=== PATIENT | male | born 1935 | race Caucasian/White ===

== ENCOUNTER → 2017-07-07 | Outpatient (CLI) | payer MEDICARE, BC ==
[2017-07-07 13:47] LABS: Basophils % (A) 1 %; CHCM 32.1; Eosinophils # (A) 0.4 k/uL (0-0.7); Eosinophils % (A) 6 %; HCT 38.3 % (39.0-53.0); HDW 2.56; HGB 12.2 gm/dL (13.0-17.5); Luc # (Auto) 0.11; Luc % (Auto) 2; Lymphocytes # (A) 1.2 k/uL (1.0-4.8); Lymphocytes % (A) 17 %; MCH 29.9 pg (25.0-35.0); MCHC 31.8 g/dL (31.0-37.0); MCV 94.1 fL (80.0-100.0); Mean Platelet Volume 9.5; Monocytes # (A) 0.4 k/uL (0-1.0); Monocytes % (A) 6 %; Neutrophils % (A) 70 %; RBC 4.07 m/uL (4.30-5.90); RDW 15.1 % (11.5-15.5); WBC 7.2 k/uL (3.8-10.6); WBC (Perox) 7.47
[2017-07-07 14:01] LABS: ALT 34 U/L (21-72); AST 19 U/L (17-59); Alkaline Phosphatase 75 U/L (38-126); Anion Gap 10 mmol/L; Blood Urea Nitrogen 26 mg/dL (9-20); Calcium 9.2 mg/dL (8.4-10.2); Carbon Dioxide 26 mmol/L (22-30); Chloride 110 mmol/L (98-107); Cholesterol 119 mg/dL (<200); Glucose 94 mg/dL (74-99); HDL Cholesterol 38 mg/dL (40-60); Non-African American GFR(MDRD) 53 (>60 ml/min/1.73 sqM); Potassium 4.8 mmol/L (3.5-5.1); Sodium 146 mmol/L (137-145); Total Bilirubin 0.5 mg/dL (0.2-1.3); Total Protein 7.2 g/dL (6.3-8.2)
[2017-07-07 14:50] LABS: Vitamin B12 430 pg/mL
--- NOTE | 2017-07-07 17:13 | CT ---
EXAMINATION TYPE: CT angio thoracic/abd aorta DATE OF EXAM: 07/07/2017 COMPARISON: 04/23/2013 HISTORY: Sati677/80ml. Follow up AAA CT DLP: 3190.4 mGycm. Automated Exposure Control for Dose Reduction was Utilized. CONTRAST: CT scan of the thorax, abdomen and pelvis is performed with IV Contrast, patient injected with 80 mL of Visipaque 320. FINDINGS: The ascending thoracic aorta at the level the main pulmonary artery is 4.2 cm. The main pulmonary art marixa the bifurcation is 3.6 cm. Vascular calcification is within the aorta. The aorta tapers normally through the descending thoracic aorta. There is a stent above the renal arteries within the aorta. Renal artery takeoff is identified. Doubl e-lumen catheter is present with stents into the iliac vessels. There is a small amount high density within the thrombosed portion of the aorta. This is present on both pre and postcontrast imaging does not appear to be an endovascular leak. No extravasation of contrast is identified. There is scarring at the right lung apex. No enlarged mediastinal or hilar lymph nodes are evident. C oronary artery calcification is noted. There is diminished density within the liver evaluation of the spleen. Pancreas adrenal glands and sp tarik appear normal. Kidneys appear unremarkable. Loops of bowel without contrast are unremarkable. IMPRESSIONS: 1. No endovascular leak identified. 2. There appears to be some stable increased density within the thrombosed portion of the aorta poste rior to the stent. This is stable on both pre and postcontrast imaging was not identified on 3 is could be some calcification which is forming. Monitoring with a follow-up endovascular study is recommended.
== END | disposition home or self-care (01) ==
LOC: RADCTMAIN 13:04
PROVIDERS: ATTEND Internal Medicine
DX: I71.2 Thoracic aortic aneurysm, without rupture (principal); I10 Essential (primary) hypertension; E78.5 Hyperlipidemia, unspecified
CPT/HCPCS: 84439; 80061; 80053; 82607; 84443; 85025; 75635; 71275; 36415; Q9967

== ENCOUNTER 2017-07-30 19:18 | Inpatient (IN) | payer MEDICARE, BC ==
[2017-07-30] MEDS ORDERED: SODIUM CHLORIDE 0.9% 1,000 ML IV STA (20:24)
--- NOTE | 2017-07-30 20:30 | ED ---
Syncope HPI - General Chief Complaint: Syncope Stated Complaint: Fall Time Seen by Provider: 07/30/17 20:17 Source: patient, family, RN notes reviewed Mode of arrival: wheelchair Limitations: no limitations - History of Present Illness Initial Comments: Is a 82-year-old male with a history of cardiac stents today sent to the abdominal aorta who about 2 AM this morning was going the bathroom and passed out. He woke up on the floor he was weak and could not get a prolonged period time he fine told his daughter about this several hours ago. He is complaining of persistent dizziness no palpitations he does have some bruising to his back and his abdominal area. No focal weakness is generalized weakness. Denies any fevers chills sweats or other symptoms at this time - Related Data Home Medications Medication Instructions Recorded Confirmed Amiodarone [Cordarone] 200 mg PO DAILY 08/30/14 07/30/17 Amitriptyline HCl [Elavil] 50 mg PO HS 08/30/14 07/30/17 Celecoxib [CeleBREX] 200 mg PO DAILY 08/30/14 07/30/17 Levothyroxine Sodium [Synthroid] 50 mcg PO DAILY 08/30/14 07/30/17 Losartan/Hydrochlorothiazide 1 tab PO DAILY 08/30/14 07/30/17 [Losartan-Hctz 100-12.5 mg Tab] Metoprolol Tartrate [Lopressor] 12.5 mg PO BID 08/30/14 07/30/17 Potassium Chloride [Klor-Con 20] 20 meq PO DAILY 08/30/14 07/30/17 Simvastatin [Zocor] 20 mg PO HS 08/30/14 07/30/17 amLODIPine [Norvasc] 2.5 mg PO HS 08/30/14 07/30/17 clonazePAM [KlonoPIN] 1 mg PO HS 08/30/14 07/30/17 oxyCODONE-APAP 7.5-325MG [Percocet 1 tab PO TID PRN 08/30/14 07/30/17 7.5-325 mg] ALPRAZolam [Xanax] 0.25 mg PO BID PRN 07/30/17 07/30/17 Aspirin EC [Ecotrin] 325 mg PO HS 07/30/17 07/30/17 Gabapentin [Neurontin] 100 mg PO HS 07/30/17 07/30/17 Glucosam/Atilio-Msm1/C/Filipe/Bosw 1 tab PO DAILY 07/30/17 07/30/17 [Glucosamine-Chondroitin Tablet] Ibuprofen [Motrin] 600 mg PO Q6HR PRN 07/30/17 07/30/17 Isosorbide Mononitrate ER [Imdur] 60 mg PO DAILY 07/30/17 07/30/17 Loratadine [Claritin] 10 mg PO DAILY 07/30/17 07/30/17 Magnesium Hydroxide [Milk of 2,400 mg PO DAILY PRN 07/30/17 07/30/17 Magnesia] Allergies Allergy/AdvReac Type Severity Reaction Status Date / Time cefazolin sodium [From Ancef] Allergy Anaphylaxis Verified 07/30/17 20:43 hylan G-F 20 [From Codoon] Allergy Anaphylaxis Verified 07/30/17 20:37 Review of Systems ROS Statement: Those systems with pertinent positive or pertinent negative responses have been documented in the HPI. ROS Other: All systems not noted in ROS Statement are negative. Past Medical History Past Medical History: Atrial Fibrillation, Hyperlipidemia, Hypertension, Respiratory Disorder, Thyroid Disorder Additional Past Medical History / Comment(s): PULMONARY FIBROSIS History of Any Multi-Drug Resistant Organisms: None Reported Past Surgical History: Cholecystectomy, Heart Catheterization With Stent Additional Past Surgical History / Comment(s): UPPP. AAA REPAIR. BILAT CATARACT REMOVAL Past Anesthesia/Blood Transfusion Reactions: No Reported Reaction Date of Last Stent Placement:: 1995, Past Psychological History: No Psychological Hx Reported Smoking Status: Former smoker Past Alcohol Use History: None Reported Past Drug Use History: None Reported General Exam - General Exam Comments Initial Comments: This is a well-developed well-nourished awake alert oriented 3 male Limitations: no limitations General appearance: alert, anxious Head exam: Present: normocephalic, normal inspection, other (There is palpation of the occipital scalp. No bruising seen) Eye exam: Present: normal appearance, PERRL, EOMI. Absent: scleral icterus, conjunctival injection, periorbital swelling ENT exam: Present: normal exam, mucous membranes moist Neck exam: Present: normal inspection, tenderness (Mild tenderness palpation over left cervical paraspinous muscles no spinous process tenderness.). Absent : meningismus, lymphadenopathy Respiratory exam: Present: normal lung sounds bilaterally. Absent: respiratory distress, wheezes, rales, rhonchi, stridor Cardiovascular Exam: Present: normal rhythm, bradycardia, normal heart sounds. Absent: systolic murmur, diastolic murmur, rubs, gallop, clicks GI/Abdominal exam: Present: soft, normal bowel sounds, other (Superficial abrasion is a contusion noted over the midline to left upper anterior abdominal wall no active bleeding no formed by seen no pulsatile masses at this time no tenderness palpation over the liver or spleen.). Absent: distended, tenderness , guarding, rebound, rigid Rectal exam: Present: deferred Extremities exam: Present: normal inspection, full ROM, normal capillary refill. Absent: tenderness, pedal edema, joint swelling, calf tenderness Back exam: Present: normal inspection, other (Ecchymosis seen over the paraspinous muscles of the lower thoracic and upper lumbar region no overt spinous process tenderness no step-off no crepitation). Absent: CVA tenderness (R), CVA tenderness (L) Neurological exam: Present: alert, oriented X3, CN II-XII intact Psychiatric exam: Present: normal affect, normal mood Skin exam: Present: warm, dry, intact, normal color. Absent: rash Course Vital Signs 07/30/17 07/30/17 07/30/17 19:58 20:54 21:02 Temperature 98.0 F Pulse Rate 49 L 40 L 46 L Pulse Rate [ Bilateral] Respiratory 20 16 16 Rate Blood Pressure 142/66 129/60 161/71 O2 Sat by Pulse 95 96 95 Oximetry 07/30/17 07/30/17 21:39 22:58 Temperature Pulse Rate 26 L Pulse Rate [ 30 L Bilateral] Respiratory 16 Rate Blood Pressure 147/65 O2 Sat by Pulse 99 Oximetry - Reevaluation(s) Reevaluation #1: 07/30/17 23:32 I did reevaluate the patient on several occasions he remains awake alert oriented 3 he has a variable heart rate this. 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 EKG Findings - EKG Results: EKG: interpreted by DAVID (Sinus rhythm of 43 with marked bradycardia first- degree AV block an apparent drop beats consistent with a type II second-degree heart block the DE interval was 310 QRS 170 QT since QTC of 524/442) Medical Decision Making - Medical Decision Making I did discuss findings with the patient and his daughter on several different occasions I also discussed case with Dr. Buck De La Fuente and Dr. Lopez. Patient will be place an ICU tonight and by mouth for a pacemaker in the morning. He has maintained his blood pressure he is awake alert oriented 3 he maintains his mentation. Pacer pads are on the patient - Lab Data Result diagrams: 07/30/17 20:40 07/30/17 20:40 Lab Results 07/30/17 07/30/17 07/30/17 Range/Units 20:40 20:40 20:40 WBC 6.9 (3.8-10.6) k/uL RBC 3.61 L (4.30-5.90) m/uL Hgb 10.8 L (13.0-17.5) gm/dL Hct 33.0 L (39.0-53.0) % MCV 91.6 (80.0-100.0) fL MCH 30.1 (25.0-35.0) pg MCHC 32.8 (31.0-37.0) g/dL RDW 15.4 (11.5-15.5) % Plt Count 167 (150-450) k/uL Neutrophils % 69 % Lymphocytes % 16 % Monocytes % 7 % Eosinophils % 6 % Basophils % 1 % Neutrophils # 4.7 (1.3-7.7) k/uL Lymphocytes # 1.1 (1.0-4.8) k/uL Monocytes # 0.5 (0-1.0) k/uL Eosinophils # 0.4 (0-0.7) k/uL Basophils # 0.1 (0-0.2) k/uL PT (9.0-12.0) sec INR (<1.2) APTT (22.0-30.0) sec Sodium 143 (137-145) mmol/L Potassium 4.7 (3.5-5.1) mmol/L Chloride 111 H (98-107) mmol/L Carbon Dioxide 23 (22-30) mmol/L Anion Gap 9 mmol/L BUN 36 H (9-20) mg/dL Creatinine 1.45 H (0.66-1.25) mg/dL Est GFR (MDRD) Af Amer 56 (>60 ml/min/1.73 sqM) Est GFR (MDRD) Non-Af 46 (>60 ml/min/1.73 sqM) Glucose 96 (74-99) mg/dL Calcium 8.6 (8.4-10.2) mg/dL Magnesium 2.2 (1.6-2.3) mg/dL Total Bilirubin 0.1 L (0.2-1.3) mg/dL AST 29 (17-59) U/L ALT 55 (21-72) U/L Alkaline Phosphatase 74 (38-126) U/L Total Creatine Kinase 96 (55-170) U/L CK-MB (CK-2) 1.0 (0.0-2.4) ng/mL CK-MB (CK-2) Rel Index 1.0 Troponin I 0.031 (0.000-0.034) ng/mL Total Protein 6.8 (6.3-8.2) g/dL Albumin 3.5 (3.5-5.0) g/dL Urine Color Urine Appearance (Clear) Urine pH (5.0-8.0) Ur Specific [place] (1.001-1.035) Urine Protein (Negative) Urine Glucose (UA) (Negative) Urine Ketones (Negative) Urine Blood (Negative) Urine Nitrite (Negative) Urine Bilirubin (Negative) Urine Urobilinogen (<2.0) mg/dL Ur Leukocyte Esterase (Negative) 07/30/17 07/30/17 Range/Units 20:40 22:00 WBC (3.8-10.6) k/uL RBC (4.30-5.90) m/uL Hgb (13.0-17.5) gm/dL Hct (39.0-53.0) % MCV (80.0-100.0) fL MCH (25.0-35.0) pg MCHC (31.0-37.0) g/dL RDW (11.5-15.5) % Plt Count (150-450) k/uL Neutrophils % % Lymphocytes % % Monocytes % % Eosinophils % % Basophils % % Neutrophils # (1.3-7.7) k/uL Lymphocytes # (1.0-4.8) k/uL Monocytes # (0-1.0) k/uL Eosinophils # (0-0.7) k/uL Basophils # (0-0.2) k/uL PT 10.4 (9.0-12.0) sec INR 1.0 (<1.2) APTT 24.6 (22.0-30.0) sec Sodium (137-145) mmol/L Potassium (3.5-5.1) mmol/L Chloride (98-107) mmol/L Carbon Dioxide (22-30) mmol/L Anion Gap mmol/L BUN (9-20) mg/dL Creatinine (0.66-1.25) mg/dL Est GFR (MDRD) Af Amer (>60 ml/min/1.73 sqM) Est GFR (MDRD) Non-Af (>60 ml/min/1.73 sqM) Glucose (74-99) mg/dL Calcium (8.4-10.2) mg/dL Magnesium (1.6-2.3) mg/dL Total Bilirubin (0.2-1.3) mg/dL AST (17-59) U/L ALT (21-72) U/L Alkaline Phosphatase (38-126) U/L Total Creatine Kinase (55-170) U/L CK-MB (CK-2) (0.0-2.4) ng/mL CK-MB (CK-2) Rel Index Troponin I (0.000-0.034) ng/mL Total Protein (6.3-8.2) g/dL Albumin (3.5-5.0) g/dL Urine Color Yellow Urine Appearance Clear (Clear) Urine pH 5.0 (5.0-8.0) Ur Specific [place] 1.012 (1.001-1.035) Urine Protein Negative (Negative) Urine Glucose (UA) Negative (Negative) Urine Ketones Negative (Negative) Urine Blood Negative (Negative) Urine Nitrite Negative (Negative) Urine Bilirubin Negative (Negative) Urine Urobilinogen <2.0 (<2.0) mg/dL Ur Leukocyte Esterase Negative (Negative) - Radiology Data Radiology results: report reviewed (I did review the imaging and reports no evidence of acute findings on CAT scan or x-rays.), image reviewed Critical Care Time Critical Care Time: Yes Critical Care Time: 37 minutes of critical care time which includes initial monitoring with the history physical labs x-rays. Multiple reevaluation of the patient. Discussion with multiple physicians. Discussed with patient family. Documentation above review of old charting and admission orders. Disposition Clinical Impression: Syncope and collapse, Second degree heart block Disposition: ADMITTED IP TO THIS [facility] Condition: Serious Referrals: Galileo Rangel MD [STAFF PHYSICIAN] - 1-2 days
[2017-07-30 21:00] LABS: Basophils # (A) 0.1 k/uL (0-0.2); Basophils % (A) 1 %; CH 29.8; CHCM 32.8; Eosinophils # (A) 0.4 k/uL (0-0.7); Eosinophils % (A) 6 %; HDW 2.73; HGB 10.8 gm/dL (13.0-17.5); Luc % (Auto) 2; Lymphocytes # (A) 1.1 k/uL (1.0-4.8); Lymphocytes % (A) 16 %; MCH 30.1 pg (25.0-35.0); MCHC 32.8 g/dL (31.0-37.0); MCV 91.6 fL (80.0-100.0); Mean Platelet Volume 8.3; Monocytes # (A) 0.5 k/uL (0-1.0); Monocytes % (A) 7 %; Neutrophils # (A) 4.7 k/uL (1.3-7.7); Neutrophils % (A) 69 %; RBC 3.61 m/uL (4.30-5.90); RDW 15.4 % (11.5-15.5); WBC 6.9 k/uL (3.8-10.6); WBC (Perox) 7.16
[2017-07-30 21:10] LABS: Partial Thromboplastin Time 24.6 sec (22.0-30.0); Prothrombin Time 10.4 sec (9.0-12.0)
[2017-07-30 21:18] LABS: Calcium 8.6 mg/dL (8.4-10.2); Magnesium 2.2 mg/dL (1.6-2.3); Potassium 4.7 mmol/L (3.5-5.1); Total Bilirubin 0.1 mg/dL (0.2-1.3); Total Protein 6.8 g/dL (6.3-8.2)
[2017-07-30 21:32] LABS: Troponin I 0.031 ng/mL (0.000-0.034)
--- NOTE | 2017-07-30 21:42 | CT ---
EXAMINATION TYPE: CT facial bones wo con DATE OF EXAM: 07/30/2017 COMPARISON: NONE HISTORY: Syncopal episode, injury to nose. Headache and neck pain. CT DLP: 618.10 mGycm Automated exposure control for dose reduction was used. TECHNIQUE: CT scan of the sinuses is performed without contrast, axial images are obtained, coronal r eformatted images are also reviewed. FINDINGS: There is no fracture or malalignment. The temporal mandibular joints are congruent. The par anasal sinuses and mastoid sinus air cells and middle ear cavities are clear. The globes and orbits a re intact. No incidental findings. IMPRESSION: NO ACUTE PROCESS, CT FACIAL SKELETON.
--- NOTE | 2017-07-30 21:47 | CT ---
EXAMINATION TYPE: CT brain iker cobb DATE OF EXAM: 07/30/2017 COMPARISON: NONE HISTORY: Syncopal episode, injury to nose. Headache and neck pain. CT DLP: 1752.90 mGycm Automated exposure control for dose reduction was used. TECHNIQUE: CT scan of the head and cervical spine are performed without contrast. FINDINGS: There is no acute intracranial hemorrhage, mass effect, or midline shift identified. The ventricles and sulci are within normal limits in size. The globes are intact and the visualized sin uses are clear. Cervical spine is visualized in its entirety from C1 through upper thoracic levels and demonstrates s atisfactory alignment without evidence of acute fracture or dislocation. Prevertebral soft tissue ap pears within normal limits. There are advanced multilevel cervical spondylosis changes. IMPRESSION: 1. THERE IS NO ACUTE FRACTURE OR DISLOCATION EVIDENT IN THE CERVICAL SPINE. 2. NO ACUTE INTRACRANIAL HEMORRHAGE, MASS EFFECT, OR MIDLINE SHIFT IS SEEN.
[2017-07-30] MEDS ORDERED: SODIUM CHLORIDE 0.9% 500 ML IV STA (22:00)
[2017-07-30] MEDS ORDERED: ATROPINE SULFATE 0.1 MG/ML 10ML SYRINGE IV STA (22:06)
[2017-07-30 22:12] LABS: Appearance,Urine Clear (Clear); Bilirubin,Urine Negative (Negative); Glucose,Urine (UA) Negative (Negative); Ketones,Urine Negative (Negative); Leukocyte Esterase,Urine Negative (Negative); Nitrite,Urine Negative (Negative); Protein,Urine Negative (Negative); Specific Gravity,Urine 1.012 (1.001-1.035); UA Billing (MACRO vs. MICRO) CHEM; Urobilinogen,Urine <2.0 mg/dL (<2.0)
--- NOTE | 2017-07-30 22:17 | XR ---
EXAMINATION TYPE: XR chest 1V portable DATE OF EXAM: 07/30/2017 COMPARISON: 01/30/2016 HISTORY: Syncope TECHNIQUE: Single frontal view of the chest is obtained. FINDINGS: Elevated left hemidiaphragm is redemonstrated, unchanged. The lungs are clear and well expa nded otherwise. Pleural spaces are negative. Moderately enlarged cardiac silhouette is unchanged. Bon es and soft tissues are unremarkable. IMPRESSION: NO ACUTE PROCESS; STABLE CHEST X-RAY APPEARANCE.
--- NOTE | 2017-07-30 22:19 | XR ---
EXAMINATION TYPE: XR abdomen 3V DATE OF EXAM: 07/30/2017 COMPARISON: NONE HISTORY: Pain TECHNIQUE: 3 supine views FINDINGS: Aortic endoluminal stent is noted, in addition to right upper quadrant surgical clips. The bowel gas pattern is unremarkable. The visualized lung bases and pleural spaces are unremarkable. Limitation of the study: Supine radiography cannot exclude pneumoperitoneum or pneumothorax. IMPRESSION: NO ACUTE PROCESS, SUPINE RADIOGRAPHIC EXAMINATION.
--- NOTE | 2017-07-30 23:37 | ED ---
Medical Decision Making - Lab Data Result diagrams: 07/30/17 20:40 07/30/17 20:40 Lab Results 07/30/17 07/30/17 07/30/17 Range/Units 20:40 20:40 20:40 WBC 6.9 (3.8-10.6) k/uL RBC 3.61 L (4.30-5.90) m/uL Hgb 10.8 L (13.0-17.5) gm/dL Hct 33.0 L (39.0-53.0) % MCV 91.6 (80.0-100.0) fL MCH 30.1 (25.0-35.0) pg MCHC 32.8 (31.0-37.0) g/dL RDW 15.4 (11.5-15.5) % Plt Count 167 (150-450) k/uL Neutrophils % 69 % Lymphocytes % 16 % Monocytes % 7 % Eosinophils % 6 % Basophils % 1 % Neutrophils # 4.7 (1.3-7.7) k/uL Lymphocytes # 1.1 (1.0-4.8) k/uL Monocytes # 0.5 (0-1.0) k/uL Eosinophils # 0.4 (0-0.7) k/uL Basophils # 0.1 (0-0.2) k/uL PT (9.0-12.0) sec INR (<1.2) APTT (22.0-30.0) sec Sodium 143 (137-145) mmol/L Potassium 4.7 (3.5-5.1) mmol/L Chloride 111 H (98-107) mmol/L Carbon Dioxide 23 (22-30) mmol/L Anion Gap 9 mmol/L BUN 36 H (9-20) mg/dL Creatinine 1.45 H (0.66-1.25) mg/dL Est GFR (MDRD) Af Amer 56 (>60 ml/min/1.73 sqM) Est GFR (MDRD) Non-Af 46 (>60 ml/min/1.73 sqM) Glucose 96 (74-99) mg/dL Calcium 8.6 (8.4-10.2) mg/dL Magnesium 2.2 (1.6-2.3) mg/dL Total Bilirubin 0.1 L (0.2-1.3) mg/dL AST 29 (17-59) U/L ALT 55 (21-72) U/L Alkaline Phosphatase 74 (38-126) U/L Total Creatine Kinase 96 (55-170) U/L CK-MB (CK-2) 1.0 (0.0-2.4) ng/mL CK-MB (CK-2) Rel Index 1.0 Troponin I 0.031 (0.000-0.034) ng/mL Total Protein 6.8 (6.3-8.2) g/dL Albumin 3.5 (3.5-5.0) g/dL Urine Color Urine Appearance (Clear) Urine pH (5.0-8.0) Ur Specific [place] (1.001-1.035) Urine Protein (Negative) Urine Glucose (UA) (Negative) Urine Ketones (Negative) Urine Blood (Negative) Urine Nitrite (Negative) Urine Bilirubin (Negative) Urine Urobilinogen (<2.0) mg/dL Ur Leukocyte Esterase (Negative) 07/30/17 07/30/17 Range/Units 20:40 22:00 WBC (3.8-10.6) k/uL RBC (4.30-5.90) m/uL Hgb (13.0-17.5) gm/dL Hct (39.0-53.0) % MCV (80.0-100.0) fL MCH (25.0-35.0) pg MCHC (31.0-37.0) g/dL RDW (11.5-15.5) % Plt Count (150-450) k/uL Neutrophils % % Lymphocytes % % Monocytes % % Eosinophils % % Basophils % % Neutrophils # (1.3-7.7) k/uL Lymphocytes # (1.0-4.8) k/uL Monocytes # (0-1.0) k/uL Eosinophils # (0-0.7) k/uL Basophils # (0-0.2) k/uL PT 10.4 (9.0-12.0) sec INR 1.0 (<1.2) APTT 24.6 (22.0-30.0) sec Sodium (137-145) mmol/L Potassium (3.5-5.1) mmol/L Chloride (98-107) mmol/L Carbon Dioxide (22-30) mmol/L Anion Gap mmol/L BUN (9-20) mg/dL Creatinine (0.66-1.25) mg/dL Est GFR (MDRD) Af Amer (>60 ml/min/1.73 sqM) Est GFR (MDRD) Non-Af (>60 ml/min/1.73 sqM) Glucose (74-99) mg/dL Calcium (8.4-10.2) mg/dL Magnesium (1.6-2.3) mg/dL Total Bilirubin (0.2-1.3) mg/dL AST (17-59) U/L ALT (21-72) U/L Alkaline Phosphatase (38-126) U/L Total Creatine Kinase (55-170) U/L CK-MB (CK-2) (0.0-2.4) ng/mL CK-MB (CK-2) Rel Index Troponin I (0.000-0.034) ng/mL Total Protein (6.3-8.2) g/dL Albumin (3.5-5.0) g/dL Urine Color Yellow Urine Appearance Clear (Clear) Urine pH 5.0 (5.0-8.0) Ur Specific [place] 1.012 (1.001-1.035) Urine Protein Negative (Negative) Urine Glucose (UA) Negative (Negative) Urine Ketones Negative (Negative) Urine Blood Negative (Negative) Urine Nitrite Negative (Negative) Urine Bilirubin Negative (Negative) Urine Urobilinogen <2.0 (<2.0) mg/dL Ur Leukocyte Esterase Negative (Negative) Disposition Clinical Impression: Syncope and collapse, Second degree heart block Disposition: ADMITTED IP TO THIS [facility] Condition: Serious Referrals: Galileo Rangel MD [STAFF PHYSICIAN] - 1-2 days Decision Time: 10:45
[2017-07-30] MEDS ORDERED: NALOXONE 0.4 MG/ML 1 ML VIAL IV PRN (23:38)
[2017-07-30] MEDS: SODIUM CHLORIDE 0.9% 1,000 ML IV SCH (23:50)
[2017-07-31 00:31] LABS: Glucose,Whole Blood 99 mg/dL (75-99)
[2017-07-31 01:12] VITALS: BMI 35.3
[2017-07-31] MEDS ORDERED: ATROPINE SULFATE 0.1 MG/ML 10ML SYRINGE ONE (01:20)
[2017-07-31 05:04] LABS: Basophils # (A) 0.1 k/uL (0-0.2); Basophils % (A) 1 %; CH 28.6; CHCM 30.6; Eosinophils # (A) 0.3 k/uL (0-0.7); Eosinophils % (A) 5 %; HCT 32.2 % (39.0-53.0); HDW 2.64; HGB 10.3 gm/dL (13.0-17.5); Hypochromasia Moderate; Luc # (Auto) 0.12; Luc % (Auto) 2; Lymphocytes # (A) 1.3 k/uL (1.0-4.8); Lymphocytes % (A) 22 %; MCH 30.1 pg (25.0-35.0); MCHC 31.9 g/dL (31.0-37.0); MCV 94.1 fL (80.0-100.0); Monocytes # (A) 0.4 k/uL (0-1.0); Monocytes % (A) 7 %; Neutrophils # (A) 3.9 k/uL (1.3-7.7); Neutrophils % (A) 64 %; RBC 3.42 m/uL (4.30-5.90); RDW 14.4 % (11.5-15.5); WBC 6.1 k/uL (3.8-10.6); WBC (Perox) 6.41
[2017-07-31 05:24] LABS: Anion Gap 9 mmol/L; Blood Urea Nitrogen 34 mg/dL (9-20); Calcium 8.3 mg/dL (8.4-10.2); Carbon Dioxide 19 mmol/L (22-30); Chloride 114 mmol/L (98-107); Glucose 95 mg/dL (74-99); Magnesium 2.2 mg/dL (1.6-2.3); Non-African American GFR(MDRD) 53 (>60 ml/min/1.73 sqM); Phosphorous 3.4 mg/dL (2.5-4.5); Potassium 4.2 mmol/L (3.5-5.1); Sodium 142 mmol/L (137-145)
[2017-07-31] MEDS: PANTOPRAZOLE 40 MG/10 ML VIAL IV SCH (08:00)
[2017-07-31] MEDS: SODIUM CHLORIDE 0.9% 1,000 ML IV SCH (08:05)
[2017-07-31] MEDS ORDERED: IV FLUID CONTINUATION 950 ML IV ONE (08:50)
--- NOTE | 2017-07-31 08:50 | P.CRDCN ---
History of Present Illness Consult date: 07/31/17 History of present illness: This is a 81-year-old gentleman with history of atrial fibrillation who has been maintained on amiodarone and metoprolol was admitted to the emergency room now with complaints of syncope 24 hours prior to the admission. Apparently walked to the bathroom and then passed out. He was brought in yesterday to the hospital with complaints of neck and back pain. He was found to have high degree AV block with occasional 2 to one conduction and also first-degree heart block with heart rates varying between 35-50. Patient was asymptomatic. His electrolytes are within normal limits. His medications of metoprolol and amiodarone were held and was patient was admitted to the intensive care unit. Patient developed 2 to one conduction and remained with a slow heart rates. He denies any chest pain or shortness of breath. Patient is advised to have a temporary pacemaker followed by permanent pacemaker because of high degree heart block. I explained the risks and benefits of the procedure to both patient and family, consisting of his 2 daughters. Past Medical History Past Medical History: Atrial Fibrillation, Hyperlipidemia, Hypertension, Respiratory Disorder, Thyroid Disorder Additional Past Medical History / Comment(s): PULMONARY FIBROSIS History of Any Multi-Drug Resistant Organisms: None Reported Past Surgical History: Cholecystectomy, Heart Catheterization With Stent Additional Past Surgical History / Comment(s): UPPP. AAA REPAIR. BILAT CATARACT REMOVAL. carotid endartectomy right Past Anesthesia/Blood Transfusion Reactions: No Reported Reaction Date of Last Stent Placement:: 1995, [id number] Past Psychological History: No Psychological Hx Reported Additional Psychological History / Comment(s): 2012 Smoking Status: Former smoker Past Alcohol Use History: None Reported Past Drug Use History: None Reported Medications and Allergies Home Medications Medication Instructions Recorded Confirmed Type Amiodarone [Cordarone] 200 mg PO DAILY 08/30/14 07/30/17 History Amitriptyline HCl [Elavil] 50 mg PO HS 08/30/14 07/30/17 History Celecoxib [CeleBREX] 200 mg PO DAILY 08/30/14 07/30/17 History Levothyroxine Sodium [Synthroid] 50 mcg PO DAILY 08/30/14 07/30/17 History Losartan/Hydrochlorothiazide 1 tab PO DAILY 08/30/14 07/30/17 History [Losartan-Hctz 100-12.5 mg Tab] Metoprolol Tartrate [Lopressor] 12.5 mg PO BID 08/30/14 07/30/17 History Potassium Chloride [Klor-Con 20] 20 meq PO DAILY 08/30/14 07/30/17 History Simvastatin [Zocor] 20 mg PO HS 08/30/14 07/30/17 History amLODIPine [Norvasc] 2.5 mg PO HS 08/30/14 07/30/17 History clonazePAM [KlonoPIN] 1 mg PO HS 08/30/14 07/30/17 History oxyCODONE-APAP 7.5-325MG [Percocet 1 tab PO TID PRN 08/30/14 07/30/17 History 7.5-325 mg] ALPRAZolam [Xanax] 0.25 mg PO BID PRN 07/30/17 07/30/17 History Aspirin EC [Ecotrin] 325 mg PO HS 07/30/17 07/30/17 History Gabapentin [Neurontin] 100 mg PO HS 07/30/17 07/30/17 History Glucosam/Atilio-Msm1/C/Filipe/Bosw 1 tab PO DAILY 07/30/17 07/30/17 History [Glucosamine-Chondroitin Tablet] Ibuprofen [Motrin] 600 mg PO Q6HR PRN 07/30/17 07/30/17 History Isosorbide Mononitrate ER [Imdur] 60 mg PO DAILY 07/30/17 07/30/17 History Loratadine [Claritin] 10 mg PO DAILY 07/30/17 07/30/17 History Magnesium Hydroxide [Milk of 2,400 mg PO DAILY PRN 07/30/17 07/30/17 History Magnesia] Allergies Allergy/AdvReac Type Severity Reaction Status Date / Time cefazolin sodium [From Ancef] Allergy Anaphylaxis Verified 07/30/17 20:43 hylan G-F 20 [From Synvisc] Allergy Anaphylaxis Verified 07/30/17 20:37 Physical Exam Vitals: Vital Signs Temp Pulse Pulse Resp BP Pulse Ox 07/31/17 07:00 25 L 20 132/48 97 07/31/17 06:00 24 L 25 H 120/60 97 07/31/17 05:00 25 L 25 H 126/54 97 07/31/17 04:00 97.2 F L 25 L 19 122/56 97 07/31/17 03:00 26 L 23 130/60 96 07/31/17 02:00 31 L 21 119/50 97 07/31/17 01:40 27 L 22 134/69 97 07/31/17 01:20 32 L 144/51 97 07/31/17 01:00 96.6 F L 29 L 16 147/54 98 07/31/17 00:40 45 L 07/31/17 00:32 38 L 07/31/17 00:04 96.6 F L 07/31/17 00:01 97.7 F 25 L 16 117/58 99 07/30/17 22:58 30 L 07/30/17 21:39 26 L 16 147/65 99 07/30/17 21:02 46 L 16 161/71 95 07/30/17 20:54 40 L 16 129/60 96 07/30/17 19:58 98.0 F 49 L 20 142/66 95 Intake and Output 07/30/17 07/31/17 07/31/17 22:59 06:59 14:59 Intake Total 750 125 Output Total 625 75 Balance 125 50 Intake: IV 750 125 Sodium Chloride 0.9% 1, 750 125 000 ml @ 125 mls/hr IV . Q8H [facility] Rx#:[id number] Output: Urine 625 75 Other: Weight 108.862 kg 108.6 kg GENERAL EXAM: Patient is alert and oriented and doesn't appear to be in any acute distress but appears to be confused fatigued. Obese looking HEENT: Normocephalic. Normal reaction of pupils, equal size, normal range of extraocular motion. No erythema or exudates in the throat. NECK: No masses, no nuchal rigidity. CHEST: No chest wall deformity. LUNGS: Equal air entry with no crackles or wheeze. Diminished breath sounds bilaterally HEART: S1 and S2 normal with no audible mumurs or gallops. Regular rhythm, femorals equal on both sides.. ABDOMEN: No hepatosplenomegaly, normal bowel sounds, no guarding or rigidity. SKIN: No rashes CENTRAL NERVOUS SYSTEM: No focal deficits. EXTREMITIES: No cyanosis, clubbing or edema. Results 07/31/17 04:25 07/31/17 04:18 Cardiac Enzymes 07/30/17 07/30/17 Range/Units 20:40 20:40 AST 29 (17-59) U/L CK-MB (CK-2) 1.0 (0.0-2.4) ng/mL Troponin I 0.031 (0.000-0.034) ng/mL Coagulation 07/30/17 Range/Units 20:40 PT 10.4 (9.0-12.0) sec APTT 24.6 (22.0-30.0) sec CBC 07/30/17 07/31/17 Range/Units 20:40 04:25 WBC 6.9 6.1 (3.8-10.6) k/uL RBC 3.61 L 3.42 L (4.30-5.90) m/uL Hgb 10.8 L 10.3 L (13.0-17.5) gm/dL Hct 33.0 L 32.2 L (39.0-53.0) % Plt Count 167 135 L (150-450) k/uL Comprehensive Metabolic Panel 07/30/17 07/31/17 Range/Units 20:40 04:18 Sodium 143 142 (137-145) mmol/L Potassium 4.7 4.2 (3.5-5.1) mmol/L Chloride 111 H 114 H (98-107) mmol/L Carbon Dioxide 23 19 L (22-30) mmol/L BUN 36 H 34 H (9-20) mg/dL Creatinine 1.45 H 1.30 H (0.66-1.25) mg/dL Glucose 96 95 (74-99) mg/dL Calcium 8.6 8.3 L (8.4-10.2) mg/dL AST 29 (17-59) U/L ALT 55 (21-72) U/L Alkaline Phosphatase 74 (38-126) U/L Total Protein 6.8 (6.3-8.2) g/dL Albumin 3.5 (3.5-5.0) g/dL Current Medications Generic Name Dose Route Start Last Admin Trade Name Freq PRN Reason Stop Dose Admin Sodium Chloride 1,000 mls @ 20 mls/hr 07/30/17 20:24 07/30/17 23:50 Saline 0.9% IV 07/31/17 20:23 20 mls/hr .Q24H STA Administration Sodium Chloride 1,000 mls @ 125 mls/hr 07/30/17 23:45 07/31/17 08:05 Saline 0.9% IV 125 mls/hr .Q8H [facility] Administration Naloxone HCl 0.2 mg 07/30/17 23:38 Narcan IV Q2M PRN Opioid Reversal Pantoprazole Sodium 40 mg 07/31/17 09:00 07/31/17 08:00 Protonix IV 40 mg DAILY KVNG Administration Intake and Output 07/30/17 07/31/17 07/31/17 22:59 06:59 14:59 Intake Total 750 125 Output Total 625 75 Balance 125 50 Intake: IV 750 125 Sodium Chloride 0.9% 1, 750 125 000 ml @ 125 mls/hr IV . Q8H [facility] Rx#:[id number] Output: Urine 625 75 Other: Weight 108.862 kg 108.6 kg 07/31/17 04:25 07/31/17 04:18 EKG Interpretations (text) Initial EKG showed a sinus rhythm with a long first-degree heart block with occasional 2 to one conduction suggestive of type II block. Second EKGs showed consistent 2 to 1 conduction. Assessment and Plan (1) Atrial fibrillation Status: Acute (2) Second degree heart block Status: Acute (3) Syncope and collapse Status: Acute (4) Obesity Status: Acute Plan: We'll proceed with temporary pacemaker implantation. Subsequent the patient have permanent pacemaker. Further recommendations depend on clinical course.
[2017-07-31] MEDS ORDERED: LIDOCAINE 2% INJ 20 MG/ML SQ ONE (09:06)
[2017-07-31] MEDS ORDERED: fentaNYL (PF) 50 MCG/ML 2 ML AMP IV ONE (09:07)
[2017-07-31] MEDS ORDERED: ACETAMINOPHEN TAB 325 MG TAB PO PRN (09:18)
[2017-07-31] MEDS ORDERED: CLINDAMYCIN 900 MG in DEXTROSE 5% IN WATER 50 ML IVPB ONE ×2 (10:09)
[2017-07-31] MEDS ORDERED: CLINDAMYCIN 600 MG in SODIUM CHLORIDE 0.9% IRRIGATIO 250 ML IRRIGATION ONE (10:09)
[2017-07-31] MEDS ORDERED: ALPRAZolam 0.25 MG TAB PO PRN (10:21)
--- NOTE | 2017-07-31 10:31 | P.CNPUL ---
History of Present Illness Consult date: 07/31/17 Chief complaint: syncope, arrythmia History of present illness: 79-year-old male patient known history of coronary artery disease, hyperlipidemia, coronary artery disease with previous coronary stent insertion, diabetes mellitus, chronic atrial fibrillation, and obstructive sleep apnea, presented to the emergency department last night because of syncope. 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 He woke up on the floor and he was weak. No seizure activity has been noted. No chest pain. No focal neurological deficits. No difficulties with speech. No hemiplegia. No aspiration. The patient came into the emergency department and was found to be in second-degree AV block, Mobitz type II. Noted the patient was on metoprolol 12.5 mg by mouth twice a day and amiodarone 200 mg by mouth daily on outpatient basis. His creatinine time of admission was 1.4 and his potassium level was at 4.7. Troponin was at 0.031. Albumin was at 3.5. Rest of the electrodes are within normal limits. The patient was seen by cardiology and he underwent a TVP placement and currently stays at the rate of 50. He is hemodynamically stable on no pressors. Note that his heart rate earlier was at 43, Mobitz type II. He is doing well for now. He denies having any chest pain. No shortness of breath. Mentation is normal. The chest x-ray shows elevated left hemidiaphragm which is unchanged compared to his previous study. There is moderate cardiomegaly. The CAT scan of the head and neck was also negative currently is off the beta blockers and currently is off the amiodarone. The thyroid function test has not been rechecked yet. Review of Systems Constitutional: Reports fatigue, Reports weakness Eyes: denies blurred vision, denies bulging eye, denies decreased vision Ears: deny: decreased hearing, ear discharge, earache Ears, nose, mouth and throat: Denies headache, Denies sore throat Cardiovascular: Reports irregular heart beat, Reports leg edema, Reports syncope Respiratory: Denies cough Gastrointestinal: Denies abdominal pain, Denies diarrhea, Denies nausea, Denies vomiting Genitourinary: Reports as per HPI Musculoskeletal: absent: ankle pain, ankle stiffness, ankle swelling Integumentary: Denies pruritus, Denies rash Neurological: Reports syncope, Reports weakness Psychiatric: Denies anxiety, Denies depression Endocrine: Denies fatigue, Denies weight change Past Medical History Past Medical History: Atrial Fibrillation, Hyperlipidemia, Hypertension, Respiratory Disorder, Thyroid Disorder Additional Past Medical History / Comment(s): Severe JORDANA with an H of 128 seated with a BiPAP pressure of 17/13 cm of water, obesity, coronary artery disease with previous coronary intervention and stenting, tonic atrial fibrillation, hyperlipidemia, hypertension, hypothyroidism, ascending thoracic aortic aneurysm, ascending thoracic aortic aneurysm measuring 4.2 cm in size. Peripheral vascular disease with a stent within the aorta and stents also placed in the iliacs History of Any Multi-Drug Resistant Organisms: None Reported Past Surgical History: Cholecystectomy, Heart Catheterization With Stent Additional Past Surgical History / Comment(s): UPPP for obstructive sleep apnea , abdominal aortic aneurysm repair, vascular stenting to the lower extremities including the iliacs for peripheral vascular disease, cataracts, right carotid endarterectomy, cholecystectomy Past Anesthesia/Blood Transfusion Reactions: No Reported Reaction Date of Last Stent Placement:: 1995, Past Psychological History: No Psychological Hx Reported Additional Psychological History / Comment(s): 2012 Smoking Status: Former smoker Past Alcohol Use History: None Reported Past Drug Use History: None Reported Medications and Allergies Home Medications Medication Instructions Recorded Confirmed Type Amiodarone [Cordarone] 200 mg PO DAILY 08/30/14 07/30/17 History Amitriptyline HCl [Elavil] 50 mg PO HS 08/30/14 07/30/17 History Celecoxib [CeleBREX] 200 mg PO DAILY 08/30/14 07/30/17 History Levothyroxine Sodium [Synthroid] 50 mcg PO DAILY 08/30/14 07/30/17 History Losartan/Hydrochlorothiazide 1 tab PO DAILY 08/30/14 07/30/17 History [Losartan-Hctz 100-12.5 mg Tab] Metoprolol Tartrate [Lopressor] 12.5 mg PO BID 08/30/14 07/30/17 History Potassium Chloride [Klor-Con 20] 20 meq PO DAILY 08/30/14 07/30/17 History Simvastatin [Zocor] 20 mg PO HS 08/30/14 07/30/17 History amLODIPine [Norvasc] 2.5 mg PO HS 08/30/14 07/30/17 History clonazePAM [KlonoPIN] 1 mg PO HS 08/30/14 07/30/17 History oxyCODONE-APAP 7.5-325MG [Percocet 1 tab PO TID PRN 08/30/14 07/30/17 History 7.5-325 mg] ALPRAZolam [Xanax] 0.25 mg PO BID PRN 07/30/17 07/30/17 History Aspirin EC [Ecotrin] 325 mg PO HS 07/30/17 07/30/17 History Gabapentin [Neurontin] 100 mg PO HS 07/30/17 07/30/17 History Glucosam/Atilio-Msm1/C/Filipe/Bosw 1 tab PO DAILY 07/30/17 07/30/17 History [Glucosamine-Chondroitin Tablet] Ibuprofen [Motrin] 600 mg PO Q6HR PRN 07/30/17 07/30/17 History Isosorbide Mononitrate ER [Imdur] 60 mg PO DAILY 07/30/17 07/30/17 History Loratadine [Claritin] 10 mg PO DAILY 07/30/17 07/30/17 History Magnesium Hydroxide [Milk of 2,400 mg PO DAILY PRN 07/30/17 07/30/17 History Magnesia] Allergies Allergy/AdvReac Type Severity Reaction Status Date / Time cefazolin sodium [From Anc] Allergy Anaphylaxis Verified 07/30/17 20:43 hylan G-F 20 [From Synvisc] Allergy Anaphylaxis Verified 07/30/17 20:37 Physical Exam Vitals: Vital Signs Temp Pulse Pulse Resp BP Pulse Ox 07/31/17 08:00 97.7 F 28 L 14 124/64 96 07/31/17 07:00 25 L 20 132/48 97 07/31/17 06:00 24 L 25 H 120/60 97 07/31/17 05:00 25 L 25 H 126/54 97 07/31/17 04:00 97.2 F L 25 L 19 122/56 97 07/31/17 03:00 26 L 23 130/60 96 07/31/17 02:00 31 L 21 119/50 97 07/31/17 01:40 27 L 22 134/69 97 07/31/17 01:20 32 L 144/51 97 07/31/17 01:00 96.6 F L 29 L 16 147/54 98 07/31/17 00:40 45 L 07/31/17 00:32 38 L 07/31/17 00:04 96.6 F L 07/31/17 00:01 97.7 F 25 L 16 117/58 99 07/30/17 22:58 30 L 07/30/17 21:39 26 L 16 147/65 99 07/30/17 21:02 46 L 16 161/71 95 07/30/17 20:54 40 L 16 129/60 96 07/30/17 19:58 98.0 F 49 L 20 142/66 95 Intake and Output 07/30/17 07/31/17 07/31/17 22:59 06:59 14:59 Intake Total 750 375 Output Total 625 180 Balance 125 195 Intake: IV 750 375 Sodium Chloride 0.9% 1, 750 375 000 ml @ 125 mls/hr IV . Q8H [facility] Rx#:[id number] Output: Urine 625 180 Other: Voiding Method Indwelling Catheter Weight 108.862 kg 108.6 kg 108.6 kg Patient Weight 08/01/17 06:59 Weight 108.6 kg Gen. appearance morbidly obese male patient nonacute distress. Head is atraumatic normocephalic. Neck is short and supple and the patient has significant crowding of the posterior oropharynx is a Mallampati class IV. Lung sounds are diminished otherwise clear. Vessels are equal and symmetrical. Heart sounds are regular, distant, positive S1-S2. The patient is currently paced at the rate of 50 and there is a transvenous pacemaker in the right groin.Abdominal exam revealed normal bowel sounds. The abdomen was soft, non- tender, and without masses, organomegaly, or appreciable enlargement of the abdominal aorta. Extremities show trace edema with diminished pulses bilaterally. There is no cyanosis or clubbing. Neurologically patient is awake and alert and is following commands and answering questions appropriately. Gait cannot be assessed as the patient is currently flat in bed with a PVP in his right groin. Skin is negative for now sedation wounds or cellulitis. Skeletal exam is negative for any joint deformities, scoliosis or arthritis. Results - Laboratory Findings CBC and BMP: 07/31/17 04:25 07/31/17 04:18 PT/INR, D-dimer PT 10.4 sec (9.0-12.0) 07/30/17 20:40 INR 1.0 (<1.2) 07/30/17 20:40 Abnormal lab findings: Abnormal Labs 07/30/17 07/30/17 07/31/17 20:40 20:40 04:18 RBC 3.61 L Hgb 10.8 L Hct 33.0 L Plt Count Chloride 111 H 114 H Carbon Dioxide 19 L BUN 36 H 34 H Creatinine 1.45 H 1.30 H Calcium 8.3 L Total Bilirubin 0.1 L 07/31/17 04:25 RBC 3.42 L Hgb 10.3 L Hct 32.2 L Plt Count 135 L Chloride Carbon Dioxide BUN Creatinine Calcium Total Bilirubin - Diagnostic Findings Chest x-ray: image reviewed Assessment and Plan Plan: Assessment 1 syncope most likely related to bradycardia arrhythmia. The patient was found to be in second-degree AV block, Mobitz type II with a rate in the mid 30s. The patient was admitted to the intensive care unit and currently has a transvenous temporary pacemaker in place. He is currently paced rate of 50. Hemodynamically stable 2 chronic atrial fibrillation per history 3 coronary artery disease with previous coronary stent insertion 4 peripheral vascular disease 5 abdominal aortic aneurysm 6 ascending thoracic aortic aneurysm measuring 4.2 cm in size 7 obesity 8 severe obstructive sleep apnea and the patient was supposed to be on a BiPAP at a pressure of 17/13 cm of water on outpatient basis 9 hypertension 10 hyperlipidemia 11 hypothyroidism 12 osteoarthritis 13 chronic renal failure with a baseline creatinine ranging between 1.1 and 1.3 on this patient. 14 chronic elevation of left hemidiaphragm without clear indication of an interstitial lung disease. Plan Continue hemodynamic monitoring. Intensive care unit. Stop beta blockers. Stop amiodarone. Consider a permanent pacemaker insertion in the underlying cardiac exam does not improve. Cardiology consultation. Echocardiogram. Check thyroid function tests. Monitor electrolytes. Renal function is chronically impaired. We'll continue monitoring this patient here in the intensive care unit for further recommendations are to follow. I asked the family to bring in the patient's BiPAP machine from home. Will follow this patient.
[2017-07-31] MEDS: LEVOTHYROXINE 50 MCG TAB PO SCH (10:49)
--- NOTE | 2017-07-31 11:02 | P.CRDCN ---
History of Present Illness Consult date: 07/31/17 Chief complaint: Recurrent syncope History of present illness: This is a pleasant 79-year-old male patient known history of coronary artery disease, hyperlipidemia, coronary artery disease with previous coronary stent insertion, diabetes mellitus, chronic atrial fibrillation, was brought to emergency department last night because of syncope. 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 He did not have any symptoms of chest pain or discomfort nor shortness of breath. The patient was found to be in third-degree AV block. He was receiving metoprolol as well as amiodarone are on. He underwent a temporary pacemaker and he is going to have a permanent pacemaker later on today. Past Medical History Past Medical History: Atrial Fibrillation, Hyperlipidemia, Hypertension, Respiratory Disorder, Thyroid Disorder Additional Past Medical History / Comment(s): Severe JORDANA with an H of 128 seated with a BiPAP pressure of 17/13 cm of water, obesity, coronary artery disease with previous coronary intervention and stenting, tonic atrial fibrillation, hyperlipidemia, hypertension, hypothyroidism, ascending thoracic aortic aneurysm, ascending thoracic aortic aneurysm measuring 4.2 cm in size. Peripheral vascular disease with a stent within the aorta and stents also placed in the iliacs History of Any Multi-Drug Resistant Organisms: None Reported Past Surgical History: Cholecystectomy, Heart Catheterization With Stent Additional Past Surgical History / Comment(s): UPPP for obstructive sleep apnea , abdominal aortic aneurysm repair, vascular stenting to the lower extremities including the iliacs for peripheral vascular disease, cataracts, right carotid endarterectomy, cholecystectomy Past Anesthesia/Blood Transfusion Reactions: No Reported Reaction Date of Last Stent Placement:: 1995, 2010X2 Past Psychological History: No Psychological Hx Reported Additional Psychological History / Comment(s): 2012 Smoking Status: Former smoker Past Alcohol Use History: None Reported Past Drug Use History: None Reported Medications and Allergies Home Medications Medication Instructions Recorded Confirmed Type Amiodarone [Cordarone] 200 mg PO DAILY 08/30/14 07/30/17 History Amitriptyline HCl [Elavil] 50 mg PO HS 08/30/14 07/30/17 History Celecoxib [CeleBREX] 200 mg PO DAILY 08/30/14 07/30/17 History Levothyroxine Sodium [Synthroid] 50 mcg PO DAILY 08/30/14 07/30/17 History Losartan/Hydrochlorothiazide 1 tab PO DAILY 08/30/14 07/30/17 History [Losartan-Hctz 100-12.5 mg Tab] Metoprolol Tartrate [Lopressor] 12.5 mg PO BID 08/30/14 07/30/17 History Potassium Chloride [Klor-Con 20] 20 meq PO DAILY 08/30/14 07/30/17 History Simvastatin [Zocor] 20 mg PO HS 08/30/14 07/30/17 History amLODIPine [Norvasc] 2.5 mg PO HS 08/30/14 07/30/17 History clonazePAM [KlonoPIN] 1 mg PO HS 08/30/14 07/30/17 History oxyCODONE-APAP 7.5-325MG [Percocet 1 tab PO TID PRN 08/30/14 07/30/17 History 7.5-325 mg] ALPRAZolam [Xanax] 0.25 mg PO BID PRN 07/30/17 07/30/17 History Aspirin EC [Ecotrin] 325 mg PO HS 07/30/17 07/30/17 History Gabapentin [Neurontin] 100 mg PO HS 07/30/17 07/30/17 History Glucosam/Atilio-Msm1/C/Filipe/Bosw 1 tab PO DAILY 07/30/17 07/30/17 History [Glucosamine-Chondroitin Tablet] Ibuprofen [Motrin] 600 mg PO Q6HR PRN 07/30/17 07/30/17 History Isosorbide Mononitrate ER [Imdur] 60 mg PO DAILY 07/30/17 07/30/17 History Loratadine [Claritin] 10 mg PO DAILY 07/30/17 07/30/17 History Magnesium Hydroxide [Milk of 2,400 mg PO DAILY PRN 07/30/17 07/30/17 History Magnesia] Allergies Allergy/AdvReac Type Severity Reaction Status Date / Time cefazolin sodium [From Ancef] Allergy Anaphylaxis Verified 07/30/17 20:43 hylan G-F 20 [From [employer]] Allergy Anaphylaxis Verified 07/30/17 20:37 Physical Exam Vitals: Vital Signs Temp Pulse Pulse Resp BP BP Pulse Ox 07/31/17 10:30 20 149/67 98 07/31/17 10:15 14 131/61 97 09/21/17 10:00 50 L 21 132/58 146/66 98 07/31/17 09:45 97.8 F 16 96 07/31/17 09:35 50 L 39 H 92 L 07/31/17 08:00 97.7 F 28 L 14 124/64 96 07/31/17 07:00 25 L 20 132/48 97 07/31/17 06:00 24 L 25 H 120/60 97 07/31/17 05:00 25 L 25 H 126/54 97 07/31/17 04:00 97.2 F L 25 L 19 122/56 97 07/31/17 03:00 26 L 23 130/60 96 07/31/17 02:00 31 L 21 119/50 97 07/31/17 01:40 27 L 22 134/69 97 07/31/17 01:20 32 L 144/51 97 07/31/17 01:00 96.6 F L 29 L 16 147/54 98 07/31/17 00:40 45 L 07/31/17 00:32 38 L 07/31/17 00:04 96.6 F L 07/31/17 00:01 97.7 F 25 L 16 117/58 99 07/30/17 22:58 30 L 07/30/17 21:39 26 L 16 147/65 99 07/30/17 21:02 46 L 16 161/71 95 07/30/17 20:54 40 L 16 129/60 96 07/30/17 19:58 98.0 F 49 L 20 142/66 95 Intake and Output 07/30/17 07/31/17 07/31/17 22:59 06:59 14:59 Intake Total 750 500 Output Total 625 180 Balance 125 320 Intake: IV 750 500 Sodium Chloride 0.9% 1, 750 500 000 ml @ 125 mls/hr IV . Q8H [facility] Rx#:[id number] Output: Urine 625 180 Other: Voiding Method Indwelling Catheter Weight 108.862 kg 108.6 kg 108.6 kg Patient Weight 08/01/17 06:59 Weight 108.6 kg - Constitutional General appearance: no acute distress Results 07/31/17 04:25 07/31/17 04:18 Cardiac Enzymes 07/30/17 07/30/17 Range/Units 20:40 20:40 AST 29 (17-59) U/L CK-MB (CK-2) 1.0 (0.0-2.4) ng/mL Troponin I 0.031 (0.000-0.034) ng/mL Coagulation 07/30/17 Range/Units 20:40 PT 10.4 (9.0-12.0) sec APTT 24.6 (22.0-30.0) sec CBC 07/30/17 07/31/17 Range/Units 20:40 04:25 WBC 6.9 6.1 (3.8-10.6) k/uL RBC 3.61 L 3.42 L (4.30-5.90) m/uL Hgb 10.8 L 10.3 L (13.0-17.5) gm/dL Hct 33.0 L 32.2 L (39.0-53.0) % Plt Count 167 135 L (150-450) k/uL Comprehensive Metabolic Panel 07/30/17 07/31/17 Range/Units 20:40 04:18 Sodium 143 142 (137-145) mmol/L Potassium 4.7 4.2 (3.5-5.1) mmol/L Chloride 111 H 114 H (98-107) mmol/L Carbon Dioxide 23 19 L (22-30) mmol/L BUN 36 H 34 H (9-20) mg/dL Creatinine 1.45 H 1.30 H (0.66-1.25) mg/dL Glucose 96 95 (74-99) mg/dL Calcium 8.6 8.3 L (8.4-10.2) mg/dL AST 29 (17-59) U/L ALT 55 (21-72) U/L Alkaline Phosphatase 74 (38-126) U/L Total Protein 6.8 (6.3-8.2) g/dL Albumin 3.5 (3.5-5.0) g/dL Current Medications Generic Name Dose Route Start Last Admin Trade Name Freq PRN Reason Stop Dose Admin Acetaminophen 650 mg 07/31/17 09:18 Tylenol Tab PO Q6HR PRN Mild Pain Alprazolam 0.25 mg 07/31/17 10:21 Xanax PO BID PRN ANXIETY/INSOMNIA Aspirin 325 mg 07/31/17 21:00 Aspirin PO HS [facility] Clonazepam 1 mg 07/31/17 21:00 Klonopin PO HS [facility] Gabapentin 100 mg 07/31/17 21:00 Neurontin PO HS [facility] Sodium Chloride 1,000 mls @ 20 mls/hr 07/30/17 20:24 07/30/17 23:50 Saline 0.9% IV 07/31/17 20:23 20 mls/hr .Q24H [facility] Administration Lactated Ringer's 1,000 mls @ 125 mls/hr 07/31/17 11:00 Lactated Ringers IV .Q8H [facility] Levothyroxine Sodium 50 mcg 07/31/17 10:30 07/31/17 10:49 Synthroid PO Not Given DAILY@0630 [facility] Naloxone HCl 0.2 mg 07/30/17 23:38 Narcan IV Q2M PRN Opioid Reversal Pantoprazole Sodium 40 mg 07/31/17 09:00 07/31/17 08:00 Protonix IV 40 mg DAILY [facility] Administration Sodium Chloride 10 ml 07/31/17 21:00 Saline Flush IV Q12HR [facility] Intake and Output 07/30/17 07/31/17 07/31/17 22:59 06:59 14:59 Intake Total 750 500 Output Total 625 180 Balance 125 320 Intake: IV 750 500 Sodium Chloride 0.9% 1, 750 500 000 ml @ 125 mls/hr IV . Q8H [facility] Rx#:[id number] Output: Urine 625 180 Other: Voiding Method Indwelling Catheter Weight 108.862 kg 108.6 kg 108.6 kg Patient Weight 08/01/17 06:59 Weight 108.6 kg 07/31/17 04:25 07/31/17 04:18 Assessment and Plan Plan: This is a pleasant 82-year-old gentleman was known CAD, and paroxysmal A. fib as well as obesity/CVA arrhythmia was admitted to the hospital with recurrent syncope and was diagnosed with complete heart block. The patient is going to the permanent pacemaker implantation today by Dr. Lopez.
[2017-07-31] MEDS ORDERED: IODIXANOL 270 MG/ML 50 ML ML IV ONE (11:03)
[2017-07-31] MEDS ORDERED: IV FLUID CONTINUATION 750 ML IV ONE (11:05)
[2017-07-31] MEDS ORDERED: SODIUM CHLORIDE 0.9% 500 ML IV ONE (11:05)
[2017-07-31] MEDS ORDERED: IV FLUID CONTINUATION 150 ML IV ONE (11:05)
[2017-07-31] MEDS ORDERED: MIDAZOLAM 2 MG/2 ML VIAL ONE (11:40)
[2017-07-31] MEDS ORDERED: fentaNYL (PF) 50 MCG/ML 2 ML AMP ONE (11:41)
[2017-07-31] MEDS ORDERED: MIDAZOLAM 2 MG/2 ML VIAL IVP ONE (11:44)
[2017-07-31] MEDS ORDERED: fentaNYL (PF) 50 MCG/ML 2 ML AMP IVP ONE (11:44)
[2017-07-31] MEDS ORDERED: LIDOCAINE 1% INJ 10MG/ML (20 ML MDV) SQ ONE ×2 (11:53→11:59)
--- NOTE | 2017-07-31 13:00 | P.PCN ---
Date of Procedure: 07/31/17 Preoperative Diagnosis: High degree AV block with a 2 to 1 conduction and severe bradycardia. History of syncope. Patient also has history of paroxysmal atrial fibrillation being treated with amiodarone and also beta donis. Postoperative Diagnosis: The same Procedure(s) Performed: Permanent pacemaker implantation and axillary venography Description of Procedure: HISTORY: This is a 81-year-old gentleman with history of paroxysmal atrial fibrillation, hypertension and also previous stenting of the abdominal aortic aneurysm. Patient was being treated with amiodarone and also beta donis. Patient is admitted to the hospital with an episode of syncope and subsequent EKG showed evidence of high degree AV block with intermittent 2 to 1 conduction. It has become a persistent high degree AV block with 2 to one conduction. Patient had a temporary pacemaker. This morning. He is advised to have permanent pacemaker. CONSENT:I have discussed the risks, benefits and alternative therapies for the above-mentioned procedure and for both sedation/analgesia as well as necessary blood product administration, if indicated, as they pertain to this patient. The patient has indicated understanding and acceptance of the risks and procedures discussed. PROCEDURE: Patient was brought to the lab in a fasting state. Patient was prepped and draped in the usual fashion. Patient was given IV sedation with fentanyl and Versed. The skin below the left clavicle was infiltrated with lidocaine. An incision was made parallel to deltopectoral groove was deepened until the pectoral fascia was exposed. A pocket was created by blunt dissection and cautery. Axillary venography was performed to delineate the course of the axillary vein. 2 sticks were performed into extrathoracic portion of the axillary vein and 2 sheaths were advanced over the guidewires and left in subclavian vein. Conscious Sedation: Versed 0.5 mg Fentanyl 50 g Duration 58 minutes minutes LEADS: ATRIAL: This is manufactured by [employer]. Model number is 7741 and serial number is [id number]. VENTRICULAR: This is manufactured by [employer]. Model number is 7742. Serial number is [id number] THE DEVICE: This is manufactured by [employer]. Model number is L101. Serial number is [id number]. The ventricular lead is maneuvered l with help of a straight and curved stylets into the left ventricle apical region. Satisfactory position was obtained and threshold measurements were made. The atrial lead was then maneuvered into the right atrial appendage. And thresholds were obtained. THRESHOLDS: ATRIUM: The minimum patient threshold was 1 V at pulse width of 0.5 ms. Impedance is 546 ohms P-wave: 2 mV VENTRICLE: The minimum patient threshold was 0.5 V at pulse width of 0.5 ms. The impedance is 998 ohms R-wave: Paced The leads and pulse generator remained in the pocket after it was washed with antibiotics. Pocket was closed in the usual fashion. The fascia was closed with 2-0 Prolene ,the subcutaneous tissue was closed with 3-0 Prolene and the skin was closed with 4-0 Prolene. PROGRAMMING: MODE: DDDR RATE: 60-120 OUTPUT: Atrium Ventricle FINAL IMPRESSION: #1 axillary venography #2. Dual-chamber permanent pacemaker implantation COMPLICATIONS: . None PLAN: . Patient will monitored on the telemetry unit. Prophylactic antibacterial be continued. Chest x-ray in the morning. Possible discharge within next 24-48 hours.
--- NOTE | 2017-07-31 13:02 | P.PCN ---
Date of Procedure: 07/31/17 Preoperative Diagnosis: High degree AV block with 2 to one conduction and severe bradycardia. History of sick syncope Postoperative Diagnosis: The same Procedure(s) Performed: Temporary pacemaker insertion Description of Procedure: This 81-year-old gentleman was admitted to the hospital with high degree AV block with variable AV conduction but progress to 2 to one conduction. Patient is advised to have temperature pacemaker implantation. Patient was brought to the lab in a fasting state. The right groin is prepped and draped in the usual fashion. Patient was given conscious sedation with 25 g of fentanyl and the right femoral vein was entered after the groin is infiltrated with lidocaine, using Seldinger technique. A 6-Wallisian sheath was left in place. A 5-Wallisian balloontipped temporary pacemaker wire was advanced and was placed in the right ventricle apical region. A satisfactory position was obtained. The thresholds were adequate. The pacemaker is set at a rate of 50 and output of 3.
[2017-07-31] MEDS: LACTATED RINGERS 1,000 ML IV SCH ×3 (15:02→23:38)
[2017-07-31] MEDS: CLINDAMYCIN 900 MG in DEXTROSE 5% IN WATER 50 ML IVPB SCH ×4 (15:59→23:34)
[2017-07-31] MEDS: oxyCODONE-APAP 7.5-325MG 1 EACH TAB PO PRN ×2 (16:16→20:16)
[2017-07-31] MEDS: ASPIRIN 325 MG TAB PO SCH (20:04)
[2017-07-31] MEDS: AMITRIPTYLINE HCL 50 MG TAB PO SCH (20:04)
[2017-07-31] MEDS: GABAPENTIN 100 MG CAP PO SCH (20:05)
[2017-07-31] MEDS: ATORVASTATIN 10 MG TAB PO SCH (20:05)
[2017-07-31] MEDS: clonazePAM 1 MG TAB PO SCH (20:07)
--- NOTE | 2017-07-31 22:27 | P.HPIM ---
History of Present Illness H&P Date: 07/31/17 Chief Complaint: Syncope Patient is a 82-year-old male with a known history of coronary artery disease with stent placement, hyperlipidemia, chronic atrial fibrillation, diabetes and obstructive sleep apnea, presented to the emergency department with complaints of dizziness and syncope. 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 He woke up on the floor and he was weak. He was on the floor at least 1 hour as per the family. No seizure activity has been noted. No chest pain or shortness of breath. No focal neurological deficits. No bowel or bladder incontinence.. No recent illnesses. The patient came into the emergency department and was found to be in second-degree AV block, Mobitz type II and bradycardia with heart rate around 40. The patient was seen by cardiology and he underwent a TVP placement followed by permanent pacemaker placement today morning.. He is hemodynamically stable on no pressors. Patient had chest x-ray and CT head/cervical spine and facial CT. Patient is also complaining of right knee pain. Review of Systems CONSTITUTIONAL: No fever, no malaise, generalized weakness. HEENT: No recent visual problems or hearing problems. Denied any sore throat. CARDIOVASCULAR: No chest pain, orthopnea, PND, no palpitations, no syncope. PULMONARY: , No cough or sputum production no hemoptysis. GASTROINTESTINAL: No diarrhea, no nausea, no vomiting, no abdominal pain. Normoactive bowel sounds. NEUROLOGICAL: No headaches, patient does have dizziness. no weakness, no numbness. HEMATOLOGICAL: Denies any bleeding or petechiae. GENITOURINARY: Denies any burning micturition, frequency, or urgency. MUSCULOSKELETAL/RHEUMATOLOGICAL: Denies any joint pain, swelling, or any muscle pain. Right knee pain. ENDOCRINE: Denies any polyuria or polydipsia. The rest of the 14-point review of systems is negative. Past Medical History Past Medical History: Atrial Fibrillation, Hyperlipidemia, Hypertension, Respiratory Disorder, Thyroid Disorder Additional Past Medical History / Comment(s): Severe JORDANA with an H of 128 seated with a BiPAP pressure of 17/13 cm of water, obesity, coronary artery disease with previous coronary intervention and stenting, tonic atrial fibrillation, hyperlipidemia, hypertension, hypothyroidism, ascending thoracic aortic aneurysm, ascending thoracic aortic aneurysm measuring 4.2 cm in size. Peripheral vascular disease with a stent within the aorta and stents also placed in the iliacs History of Any Multi-Drug Resistant Organisms: None Reported Past Surgical History: Cholecystectomy, Heart Catheterization With Stent Additional Past Surgical History / Comment(s): UPPP for obstructive sleep apnea , abdominal aortic aneurysm repair, vascular stenting to the lower extremities including the iliacs for peripheral vascular disease, cataracts, right carotid endarterectomy, cholecystectomy Past Anesthesia/Blood Transfusion Reactions: No Reported Reaction Date of Last Stent Placement:: 1995, Past Psychological History: No Psychological Hx Reported Additional Psychological History / Comment(s): 2012 Smoking Status: Former smoker Past Alcohol Use History: None Reported Past Drug Use History: None Reported Medications and Allergies Home Medications Medication Instructions Recorded Confirmed Type Amiodarone [Cordarone] 200 mg PO DAILY 08/30/14 07/30/17 History Amitriptyline HCl [Elavil] 50 mg PO HS 08/30/14 07/30/17 History Celecoxib [CeleBREX] 200 mg PO DAILY 08/30/14 07/30/17 History Levothyroxine Sodium [Synthroid] 50 mcg PO DAILY 08/30/14 07/30/17 History Losartan/Hydrochlorothiazide 1 tab PO DAILY 08/30/14 07/30/17 History [Losartan-Hctz 100-12.5 mg Tab] Metoprolol Tartrate [Lopressor] 12.5 mg PO BID 08/30/14 07/30/17 History Potassium Chloride [Klor-Con 20] 20 meq PO DAILY 08/30/14 07/30/17 History Simvastatin [Zocor] 20 mg PO HS 08/30/14 07/30/17 History amLODIPine [Norvasc] 2.5 mg PO HS 08/30/14 07/30/17 History clonazePAM [KlonoPIN] 1 mg PO HS 08/30/14 07/30/17 History oxyCODONE-APAP 7.5-325MG [Percocet 1 tab PO TID PRN 08/30/14 07/30/17 History 7.5-325 mg] ALPRAZolam [Xanax] 0.25 mg PO BID PRN 07/30/17 07/30/17 History Aspirin EC [Ecotrin] 325 mg PO HS 07/30/17 07/30/17 History Gabapentin [Neurontin] 100 mg PO HS 07/30/17 07/30/17 History Glucosam/Atilio-Msm1/C/Filipe/Bosw 1 tab PO DAILY 07/30/17 07/30/17 History [Glucosamine-Chondroitin Tablet] Ibuprofen [Motrin] 600 mg PO Q6HR PRN 07/30/17 07/30/17 History Isosorbide Mononitrate ER [Imdur] 60 mg PO DAILY 07/30/17 07/30/17 History Loratadine [Claritin] 10 mg PO DAILY 07/30/17 07/30/17 History Magnesium Hydroxide [Milk of 2,400 mg PO DAILY PRN 07/30/17 07/30/17 History Magnesia] Allergies Allergy/AdvReac Type Severity Reaction Status Date / Time cefazolin sodium [From Anc] Allergy Anaphylaxis Verified 07/30/17 20:43 hylan G-F 20 [From [employer]] Allergy Anaphylaxis Verified 07/30/17 20:37 Physical Exam Vitals: Vital Signs Temp Pulse Pulse Resp BP BP Pulse Ox 07/31/17 14:31 98.4 F 18 145/61 95 07/31/17 14:01 60 H 149/70 07/31/17 13:30 98.0 F 60 H 150/67 98 07/31/17 13:16 98.0 F 20 150/67 98 07/31/17 13:01 98.0 F 20 158/71 98 07/31/17 10:30 20 149/67 98 07/31/17 10:15 14 131/61 97 07/31/17 10:00 50 L 21 132/58 146/66 98 07/31/17 09:45 97.8 F 16 96 07/31/17 09:35 50 L 39 H 92 L 07/31/17 08:00 97.7 F 28 L 14 124/64 96 07/31/17 07:00 25 L 20 132/48 97 07/31/17 06:00 24 L 25 H 120/60 97 07/31/17 05:00 25 L 25 H 126/54 97 07/31/17 04:00 97.2 F L 25 L 19 122/56 97 07/31/17 03:00 26 L 23 130/60 96 07/31/17 02:00 31 L 21 119/50 97 07/31/17 01:40 27 L 22 134/69 97 07/31/17 01:20 32 L 144/51 97 07/31/17 01:00 96.6 F L 29 L 16 147/54 98 07/31/17 00:40 45 L 07/31/17 00:32 38 L 07/31/17 00:04 96.6 F L 07/31/17 00:01 97.7 F 25 L 16 117/58 99 07/30/17 22:58 30 L 07/30/17 21:39 26 L 16 147/65 99 07/30/17 21:02 46 L 16 161/71 95 07/30/17 20:54 40 L 16 129/60 96 07/30/17 19:58 98.0 F 49 L 20 142/66 95 Intake and Output 07/31/17 07/31/17 07/31/17 06:59 14:59 22:59 Intake Total 750 881 Output Total 625 430 Balance 125 451 Intake: IV 750 881 Sodium Chloride 0.9% 1, 750 600 000 ml @ 125 mls/hr IV . Q8H [facility] Rx#:[id number] Output: Urine 625 430 Other: Voiding Method Indwelling Catheter Weight 108.6 kg 108.6 kg Patient Weight 08/01/17 06:59 Weight 108.6 kg PHYSICAL EXAMINATION: Patient is lying in the bed comfortably, mild distress , awake alert and oriented.. HEENT: Normocephalic. Neck is supple. Pupils reactive. Nostrils clear. Oral cavity is moist. Ears reveal no drainage. Neck reveals no JVD, carotid bruits, or thyromegaly. CHEST EXAMINATION: Trachea is central. Symmetrical expansion. Bilateral air entry decreased and minimal rhonchi. CARDIAC: Normal S1, S2 with no gallops. No murmurs . Irregular rhythm ABDOMEN: Soft. Bowel sounds normal. No organomegaly. No abdominal bruits. Extremities reveal no edema. No clubbing or cyanosis Neurologically awake, alert, oriented x3 with well-coordinated movements. Skin: no rash or skin lesions Musculoskeletal: no joint swelling or deformity. Results CBC & Chem 7: 07/31/17 04:25 07/31/17 04:18 Labs: Abnormal Lab Results - Last 24 Hours (Table) 07/30/17 07/30/17 07/31/17 Range/Units 20:40 20:40 04:18 RBC 3.61 L (4.30-5.90) m/uL Hgb 10.8 L (13.0-17.5) gm/dL Hct 33.0 L (39.0-53.0) % Plt Count (150-450) k/uL Chloride 111 H 114 H (98-107) mmol/L Carbon Dioxide 19 L (22-30) mmol/L BUN 36 H 34 H (9-20) mg/dL Creatinine 1.45 H 1.30 H (0.66-1.25) mg/dL Calcium 8.3 L (8.4-10.2) mg/dL Total Bilirubin 0.1 L (0.2-1.3) mg/dL 07/31/17 Range/Units 04:25 RBC 3.42 L (4.30-5.90) m/uL Hgb 10.3 L (13.0-17.5) gm/dL Hct 32.2 L (39.0-53.0) % Plt Count 135 L (150-450) k/uL Chloride (98-107) mmol/L Carbon Dioxide (22-30) mmol/L BUN (9-20) mg/dL Creatinine (0.66-1.25) mg/dL Calcium (8.4-10.2) mg/dL Total Bilirubin (0.2-1.3) mg/dL Thrombosis Risk Factor Assmnt - Choose All That Apply Any of the Below Risk Factors Present?: Yes Each Factor Represents 1 point: Medical pt on bed rest, Obesity (BMI >25) Other Risk Factors: Yes Each Risk Factor Represents 2 Points: Age 61-74 years, Major surgery Other congenital or acquired thrombophilia - If yes, enter type in comment: No Thrombosis Risk Factor Assessment Total Risk Factor Score: 6 Thrombosis Risk Factor Assessment Level: High Risk Assessment and Plan Plan: #1 syncope secondary to bradycardia arrhythmia. Patient was found to have second degree AV block Mobitz type II. Status post permanent pacemaker placement. #2 history of chronic atrial fibrillation. On metoprolol and amiodarone at home which are on hold. Not on anticoagulation. #3 history of coronary artery disease status post stent placement #4 diabetes type 2 #5 hypertension #6 hypothyroidism #7abdominal aortic aneurysm #8 ascending thoracic aortic aneurysm measuring 4.2 cm in size #9 morbid obesity with a BMI of 35.4 #10 obstructive sleep apnea on CPAP at home #11 are sure that it is of multiple joints #12 hyperlipidemia Plan: Patient was placed on permanent pacemaker today. Follow-up TTE. Continue with telemetry monitoring and follow-up TSH level. Continue with CPAP machine daily at bedtime when necessary. Cardiology and pulmonary is following this patient. Further recommendations based on the clinical course. Discussed with his family at bedside in detail.. Time with Patient: Greater than 30
[2017-08-01] MEDS: LEVOTHYROXINE 50 MCG TAB PO SCH (03:43)
[2017-08-01] MEDS: oxyCODONE-APAP 7.5-325MG 1 EACH TAB PO PRN ×3 (03:44→19:57)
[2017-08-01 06:57] LABS: Basophils # (A) 0.1 k/uL (0-0.2); Basophils % (A) 1 %; CH 28.8; CHCM 29.9; Eosinophils # (A) 0.3 k/uL (0-0.7); Eosinophils % (A) 5 %; HCT 36.7 % (39.0-53.0); HDW 2.53; Hypochromasia Marked; Luc # (Auto) 0.12; Luc % (Auto) 2; Lymphocytes % (A) 16 %; MCH 29.1 pg (25.0-35.0); MCV 97.1 fL (80.0-100.0); Mean Platelet Volume 7.6; Monocytes # (A) 0.5 k/uL (0-1.0); Monocytes % (A) 8 %; Neutrophils # (A) 4.3 k/uL (1.3-7.7); Neutrophils % (A) 69 %; RBC 3.78 m/uL (4.30-5.90); RDW 14.4 % (11.5-15.5); WBC 6.3 k/uL (3.8-10.6); WBC (Perox) 6.83
[2017-08-01 07:09] LABS: Anion Gap 9 mmol/L; Blood Urea Nitrogen 24 mg/dL (9-20); Calcium 8.3 mg/dL (8.4-10.2); Carbon Dioxide 21 mmol/L (22-30); Chloride 111 mmol/L (98-107); Glucose 96 mg/dL (74-99); Non-African American GFR(MDRD) >60 (>60 ml/min/1.73 sqM); Phosphorous 3.8 mg/dL (2.5-4.5); Potassium 4.1 mmol/L (3.5-5.1); Sodium 141 mmol/L (137-145)
--- NOTE | 2017-08-01 07:33 | XR ---
EXAMINATION TYPE: XR knee complete RT DATE OF EXAM: 08/01/2017 COMPARISON: NONE HISTORY: Pain TECHNIQUE: Three-view right knee FINDINGS: There is narrowing of the lateral compartment joint space. Narrowing of the medial compartm ent joint space is present. Medial lateral tibial plateau spurring is present. Medial femoral condyla r spur is present. Posterior patellar spurring is present. Small joint effusion may be present. No acute fractures are evident. Vascular calcification is present. IMPRESSION: 1. 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
--- NOTE | 2017-08-01 08:10 | XR ---
EXAMINATION TYPE: XR chest 2V DATE OF EXAM: 08/01/2017 COMPARISON: NONE INDICATION: Lead placement check TECHNIQUE: Frontal and lateral views of the chest are obtained. FINDINGS: The heart size is enlarged. The pulmonary vasculature is normal. Left diaphragm is not as well-visualized is previous. Some mild atelectasis may be present. No pneumo thorax is evident.. Pacemaker has been placed on the left. 2 leads follow a typical course. EKG lead s overlie the chest. IMPRESSION: 1. No pneumothorax post left pacemaker placement. 2. Some mild atelectasis may be at the left base.
[2017-08-01] MEDS: PANTOPRAZOLE 40 MG/10 ML VIAL IV SCH (08:57)
[2017-08-01] MEDS: CLINDAMYCIN 900 MG in DEXTROSE 5% IN WATER 50 ML IVPB SCH ×6 (08:58→23:56)
[2017-08-01] MEDS: ISOSORBIDE MONONITRATE ER 60 MG TAB.ER.24H PO SCH (08:58)
--- NOTE | 2017-08-01 09:06 | P.PN ---
Subjective Principal diagnosis: Advanced AV block This is a pleasant 79-year-old male patient known history of coronary artery disease, hyperlipidemia, coronary artery disease with previous coronary stent insertion, diabetes mellitus, chronic atrial fibrillation, was brought to emergency department last night because of syncope. 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 He did not have any symptoms of chest pain or discomfort nor shortness of breath. The patient was found to be in third-degree AV block. He was receiving metoprolol as well as amiodarone are on. The patient underwent a permanent pacemaker implantation by Dr. Lopez yesterday. On follow-up with him today on August [id number], he is doing good and he is asymptomatic. The chest x-ray did not show any evidence of pneumothorax. Waiting for the pacemaker to be interrogated by the rep. Objective - Vital Signs Vital signs: Vital Signs Temp 96.9 F L 08/01/17 04:00 Pulse 50 L 07/31/17 10:00 Resp 16 08/01/17 04:00 BP 121/58 08/01/17 04:00 Pulse Ox 94 L 08/01/17 07:34 Intake & Output 07/31/17 08/01/17 08/01/17 18:59 06:59 18:59 Intake Total 1121 370 Output Total 1630 Balance -509 370 Weight 108.6 kg 98 kg Intake: IV 881 370 Clindamycin 900 mg In 50 Dextrose 5% in Water 50 ml @ 100 mls/hr IVPB ONCE ONE Rx#:[id number] Sodium Chloride 0.9% 1, 600 320 000 ml @ 125 mls/hr IV . Q8H [facility] Rx#:[id number] Oral 240 Output: Urine 1630 Other: Voiding Method Indwelling Catheter Urinal - Constitutional General appearance: Present: no acute distress - Respiratory Respiratory: bilateral: CTA - Cardiovascular Rhythm: regular Heart sounds: normal: S1, S2 - Labs CBC & Chem 7: 08/01/17 05:42 08/01/17 05:42 Labs: Abnormal Lab Results - Last 24 Hours (Table) 08/01/17 08/01/17 Range/Units 05:42 05:42 RBC 3.78 L (4.30-5.90) m/uL Hgb 11.0 L (13.0-17.5) gm/dL Hct 36.7 L (39.0-53.0) % MCHC 30.0 L (31.0-37.0) g/dL Plt Count 144 L (150-450) k/uL Chloride 111 H (98-107) mmol/L Carbon Dioxide 21 L (22-30) mmol/L BUN 24 H (9-20) mg/dL Calcium 8.3 L (8.4-10.2) mg/dL TSH 13.300 H (0.465-4.680) mIU/L Assessment and Plan Plan: This is a pleasant 82-year-old gentleman was known CAD, and paroxysmal A. fib as well as obesity/CVA arrhythmia was admitted to the hospital with recurrent syncope and was diagnosed with complete heart block. The patient is a status post permanent pacemaker implantation. The patient will be discharged into an extended-care facility once the device is interrogated.
[2017-08-01 12:04] LABS: Glucose,Whole Blood 88 mg/dL (75-99)
--- NOTE | 2017-08-01 14:44 | P.PN ---
Subjective 79-year-old male patient known history of coronary artery disease, hyperlipidemia, coronary artery disease with previous coronary stent insertion, diabetes mellitus, chronic atrial fibrillation, and obstructive sleep apnea, presented to the emergency department last night because of syncope. 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 He woke up on the floor and he was weak. No seizure activity has been noted. No chest pain. No focal neurological deficits. No difficulties with speech. No hemiplegia. No aspiration. The patient came into the emergency department and was found to be in second-degree AV block, Mobitz type II. Noted the patient was on metoprolol 12.5 mg by mouth twice a day and amiodarone 200 mg by mouth daily on outpatient basis. His creatinine time of admission was 1.4 and his potassium level was at 4.7. Troponin was at 0.031. Albumin was at 3.5. Rest of the electrodes are within normal limits. The patient was seen by cardiology and he underwent a TVP placement and currently stays at the rate of 50. He is hemodynamically stable on no pressors. Note that his heart rate earlier was at 43, Mobitz type II. He is doing well for now. He denies having any chest pain. No shortness of breath. Mentation is normal. The chest x-ray shows elevated left hemidiaphragm which is unchanged compared to his previous study. There is moderate cardiomegaly. The CAT scan of the head and neck was also negative currently is off the beta blockers and currently is off the amiodarone. The thyroid function test has not been rechecked yet. On 07/30/2017 the patient is being seen in follow-up. The patient is doing well. He is complaining of some pain which is of a skeletal in nature over the left sided pacemaker pocket. No fever. No chills. No hemodynamic instability. No loss of consciousness. A permanent pacemaker implantation was done yesterday. The patient had the procedure without any complication. Chest x-ray showed no evidence of any pneumothorax. The pacer needs to be interrogated still. Note that the patient is still off the metoprolol and amiodarone for now. I'll second 90% on room air. BP is 128/58. He has his BiPAP machine at the bedside. I checked her machine in the BiPAP setting is at 14/9 cm of water. He is using a older generation nasal pillows. Objective - Vital Signs Vital signs: Vital Signs Temp 96.8 F L 08/01/17 11:30 Pulse 50 L 07/31/17 10:00 Resp 18 08/01/17 11:30 BP 128/58 08/01/17 11:30 Pulse Ox 90 L 08/01/17 11:30 Intake & Output 07/31/17 08/01/17 08/01/17 18:59 06:59 18:59 Intake Total 1121 370 524 Output Total 1630 Balance -509 370 524 Weight 108.6 kg 98 kg Intake: IV 881 370 Clindamycin 900 mg In 50 Dextrose 5% in Water 50 ml @ 100 mls/hr IVPB ONCE ONE Rx#:[id number] Sodium Chloride 0.9% 1, 600 320 000 ml @ 125 mls/hr IV . Q8H [facility] Rx#:[id number] Intake, IV Titration 50 Amount Clindamycin 900 mg In 50 Dextrose 5% in Water 50 ml @ 100 mls/hr IVPB Q8HR [facility] Rx#:[id number] Oral 240 474 Output: Urine 1630 Other: Voiding Method Indwelling Catheter Urinal Urinal - Exam Gen. appearance morbidly obese male patient nonacute distress. Head is atraumatic normocephalic. Neck is short and supple and the patient has significant crowding of the posterior oropharynx is a Mallampati class IV. Lung sounds are diminished otherwise clear. Vessels are equal and symmetrical. Heart sounds are regular, distant, positive S1-S2. The patient is currently paced at the rate of 50 and there is a transvenous pacemaker in the right groin.Abdominal exam revealed normal bowel sounds. The abdomen was soft, non- tender, and without masses, organomegaly, or appreciable enlargement of the abdominal aorta. Extremities show trace edema with diminished pulses bilaterally. There is no cyanosis or clubbing. Neurologically patient is awake and alert and is following commands and answering questions appropriately. Gait cannot be assessed as the patient is currently flat in bed with a PVP in his right groin. Skin is negative for now sedation wounds or cellulitis. Skeletal exam is negative for any joint deformities, scoliosis or arthritis. Skin examination shows a pacemaker pocket over the left anterior chest area. The surgical wound site is dry clean and intact at this point. - Labs CBC & Chem 7: 08/01/17 05:42 08/01/17 05:42 Labs: Abnormal Lab Results - Last 24 Hours (Table) 08/01/17 08/01/17 Range/Units 05:42 05:42 RBC 3.78 L (4.30-5.90) m/uL Hgb 11.0 L (13.0-17.5) gm/dL Hct 36.7 L (39.0-53.0) % MCHC 30.0 L (31.0-37.0) g/dL Plt Count 144 L (150-450) k/uL Chloride 111 H (98-107) mmol/L Carbon Dioxide 21 L (22-30) mmol/L BUN 24 H (9-20) mg/dL Calcium 8.3 L (8.4-10.2) mg/dL TSH 13.300 H (0.465-4.680) mIU/L Assessment and Plan Plan: Assessment 1 syncope most likely related to bradycardia arrhythmia. Patient had a second- degree/third degree AV block and the patient has a permanent pacemaker in place. The procedure was done without any major complications. Hemodynamically stable. Currently off the beta blockers and amiodarone. 2 chronic atrial fibrillation per history 3 coronary artery disease with previous coronary stent insertion 4 peripheral vascular disease 5 abdominal aortic aneurysm 6 ascending thoracic aortic aneurysm measuring 4.2 cm in size 7 obesity 8 severe obstructive sleep apnea and the patient was supposed to be on a BiPAP at a pressure of 17/13 cm of water on outpatient basis 9 hypertension 10 hyperlipidemia 11 hypothyroidism 12 osteoarthritis 13 chronic renal failure with a baseline creatinine ranging between 1.1 and 1.3 on this patient. 14 chronic elevation of left hemidiaphragm without clear indication of an interstitial lung disease. Plan Continue hemodynamic monitoring. The patient's pacemaker needs to be interrogated. Continue therapy with BiPAP regarding his obstructive sleep apnea and the BiPAP machine was checked and the pressures of 14/9 cm of water. Cardiology is on the case. We will continue to follow and possible discharge in a.m. if his condition remains stable.
[2017-08-01] MEDS: ATORVASTATIN 10 MG TAB PO SCH (21:48)
[2017-08-01] MEDS: clonazePAM 1 MG TAB PO SCH (21:48)
[2017-08-01] MEDS: ASPIRIN 325 MG TAB PO SCH (21:48)
[2017-08-01] MEDS: GABAPENTIN 100 MG CAP PO SCH (21:48)
[2017-08-01] MEDS: AMITRIPTYLINE HCL 50 MG TAB PO SCH (21:48)
[2017-08-01] MEDS ORDERED: MAGNESIUM HYDROXIDE 2,400 MG/10 ML CUP PO PRN (23:31)
[2017-08-02 06:19] LABS: Basophils # (A) 0.1 k/uL (0-0.2); Basophils % (A) 1 %; Eosinophils # (A) 0.4 k/uL (0-0.7); Eosinophils % (A) 6 %; HCT 33.7 % (39.0-53.0); HDW 2.62; HGB 10.6 gm/dL (13.0-17.5); Hypochromasia Slight; Luc # (Auto) 0.11; Luc % (Auto) 2; Lymphocytes # (A) 0.9 k/uL (1.0-4.8); Lymphocytes % (A) 15 %; MCH 29.5 pg (25.0-35.0); MCHC 31.3 g/dL (31.0-37.0); MCV 94.1 fL (80.0-100.0); Mean Platelet Volume 7.6; Monocytes # (A) 0.5 k/uL (0-1.0); Monocytes % (A) 7 %; Neutrophils # (A) 4.5 k/uL (1.3-7.7); Neutrophils % (A) 70 %; RBC 3.58 m/uL (4.30-5.90); RDW 14.4 % (11.5-15.5); WBC 6.4 k/uL (3.8-10.6); WBC (Perox) 6.78
[2017-08-02 06:27] LABS: Anion Gap 8 mmol/L; Blood Urea Nitrogen 22 mg/dL (9-20); Calcium 8.4 mg/dL (8.4-10.2); Carbon Dioxide 26 mmol/L (22-30); Chloride 108 mmol/L (98-107); Glucose 91 mg/dL (74-99); Non-African American GFR(MDRD) >60 (>60 ml/min/1.73 sqM); Phosphorous 3.6 mg/dL (2.5-4.5); Potassium 3.9 mmol/L (3.5-5.1); Sodium 142 mmol/L (137-145)
[2017-08-02] MEDS: LACTATED RINGERS 1,000 ML IV SCH ×3 (06:29→11:36)
[2017-08-02] MEDS: LEVOTHYROXINE 50 MCG TAB PO SCH (06:40)
[2017-08-02] MEDS: oxyCODONE-APAP 7.5-325MG 1 EACH TAB PO PRN (06:45)
[2017-08-02] MEDS ORDERED: PANTOPRAZOLE 40 MG TABLET PO SCH (07:30)
--- NOTE | 2017-08-02 08:04 | XR ---
EXAMINATION TYPE: XR chest 1V DATE OF EXAM: 08/02/2017 HISTORY: SOB. REFERENCE: Previous study dated 08/01/2017. FINDINGS: A bipolar pacemaker has been placed on the left. The heart is enlarged. There is left basilar airspace disease. I suspect a small effusion. There is v ascular congestion without marco edema. IMPRESSION: 1. CARDIOMEGALY. 2. VASCULAR CONGESTION. 3. LEFT BASILAR AIRSPACE DISEASE #4 SMALL, LEFT EFFUSION.
[2017-08-02 08:29] VITALS: PULSE 60; RESP 17; TEMP 98
[2017-08-02] MEDS: ISOSORBIDE MONONITRATE ER 60 MG TAB.ER.24H PO SCH (08:29)
[2017-08-02] MEDS: CLINDAMYCIN 900 MG in DEXTROSE 5% IN WATER 50 ML IVPB SCH ×2 (08:29)
--- NOTE | 2017-08-02 10:20 | P.PN ---
Progress Note - Text This is a pleasant 79-year-old male patient known history of coronary artery disease, hyperlipidemia, coronary artery disease with previous coronary stent insertion, diabetes mellitus, chronic atrial fibrillation, was brought to emergency department last night because of syncope. 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 He did not have any symptoms of chest pain or discomfort nor shortness of breath. The patient was found to be in third-degree AV block. He was receiving metoprolol as well as amiodarone are on. The patient underwent a permanent pacemaker implantation by Dr. Lopez yesterday. On follow-up with him today on August 012016, he is doing good and he is asymptomatic. The chest x-ray did not show any evidence of pneumothorax. The pacemaker was interrogated and came in to be functioning normally.
[2017-08-02 11:41] VITALS: BP 131/65
--- NOTE | 2017-08-02 12:11 | P.PN ---
Subjective 79-year-old male patient known history of coronary artery disease, hyperlipidemia, coronary artery disease with previous coronary stent insertion, diabetes mellitus, chronic atrial fibrillation, and obstructive sleep apnea, presented to the emergency department last night because of syncope. 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 He woke up on the floor and he was weak. No seizure activity has been noted. No chest pain. No focal neurological deficits. No difficulties with speech. No hemiplegia. No aspiration. The patient came into the emergency department and was found to be in second-degree AV block, Mobitz type II. Noted the patient was on metoprolol 12.5 mg by mouth twice a day and amiodarone 200 mg by mouth daily on outpatient basis. His creatinine time of admission was 1.4 and his potassium level was at 4.7. Troponin was at 0.031. Albumin was at 3.5. Rest of the electrodes are within normal limits. The patient was seen by cardiology and he underwent a TVP placement and currently stays at the rate of 50. He is hemodynamically stable on no pressors. Note that his heart rate earlier was at 43, Mobitz type II. He is doing well for now. He denies having any chest pain. No shortness of breath. Mentation is normal. The chest x-ray shows elevated left hemidiaphragm which is unchanged compared to his previous study. There is moderate cardiomegaly. The CAT scan of the head and neck was also negative currently is off the beta blockers and currently is off the amiodarone. The thyroid function test has not been rechecked yet. On 08/01/2017 the patient is being seen in follow-up. The patient is doing well. He is complaining of some pain which is of a skeletal in nature over the left sided pacemaker pocket. No fever. No chills. No hemodynamic instability. No loss of consciousness. A permanent pacemaker implantation was done yesterday. The patient had the procedure without any complication. Chest x-ray showed no evidence of any pneumothorax. The pacer needs to be interrogated still. Note that the patient is still off the metoprolol and amiodarone for now. I'll second 90% on room air. BP is 128/58. He has his BiPAP machine at the bedside. I checked her machine in the BiPAP setting is at 14/9 cm of water. He is using a older generation nasal pillows. On 08/02/2017 the patient is doing well. His resting comfortably in bed. As mentioned earlier the patient was receiving a combination of amiodarone and metoprolol and he went into third-degree AV block. He has a pacemaker in place. He is asymptomatic. No evidence of any pneumothorax but no respiratory distress. No further episodes of syncope. The plan is potentially discharge this patient home today if cleared by cardiology. Objective - Vital Signs Vital signs: Vital Signs Temp 98 F 08/02/17 08:00 Pulse 60 08/02/17 11:40 Resp 17 08/02/17 11:40 BP 131/65 08/02/17 11:40 Pulse Ox 93 L 08/02/17 11:40 Intake & Output 08/01/17 08/02/17 08/02/17 18:59 06:59 18:59 Intake Total 524 287 290 Output Total 200 500 250 Balance 324 -213 40 Intake: Intake, IV Titration 50 50 50 Amount Clindamycin 900 mg In 50 50 50 Dextrose 5% in Water 50 ml @ 100 mls/hr IVPB Q8HR [facility] Rx#:[id number] Oral 474 237 240 Output: Urine 200 500 250 Other: Voiding Method Urinal Urinal Urinal - Exam Gen. appearance morbidly obese male patient nonacute distress. Head is atraumatic normocephalic. Neck is short and supple and the patient has significant crowding of the posterior oropharynx is a Mallampati class IV. Lung sounds are diminished otherwise clear. Vessels are equal and symmetrical. Heart sounds are regular, distant, positive S1-S2. The patient is currently paced at the rate of 50 and there is a transvenous pacemaker in the right groin.Abdominal exam revealed normal bowel sounds. The abdomen was soft, non- tender, and without masses, organomegaly, or appreciable enlargement of the abdominal aorta. Extremities show trace edema with diminished pulses bilaterally. There is no cyanosis or clubbing. Neurologically patient is awake and alert and is following commands and answering questions appropriately. Gait cannot be assessed as the patient is currently flat in bed with a PVP in his right groin. Skin is negative for now sedation wounds or cellulitis. Skeletal exam is negative for any joint deformities, scoliosis or arthritis. Skin examination shows a pacemaker pocket over the left anterior chest area. The surgical wound site is dry clean and intact at this point. - Labs CBC & Chem 7: 08/02/17 05:37 08/02/17 05:37 Labs: Abnormal Lab Results - Last 24 Hours (Table) 08/02/17 08/02/17 Range/Units 05:37 05:37 RBC 3.58 L (4.30-5.90) m/uL Hgb 10.6 L (13.0-17.5) gm/dL Hct 33.7 L (39.0-53.0) % Plt Count 145 L (150-450) k/uL Lymphocytes # 0.9 L (1.0-4.8) k/uL Chloride 108 H (98-107) mmol/L BUN 22 H (9-20) mg/dL Assessment and Plan Plan: Assessment 1 syncope most likely related to bradycardia arrhythmia. Patient had a second- degree/third degree AV block and the patient has a permanent pacemaker in place. The procedure was done without any major complications. Hemodynamically stable. Currently off the beta blockers and amiodarone. The patient remains hemodynamically stable. No syncope. No cardiac arrhythmias have been noted. Cardiology is on the case. Hemodynamically stable. 2 chronic atrial fibrillation per history 3 coronary artery disease with previous coronary stent insertion 4 peripheral vascular disease 5 abdominal aortic aneurysm 6 ascending thoracic aortic aneurysm measuring 4.2 cm in size 7 obesity 8 severe obstructive sleep apnea and the patient was supposed to be on a BiPAP at a pressure of 17/13 cm of water on outpatient basis 9 hypertension 10 hyperlipidemia 11 hypothyroidism 12 osteoarthritis 13 chronic renal failure with a baseline creatinine ranging between 1.1 and 1.3 on this patient. 14 chronic elevation of left hemidiaphragm without clear indication of an interstitial lung disease. Plan Ambulate the patient. Continue monitoring. Discharge home possibly today if cleared by cardiology to be followed up by his primary care physician, Dr. Argueta
--- NOTE | 2017-08-02 12:21 | P.DS ---
Providers Date of admission: 07/30/17 23:38 Expected date of discharge: 08/02/17 Attending physician: Kevin De La Fuente Consults: 07/30/17 23:38 Consult Physician Stat Consulting Provider: Osito Lopez Consult Reason/Comments: Second-degree heart block Do you want consulting provider notified?: Already Contacted Consult Physician Urgent Consulting Provider: Ashlee Jane Consult Reason/Comments: ICU management Do you want consulting provider notified?: Already Contacted Primary care physician: Stated None Hospital Course: Discharge diagnosis #1 syncope secondary to bradycardia arrhythmia. Patient was found to have second degree AV block Mobitz type II. Status post permanent pacemaker placement. Pacemaker was interrogated and is working appropriately. #2 history of chronic atrial fibrillation. On metoprolol and amiodarone at home which are on hold. Not on anticoagulation. #3 history of coronary artery disease status post stent placement #4 diabetes type 2 #5 hypertension #6 hypothyroidism #7abdominal aortic aneurysm #8 ascending thoracic aortic aneurysm measuring 4.2 cm in size #9 morbid obesity with a BMI of 35.4 #10 obstructive sleep apnea on CPAP at home #11 are sure that it is of multiple joints #12 hyperlipidemia Patient is a 82-year-old male with a known history of coronary artery disease with stent placement, hyperlipidemia, chronic atrial fibrillation, diabetes and obstructive sleep apnea, presented to the emergency department with complaints of dizziness and syncope. 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 He woke up on the floor and he was weak. He was on the floor at least 1 hour as per the family. No seizure activity has been noted. No chest pain or shortness of breath. No focal neurological deficits. No bowel or bladder incontinence.. No recent illnesses. The patient came into the emergency department and was found to be in second-degree AV block, Mobitz type II and bradycardia with heart rate around 40. The patient was seen by cardiology and he underwent a TVP placement followed by permanent pacemaker placement.. He was hemodynamically stable on no pressors. Patient had chest x-ray and CT head/cervical spine and facial CT. Patient is also complaining of right knee pain. X-ray showed advanced degenerative joint disease. Patient was on temporary venous pacemaker and was monitored in the ICU. Patient was placed on permanent pacemaker on 07/31/2017. Continued with telemetry monitoring and follow-up TSH level showed elevation. Patient was continued on thyroid supplements.. Continued with CPAP machine daily at bedtime when necessary. Cardiology and pulmonary have seen patient. Patient was interrogated and the pacemaker is functioning appropriately. Patient was cleared by cardiology and pulmonary. Discussed with his family at bedside in detail. Patient needs to be transferred to infection care facility. Total time taken greater than 35 minutes including 18 minutes for counseling and coordination of care. Physical examination Patient is lying in the bed comfortably, no distress , awake alert and oriented.. HEENT: Normocephalic. Neck is supple. Pupils reactive. Nostrils clear. Oral cavity is moist. Ears reveal no drainage. Neck reveals no JVD, carotid bruits, or thyromegaly. CHEST EXAMINATION: Trachea is central. Symmetrical expansion. Clear to auscultation bilaterally. No wheezing CARDIAC: Normal S1, S2 with no gallops. No murmurs . Irregular rhythm ABDOMEN: Soft. Bowel sounds normal. No organomegaly. No abdominal bruits. Extremities reveal no edema. No clubbing or cyanosis Neurologically awake, alert, oriented x3 with well-coordinated movements. Skin: no rash or skin lesions Musculoskeletal: no joint swelling or deformity. Procedures: Permanent pacemaker placement. Patient Condition at Discharge: Fair Plan - Discharge Summary New Discharge Prescriptions: Continue Levothyroxine Sodium [Synthroid] 50 mcg PO DAILY Simvastatin [Zocor] 20 mg PO HS Potassium Chloride [Klor-Con 20] 20 meq PO DAILY Amitriptyline HCl [Elavil] 50 mg PO HS oxyCODONE-APAP 7.5-325MG [Percocet 7.5-325 mg] 1 tab PO TID PRN PRN Reason: Pain clonazePAM [KlonoPIN] 1 mg PO HS Magnesium Hydroxide [Milk of Magnesia] 2,400 mg PO DAILY PRN PRN Reason: Constipation Loratadine [Claritin] 10 mg PO DAILY Gabapentin [Neurontin] 100 mg PO HS Ibuprofen [Motrin] 600 mg PO Q6HR PRN PRN Reason: Pain Aspirin EC [Ecotrin] 325 mg PO HS ALPRAZolam [Xanax] 0.25 mg PO BID PRN PRN Reason: ANXIETY/INSOMNIA Isosorbide Mononitrate ER [Imdur] 60 mg PO DAILY Glucosam/Atilio-Msm1/C/Filipe/Bosw [Glucosamine-Chondroitin Tablet] 1 tab PO DAILY Discontinued amLODIPine [Norvasc] 2.5 mg PO HS Celecoxib [CeleBREX] 200 mg PO DAILY Metoprolol Tartrate [Lopressor] 12.5 mg PO BID Losartan/Hydrochlorothiazide [Losartan-Hctz 100-12.5 mg Tab] 1 tab PO DAILY Amiodarone [Cordarone] 200 mg PO DAILY Discharge Medication List Amitriptyline HCl [Elavil] 50 mg PO HS 08/30/14 [History] Levothyroxine Sodium [Synthroid] 50 mcg PO DAILY 08/30/14 [History] Potassium Chloride [Klor-Con 20] 20 meq PO DAILY 08/30/14 [History] Simvastatin [Zocor] 20 mg PO HS 08/30/14 [History] clonazePAM [KlonoPIN] 1 mg PO HS 08/30/14 [History] oxyCODONE-APAP 7.5-325MG [Percocet 7.5-325 mg] 1 tab PO TID PRN 08/30/14 [ History] ALPRAZolam [Xanax] 0.25 mg PO BID PRN 07/30/17 [History] Aspirin EC [Ecotrin] 325 mg PO HS 07/30/17 [History] Gabapentin [Neurontin] 100 mg PO HS 07/30/17 [History] Glucosam/Atilio-Msm1/C/Filipe/Bosw [Glucosamine-Chondroitin Tablet] 1 tab PO DAILY 07/30/17 [History] Ibuprofen [Motrin] 600 mg PO Q6HR PRN 07/30/17 [History] Isosorbide Mononitrate ER [Imdur] 60 mg PO DAILY 07/30/17 [History] Loratadine [Claritin] 10 mg PO DAILY 07/30/17 [History] Magnesium Hydroxide [Milk of Magnesia] 2,400 mg PO DAILY PRN 07/30/17 [History] Follow up Appointment(s)/Referral(s): Galileo Rangel MD [STAFF PHYSICIAN] - 1-2 days Discharge Disposition: TRANSFER TO SNF/ECF
== END 2017-08-02 15:02 | DRG 244 ==
LOC: EC 19:18 → 6ICU 23:38 → 6SEL 07-31 12:39
PROVIDERS: ADMIT Internal Medicine; ATTEND Internal Medicine
PROC: 02H63JZ Insertion of Pacemaker Lead into Right Atrium, Percutaneous Approach (ICD-10-PCS; 2017-07-31)
PROC: 02HK3JZ Insertion of Pacemaker Lead into Right Ventricle, Percutaneous Approach (ICD-10-PCS; 2017-07-31)
PROC: 5A1223Z Performance of Cardiac Pacing, Continuous (ICD-10-PCS; 2017-07-31)
PROC: 0JH606Z Insertion of Pacemaker, Dual Chamber into Chest Subcutaneous Tissue and Fascia, Open Approach (ICD-10-PCS; principal; 2017-07-31 08:50)
DX: I44.2 Atrioventricular block, complete (principal); E11.22 Type 2 diabetes mellitus with diabetic chronic kidney disease; E11.51 Type 2 diabetes mellitus with diabetic peripheral angiopathy without gangrene; I71.2 Thoracic aortic aneurysm, without rupture; J84.10 Pulmonary fibrosis, unspecified; E78.5 Hyperlipidemia, unspecified; I25.10 Atherosclerotic heart disease of native coronary artery without angina pectoris; G47.33 Obstructive sleep apnea (adult) (pediatric); I12.9 Hypertensive chronic kidney disease with stage 1 through stage 4 chronic kidney disease, or unspecified chronic kidney disease; N18.9 Chronic kidney disease, unspecified; I48.0 Paroxysmal atrial fibrillation; E03.9 Hypothyroidism, unspecified; E66.01 Morbid (severe) obesity due to excess calories; M19.91 Primary osteoarthritis, unspecified site; Z79.1 Long term (current) use of non-steroidal anti-inflammatories (NSAID); Z79.82 Long term (current) use of aspirin; Z79.899 Other long term (current) drug therapy; Z95.828 Presence of other vascular implants and grafts; Z95.5 Presence of coronary angioplasty implant and graft; Z90.49 Acquired absence of other specified parts of digestive tract; Z98.42 Cataract extraction status, left eye; Z98.41 Cataract extraction status, right eye; Z87.891 Personal history of nicotine dependence; Z88.1 Allergy status to other antibiotic agents; Z88.8 Allergy status to other drugs, medicaments and biological substances; Z68.35 Body mass index [BMI] 35.0-35.9, adult; Z86.79 Personal history of other diseases of the circulatory system
CPT/HCPCS: 33208; 33210; 36415; 70450; 70486; 71010; 71020; 72125; 74000; 80048; 80053; 81003; 82550; 82553; 83735; 84100; 84439; 84443; 84484; 85025; 85610; 85730; 93005; 94760; 96361; 96374; 99291

== ENCOUNTER → 2018-07-02 | Outpatient (CLI) | payer MEDICARE ==
--- NOTE | 2018-07-02 15:48 | XR ---
EXAMINATION TYPE: XR chest 2V DATE OF EXAM: 07/02/2018 COMPARISON: 08/02/2017 INDICATION: Presurgical clearance TECHNIQUE: Frontal and lateral views of the chest are obtained. FINDINGS: The heart size is normal. The pulmonary vasculature is normal. There is a mild infiltrate at the left lower lobe. Correlate for atelectasis. Linear opacities at the left costophrenic angle. Pacemaker overlies left chest. IMPRESSION: 1. Mild left lower lobe infiltrate. Correlate for atelectasis.
== END | disposition home or self-care (01) ==
LOC: RADXRMAIN 15:09
PROVIDERS: ATTEND Internal Medicine
DX: Z01.818 Encounter for other preprocedural examination (principal); R91.8 Other nonspecific abnormal finding of lung field
CPT/HCPCS: 71046

== ENCOUNTER → 2018-07-02 | Outpatient (CLI) | payer MEDICARE ==
[2018-07-02 15:15] LABS: Appearance,Urine Clear (Clear); Bilirubin,Urine Negative (Negative); Blood,Urine Negative (Negative); Color,Urine Yellow; Glucose,Urine (UA) Negative (Negative); Ketones,Urine Negative (Negative); Leukocyte Esterase,Urine Negative (Negative); Nitrite,Urine Negative (Negative); Protein,Urine Negative (Negative); Specific Gravity,Urine 1.015 (1.001-1.035); Urobilinogen,Urine <2.0 mg/dL (<2.0)
[2018-07-02 15:19] LABS: Basophils # (A) 0.1 k/uL (0-0.2); Basophils % (A) 1 %; Eosinophils # (A) 0.4 k/uL (0-0.7); Eosinophils % (A) 5 %; HCT 33.8 % (39.0-53.0); HGB 10.9 gm/dL (13.0-17.5); Hypochromasia Slight; Lymphocytes % (A) 14 %; MCH 28.6 pg (25.0-35.0); MCHC 32.3 g/dL (31.0-37.0); MCV 88.7 fL (80.0-100.0); Monocytes # (A) 0.5 k/uL (0-1.0); Monocytes % (A) 7 %; Neutrophils # (A) 4.7 k/uL (1.3-7.7); Neutrophils % (A) 71 %; Platelet Count 148 k/uL (150-450); RBC 3.81 m/uL (4.30-5.90); RDW 15.2 % (11.5-15.5); WBC 6.7 k/uL (3.8-10.6)
[2018-07-02 15:24] LABS: Prothrombin Time 10.3 sec (9.0-12.0)
[2018-07-02 15:25] LABS: Albumin 3.5 g/dL (3.5-5.0); Calcium 8.7 mg/dL (8.4-10.2); Potassium 4.1 mmol/L (3.5-5.1); Total Bilirubin 0.3 mg/dL (0.2-1.3); Total Protein 6.6 g/dL (6.3-8.2)
== END | disposition home or self-care (01) ==
LOC: LABWHC1 14:38
PROVIDERS: ATTEND Internal Medicine
DX: Z01.812 Encounter for preprocedural laboratory examination (principal); Z96.659 Presence of unspecified artificial knee joint
CPT/HCPCS: 36415; 80053; 81003; 85025; 85610; 87086

== ENCOUNTER 2018-07-20 10:24 | Emergency (ER) | payer MEDICARE ==
[2018-07-20 10:43] VITALS: RESP 18
[2018-07-20] MEDS ORDERED: SODIUM CHLORIDE 0.9% 500 ML IV STA (10:51)
[2018-07-20] MEDS ORDERED: MECLIZINE 12.5 MG TAB PO STA (10:52)
--- NOTE | 2018-07-20 11:07 | ED ---
General Adult HPI - General Chief complaint: Fall Stated complaint: Fall Time Seen by Provider: 07/20/18 10:39 Source: patient, EMS, RN notes reviewed Mode of arrival: EMS Limitations: no limitations - History of Present Illness Initial comments: Patient 83-year-old male presented emergency room today with chief complaint of a fall that occurred this morning proxy 2 hours ago. Patient does admit that he got up to go to the bathroom. States he grabbed his walker but became lightheaded and dizzy. Patient does admit that he stumbled into the closet door which then fell and hit him. Patient states was no loss conscious. Patient states that he has no pain or complaint from the fall. States is not on any blood thinners. Patient does admit that he had a little lightheaded. He states he's had episodes similar to this in the past. Patient denies any other complaints or symptoms. Patient denies any recent fever, chills, shortness of breath, chest pain, back pain, abdominal pain, nausea or vomiting, numbness or tingling, headaches or visual changes, or any other complaints. - Related Data Home Medications Medication Instructions Recorded Confirmed Amitriptyline HCl [Elavil] 50 mg PO HS 08/30/14 07/20/18 Levothyroxine Sodium [Synthroid] 50 mcg PO DAILY 08/30/14 07/20/18 Potassium Chloride [Klor-Con 20] 20 meq PO HS 08/30/14 07/20/18 Simvastatin [Zocor] 20 mg PO HS 08/30/14 07/20/18 Aspirin EC [Ecotrin] 325 mg PO HS 07/30/17 07/20/18 Glucosam/Atilio-Msm1/C/Filipe/Bosw 1 tab PO DAILY 07/30/17 07/20/18 [Glucosamine-Chondroitin Tablet] Ibuprofen [Motrin] 600 mg PO Q6HR PRN 07/30/17 07/20/18 Isosorbide Mononitrate ER [Imdur] 60 mg PO DAILY 07/30/17 07/20/18 Loratadine [Claritin] 10 mg PO DAILY 07/30/17 07/20/18 Magnesium Hydroxide [Milk of 2,400 mg PO DAILY PRN 07/30/17 07/20/18 Magnesia] Celecoxib [CeleBREX] 200 mg PO DAILY 07/20/18 07/20/18 rOPINIRole HCL [Requip] 0.5 mg PO HS 07/20/18 07/20/18 Previous Rx's Medication Instructions Recorded ALPRAZolam [Xanax] 0.25 mg PO BID PRN #30 08/02/17 clonazePAM [KlonoPIN] 1 mg PO HS #15 tab 08/02/17 oxyCODONE-APAP 7.5-325MG [Percocet 1 tab PO TID PRN #30 08/02/17 7.5-325 mg] Meclizine [Antivert] 25 mg PO Q6H PRN #20 tab 07/20/18 Allergies Allergy/AdvReac Type Severity Reaction Status Date / Time cefazolin sodium [From Ancef] Allergy Anaphylaxis Verified 07/20/18 11:13 hylan G-F 20 [From [employer]] Allergy Anaphylaxis Verified 07/20/18 11:13 Review of Systems ROS Statement: Those systems with pertinent positive or pertinent negative responses have been documented in the HPI. ROS Other: All systems not noted in ROS Statement are negative. Past Medical History Past Medical History: Atrial Fibrillation, Hyperlipidemia, Hypertension, Respiratory Disorder, Thyroid Disorder Additional Past Medical History / Comment(s): Severe JORDANA with an H of 128 seated with a BiPAP pressure of 17/13 cm of water, obesity, coronary artery disease with previous coronary intervention and stenting, tonic atrial fibrillation, hyperlipidemia, hypertension, hypothyroidism, ascending thoracic aortic aneurysm, ascending thoracic aortic aneurysm measuring 4.2 cm in size. Peripheral vascular disease with a stent within the aorta and stents also placed in the iliacs History of Any Multi-Drug Resistant Organisms: None Reported Past Surgical History: Cholecystectomy, Heart Catheterization With Stent Additional Past Surgical History / Comment(s): UPPP for obstructive sleep apnea , abdominal aortic aneurysm repair, vascular stenting to the lower extremities including the iliacs for peripheral vascular disease, cataracts, right carotid endarterectomy, cholecystectomy Past Anesthesia/Blood Transfusion Reactions: No Reported Reaction Date of Last Stent Placement:: Past Psychological History: No Psychological Hx Reported Smoking Status: Former smoker Past Alcohol Use History: None Reported Past Drug Use History: None Reported General Exam - General Exam Comments Initial Comments: General: The patient is awake and alert, in no distress, and does not appear acutely ill. Eye: Pupils are equal, round and reactive to light. Extra-ocular movements are intact. No nystagmus. There is normal conjunctiva bilaterally. No signs of icterus. Ears, nose, mouth and throat: There are moist mucous membranes and no oral lesions. Neck: The neck is supple, there is no tenderness or JVD. Cardiovascular: There is a regular rate and rhythm. No murmur, rub or gallop is appreciated. Respiratory: Lungs are clear to auscultation, respirations are non-labored, breath sounds are equal. No wheezes, stridor, rales, or rhonchi. Gastrointestinal: Soft, non-distended, non-tender abdomen without masses or organomegaly noted. There is no rebound or guarding present. No CVA tenderness. Musculoskeletal: Normal ROM, no tenderness. Sensation intact. Strength 5/5. Pulses equal bilaterally 2+. Neurological: A&O x 3. CN II-XII intact, There are no obvious motor or sensory deficits. Coordination appears grossly intact. Speech is normal. Skin: Skin is warm and dry and no rashes or lesions are noted. Psychiatric: Cooperative, appropriate mood & affect, normal judgment. Limitations: no limitations Course Vital Signs 07/20/18 07/20/18 07/20/18 10:35 12:01 12:49 Temperature 97.8 F Pulse Rate 66 60 65 Respiratory 18 18 18 Rate Blood Pressure 174/77 173/78 167/74 O2 Sat by Pulse 98 94 L 94 L Oximetry EKG Findings - EKG Comments: EKG Findings:: EKG performed at 1229: Shows an ventricular paced rhythm at 65 bpm. IN interval 198. QRS to 26. QT/QTc 498/517. No acute changes. Medical Decision Making - Medical Decision Making Patient's labs been reviewed and are unremarkable. He is resting comfortably. Patient's CT of the abdomen neck reviewed and shows1. No acute fracture dislocation evident cervical spine. 2. No acute intracranial hemorrhage, mass effect, or midline shift seen. 3. Loss of normal cervical lordosis with severe multilevel degenerative disc disease and facet arthropathy. 2 mm anterolisthesis C4 on C5. Patient has no neck pain. Patient resting comfortably. He does not that he feels better here in the emergency room. Patient does not that he's had episodes of dizziness in the past. He states it' s worse when he goes from a lying to sitting position. Patient currently resting comfortably. Options were discussed about admission to the hospital. Patient has declined. His family members are present. This states that they are comfortable taking him home. They plan to follow-up the family doctor. They're advised return if any symptoms increase or worsen. Patient will be given a prescription for meclizine for symptoms. - Lab Data Result diagrams: 07/20/18 11:39 07/20/18 11:39 Lab Results 07/20/18 07/20/18 07/20/18 Range/Units 11:10 11:39 11:39 WBC 7.3 (3.8-10.6) k/uL RBC 4.35 (4.30-5.90) m/uL Hgb 12.4 L (13.0-17.5) gm/dL Hct 38.2 L (39.0-53.0) % MCV 87.7 (80.0-100.0) fL MCH 28.5 (25.0-35.0) pg MCHC 32.5 (31.0-37.0) g/dL RDW 14.9 (11.5-15.5) % Plt Count 148 L (150-450) k/uL Neutrophils % 76 % Lymphocytes % 12 % Monocytes % 6 % Eosinophils % 4 % Basophils % 1 % Neutrophils # 5.6 (1.3-7.7) k/uL Lymphocytes # 0.9 L (1.0-4.8) k/uL Monocytes # 0.4 (0-1.0) k/uL Eosinophils # 0.3 (0-0.7) k/uL Basophils # 0.1 (0-0.2) k/uL PT (9.0-12.0) sec INR (<1.2) APTT (22.0-30.0) sec Sodium (137-145) mmol/L Potassium (3.5-5.1) mmol/L Chloride (98-107) mmol/L Carbon Dioxide (22-30) mmol/L Anion Gap mmol/L BUN (9-20) mg/dL Creatinine (0.66-1.25) mg/dL Est GFR (CKD-EPI)AfAm (>60 ml/min/1.73 sqM) Est GFR (CKD-EPI)NonAf (>60 ml/min/1.73 sqM) Glucose (74-99) mg/dL Calcium (8.4-10.2) mg/dL Total Bilirubin (0.2-1.3) mg/dL AST (17-59) U/L ALT (21-72) U/L Alkaline Phosphatase (38-126) U/L Total Creatine Kinase 82 (55-170) U/L CK-MB (CK-2) 1.7 (0.0-2.4) ng/mL CK-MB (CK-2) Rel Index 2.1 Troponin I 0.022 (0.000-0.034) ng/mL Total Protein (6.3-8.2) g/dL Albumin (3.5-5.0) g/dL Urine Color Light Yellow Urine Appearance Clear (Clear) Urine pH 5.0 (5.0-8.0) Ur Specific [place] 1.011 (1.001-1.035) Urine Protein Negative (Negative) Urine Glucose (UA) Negative (Negative) Urine Ketones Negative (Negative) Urine Blood Negative (Negative) Urine Nitrite Negative (Negative) Urine Bilirubin Negative (Negative) Urine Urobilinogen <2.0 (<2.0) mg/dL Ur Leukocyte Esterase Negative (Negative) 07/20/18 07/20/18 Range/Units 11:39 11:39 WBC (3.8-10.6) k/uL RBC (4.30-5.90) m/uL Hgb (13.0-17.5) gm/dL Hct (39.0-53.0) % MCV (80.0-100.0) fL MCH (25.0-35.0) pg MCHC (31.0-37.0) g/dL RDW (11.5-15.5) % Plt Count (150-450) k/uL Neutrophils % % Lymphocytes % % Monocytes % % Eosinophils % % Basophils % % Neutrophils # (1.3-7.7) k/uL Lymphocytes # (1.0-4.8) k/uL Monocytes # (0-1.0) k/uL Eosinophils # (0-0.7) k/uL Basophils # (0-0.2) k/uL PT 10.1 (9.0-12.0) sec INR 1.0 (<1.2) APTT 23.3 (22.0-30.0) sec Sodium 145 (137-145) mmol/L Potassium 4.3 (3.5-5.1) mmol/L Chloride 109 H (98-107) mmol/L Carbon Dioxide 27 (22-30) mmol/L Anion Gap 9 mmol/L BUN 25 H (9-20) mg/dL Creatinine 0.87 (0.66-1.25) mg/dL Est GFR (CKD-EPI)AfAm >90 (>60 ml/min/1.73 sqM) Est GFR (CKD-EPI)NonAf 79 (>60 ml/min/1.73 sqM) Glucose 95 (74-99) mg/dL Calcium 9.1 (8.4-10.2) mg/dL Total Bilirubin 0.5 (0.2-1.3) mg/dL AST 21 (17-59) U/L ALT 23 (21-72) U/L Alkaline Phosphatase 71 (38-126) U/L Total Creatine Kinase (55-170) U/L CK-MB (CK-2) (0.0-2.4) ng/mL CK-MB (CK-2) Rel Index Troponin I (0.000-0.034) ng/mL Total Protein 7.5 (6.3-8.2) g/dL Albumin 3.9 (3.5-5.0) g/dL Urine Color Urine Appearance (Clear) Urine pH (5.0-8.0) Ur Specific [place] (1.001-1.035) Urine Protein (Negative) Urine Glucose (UA) (Negative) Urine Ketones (Negative) Urine Blood (Negative) Urine Nitrite (Negative) Urine Bilirubin (Negative) Urine Urobilinogen (<2.0) mg/dL Ur Leukocyte Esterase (Negative) Disposition Clinical Impression: Fall, Dizziness Disposition: HOME SELF-CARE Condition: Good Instructions: Vertigo (ED) Additional Instructions: Please use medication as discussed. Please follow-up with family doctor in the next 2 days of symptoms have not improved. Please return to emergency room if the symptoms increase or worsen or for any other concerns. Prescriptions: Meclizine [Antivert] 25 mg PO Q6H PRN #20 tab PRN Reason: Dizziness Is patient prescribed a controlled substance at d/c from ED?: No Referrals: Galileo Rangel MD [Primary Care Provider] - 1-2 days Time of Disposition: 13:24
--- NOTE | 2018-07-20 11:27 | XR ---
EXAMINATION TYPE: XR chest 2V DATE OF EXAM: 07/20/2018 COMPARISON: July 02, 2018 HISTORY: Shortness of breath TECHNIQUE: Frontal and lateral views of the chest are obtained. FINDINGS: Scattered senescent parenchymal changes noted. Hyperinflation compatible with COPD. No evidence for infiltrate. No evidence for atelectasis. Heart size is enlarged. Pulmonary venous congestion without failure. Mediastinal structures are stable and grossly unremarkable. No evidence for hilar prominence. Degenerative changes dorsal spine. IMPRESSION: 1. Pulmonary venous congestion without failure.
[2018-07-20 11:28] LABS: Appearance,Urine Clear (Clear); Bilirubin,Urine Negative (Negative); Blood,Urine Negative (Negative); Color,Urine Light Yellow; Glucose,Urine (UA) Negative (Negative); Ketones,Urine Negative (Negative); Leukocyte Esterase,Urine Negative (Negative); Nitrite,Urine Negative (Negative); Protein,Urine Negative (Negative); Specific Gravity,Urine 1.011 (1.001-1.035); Urobilinogen,Urine <2.0 mg/dL (<2.0)
--- NOTE | 2018-07-20 11:44 | CT ---
EXAMINATION TYPE: CT brain cspine wo con DATE OF EXAM: 07/20/2018 COMPARISON: 07/30/2017 HISTORY: pain CT DLP: 1844 mGycm Automated exposure control for dose reduction was used. TECHNIQUE: CT scan of the head and cervical spine are performed without contrast. FINDINGS: There is no acute intracranial hemorrhage, mass effect, or midline shift identified. Intr acranial atherosclerotic changes noted. There is moderate generalized degenerative change. Periventri cular low attenuation is nonspecific but most typical remote microvascular ischemia.. Cervical spine is visualized in its entirety from C1 through upper thoracic levels and demonstrates s atisfactory alignment without evidence of acute fracture or dislocation. Prevertebral soft tissue angel ears within normal limits. There are advanced multilevel cervical spondylosis changes. Assessment spi nal canal is nondiagnostic due to technique and artifact. There is bilateral apical pleural thickening. Loss of the normal cervical lordosis noted and there is a 2 mm anterolisthesis of C4 on C5. Severe multilevel degenerative disc disease and facet arthropath y noted. IMPRESSION: 1. There is no acute fracture or dislocation evident in the cervical spine. 2. No acute intracranial hemorrhage, mass effect, or midline shift is seen. 3. Loss of the normal cervical lordosis with severe multilevel degenerative disc disease and facet ar thropathy. 2 mm anterolisthesis C4 on C5 may be degenerative correlate clinically
[2018-07-20 11:58] LABS: Basophils # (A) 0.1 k/uL (0-0.2); Basophils % (A) 1 %; Eosinophils # (A) 0.3 k/uL (0-0.7); Eosinophils % (A) 4 %; HCT 38.2 % (39.0-53.0); HGB 12.4 gm/dL (13.0-17.5); Lymphocytes # (A) 0.9 k/uL (1.0-4.8); Lymphocytes % (A) 12 %; MCH 28.5 pg (25.0-35.0); MCHC 32.5 g/dL (31.0-37.0); MCV 87.7 fL (80.0-100.0); Mean Platelet Volume 7.6; Monocytes # (A) 0.4 k/uL (0-1.0); Monocytes % (A) 6 %; Neutrophils # (A) 5.6 k/uL (1.3-7.7); Neutrophils % (A) 76 %; Platelet Count 148 k/uL (150-450); RBC 4.35 m/uL (4.30-5.90); RDW 14.9 % (11.5-15.5); WBC 7.3 k/uL (3.8-10.6)
[2018-07-20 12:07] LABS: ALT 23 U/L (21-72); AST 21 U/L (17-59); Albumin 3.9 g/dL (3.5-5.0); Alkaline Phosphatase 71 U/L (38-126); Anion Gap 9 mmol/L; Blood Urea Nitrogen 25 mg/dL (9-20); Calcium 9.1 mg/dL (8.4-10.2); Carbon Dioxide 27 mmol/L (22-30); Chloride 109 mmol/L (98-107); Glucose 95 mg/dL (74-99); Potassium 4.3 mmol/L (3.5-5.1); Sodium 145 mmol/L (137-145); Total Bilirubin 0.5 mg/dL (0.2-1.3); Total Protein 7.5 g/dL (6.3-8.2)
[2018-07-20 12:12] LABS: Partial Thromboplastin Time 23.3 sec (22.0-30.0); Prothrombin Time 10.1 sec (9.0-12.0)
[2018-07-20 12:42] LABS: Creatine Kinase MB 1.7 ng/mL (0.0-2.4); Troponin I 0.022 ng/mL (0.000-0.034)
[2018-07-20 13:49] VITALS: BP 172/74; PULSE 98; TEMP 97
== END 2018-07-20 13:48 | disposition home or self-care (01) ==
LOC: EC 10:24
DX: R42 Dizziness and giddiness (principal); M50.30 Other cervical disc degeneration, unspecified cervical region; M43.12 Spondylolisthesis, cervical region; M46.92 Unspecified inflammatory spondylopathy, cervical region; M43.8X2 Other specified deforming dorsopathies, cervical region; E78.5 Hyperlipidemia, unspecified; I10 Essential (primary) hypertension; E03.9 Hypothyroidism, unspecified; G47.33 Obstructive sleep apnea (adult) (pediatric); I73.9 Peripheral vascular disease, unspecified; Z87.891 Personal history of nicotine dependence; Z88.1 Allergy status to other antibiotic agents; Z88.8 Allergy status to other drugs, medicaments and biological substances; Z79.1 Long term (current) use of non-steroidal anti-inflammatories (NSAID); Z79.82 Long term (current) use of aspirin; Z79.899 Other long term (current) drug therapy; Z99.89 Dependence on other enabling machines and devices; Z95.5 Presence of coronary angioplasty implant and graft; Z95.828 Presence of other vascular implants and grafts; W01.0XXA Fall on same level from slipping, tripping and stumbling without subsequent striking against object, initial encounter; Y93.89 Activity, other specified
CPT/HCPCS: 36415; 70450; 71046; 72125; 80053; 81003; 82550; 82553; 84484; 85025; 85610; 85730; 93005; 99285

== ENCOUNTER → 2019-07-28 | Outpatient (CLI) | payer MEDICARE ==
[2019-07-28 18:38] LABS: African American GFR (CKD) 70.6 (60.0-200.0)
== END | disposition home or self-care (01) ==
LOC: LABWHC1 11:18
PROVIDERS: ATTEND Otolaryngology
DX: M54.2 Cervicalgia (principal); R13.10 Dysphagia, unspecified; Z88.1 Allergy status to other antibiotic agents
CPT/HCPCS: 36415; 82565; 84520

== ENCOUNTER → 2019-07-30 | Outpatient (CLI) | payer MEDICARE ==
--- NOTE | 2019-07-30 09:42 | CT ---
EXAMINATION TYPE: CT soft tissue neck w con DATE OF EXAM: 07/30/2019 COMPARISON: None HISTORY: dysphagia CT DLP: 673.1 mGycm CONTRAST: CT scan of the neck is performed with IV Contrast, patient injected with 100 mL of Isovue 300. Contrast enhanced CT of the neck was performed from the skull base through the lung apices. AIRWAY: The supraglottic, glottic, and subglottic portions of the airway appear patent and free of mass. SALIVARY GLANDS: The submandibular and parotid glands are free of mass or inflammatory process. THYROID GLAND: No nodules or masses seen. LYMPH NODES: No adenopathy seen greater than 1cm. LUNG APICES: No nodule or mass is seen. OTHER: Vascular structures are patent. No significant degenerative change of the cervical spine. N o abscess seen. IMPRESSION: No distinct abnormality to account for the patient's symptoms. Consider esophagram if symptoms of dys phagia continue.
--- NOTE | 2019-07-30 10:23 | FL ---
ESOPHOGRAM. HISTORY: Dysphagia Esophagram was performed per the single contrast technique. Fluoro time [address] Foster. Benign images submitted. Contractions are noted. There is no evidence for obstruction or mass. No evidence for aspiration or p enetration. Small diverticulum noted right piriform sinus region. No visible hiatal hernia. Subsequently single contrast cervical esophagram was performed which fails demonstrate evidence for a spiration penetration or mass. IMPRESSION: 1 tertiary contractions compatible with presbyesophagus. 2. Small diverticulum noted in the region of the right piriform sinus.
== END | disposition home or self-care (01) ==
LOC: RADCTMAIN 09:06
PROVIDERS: ATTEND Otolaryngology
DX: J38.7 Other diseases of larynx (principal); R13.10 Dysphagia, unspecified; M54.2 Cervicalgia; Z88.1 Allergy status to other antibiotic agents
CPT/HCPCS: 74220; 70491; Q9967

== ENCOUNTER 2020-03-26 12:59 | Inpatient (IN) | payer MEDICARE ==
[2020-03-26 13:03] LABS: Glucose,Whole Blood 115 mg/dL (75-99)
--- NOTE | 2020-03-26 13:09 | ED ---
General Adult HPI - General Stated complaint: Poss Stroke Time Seen by Provider: 03/26/20 13:00 Source: patient, EMS, RN notes reviewed Mode of arrival: EMS Limitations: no limitations - History of Present Illness Initial comments: Patient is a pleasant 84-year-old male presenting to the emergency department with concerns for stroke. Onset of symptoms was less than an hour prior to arrival. Patient had slurred speech and right arm weakness that lasted around 5 minutes then resolved. Patient had a second episode lasting around 7 minutes then again resolved. Patient is currently symptom-free at this time. No history of similar symptoms previously. No headache. No confusion. - Related Data Home Medications Medication Instructions Recorded Confirmed Amitriptyline HCl [Elavil] 50 mg PO HS 08/30/14 07/20/18 Levothyroxine Sodium [Synthroid] 50 mcg PO DAILY 08/30/14 07/20/18 Potassium Chloride [Klor-Con 20] 20 meq PO HS 08/30/14 07/20/18 Simvastatin [Zocor] 20 mg PO HS 08/30/14 07/20/18 Aspirin EC [Ecotrin] 325 mg PO HS 07/30/17 07/20/18 Glucosam/Atilio-Msm1/C/Filipe/Bosw 1 tab PO DAILY 07/30/17 07/20/18 [Glucosamine-Chondroitin Tablet] Ibuprofen [Motrin] 600 mg PO Q6HR PRN 07/30/17 07/20/18 Isosorbide Mononitrate ER [Imdur] 60 mg PO DAILY 07/30/17 07/20/18 Loratadine [Claritin] 10 mg PO DAILY 07/30/17 07/20/18 Magnesium Hydroxide [Milk of 2,400 mg PO DAILY PRN 07/30/17 07/20/18 Magnesia] Celecoxib [CeleBREX] 200 mg PO DAILY 07/20/18 07/20/18 rOPINIRole HCL [Requip] 0.5 mg PO HS 07/20/18 07/20/18 Previous Rx's Medication Instructions Recorded ALPRAZolam [Xanax] 0.25 mg PO BID PRN #30 08/02/17 clonazePAM [KlonoPIN] 1 mg PO HS #15 tab 08/02/17 oxyCODONE-APAP 7.5-325MG [Percocet 1 tab PO TID PRN #30 08/02/17 7.5-325 mg] Meclizine [Antivert] 25 mg PO Q6H PRN #20 tab 07/20/18 Allergies Allergy/AdvReac Type Severity Reaction Status Date / Time cefazolin sodium [From Ancef] Allergy Anaphylaxis Verified 07/20/18 11:13 hylan G-F 20 [From [employer]] Allergy Anaphylaxis Verified 07/20/18 11:13 Review of Systems ROS Statement: Those systems with pertinent positive or pertinent negative responses have been documented in the HPI. ROS Other: All systems not noted in ROS Statement are negative. Constitutional: Denies: fever Eyes: Denies: eye pain ENT: Denies: ear pain Respiratory: Denies: cough Cardiovascular: Denies: chest pain Endocrine: Denies: fatigue Gastrointestinal: Denies: abdominal pain Genitourinary: Denies: dysuria Musculoskeletal: Denies: back pain Skin: Denies: rash Neurological: Reports: as per HPI, weakness. Denies: headache Past Medical History Past Medical History: Atrial Fibrillation, Hyperlipidemia, Hypertension, Respiratory Disorder, Thyroid Disorder Additional Past Medical History / Comment(s): Severe JORDANA with an H of 128 seated with a BiPAP pressure of 17/13 cm of water, obesity, coronary artery disease with previous coronary intervention and stenting, tonic atrial fibrillation, hyperlipidemia, hypertension, hypothyroidism, ascending thoracic aortic aneurysm, ascending thoracic aortic aneurysm measuring 4.2 cm in size. Peripheral vascular disease with a stent within the aorta and stents also placed in the iliacs History of Any Multi-Drug Resistant Organisms: None Reported Past Surgical History: Cholecystectomy, Heart Catheterization With Stent Additional Past Surgical History / Comment(s): UPPP for obstructive sleep apnea, abdominal aortic aneurysm repair, vascular stenting to the lower extremities including the iliacs for peripheral vascular disease, cataracts, right carotid endarterectomy, cholecystectomy Past Anesthesia/Blood Transfusion Reactions: No Reported Reaction Date of Last Stent Placement:: 1995, Past Psychological History: No Psychological Hx Reported Smoking Status: Former smoker Past Alcohol Use History: None Reported Past Drug Use History: None Reported General Exam Limitations: no limitations General appearance: alert, in no apparent distress Head exam: Present: normocephalic Eye exam: Present: EOMI, other (Blood pupil partially obscured from cataracts) ENT exam: Present: normal oropharynx Neck exam: Present: normal inspection. Absent: tenderness Respiratory exam: Present: normal lung sounds bilaterally Cardiovascular Exam: Present: regular rate, normal rhythm GI/Abdominal exam: Present: soft. Absent: tenderness Extremities exam: Present: normal inspection Neurological exam: Present: alert, oriented X3, CN II-XII intact. Absent: motor sensory deficit Expanded Neurological exam: Present: protecting the airway Patient oriented to: Present: person, place, time Speech: Present: fluid speech Cranial nerves: EOM's Intact: Normal, Facial Sensation: Normal Sensory exam: Upper Extremity Light Touch: Normal, Lower Extremity Light Touch: Normal Motor strength exam: RUE: 5, LUE: 5, RLE: 5, LLE: 5 Eye Response: (4) open spontaneously Motor Response: (6) obeys commands Verbal Response: (5) oriented Psychiatric exam: Present: normal affect, normal mood Skin exam: Present: normal color Course Vital Signs 03/26/20 13:04 Temperature 97.5 F L Pulse Rate 60 Respiratory 18 Rate Blood Pressure 131/76 O2 Sat by Pulse 98 Oximetry EKG Findings - EKG Comments: EKG Findings:: Paced rhythm with rate of 60. QRS 194. QT 40. QTc 40. Left axis. Wide-complex QRS. No acute ST change. Medical Decision Making - Medical Decision Making Patient reevaluated and remained symptom-free. Case was again discussed with Dr. Reagan who reviewed films and did not feel patient needed immediate intervention. He does recommend Plavix 300 mg and aspirin 325 mg, MRI and neurology consult tomorrow. Case was discussed in detail with Dr. hagan, who will admit covered for hospital call. - Lab Data Result diagrams: 03/26/20 13:07 03/26/20 13:07 Lab Results 03/26/20 03/26/20 03/26/20 Range/Units 13:02 13:07 13:07 WBC 9.0 (3.8-10.6) k/uL RBC 4.16 L (4.30-5.90) m/uL Hgb 11.0 L (13.0-17.5) gm/dL Hct 36.2 L (39.0-53.0) % MCV 86.9 (80.0-100.0) fL MCH 26.4 (25.0-35.0) pg MCHC 30.4 L (31.0-37.0) g/dL RDW 16.5 H (11.5-15.5) % Plt Count 165 (150-450) k/uL Neutrophils % 80 % Lymphocytes % 9 % Monocytes % 8 % Eosinophils % 1 % Basophils % 1 % Neutrophils # 7.2 (1.3-7.7) k/uL Lymphocytes # 0.8 L (1.0-4.8) k/uL Monocytes # 0.7 (0-1.0) k/uL Eosinophils # 0.1 (0-0.7) k/uL Basophils # 0.0 (0-0.2) k/uL Hypochromasia Marked Anisocytosis Slight PT 11.2 (9.0-12.0) sec INR 1.1 (<1.2) APTT 23.1 (22.0-30.0) sec Sodium (137-145) mmol/L Potassium (3.5-5.1) mmol/L Chloride (98-107) mmol/L Carbon Dioxide (22-30) mmol/L Anion Gap mmol/L BUN (9-20) mg/dL Creatinine (0.66-1.25) mg/dL Est GFR (CKD-EPI)AfAm (>60 ml/min/1.73 sqM) Est GFR (CKD-EPI)NonAf (>60 ml/min/1.73 sqM) Glucose (74-99) mg/dL POC Glucose (mg/dL) 115 H (75-99) mg/dL POC Glu Chemistry Teacher ID [place], Kathy Calcium (8.4-10.2) mg/dL Total Bilirubin (0.2-1.3) mg/dL AST (17-59) U/L ALT (4-49) U/L Alkaline Phosphatase (38-126) U/L Troponin I (0.000-0.034) ng/mL Total Protein (6.3-8.2) g/dL Albumin (3.5-5.0) g/dL 03/26/20 03/26/20 Range/Units 13:07 13:07 WBC (3.8-10.6) k/uL RBC (4.30-5.90) m/uL Hgb (13.0-17.5) gm/dL Hct (39.0-53.0) % MCV (80.0-100.0) fL MCH (25.0-35.0) pg MCHC (31.0-37.0) g/dL RDW (11.5-15.5) % Plt Count (150-450) k/uL Neutrophils % % Lymphocytes % % Monocytes % % Eosinophils % % Basophils % % Neutrophils # (1.3-7.7) k/uL Lymphocytes # (1.0-4.8) k/uL Monocytes # (0-1.0) k/uL Eosinophils # (0-0.7) k/uL Basophils # (0-0.2) k/uL Hypochromasia Anisocytosis PT (9.0-12.0) sec INR (<1.2) APTT (22.0-30.0) sec Sodium 142 (137-145) mmol/L Potassium 4.0 (3.5-5.1) mmol/L Chloride 106 (98-107) mmol/L Carbon Dioxide 26 (22-30) mmol/L Anion Gap 10 mmol/L BUN 39 H (9-20) mg/dL Creatinine 1.04 (0.66-1.25) mg/dL Est GFR (CKD-EPI)AfAm 76 (>60 ml/min/1.73 sqM) Est GFR (CKD-EPI)NonAf 66 (>60 ml/min/1.73 sqM) Glucose 106 H (74-99) mg/dL POC Glucose (mg/dL) (75-99) mg/dL POC Glu Chemistry Teacher ID Calcium 8.5 (8.4-10.2) mg/dL Total Bilirubin 0.7 (0.2-1.3) mg/dL AST 27 (17-59) U/L ALT 20 (4-49) U/L Alkaline Phosphatase 92 (38-126) U/L Troponin I 0.029 (0.000-0.034) ng/mL Total Protein 7.0 (6.3-8.2) g/dL Albumin 3.7 (3.5-5.0) g/dL - Radiology Data Radiology results: report reviewed (Computed tomography scan of the brain reveals atrophy. No changes. CT angios the head and neck shows atherosclerotic changes. This was discussed with Dr. reagan), image reviewed (Chest x-ray shows old exam. Cardiomegaly. Possible density or effusion or mild heart failure.) Disposition Clinical Impression: Transient cerebral ischemia Disposition: ADMITTED IP TO THIS HOSP Is patient prescribed a controlled substance at d/c from ED?: No Referrals: None,Stated [REFERRING] - 1-2 days Decision Time: 14:24
[2020-03-26 13:20] LABS: Anisocytosis Slight; Basophils % (A) 1 %; Eosinophils # (A) 0.1 k/uL (0-0.7); Eosinophils % (A) 1 %; HCT 36.2 % (39.0-53.0); Hypochromasia Marked; Lymphocytes # (A) 0.8 k/uL (1.0-4.8); Lymphocytes % (A) 9 %; MCH 26.4 pg (25.0-35.0); MCHC 30.4 g/dL (31.0-37.0); MCV 86.9 fL (80.0-100.0); Mean Platelet Volume 8.6; Monocytes # (A) 0.7 k/uL (0-1.0); Monocytes % (A) 8 %; Neutrophils # (A) 7.2 k/uL (1.3-7.7); Neutrophils % (A) 80 %; Platelet Count 165 k/uL (150-450); RBC 4.16 m/uL (4.30-5.90); RDW 16.5 % (11.5-15.5)
[2020-03-26 13:29] LABS: Albumin 3.7 g/dL (3.5-5.0); Calcium 8.5 mg/dL (8.4-10.2); Total Bilirubin 0.7 mg/dL (0.2-1.3)
[2020-03-26 13:36] LABS: INR 1.1 (<1.2); Partial Thromboplastin Time 23.1 sec (22.0-30.0); Prothrombin Time 11.2 sec (9.0-12.0)
--- NOTE | 2020-03-26 13:42 | CT ---
EXAMINATION TYPE: CT brain wo con for TPA DATE OF EXAM: 03/26/2020 COMPARISON: Previous study dated 07/20 18. HISTORY: difficulty with speech CT DLP: 1089 mGycm Automated exposure control for dose reduction was used. FINDINGS: There are generalized changes of sulcal prominence and ventriculomegaly, compatible with atrophic juli nge. There is diffuse periventricular white matter lucency, compatible with small vessel ischemic juli nge. There is no acute focal lesion, mass effect or midline shift identified. I do not see evidence o f intracranial blood. Visualized portions of the paranasal sinuses and mastoids are clear. The bony calvarium is intact. IMPRESSION: 1. NO ACUTE INTRACRANIAL ABNORMALITY. 2. ATROPHIC CHANGE. 3. CHRONIC WHITE MATTER ISCHEMIC CHANGE.
--- NOTE | 2020-03-26 13:46 | XR ---
EXAMINATION TYPE: XR chest 1V DATE OF EXAM: 03/26/2020 HISTORY: altered mental status. REFERENCE: Previous study dated 07/20/2018. FINDINGS: There is a bipolar pacemaker place on the left. The study is quite lordotic. There is multichamber cardiac enlargement. There is vascular congestion and mild interstitial change. There is increased opacity of the left hemithorax. I could not exclude a left effusion. IMPRESSION: 1. SUBOPTIMAL EXAM. 2. FINDINGS CONSISTENT WITH MILD HEART FAILURE. 3. THERE IS INCREASED DENSITY BEHIND THE LEFT HEART WHICH MAY REPRESENT ATELECTASIS OR PNEUMONIA. I C OULD NOT EXCLUDE A LEFT-SIDED EFFUSION.
--- NOTE | 2020-03-26 14:05 | CT ---
EXAMINATION TYPE: CT angio head neck DATE OF EXAM: 03/26/2020 HISTORY: difficulty with speech COMPARISON: CT brain of earlier today. CT DLP: 979.1 mGycm. Automated Exposure Control for Dose Reduction was Utilized. TECHNIQUE: CTA scan of the neck is performed with IV Contrast, patient injected with 65 mL of Isovue 370, axial images are obtained, coronal and sagittal reformatted images are reviewed. Three-D recons tructed images are created on an independent workstation and reviewed. FINDINGS: The heart is enlarged. There is airspace disease present bilaterally. There is vascular con gestion within the lungs. Visualized portions of the paranasal sinuses and mastoids are clear. There is a reversal of the normal cervical lordosis. There is a grade 1 spondylolisthesis of C5 on C6 . There is diffuse degenerative disc these and hypertrophic spondylosis as well as uncovertebral join t disease with relative sparing of C2-3 and C3-4. There is a normal origin of the great vessels. The vertebral arteries are codominant. There is no significant stenosis within the left carotid. There is no significant calcification at th e left carotid bulb. There is modest calcification at the right carotid bulb. There is approximately 27% by diameter steno sis involving the proximal ICA on the right. CT of the [place] demonstrates extensive carotid calcification within the carotid siphons bi laterally. It is so severe that accurate measure of stenosis cannot be obtained. There is normal arbo rization of the middle cerebral artery. Both anterior cerebral arteries are patent. There is a questi onable stenosis in the M1 segment of the left middle cerebral artery. The posterior circulation appea rs normal. IMPRESSION: 1. NO SIGNIFICANT CAROTID STENOSIS ON THE LEFT. 2. 27% BY DIAMETER STENOSIS ON THE RIGHT. 3. CODOMINANT VERTEBRAL ARTERIES. 4. CT OF THE [place] IS LIMITED BY EXTENSIVE CALCIFICATION WITHIN THE CAROTID SIPHON. QUESTI ONABLE STENOSIS IN THE M1 SEGMENT ON THE LEFT IS NOT CORROBORATED ON ADDITIONAL IMAGING.
[2020-03-26] MEDS ORDERED: ASPIRIN 325 MG TAB PO STA (14:26)
[2020-03-26] MEDS ORDERED: CLOPIDOGREL 75 MG TAB PO STA (14:27)
[2020-03-26] MEDS: SODIUM CHLORIDE 0.9% 1,000 ML IV SCH (15:10)
--- NOTE | 2020-03-26 16:46 | P.HPIM ---
History of Present Illness This is a pleasant 84 years old male with past medical history of hypertension, hyperlipidemia, hypothyroidism, severe obstructive sleep apnea on BiPAP, coronary artery disease status post stenting, chronic atrial fibrillation, tho racic aortic aneurysm status post aortic stent placement and iliac arteries stents. Presents with slurred speech and right arm weakness, that lasted for about 5 minutes as per documents. However patient he was somewhat poor historian but he cannot provide information also patient was noticed to have short of breath and has difficulty finishing sentences due to his dyspnea although he says that his breathing is okay, patient noticed that he still have weakness in his right leg although the patient contributed to the knee replacement in his knee. No facial division, he says that he has blurred vision in both eyes but he attributes that to cataract. It is hard to say if his speech is a slurred because he has an accent and is really dyspneic Patient denies headache or numbness. He admits of epigastric pain over the last 2 days but he does not have it today. No nausea vomiting He is also on home oxygen 2-3 L per nasal cannula Vitals stable. Labs including CBC, INR, BMP and liver enzymes were unremarkable. CT of the brain: No acute process, CTA of the brain: No significant carotid stenosis on the left, with 27% stenosis on the right, codominant vertebral arteries questionable stenosis in the M1 segment. Chest x- ray: Mild CHF, atelectasis versus pneumonia behind the left heart. EKG showing ventricular paced rhythm at 60 bpm In the emergency room patient was started on aspirin 325 mg and Plavix 300 mg once and then continued with 75 mg by mouth daily and normal/attended Yu per hour Review of Systems CONSTITUTIONAL: No fever, no malaise, no fatigue. HEENT: No recent visual problems or hearing problems. Denied any sore throat. CARDIOVASCULAR: No orthopnea, PND, no palpitations, no syncope. PULMONARY: no cough, no hemoptysis. GASTROINTESTINAL: No diarrhea, no nausea, no vomiting, no abdominal pain. Normoactive bowel sounds. NEUROLOGICAL: No headaches, no weakness, no numbness. HEMATOLOGICAL: Denies any bleeding or petechiae. GENITOURINARY: Denies any burning micturition, frequency, or urgency. MUSCULOSKELETAL/RHEUMATOLOGICAL: Denies any joint pain, swelling, or any muscle pain. ENDOCRINE: Denies any polyuria or polydipsia. Past Medical History Past Medical History: Atrial Fibrillation, Hyperlipidemia, Hypertension, Respiratory Disorder, Thyroid Disorder Additional Past Medical History / Comment(s): Severe JORDANA with an H of 128 seated with a BiPAP pressure of 17/13 cm of water, obesity, coronary artery disease with previous coronary intervention and stenting, tonic atrial fibrillation, hyperlipidemia, hypertension, hypothyroidism, ascending thoracic aortic aneurysm, ascending thoracic aortic aneurysm measuring 4.2 cm in size. Peripheral vascular disease with a stent within the aorta and stents also placed in the iliacs History of Any Multi-Drug Resistant Organisms: None Reported Past Surgical History: Cholecystectomy, Heart Catheterization With Stent Additional Past Surgical History / Comment(s): UPPP for obstructive sleep apnea, abdominal aortic aneurysm repair, vascular stenting to the lower extremities including the iliacs for peripheral vascular disease, cataracts, right carotid endarterectomy, cholecystectomy Past Anesthesia/Blood Transfusion Reactions: No Reported Reaction Date of Last Stent Placement:: 1995, Past Psychological History: No Psychological Hx Reported Smoking Status: Former smoker Past Alcohol Use History: None Reported Past Drug Use History: None Reported Medications and Allergies Home Medications Medication Instructions Recorded Confirmed Type Amitriptyline HCl [Elavil] 50 mg PO HS 08/30/14 07/20/18 History Levothyroxine Sodium [Synthroid] 50 mcg PO DAILY 08/30/14 07/20/18 History Potassium Chloride [Klor-Con 20] 20 meq PO HS 08/30/14 07/20/18 History Simvastatin [Zocor] 20 mg PO HS 08/30/14 07/20/18 History Aspirin EC [Ecotrin] 325 mg PO HS 07/30/17 07/20/18 History Glucosam/Atilio-Msm1/C/Filipe/Bosw 1 tab PO DAILY 07/30/17 07/20/18 History [Glucosamine-Chondroitin Tablet] Ibuprofen [Motrin] 600 mg PO Q6HR PRN 07/30/17 07/20/18 History Isosorbide Mononitrate ER [Imdur] 60 mg PO DAILY 07/30/17 07/20/18 History Loratadine [Claritin] 10 mg PO DAILY 07/30/17 07/20/18 History Magnesium Hydroxide [Milk of 2,400 mg PO DAILY PRN 07/30/17 07/20/18 History Magnesia] ALPRAZolam [Xanax] 0.25 mg PO BID PRN #30 08/02/17 07/20/18 Rx clonazePAM [KlonoPIN] 1 mg PO HS #15 tab 08/02/17 07/20/18 Rx oxyCODONE-APAP 7.5-325MG [Percocet 1 tab PO TID PRN #30 08/02/17 07/20/18 Rx 7.5-325 mg] Celecoxib [CeleBREX] 200 mg PO DAILY 07/20/18 07/20/18 History Meclizine [Antivert] 25 mg PO Q6H PRN #20 tab 07/20/18 Rx rOPINIRole HCL [Requip] 0.5 mg PO HS 07/20/18 07/20/18 History Allergies Allergy/AdvReac Type Severity Reaction Status Date / Time cefazolin sodium [From Anc] Allergy Anaphylaxis Verified 07/20/18 11:13 hylan G-F 20 [From Phizzbo] Allergy Anaphylaxis Verified 07/20/18 11:13 Physical Exam Vitals: Vital Signs Temp Pulse Resp BP Pulse Ox 03/26/20 15:14 60 18 146/86 97 03/26/20 13:04 97.5 F L 60 18 131/76 98 Intake and Output 03/26/20 03/26/20 03/26/20 06:59 14:59 22:59 Other: Weight 115.938 kg GENERAL: The patient is alert and oriented x3, not in any acute distress. Well developed, well nourished. HEENT: Pupils are round and equally reacting to light. EOMI. No scleral icterus. No conjunctival pallor. Normocephalic, atraumatic. No pharyngeal erythema. No thyromegaly. CARDIOVASCULAR: S1 and S2 present. No murmurs, rubs, or gallops. PULMONARY: Chest is clear to auscultation, no wheezing or crackles. ABDOMEN: Soft, nontender, nondistended, normoactive bowel sounds. No palpable organomegaly. MUSCULOSKELETAL: No joint swelling or deformity. EXTREMITIES: No cyanosis, clubbing, or pedal edema. NEUROLOGICAL: Gross neurological examination did not reveal any focal deficits. SKIN: No rashes. No petechiae Results CBC & Chem 7: 03/26/20 13:07 03/26/20 13:07 Labs: Abnormal Lab Results - Last 24 Hours (Table) 03/26/20 03/26/20 03/26/20 Range/Units 13:02 13:07 13:07 RBC 4.16 L (4.30-5.90) m/uL Hgb 11.0 L (13.0-17.5) gm/dL Hct 36.2 L (39.0-53.0) % MCHC 30.4 L (31.0-37.0) g/dL RDW 16.5 H (11.5-15.5) % Lymphocytes # 0.8 L (1.0-4.8) k/uL BUN 39 H (9-20) mg/dL Glucose 106 H (74-99) mg/dL POC Glucose (mg/dL) 115 H (75-99) mg/dL Assessment and Plan Assessment: transient ischemic attack versus stroke, with slurred speech and right arm weakness which is resolved as per ED document, patient noticed that he still have weakness in his right leg Acute congestive heart failure and known ejection fraction Hypertension Hyperlipidemia Hypothyroidism chronic hypoxic respiratory failure chronic kidney disease, stage II Severe obstructive sleep apnea on BiPAP History of coronary artery disease status post stenting Chronic atrial fibrillation thoracic aortic aneurysm status post aortic stent placement and iliac arteries stents Plan: This is a pleasant 84 years old male who presents with TIA/stroke with CHF. Continue neuro check, neurology consult. Cardiology consult, echocardiogram. Stop IV fluid. Start Lasix. Continue with aspirin. Check bladder scan Labs and medication were reviewed.. Continue same treatment. Continue with symptomatic treatment. Resume home medication. Monitor lytes and vitals. DVT and GI prophylaxis. Further recommendations of the clinical course of the patient DVT prophylaxis: Subcutaneous heparin GI Prophylaxis: Pepcid PT/OT: Pending Prognosis is guarded
[2020-03-26] MEDS: FUROSEMIDE 10 MG/ML 4 ML VIAL IV SCH ×2 (19:41→22:49)
[2020-03-26] MEDS: FAMOTIDINE 20 MG/2 ML VIAL IV SCH (21:06)
[2020-03-26] MEDS: HEPARIN SODIUM,PORCINE 5,000 UNIT/ML 1 ML VIAL SQ SCH (21:07)
[2020-03-27] MEDS: SODIUM CHLORIDE 0.9% 1,000 ML IV SCH ×2 (02:12→11:45)
[2020-03-27 06:53] LABS: Anisocytosis Slight; HCT 36.9 % (39.0-53.0); HGB 10.8 gm/dL (13.0-17.5); Hypochromasia Marked; MCH 25.6 pg (25.0-35.0); MCHC 29.3 g/dL (31.0-37.0); MCV 87.4 fL (80.0-100.0); Mean Platelet Volume 7.9; Platelet Count 180 k/uL (150-450); RBC 4.22 m/uL (4.30-5.90); RDW 16.3 % (11.5-15.5); WBC 9.6 k/uL (3.8-10.6)
[2020-03-27 07:02] LABS: Calcium 8.6 mg/dL (8.4-10.2)
[2020-03-27] MEDS: LOSARTAN 50 MG TAB PO SCH (09:42)
[2020-03-27] MEDS: FAMOTIDINE 20 MG/2 ML VIAL IV SCH (09:42)
[2020-03-27] MEDS: FUROSEMIDE 10 MG/ML 4 ML VIAL IV SCH ×2 (09:42→23:03)
[2020-03-27] MEDS: HEPARIN SODIUM,PORCINE 5,000 UNIT/ML 1 ML VIAL SQ SCH ×2 (09:42→23:04)
--- NOTE | 2020-03-27 10:15 | ECHOF ---
Referral Reason:Thrombus MEASUREMENTS -------- HEIGHT: 170.2 cm WEIGHT: 111.6 kg BP: 161/72 RVIDd: 3.6 cm (< 3.3) IVSd: 1.9 cm (0.6 - 1.1) LVIDd: 4.5 cm (3.9 - 5.3) LVPWd: 2.0 cm (0.6 - 1.1) IVSs: 2.5 cm LVIDs: 3.0 cm LVPWs: 2.0 cm Ao Diam: 3.4 cm (2.0 - 3.7) AV Cusp: 2.3 cm (1.5 - 2.6) LA Diam: 3.2 cm (2.7 - 3.8) MV EXCURSION: 17.570 mm (> 18.000) MV EF SLOPE: 47 mm/s (70 - 150) EPSS: 0.6 cm MV E Yovani: 1.18 m/s MV DecT: 352 ms MV A Yovani: 0.84 m/s MV E/A Ratio: 1.42 RAP: 5.00 mmHg RVSP: 35.35 mmHg FINDINGS -------- Paced rhythm. This was a technically difficult study with suboptimal views. Previous cabg The left ventricular size is normal. There is severe concentric left ventricular hypertrophy. Ove rall left ventricular systolic function is mildly impaired with, an EF between 45 - 50 %. Mid anter oseptal LV wall motion is hypokinetic. Apical septum LV wall motion is hypokinetic. The right ventricle is mildly enlarged. The left atrial size is normal. The right atrial size is normal. Lumason used Unable to visualize the septum. The aortic valve is trileaflet and appears structurally normal. The mitral valve is normal. Mild mitral regurgitation is present. The tricuspid valve appears structurally normal. Mild tricuspid regurgitation present. There is b orderline pulmonary hypertension. The right ventricular systolic pressure, as measured by Doppler, is 35.35mmHg. There is no pulmonic regurgitation present. The aortic root size is normal. IVC Not well visulized. There is no pericardial effusion. CONCLUSIONS -------- 1. Paced rhythm. 2. This was a technically difficult study with suboptimal views. 3. Previous cabg 4. The left ventricular size is normal. 5. There is severe concentric left ventricular hypertrophy. 6. Overall left ventricular systolic function is mildly impaired with, an EF between 45 - 50 %. 7. Mid anteroseptal LV wall motion is hypokinetic. 8. Apical septum LV wall motion is hypokinetic. 9. The right ventricle is mildly enlarged. 10. The left atrial size is normal. 11. The right atrial size is normal. 12. Lumason used 13. Unable to visualize the septum. 14. The aortic valve is trileaflet and appears structurally normal. 15. The mitral valve is normal. 16. Mild mitral regurgitation is present. 17. The tricuspid valve appears structurally normal. 18. Mild tricuspid regurgitation present. 19. There is borderline pulmonary hypertension. 20. The right ventricular systolic pressure, as measured by Doppler, is 35.35mmHg. 21. There is no pulmonic regurgitation present. 22. The aortic root size is normal. 23. IVC Not well visulized. 24. There is no pericardial effusion. PLASTER PATTERNMAKER: Haydee Stoner RDCS
--- NOTE | 2020-03-27 10:50 | CONS ---
CONSULTATION CHIEF COMPLAINT: CVAMary Pitts is an 84-year-old gentleman with history of dyslipidemia, hypothyroidism, and hypertension who presented to hospital with symptoms of sudden onset and ability to use right upper extremity. The patient has had an accident involving the right upper extremity and had somewhat of a restrictive movement, but while he was having breakfast, he suddenly loss use of the right arm and had slurred speech. This gradually improved, came to hospital and got admitted. He states that he has had shortness of breath, cough and productive sputum and had recently been evaluated by Dr. Rangel, the mechanical door repairer. His history is also significant for coronary artery disease, status post stenting, permanent atrial fibrillation, thoracic aortic aneurysm, status post aortic stent graft, and hypothyroidism. At the time of my evaluation this morning, his upper extremity movements are still restricted, but he is feeling better. He denies chest pain. He denies shortness of breath. There is no history of leg edema, PND or orthopnea. A CT scan of his brain was negative. Labs showed that the cardiac enzymes are negative. Carotid duplex study was negative for significant carotid stenosis. An EKG shows that he has paced rhythm. PAST MEDICAL HISTORY: Significant for coronary artery disease status post angioplasty, permanent atrial fibrillation, hypertension, dyslipidemia, sick sinus syndrome status post permanent pacemaker, and aortic aneurysm. MEDICATIONS: At home include Elavil, Synthroid, Klor-Con, Zocor, aspirin, glucosamine, Imdur, Claritin, Xanax, Klonopin, Percocet, Celebrex, Antivert, and Requip. ALLERGIC: To KEFLEX. FAMILY HISTORY: Negative for premature coronary artery disease. SOCIAL HISTORY: Negative for current smoking, alcohol or drug abuse. REVIEW OF SYSTEMS: CONSTITUTIONAL: Negative. HEENT: Significant for some hearing impairment. CARDIAC: Negative. PULMONARY: Significant for shortness of breath, cough and sputum. GI: Negative. GENITOURINARY: Negative. NEUROLOGICAL: Significant for weakness involving right upper extremity. HEMATOLOGICAL: Negative. MUSCULOSKELETAL: Significant for arthritis and prior trauma of the right arm and restricted leaflet mobility. ENDOCRINE: Negative. PHYSICAL EXAMINATION: On exam, patient is afebrile. Heart rate is 60 beats per minute. Blood pressure is 160/70, respiratory rate is 18, O2 saturation is 96% on 2 L. There is no jugular venous distention. Chest exam reveals diminished air entry at the bases. I do not hear any crackles or rhonchi. Heart exam reveals first and second heart sounds and ejection systolic murmur in the aortic area. Abdomen is soft. Exam of extremities did not reveal any edema. Peripheral pulses are palpable. He has weakness involving right upper extremity. LABS: Show a hemoglobin of 10.8, platelet count is 180. Potassium is 4, creatinine is 1. Troponin is negative. LDL cholesterol is 42. ASSESSMENT: 1. Cerebrovascular accident. 2. Hypertension. 3. Dyslipidemia. 4. Respiratory failure. 5. Shortness of breath, probably multifactorial including mild congestive heart failure of unclear etiology, possible underlying pneumonia and COPD. PLAN: We were going to control the blood pressure more optimally by resuming patient's losartan. Obtain a 2D echo to assess LV function. Continue the aspirin, Plavix that he is on. I will review records from my office if there any. MMODL / IJN: [id number] /
--- NOTE | 2020-03-27 12:35 | US ---
EXAMINATION TYPE: US chest DATE OF EXAM: 03/27/2020 COMPARISON: NONE CLINICAL HISTORY: Markings for thoracentesis by pulmonary staff. Pleural effusion. TECHNIQUE: Targeted ultrasound of the posterior lower bilateral hemithoraces EXAM MEASUREMENTS: Left Pleural Effusion pocket size: 11.6 cm Left skin surface to fluid distance: 3.4 cm Lung tissue visualized in pocket at 2 cm. Left side marked for possible thoracentesis outside the dept. Pulmonologists are able to review the images in the patient?s EMR. IMPRESSIONS: As above
[2020-03-27] MEDS: IOPAMIDOL CONTRAST (ORAL USE) VIAL PO PRN ×2 (12:49→13:20)
[2020-03-27] MEDS: ASPIRIN 325 MG TAB PO SCH (12:49)
[2020-03-27] MEDS: CLOPIDOGREL 75 MG TAB PO SCH (12:50)
[2020-03-27] MEDS ORDERED: IOPAMIDOL CONTRAST (ORAL USE) VIAL PO PRN (13:04)
--- NOTE | 2020-03-27 13:05 | P.PN ---
Subjective This is a pleasant 84 years old male with past medical history of hypertension, hyperlipidemia, hypothyroidism, severe obstructive sleep apnea on BiPAP, coronary artery disease status post stenting, chronic atrial fibrillation, thoracic aortic aneurysm status post aortic stent placement and iliac arteries stents. Presents with slurred speech and right arm weakness, that lasted for about 5 minutes as per documents. However patient he was somewhat poor historian but he cannot provide information also patient was noticed to have short of breath and has difficulty finishing sentences due to his dyspnea although he says that his breathing is okay, patient noticed that he still have weakness in his right leg although the patient contributed to the knee replacement in his knee. No facial division, he says that he has blurred vision in both eyes but he attributes that to cataract. It is hard to say if his speech is a slurred because he has an accent and is really dyspneic Patient denies headache or numbness. He admits of epigastric pain over the last 2 days but he does not have it today. No nausea vomiting He is also on home oxygen 2-3 L per nasal cannula Vitals stable. Labs including CBC, INR, BMP and liver enzymes were unremar kable. CT of the brain: No acute process, CTA of the brain: No significant carotid stenosis on the left, with 27% stenosis on the right, codominant vertebral arteries questionable stenosis in the M1 segment. Chest x-ray: Mild CHF, atelectasis versus pneumonia behind the left heart. EKG showing ve ntricular paced rhythm at 60 bpm In the emergency room patient was started on aspirin 325 mg and Plavix 300 mg once and then continued with 75 mg by mouth daily and normal/attended Yu per hour 03/27/2020 Patient is fully awake and alert,speech noticed. His weakness and right upper and lower extremity is significantly improved although he was still complaining of some residual weakness in his right upper extremity however in exam looks strong. His dyspnea is better today and his lack any mass coming down, is saturating 90 is ambulatory oxygen via nasal cannula He was starting complaining of from epigastric pain and tenderness this morning, and on exam he has tenderness in the epigastric right upper quadrant, right lower quadrant and suprapubic area. He states that his pain is mild to moderate nonspecific in character with no associated nausea vomiting, and no diarrhea or change in bowel habits as per patient. Vitals are stable. We'll do a CAT scan of the abdomen and pelvis with no contrast, CBC and BMP were unremarkable, creatinine 1.05 and GFR is 65 Chest ultrasound showing left pleural effusion 11.6 cm, pulmonary team consulted Echocardiogram showing ejection fraction of 45-50%. With severe LVH with hypokinetic anterior septal and apical septum of LV, and cartilage team are following the patient closely. Continue with Lasix 40 mg twice daily. Continue with aspirin and Plavix. Neuro consult Review of Systems CONSTITUTIONAL: No fever, no malaise, no fatigue. HEENT: No recent visual problems or hearing problems. Denied any sore throat. CARDIOVASCULAR: No orthopnea, PND, no palpitations, no syncope. PULMONARY: no cough, no hemoptysis. GASTROINTESTINAL: No diarrhea, no nausea, no vomiting, no abdominal pain. Normoactive bowel sounds. NEUROLOGICAL: No headaches, no weakness, no numbness. HEMATOLOGICAL: Denies any bleeding or petechiae. GENITOURINARY: Denies any burning micturition, frequency, or urgency. MUSCULOSKELETAL/RHEUMATOLOGICAL: Denies any joint pain, swelling, or any muscle pain. ENDOCRINE: Denies any polyuria or polydipsia. Active Medications Generic Name Dose Route Start Last Admin Trade Name Freq PRN Reason Stop Dose Admin Aspirin 325 mg 03/27/20 14:26 Aspirin PO DAILY [facility] Clopidogrel Bisulfate 75 mg 03/27/20 14:27 Plavix PO DAILY [facility] Famotidine 20 mg 03/26/20 21:00 03/27/20 09:42 Pepcid IV 20 mg Q12HR KVNG Administration Furosemide 40 mg 03/26/20 16:43 03/27/20 09:42 Lasix IV 40 mg Q12HR KVNG Administration Heparin Sodium (Porcine) 5,000 unit 03/26/20 21:00 03/27/20 09:42 Heparin SQ 5,000 unit Q12HR KVNG Administration Sodium Chloride 1,000 mls @ 100 mls/hr 03/26/20 14:30 03/27/20 11:45 Saline 0.9% IV Not Given .Q10H KVNG Iopamidol 30 ml 03/27/20 11:28 Isovue-300 (For Oral Use) PO 03/28/20 11:[address] Scan Losartan Potassium 100 mg 03/27/20 09:30 03/27/20 09:42 Cozaar PO 100 mg DAILY KVNG Administration Objective - Vital Signs Vital signs: Vital Signs Temp 97.6 F 03/27/20 08:00 Pulse 69 03/27/20 11:27 Resp 17 03/27/20 03:25 BP 146/69 03/27/20 08:00 Pulse Ox 94 L 03/27/20 08:00 Intake & Output 03/26/20 03/27/20 03/27/20 18:59 06:59 18:59 Intake Total 360 590 236 Output Total 700 500 Balance 360 -110 -264 Weight 115.938 kg 111.7 kg Intake: IV 50 0.9 @ 10 mls/hr 50 Oral 360 540 236 Output: Urine 700 500 Other: Voiding Method Bedside Commode Bedside Commode Bedside Commode Urinal Urinal # Voids 1 1 - Exam GENERAL: The patient is alert and oriented x3, not in any acute distress. Well developed, well nourished. HEENT: Pupils are round and equally reacting to light. EOMI. No scleral icterus. No conjunctival pallor. Normocephalic, atraumatic. No pharyngeal erythema. No thyromegaly. CARDIOVASCULAR: S1 and S2 present. No murmurs, rubs, or gallops. PULMONARY: Chest is clear to auscultation, no wheezing or crackles. ABDOMEN: Soft, nontender, nondistended, normoactive bowel sounds. No palpable organomegaly. MUSCULOSKELETAL: No joint swelling or deformity. EXTREMITIES: No cyanosis, clubbing, or pedal edema. NEUROLOGICAL: Gross neurological examination did not reveal any focal deficits. SKIN: No rashes. No petechiae - Labs CBC & Chem 7: 03/27/20 05:47 03/27/20 05:47 Labs: Abnormal Lab Results - Last 24 Hours (Table) 03/26/20 03/26/20 03/26/20 Range/Units 13:02 13:07 13:07 RBC 4.16 L (4.30-5.90) m/uL Hgb 11.0 L (13.0-17.5) gm/dL Hct 36.2 L (39.0-53.0) % MCHC 30.4 L (31.0-37.0) g/dL RDW 16.5 H (11.5-15.5) % Lymphocytes # 0.8 L (1.0-4.8) k/uL Carbon Dioxide (22-30) mmol/L BUN 39 H (9-20) mg/dL Glucose 106 H (74-99) mg/dL POC Glucose (mg/dL) 115 H (75-99) mg/dL HDL Cholesterol (40-60) mg/dL 03/27/20 03/27/20 Range/Units 05:47 05:47 RBC 4.22 L (4.30-5.90) m/uL Hgb 10.8 L (13.0-17.5) gm/dL Hct 36.9 L (39.0-53.0) % MCHC 29.3 L (31.0-37.0) g/dL RDW 16.3 H (11.5-15.5) % Lymphocytes # (1.0-4.8) k/uL Carbon Dioxide 34 H (22-30) mmol/L BUN 38 H (9-20) mg/dL Glucose (74-99) mg/dL POC Glucose (mg/dL) (75-99) mg/dL HDL Cholesterol 36 L (40-60) mg/dL Assessment and Plan Assessment: transient ischemic attack versus stroke, with slurred speech and right arm we akness which is resolved as per ED document, patient noticed that he still have weakness in his right leg Acute on chronic systolic congestive heart failure and ejection fraction of 45- 50% Left pleural effusion Hypertension Hyperlipidemia Hypothyroidism chronic hypoxic respiratory failure chronic kidney disease, stage II Severe obstructive sleep apnea on BiPAP History of coronary artery disease status post stenting Chronic atrial fibrillation thoracic aortic aneurysm status post aortic stent placement and iliac arteries stents Plan: This is a pleasant 84 years old male who presents with TIA/stroke with CHF. Continue neuro check, neurology consult. Cardiology consult, echocardiogram. Stop IV fluid. Start Lasix. Continue with aspirin. Check bladder scan. Cardiology and pulmonary consult Labs and medication were reviewed.. Continue same treatment. Continue with symptomatic treatment. Resume home medication. Monitor lytes and vitals. DVT and GI prophylaxis. Further recommendations of the clinical course of the patient DVT prophylaxis: Subcutaneous heparin GI Prophylaxis: Pepcid PT/OT: Pending Prognosis is guarded
--- NOTE | 2020-03-27 13:53 | P.CNPUL ---
History of Present Illness Consult date: 03/27/20 Requesting physician: Thor Tam Reason for consult: pleural effusion Chief complaint: Right-sided weakness, slurred speech, large left-sided pleural effusion History of present illness: 84-year-old male patient with past medical history of coronary artery disease, with previous stenting, hypertension, hyperlipidemia, hypothyroidism, diabetes mellitus, chronic atrial fibrillation, obstructive sleep apnea status post UPPP, postinflammatory pulmonary fibrosis, peripheral vascular disease, history of abdominal aortic aneurysm, and descending thoracic aortic aneurysm, and patient had undergone abdominal aortic stenting at the [facility]. He follows with Dr. Argueta in the office for chronic bronchitis and a history of postinflammatory pulmonary fibrosis. Patient was seen in the office on 03/22/2020 patient was having multiple complaints, he was complaining of abdominal pain for the last few weeks and the pain was mostly brought up by bending down, patient was not having any nausea, vomiting, diarrhea, melena or hematemesis. And the pain seemed to be positional. That reason a CT of the abdomen and pelvis with IV and oral contrast was ordered on an outpatient basis. Also patient was complaining of cough, congestion and wheezing. No fever or chills, no hemoptysis or chest pain. Chest x-ray in the office was completed showing a small left-sided pleural effusion which seemed to be progressing since his last chest x-ray in December. Hence ultrasound the chest was recommended to be done on outpatient basis for consideration of left-sided thoracentesis. His Lasix was increased from 20 mg once daily to 20 mg twice daily. Of note patient has a history of chronic persistent atrial fibrillation and he was not taking his Eliquis for concern of potential bleeding. Patient does have a permanent pacemaker in place. On 03/26/2020 patient is brought into the hospital per EMS evaluation of sudden onset of slurred speech, and right arm weakness. The onset of symptoms was 1 hour prior to arrival. The slurred speech and right arm weakness lasted around 5 minutes and spontaneously resolved, patient had a second episode lasting around 7 minutes and again resolved. No complaints of headache, no confusion, no visual changes. Neuro interventionalist evaluated the patient via telemedicine and did not feel that the patient needed immediate intervention, and recommended medical therapy with Plavix 300 mg and aspirin 325 mg. Neurology consultation is pending, MRI is pending. Brain CT showed no acute intracranial abnormality and chronic white matter ischemic changes. Chest x-ray showed findings consistent with mild heart failure, vascular congestion and mild interstitial changes, and left-sided pleural effusion and possibility of atelectasis or infiltrate. EKG showed her percent ventricular paced rhythm at a rate of 60 BPM. Echocardiogram showed EF of 45-50%, mild anteroseptal LV wall hypokinesis, and apical septum LV wall hypokinesis. Mildly enlarged right ventricle, mild mitral regurg, mild tricuspid regurg, borderline pulmonary hypertension with right-sided pressures of 35.3 mmHg. Patient was supposed to have his outpatient left chest ultrasound completed today and we were asked to see about potential left-sided thoracentesis if the ultrasound showed sufficient pleural fluid. Currently he is resting comfortably in bed, he has a strong [place] accent, but his speech seems to be back to baseline, no slurring, his son is at the bedside providing some occasional help with translation. She is alert and oriented 3, seems to be in no acute distress, his right-sided weakness of his right arm has resolved, he is moving all 4 extremities, denies any shortness of breath, lung sounds reveal diminished breath sounds at the left base, as far as abdominal discomfort his son states that his abdomen seems to be less distended and feels more comfortable at this time, no abdominal tenderness, abdomen is obese but nontender. Review of Systems All systems: negative Constitutional: Denies chills, Denies fever Eyes: denies blurred vision, denies pain Ears, nose, mouth and throat: Denies headache, Denies sore throat Cardiovascular: Denies chest pain, Denies shortness of breath Respiratory: Denies cough Gastrointestinal: Denies abdominal pain, Denies diarrhea, Denies nausea, Denies vomiting Musculoskeletal: Denies myalgias Integumentary: Denies pruritus, Denies rash Neurological: Reports change in speech, Reports weakness, Denies numbness Psychiatric: Denies anxiety, Denies depression Endocrine: Denies fatigue, Denies weight change Past Medical History Past Medical History: Atrial Fibrillation, Hyperlipidemia, Hypertension, Respiratory Disorder, Thyroid Disorder Additional Past Medical History / Comment(s): Severe JORDANA with an H of 128 seated with a BiPAP pressure of 17/13 cm of water, obesity, coronary artery disease with previous coronary intervention and stenting, tonic atrial fibrillation, hyperlipidemia, hypertension, hypothyroidism, ascending thoracic aortic aneurysm, ascending thoracic aortic aneurysm measuring 4.2 cm in size. Peripheral vascular disease with a stent within the aorta and stents also placed in the iliacs History of Any Multi-Drug Resistant Organisms: None Reported Past Surgical History: Cholecystectomy, Heart Catheterization With Stent Additional Past Surgical History / Comment(s): UPPP for obstructive sleep apnea, abdominal aortic aneurysm repair, vascular stenting to the lower extremities including the iliacs for peripheral vascular disease, cataracts, right carotid endarterectomy, cholecystectomy Past Anesthesia/Blood Transfusion Reactions: No Reported Reaction Date of Last Stent Placement:: 1995, Type of Cardiac Device: Permanent Pacemaker Device Placement Date:: JUL 2017 Past Psychological History: No Psychological Hx Reported Smoking Status: Former smoker Past Alcohol Use History: None Reported Past Drug Use History: None Reported Medications and Allergies Home Medications Medication Instructions Recorded Confirmed Type Amitriptyline HCl [Elavil] 50 mg PO HS 08/30/14 03/26/20 History Levothyroxine Sodium [Synthroid] 50 mcg PO DAILY 08/30/14 03/26/20 History Potassium Chloride [Klor-Con 20] 20 meq PO DAILY 08/30/14 03/26/20 History Simvastatin [Zocor] 20 mg PO HS 08/30/14 03/26/20 History Aspirin EC [Ecotrin] 325 mg PO DAILY 07/30/17 03/26/20 History Isosorbide Mononitrate ER [Imdur] 60 mg PO DAILY 07/30/17 03/26/20 History Celecoxib [CeleBREX] 200 mg PO DAILY 07/20/18 03/26/20 History Azithromycin [Zithromax] 500 mg PO DAILY 03/26/20 03/26/20 History Clopidogrel [Plavix] 75 mg PO DAILY 03/26/20 03/26/20 History Furosemide [Lasix] 20 mg PO DAILY 03/26/20 03/26/20 History Losartan Potassium 100 mg PO DAILY 03/26/20 03/26/20 History predniSONE See Taper PO DAILY 03/26/20 03/26/20 History Allergies Allergy/AdvReac Type Severity Reaction Status Date / Time cefazolin sodium [From Ancef] Allergy Anaphylaxis Verified 03/27/20 09:38 hylan G-F 20 [From Synvisc] Allergy Anaphylaxis Verified 03/27/20 09:38 Physical Exam Vitals: Vital Signs Temp Pulse Pulse Pulse Resp BP BP 03/27/20 11:27 69 03/27/20 09:27 62 03/27/20 08:00 97.6 F 60 03/27/20 03:25 98.2 F 60 17 03/26/20 23:20 60 60 17 166/72 03/26/20 20:00 98.4 F 60 16 03/26/20 15:40 98.1 F 60 18 158/76 03/26/20 15:27 98.1 F 60 60 16 158/76 158/76 03/26/20 15:14 60 18 146/86 BP Pulse Ox 03/27/20 11:27 03/27/20 09:27 03/27/20 08:00 146/69 94 L 03/27/20 03:25 161/72 96 03/26/20 23:20 95 03/26/20 20:00 169/79 97 03/26/20 15:40 97 03/26/20 15:27 97 03/26/20 15:14 97 Intake and Output 03/26/20 03/27/20 03/27/20 22:59 06:59 14:59 Intake Total 900 50 236 Output Total 700 500 Balance 900 -650 -264 Intake: IV 50 0.9 @ 10 mls/hr 50 Oral 900 236 Output: Urine 700 500 Other: Voiding Method Bedside Commode Bedside Commode Bedside Commode Urinal Urinal Urinal # Voids 1 1 Weight 115.938 kg 111.7 kg GENERAL EXAM: Alert, very pleasant, obese 84-year-old white male, resting in bed, on 2 L of oxygen with a pulse ox of 94%, and has a strong [place] accent, but is able to make his needs known, with limited assistance with translation from his son who is at the bedside, comfortable in no apparent distress. HEAD: Normocephalic/atraumatic. EYES: Normal reaction of pupils, equal size. Conjunctiva pink, sclera white. NOSE: Clear with pink turbinates. THROAT: No erythema or exudates. NECK: No masses, no JVD, no thyroid enlargement, no adenopathy. CHEST: No chest wall deformity. Symmetrical expansion. LUNGS: Equal air entry with no crackles, wheeze, rhonchi or dullness. CVS: Regular rate and rhythm, normal S1 and S2, no gallops, no murmurs, no rubs ABDOMEN: Soft, obese, nontender No hepatosplenomegaly, normal bowel sounds, no guarding or rigidity. EXTREMITIES: No clubbing, no edema, no cyanosis, 2+ pulses and upper and lower extremities. MUSCULOSKELETAL: Muscle strength and tone normal. SPINE: No scoliosis or deformity SKIN: No rashes CENTRAL NERVOUS SYSTEM: Alert and oriented -3. No focal deficits, tone is normal in all 4 extremities. PSYCHIATRIC: Alert and oriented -3. Appropriate affect. Intact judgment and insight. Results - Laboratory Findings CBC and BMP: 03/27/20 05:47 03/27/20 05:47 PT/INR, D-dimer PT 11.2 sec (9.0-12.0) 03/26/20 13:07 INR 1.1 (<1.2) 03/26/20 13:07 Abnormal lab findings: Abnormal Labs 03/26/20 03/26/20 03/26/20 13:02 13:07 13:07 RBC 4.16 L Hgb 11.0 L Hct 36.2 L MCHC 30.4 L RDW 16.5 H Lymphocytes # 0.8 L Carbon Dioxide BUN 39 H Glucose 106 H POC Glucose (mg/dL) 115 H HDL Cholesterol 03/27/20 03/27/20 05:47 05:47 RBC 4.22 L Hgb 10.8 L Hct 36.9 L MCHC 29.3 L RDW 16.3 H Lymphocytes # Carbon Dioxide 34 H BUN 38 H Glucose POC Glucose (mg/dL) HDL Cholesterol 36 L - Diagnostic Findings Chest x-ray: report reviewed, image reviewed Additional studies: Chest x-ray, ultrasound of the chest, brain CT, brain CT angiography, EKG, and echocardiogram reviewed Assessment and Plan Plan: Assessment: #1. Acute TIA versus CVA, with acute onset of right arm weakness, and slurred speech, and the symptoms resolved within a few minutes of the onset, occurred again and resolved again. Brain CT without contrast showed no acute intracrania l abnormality, chronic white matter ischemic change. Brain CT with angiography showed no significant carotid stenosis on the left, 27% stenosis in the right carotid, CT of the [place] was limited by extensive calcification within the carotid siphon, questionable stenosis in the M1 segment on the left. #2. Acute onset of slurred speech, and right arm weakness, related to the above, resolved in less than 24 hours from the onset of symptoms #3. Large left-sided pleural effusion, with ultrasound of the left chest showing 11.6 cm fluid pocket #4. Chronic atrial fibrillation, status post permanent pacemaker placement, and patient has declined oral anticoagulation #5. Hypertension #6. Cardiomyopathy, an echocardiogram showed severe concentric left ventricular hypertrophy and mildly impaired EF between 45 and 50%, mild MR, mild TR, borderline pulmonary hypertension with right-sided pressures of 35.3 mmHg #7. Hyperlipidemia #8. Hypothyroidism #9. Peripheral vascular disease, with previous stenting of the iliac arteries #10. History of thoracic and abdominal aortic aneurysm, status post abdominal aortic stenting at the [facility] #11. Obstructive sleep apnea with an AHI of 128, status post UPPP #12. Carotid artery disease, status post right carotid endarterectomy #13. Former smoker #14. Coronary artery disease status post stenting #15. Obesity Plan: Ultrasound of the chest has been reviewed, we'll consider left-sided thoracentesis at the bedside, this was discussed with the patient and the son are agreeable to proceed. In the meantime continue with Lasix, continue following daily labs, we'll obtain follow-up chest x-ray after the procedure, we'll continue to follow I performed a history & physical examination of the patient and discussed their management with my nurse practitioner, Helga Sims. I reviewed the nurse practitioner's note and agree with the documented findings and plan of care. Lung sounds are positive for diminished sounds at the left base. The findings and the impression was discussed with the patient. I attest to the documentation by the nurse practitioner. Time with Patient: Greater than 30
--- NOTE | 2020-03-27 14:33 | CT ---
EXAMINATION TYPE: CT abdomen pelvis w con DATE OF EXAM: 03/27/2020 COMPARISON: 06/29/2017 HISTORY: Abdominal pain and distention CT DLP: 2155.2 mGycm Automated exposure control for dose reduction was used. TECHNIQUE: Helical acquisition of images was performed from the lung bases through the pelvis. CONTRAST: Performed with Oral Contrast and with IV Contrast, patient injected with 100 mL of Isovue 300. FINDINGS: LUNG BASES: Partially visualized small left pleural effusion and surrounding atelectasis are seen wit h minimal right basilar atelectasis and subpleural deposition of fat on the right. Heart is enlarged with mild pericardial effusion and postsurgical change. There is tortuosity of the descending thoraci c aorta and aortic stent graft beginning at the diaphragmatic hiatus. Calcifications along the left h emidiaphragm are similar to the prior 2017. LIVER/GB: Hepatic contour is very minimally nodular. Gallbladder is surgically absent. PANCREAS: Pancreatic parenchymal atrophy noted. SPLEEN: Punctate benign granulomas in the splenic parenchyma. ADRENALS: No significant abnormality is seen. KIDNEYS: There is cortical thinning of the right kidney and a left renal cyst of the inferior pole as well as 2 small to accurately characterize punctate bilateral renal cortical lesions. No hydronephro sis. Incidentally noted retroaortic left renal vein. FREE AIR: No free air is visualized. ADENOPATHY: No greater than 1 cm short axis lymph node seen in the abdomen or pelvis. OSSEOUS STRUCTURES: There is grade 1 anterolisthesis of L4 on L5 and minimal retrolisthesis of L2 on L3. Severe multilevel degenerative disc disease of the spine is seen. BOWEL: No dilated large or small bowel. Oral contrast extends only into the cecum and there is limit ed evaluation of the large bowel. Mild degree colonic fecal stasis is seen. No focal pericolonic fat stranding. OTHER: A trace amount of ascites is seen tracking down the lateral conal fascia bilaterally. Surgical clips are seen within the inguinal regions. Abdominal aortic stent graft traverses the diaphragmatic hiatus and abdominal aorta and extends into the common iliac arteries. There is also a stent within the superior mesenteric artery and appears to be stents within the ostia of the renal arteries. The [place] aortic lumen of the abdominal aortic an eurysm measures 4.5 x 4.2 cm and one measured at a similar location on the exam of 2017 has not incre ased in size. No evidence of endoleak is seen. The left common iliac artery is aneurysmal measuring 2 .4 cm and the right is also aneurysmal measuring 2.4 cm as well. IMPRESSION: 1. Trace abdominal ascites. The hepatic contour is only very minimally nodular and perihepatic ascite s could be from congestive hepatopathy as a result of congestive heart failure or hepatocellular dise ase. Correlate with liver function tests. 2. Partially visualized at least small left pleural effusion and surrounding atelectasis as well as s mall pericardial effusion. 3. No evidence of bowel obstruction. 4. Surgically fixated abdominal aortic aneurysm with no evidence of endoleak and no gross enlargement in comparison to 2017.
--- NOTE | 2020-03-27 18:07 | P.CNNES ---
History of Present Illness Consult date: 03/27/20 Reason for Consult: TIA Chief complaint: Acute onset of slurring of speech and right upper extremity weakness History of Present Illness: This is a new neurology consult requested for further advice recommendation for an 84-year-old Sinhala male whose history is also provided by his son for translation. His son reports that yesterday he was at his father's home upstairs painting and another room and he hurt his father call out to him. Father from the mobile phone and found that his speech was slurred and he was tr ruperto to say that he couldn't move his right arm. His son ran down the stairs and found that his speech now appeared clear but he did have right upper extremity weakness. He called 911. In the process he denies his father having any bowel or bladder incontinence or evidence of any seizures. He appeared cognitively intact to the whole ordeal. Initially the fire department arrived in the EMS. By the time the EMS arrived the right upper extremity weakness resolved but then the patient began complaining of intermittent numbness. As this is followed up to go to the restroom before leading with the paramedics again is when he be experience right upper extremity weakness. Over the last 24 hours he reports he's had right upper extremity numbness and some loss of control 3 times. As of this morning he reports that his arm feels completely resolved no numbness or weakness. Next Past medical history is significant for peripheral vascular disease coronary artery disease. He has very severe sleep apnea on BiPAP with pressures of 17/13. He underwent a endovascular Triple A stent graft for an abdominal aneurysm repair at [facility]. He had a pacemaker placed in July 2017. He's had surgeries include knee replacements and cholecystectomy. In April 29 he underwent a carotid endarterectomy on the left. The patient does also have stroke risk factors including hypertension but no diabetes. His son reports his medications have primarily been aspirin and Plavix however he is only on aspirin now. He was on an oral anticoagulant up until this past Friday and he cut himself against her [place]. Recently therefore he was discontinued off oral anticoagulation 5 days following his stroke. The patient denies having any difficulty with vision hearing. However he does report he's had over the past year difficulty with swallowing solids. Review of Systems A 10 point review of systems was obtained with positive pertinent negatives rela vitor to the history of present illness. Past Medical History Past Medical History: Atrial Fibrillation, Hyperlipidemia, Hypertension, Respiratory Disorder, Thyroid Disorder Additional Past Medical History / Comment(s): Severe JORDANA with an H of 128 seated with a BiPAP pressure of 17/13 cm of water, obesity, coronary artery disease with previous coronary intervention and stenting, tonic atrial fibrillation, hyperlipidemia, hypertension, hypothyroidism, ascending thoracic aortic aneurysm, ascending thoracic aortic aneurysm measuring 4.2 cm in size. Peripheral vascular disease with a stent within the aorta and stents also placed in the iliacs History of Any Multi-Drug Resistant Organisms: None Reported Past Surgical History: Cholecystectomy, Heart Catheterization With Stent Additional Past Surgical History / Comment(s): UPPP for obstructive sleep apnea, abdominal aortic aneurysm repair, vascular stenting to the lower extremities including the iliacs for peripheral vascular disease, cataracts, right carotid endarterectomy, cholecystectomy Past Anesthesia/Blood Transfusion Reactions: No Reported Reaction Date of Last Stent Placement:: 1995, Type of Cardiac Device: Permanent Pacemaker Device Placement Date:: JUL 2017 Past Psychological History: No Psychological Hx Reported Smoking Status: Former smoker Past Alcohol Use History: None Reported Past Drug Use History: None Reported Medications and Allergies Home Medications Medication Instructions Recorded Confirmed Type Amitriptyline HCl [Elavil] 50 mg PO HS 08/30/14 03/26/20 History Levothyroxine Sodium [Synthroid] 50 mcg PO DAILY 08/30/14 03/26/20 History Potassium Chloride [Klor-Con 20] 20 meq PO DAILY 08/30/14 03/26/20 History Simvastatin [Zocor] 20 mg PO HS 08/30/14 03/26/20 History Aspirin EC [Ecotrin] 325 mg PO DAILY 07/30/17 03/26/20 History Isosorbide Mononitrate ER [Imdur] 60 mg PO DAILY 07/30/17 03/26/20 History Celecoxib [CeleBREX] 200 mg PO DAILY 07/20/18 03/26/20 History Azithromycin [Zithromax] 500 mg PO DAILY 03/26/20 03/26/20 History Clopidogrel [Plavix] 75 mg PO DAILY 03/26/20 03/26/20 History Furosemide [Lasix] 20 mg PO DAILY 03/26/20 03/26/20 History Losartan Potassium 100 mg PO DAILY 03/26/20 03/26/20 History predniSONE See Taper PO DAILY 03/26/20 03/26/20 History Allergies Allergy/AdvReac Type Severity Reaction Status Date / Time cefazolin sodium [From Ancef] Allergy Anaphylaxis Verified 03/27/20 09:38 hylan G-F 20 [From [employer]] Allergy Anaphylaxis Verified 03/27/20 09:38 Physical Examination - Vital Signs Vital Signs: Vital Signs Temp Pulse Pulse Pulse Resp BP BP 03/27/20 12:00 61 147/70 03/27/20 11:27 69 03/27/20 09:27 62 03/27/20 08:00 97.6 F 60 146/69 03/27/20 03:25 98.2 F 60 17 161/72 03/26/20 23:20 60 60 17 166/72 03/26/20 20:00 98.4 F 60 16 169/79 Pulse Ox 03/27/20 12:00 93 L 03/27/20 11:27 03/27/20 09:27 03/27/20 08:00 94 L 03/27/20 03:25 96 03/26/20 23:20 95 03/26/20 20:00 97 Intake and Output 03/27/20 03/27/20 03/27/20 06:59 14:59 22:59 Intake Total 50 236 Output Total 700 1150 Balance -650 -914 Intake: IV 50 0.9 @ 10 mls/hr 50 Oral 236 Output: Urine 700 1150 Other: Voiding Method Bedside Commode Bedside Commode Urinal Urinal # Voids 1 Weight 111.7 kg Gen. physical exam appearance: Morbidly obese large neck circumference patient appears fatigued. Clear sclera oropharynx liter. Neck is supple. Gag reflex is: No bruits noted. Cardiac: Regular rate and rhythm no murmurs noted. Neurological exam NIH stroke scale 0 Mentation: Patient is alert he is able to follow commands without difficulty. His speech is somewhat dysarthric but this is superimposed with his head titubation. Patient is oriented times place and person. Next line pupils: 2 mm equally reactive to light and accommodation. Visual hall: Intact to finger counting in all 4 quadrants. Cranial nerves: Tracks well no nystagmus noted on vertical horizontal gaze. Face appears symmetric. V1 through V3 sensory is intact. Palate elevates symmetrically. Shoulder shrug symmetric. Fasciculations deviation. Motor examination: Moves all 4 extremities equally. However on the right shoulder is somewhat limited due to prior shoulder surgery. No pronator drift noted. Strength is 5 out of 5 the lower extremities. Head titubation is prominent. Deep tendon reflexes: Trace over biceps brachial radialis. Absent patellar reflexes. Absent ankle jerks. Plantar response is flexor flexor bilaterally. Sensory examination grossly intact to light touch pinprick throughout. Gait examination: Patient is able to transfer from standing to sitting with assistance to go to the bathroom. His gait is wide-based slightly ataxic. Results - Laboratory Findings CBC and BMP: 03/27/20 05:47 03/27/20 05:47 Abnormal Lab Findings: Abnormal Labs 03/26/20 03/26/20 03/26/20 13:02 13:07 13:07 RBC 4.16 L Hgb 11.0 L Hct 36.2 L MCHC 30.4 L RDW 16.5 H Lymphocytes # 0.8 L Carbon Dioxide BUN 39 H Glucose 106 H POC Glucose (mg/dL) 115 H HDL Cholesterol 03/27/20 03/27/20 05:47 05:47 RBC 4.22 L Hgb 10.8 L Hct 36.9 L MCHC 29.3 L RDW 16.3 H Lymphocytes # Carbon Dioxide 34 H BUN 38 H Glucose POC Glucose (mg/dL) HDL Cholesterol 36 L - Diagnostic Findings EKG: report reviewed Chest x-ray: report reviewed Abdominal x-ray: report reviewed CT scan - abdomen: report reviewed CT scan - chest: report reviewed (Computed tomography scan of the head reviewed.) Assessment and Plan Assessment: This is a new neurology consult for an 84-year-old gentleman with significant co-morbidities which stroke risk factors who presented to the emergency room for acute onset of right upper extremity numbness and dysarthria. Based on the history given at this time the patient's symptoms have resolved and would technically be classified as a TIA. However this patient has significant co-morbidities and stroke risk factors. This patient was discontinued off oral anticoagulation according to his son this past Friday as a result of cut leading to excessive bleeding. Following this he had TIA-like symptoms. With this patient's history of chronic atrial fibrillation he does require at least from my perspective being on an oral anticoagulation. Like to have cardiology involved to review this case for other options for him. In addition he does have very severe sleep apnea on BiPAP with nocturnal hypoxemia. I suspect that he may require higher pressures. He reports that he does still frequently wake up in the middle of the night not often associated with needing to urinate. Thi s makes me suspect the patient still has sleep apnea present. With his atrial fibrillation he is at increased risk for complex sleep apnea which would have central sleep apnea involved. Recommendations 1. Continue with aspirin currently. Obtain consult with cardiology to discuss oral anticoagulation. 2. Continue with management of dyslipidemia/ statin. Continue with current statin. 3. Recommend is outpatient for reevaluation on a BiPAP titration study. 4. PT OT and speech therapy to continue working with patient. Patient has expressed that he does not want to go to a specific rehab however may be receptive if he needs rehab to an alternative. 5. Blood pressure management: Maintain systolic blood pressures between 0120- 130 and diastolic blood pressures between 80 and 90 6. Due to patient reporting difficulty with swallowing solids change diet to soft mechanical diet have speech therapy reevaluate. 7. Continue with neuro checks every 4 hours while awake. Documented NIH stroke scale per shift. Thank you for this consult. Further recommendations will be made as this case e volves. Due to this patient's age and significant comorbidities and stroke risk factors his prognosis remains very guarded. Key Quiroz MD Board Certified in neurology and Sleep Medicine
[2020-03-27] MEDS: PANTOPRAZOLE 40 MG/10 ML VIAL IVP SCH (23:03)
[2020-03-27] MEDS: amLODIPine 5 MG TAB PO SCH (23:04)
[2020-03-28] MEDS: ASPIRIN 325 MG TAB PO SCH (09:10)
[2020-03-28] MEDS: amLODIPine 5 MG TAB PO SCH (09:10)
[2020-03-28] MEDS: LOSARTAN 50 MG TAB PO SCH (09:10)
[2020-03-28] MEDS: PANTOPRAZOLE 40 MG/10 ML VIAL IVP SCH (09:10)
[2020-03-28] MEDS: CLOPIDOGREL 75 MG TAB PO SCH (09:10)
[2020-03-28] MEDS: FUROSEMIDE 10 MG/ML 4 ML VIAL IV SCH (09:10)
[2020-03-28] MEDS: HEPARIN SODIUM,PORCINE 5,000 UNIT/ML 1 ML VIAL SQ SCH ×2 (09:10→21:59)
--- NOTE | 2020-03-28 11:07 | P.PN ---
Subjective Progress Note Date: 03/28/20 84-year-old male patient with past medical history of coronary artery disease, with previous stenting, hypertension, hyperlipidemia, hypothyroidism, diabetes mellitus, chronic atrial fibrillation, obstructive sleep apnea status post UPPP, postinflammatory pulmonary fibrosis, peripheral vascular disease, history of abdominal aortic aneurysm, and descending thoracic aortic aneurysm, and patient had undergone abdominal aortic stenting at the [facility]. Patient has a history of chronic persistent atrial fibrillation and he was not taking his Eliquis for concern of potential bleeding. Patient does have a permanent pacemaker in place. On 03/26/2020 patient is brought into the hospital per EMS evaluation of sudden onset of slurred speech, and right arm weakness. The onset of symptoms was 1 hour prior to arrival. The slurred speech and right arm weakness lasted around 5 minutes and spontaneously resolved, patient had a second episode lasting around 7 minutes and again resolved. No complaints of headache, no confusion, no visual changes. Neuro interventionalist evaluated the patient via telemedicine and did not feel that the patient needed immediate intervention, and recommended medical therapy with Plavix 300 mg and aspirin 325 mg. Neurology consultation is pending, MRI is pending. Brain CT showed no acute intracranial abnormality and chronic white matter ischemic changes. Chest x-ray showed findings consistent with mild heart failure, vascular congestion and mild interstitial changes, and left-sided pleural effusion and possibility of atelectasis or infiltrate. EKG showed 100% percent ventricular paced rhythm at a rate of 60 BPM. Echocardiogram showed EF of 45-50%, mild anteroseptal LV wall hypokinesis, and apical septum LV wall hypokinesis. Mildly enlarged right ventricle, mild mitral regurg, mild tricuspid regurg, borderline pulmonary hypertension with right-sided pressures of 35.3 mmHg. an ultrasound of the chest was performed which revealed a large left-sided pleural effusion, this was reviewed by Dr. Regan and not felt to be significant effusion therefore thoracentesis will not be performed. Patient should be able to be resumed on his Eliquis if okay with neurology, we would then recommend to discontinue the aspirin and continue Plavix. This will be discussed with neurology and further detail. Objective - Vital Signs Vital signs: Vital Signs Temp 98.2 F 03/28/20 04:00 Pulse 63 03/28/20 04:00 Resp 18 03/28/20 04:00 BP 138/63 05/19/20 04:00 Pulse Ox 93 L 03/28/20 04:00 Intake & Output 03/27/20 03/28/20 03/28/20 18:59 06:59 18:59 Intake Total 416 Output Total 1150 3400 Balance -734 -3400 Intake: Oral 416 Output: Urine 1150 3400 Other: Voiding Method Bedside Commode Bedside Commode Urinal Urinal # Voids 1 4 - Exam GENERAL EXAM: Alert, very pleasant, obese 84-year-old white male, resting in bed, on 2 L of oxygen with a pulse ox of 94%, and has a strong [place] accent, but is able to make his needs known, with limited assistance with translation from his son who is at the bedside, comfortable in no apparent distress. HEAD: Normocephalic/atraumatic. EYES: Normal reaction of pupils, equal size. Conjunctiva pink, sclera white. NOSE: Clear with pink turbinates. THROAT: No erythema or exudates. NECK: No masses, no JVD, no thyroid enlargement, no adenopathy. CHEST: No chest wall deformity. Symmetrical expansion. LUNGS: Equal air entry with no crackles, wheeze, rhonchi or dullness. CVS: Regular rate and rhythm, normal S1 and S2, no gallops, no murmurs, no rubs ABDOMEN: Soft, obese, nontender No hepatosplenomegaly, normal bowel sounds, no guarding or rigidity. EXTREMITIES: No clubbing, no edema, no cyanosis, 2+ pulses and upper and lower extremities. MUSCULOSKELETAL: Muscle strength and tone normal. SPINE: No scoliosis or deformity SKIN: No rashes CENTRAL NERVOUS SYSTEM: Alert and oriented -3. No focal deficits, tone is normal in all 4 extremities. PSYCHIATRIC: Alert and oriented -3. Appropriate affect. Intact judgment and insight. - Labs CBC & Chem 7: 03/27/20 05:47 03/27/20 05:47 Assessment and Plan Plan: Assessment and plan: #1. Acute TIA versus CVA, with acute onset of right arm weakness, and slurred speech, and the symptoms resolved within a few minutes of the onset, occurred again and resolved again. Brain CT without contrast showed no acute intracranial abnormality, chronic white matter ischemic change. Brain CT with angiography showed no significant carotid stenosis on the left, 27% stenosis in the right carotid, CT of the [place] was limited by extensive calcification within the carotid siphon, questionable stenosis in the M1 segment on the left. #2. Acute onset of slurred speech, and right arm weakness, related to the above, resolved in less than 24 hours from the onset of symptoms #3. Large left-sided pleural effusion, with ultrasound of the left chest showing 11.6 cm fluid pocket, reviewed by Dr. Regan and not felt to be a significant effusion. No thoracentesis at this time #4. Chronic atrial fibrillation, status post permanent pacemaker placement #5. Hypertension #6. Cardiomyopathy, an echocardiogram showed severe concentric left ventricular hypertrophy and mildly impaired EF between 45 and 50%, mild MR, mild TR, borderline pulmonary hypertension with right-sided pressures of 35.3 mmHg #7. Hyperlipidemia #8. Hypothyroidism #9. Peripheral vascular disease, with previous stenting of the iliac arteries #10. History of thoracic and abdominal aortic aneurysm, status post abdominal aortic stenting at the [facility] #11. Obstructive sleep apnea with an AHI of 128, status post UPPP #12. Carotid artery disease, status post right carotid endarterectomy #13. Former smoker #14. Coronary artery disease status post stenting #15. Obesity Plan Patient would benefit from being resumed on Eliquis, we will discuss further with neurology, recommendation would be to resume Eliquis, discontinue aspirin and continue Plavix. Further recommendations to follow. DNP note has been reviewed, I agree with a documented findings and plan of care. Patient was seen and examined.
--- NOTE | 2020-03-28 11:10 | P.PN ---
Subjective This is a pleasant 84 years old male with past medical history of hypertension, hyperlipidemia, hypothyroidism, severe obstructive sleep apnea on BiPAP, coronary artery disease status post stenting, chronic atrial fibrillation, thoracic aortic aneurysm status post aortic stent placement and iliac arteries stents. Presents with slurred speech and right arm weakness, that lasted for about 5 minutes as per documents. However patient he was somewhat poor historian but he cannot provide information also patient was noticed to have short of breath and has difficulty finishing sentences due to his dyspnea although he says that his breathing is okay, patient noticed that he still have weakness in his right leg although the patient contributed to the knee replacement in his knee. No facial division, he says that he has blurred vision in both eyes but he attributes that to cataract. It is hard to say if his speech is a slurred because he has an accent and is really dyspneic Patient denies headache or numbness. He admits of epigastric pain over the last 2 days but he does not have it today. No nausea vomiting He is also on home oxygen 2-3 L per nasal cannula Vitals stable. Labs including CBC, INR, BMP and liver enzymes were unremar kable. CT of the brain: No acute process, CTA of the brain: No significant carotid stenosis on the left, with 27% stenosis on the right, codominant vertebral arteries questionable stenosis in the M1 segment. Chest x-ray: Mild CHF, atelectasis versus pneumonia behind the left heart. EKG showing ve ntricular paced rhythm at 60 bpm In the emergency room patient was started on aspirin 325 mg and Plavix 300 mg once and then continued with 75 mg by mouth daily and normal/attended Yu per hour 03/27/2020 Patient is fully awake and alert,speech noticed. His weakness and right upper and lower extremity is significantly improved although he was still complaining of some residual weakness in his right upper extremity however in exam looks strong. His dyspnea is better today and his lack any mass coming down, is saturating 90 is ambulatory oxygen via nasal cannula He was starting complaining of from epigastric pain and tenderness this morning, and on exam he has tenderness in the epigastric right upper quadrant, right lower quadrant and suprapubic area. He states that his pain is mild to moderate nonspecific in character with no associated nausea vomiting, and no diarrhea or change in bowel habits as per patient. Vitals are stable. We'll do a CAT scan of the abdomen and pelvis with no contrast, CBC and BMP were unremarkable, creatinine 1.05 and GFR is 65 Chest ultrasound showing left pleural effusion 11.6 cm, pulmonary team consulted Echocardiogram showing ejection fraction of 45-50%. With severe LVH with hypokinetic anterior septal and apical septum of LV, and cartilage team are following the patient closely. Continue with Lasix 40 mg twice daily. Continue with aspirin and Plavix. Neuro consult 03/28/2020 Patient is breathing easier today, his leg swelling is significantly improved and we changed his Lasix to 40 mg oral daily. Vitals stable His epigastric pain and tenderness improved No more right arm and leg weakness or numbness. Neuro input is appreciated. I discussed with his son Mr. Nelson at [phone] he stated the patient was taken Plavix and aspirin, as well as Eliquis was started by his demo coordinator Dr. Sousa on last December for A. fib but he was not sure if patient was taken it for concerns of bleeding after wounds, I explained the importance risks benefits of these medications with a recommendation of restarting anticoagulation if cardiology recommends that as well, his son agrees with restarting anticoagulation for example Eliquis if it is indicated, and is known to Dr. his father. Patient states that he had 3 stents and less tense was in 2017 as per son. I discussed the case with cardiology team as well There was a concern of pleural effusion however on further reevaluation by pulmonology team, no left pleural effusion and no need for thoracocentesis Physical therapy recommended home with home care. Review of Systems CONSTITUTIONAL: No fever, no malaise, no fatigue. HEENT: No recent visual problems or hearing problems. Denied any sore throat. CARDIOVASCULAR: No orthopnea, PND, no palpitations, no syncope. PULMONARY: no cough, no hemoptysis. GASTROINTESTINAL: No diarrhea, no nausea, no vomiting, no abdominal pain. Normoactive bowel sounds. NEUROLOGICAL: No headaches, no weakness, no numbness. HEMATOLOGICAL: Denies any bleeding or petechiae. GENITOURINARY: Denies any burning micturition, frequency, or urgency. MUSCULOSKELETAL/RHEUMATOLOGICAL: Denies any joint pain, swelling, or any muscle pain. ENDOCRINE: Denies any polyuria or polydipsia. Active Medications Generic Name Dose Route Start Last Admin Trade Name Freq PRN Reason Stop Dose Admin Amlodipine Besylate 5 mg 03/27/20 22:15 03/28/20 09:10 Norvasc PO 5 mg DAILY [facility] Administration Aspirin 81 mg 03/29/20 09:00 Aspirin PO DAILY [facility] Clopidogrel Bisulfate 75 mg 03/27/20 14:27 03/28/20 09:10 Plavix PO 75 mg DAILY [facility] Administration Furosemide 40 mg 03/28/20 16:00 Lasix PO BID@0900,1600 [facility] Heparin Sodium (Porcine) 5,000 unit 03/26/20 21:00 03/28/20 09:10 Heparin SQ 5,000 unit Q12HR [facility] Administration Iopamidol 30 ml 03/27/20 13:04 Isovue-300 (For Oral Use) PO 03/28/20 13:[address] Scan Losartan Potassium 100 mg 03/27/20 09:30 03/28/20 09:10 Cozaar PO 100 mg DAILY [facility] Administration Pantoprazole Sodium 40 mg 03/27/20 21:00 03/28/20 09:10 Protonix IVP 40 mg BID [facility] Administration Objective - Vital Signs Vital signs: Vital Signs Temp 98.2 F 03/28/20 04:00 Pulse 63 03/28/20 04:00 Resp 18 03/28/20 04:00 BP 138/63 03/28/20 04:00 Pulse Ox 93 L 03/28/20 04:00 Intake & Output 03/27/20 03/28/20 03/28/20 18:59 06:59 18:59 Intake Total 416 Output Total 1150 3400 Balance -734 -3400 Intake: Oral 416 Output: Urine 1150 3400 Other: Voiding Method Bedside Commode Bedside Commode Urinal Urinal # Voids 1 4 - Exam GENERAL: The patient is alert and oriented x3, not in any acute distress. Well developed, well nourished. HEENT: Pupils are round and equally reacting to light. EOMI. No scleral icterus. No conjunctival pallor. Normocephalic, atraumatic. No pharyngeal erythema. No thyromegaly. CARDIOVASCULAR: S1 and S2 present. No murmurs, rubs, or gallops. PULMONARY: Chest is clear to auscultation, no wheezing or crackles. ABDOMEN: Soft, nontender, nondistended, normoactive bowel sounds. No palpable organomegaly. MUSCULOSKELETAL: No joint swelling or deformity. EXTREMITIES: No cyanosis, clubbing, or pedal edema. NEUROLOGICAL: Gross neurological examination did not reveal any focal deficits. SKIN: No rashes. No petechiae - Labs CBC & Chem 7: 03/27/20 05:47 03/27/20 05:47 Assessment and Plan Assessment: transient ischemic attack versus stroke, with slurred speech and right arm weakness which is resolved as per ED document, he stopped taking his blood thinners Acute on chronic systolic congestive heart failure and ejection fraction of 45- 50% , improved. no left pleural effusion Hypertension Hyperlipidemia Hypothyroidism chronic hypoxic respiratory failure chronic kidney disease, stage II Severe obstructive sleep apnea on BiPAP History of coronary artery disease status post stenting Chronic atrial fibrillation thoracic aortic aneurysm status post aortic stent placement and iliac arteries stents Plan: This is a pleasant 84 years old male who presents with TIA/stroke with CHF. Continue neuro check, neurology consult. Cardiology consult, switch Lasix oral. Continue with aspirin. We will check with [employer] exchange administrator team recommendation for restarting anticoagulation also regarding the aspirin and Plavix. Neuro-input is appreciated. Labs and medication were reviewed.. Continue same treatment. Continue with symptomatic treatment. Resume home medication. Monitor lytes and vitals. DVT and GI prophylaxis. Further recommendations of the clinical course of the patient DVT prophylaxis: Subcutaneous heparin GI Prophylaxis: Pepcid PT/OT: Pending Prognosis is guarded
--- NOTE | 2020-03-28 12:50 | P.PN ---
Subjective Progress Note Date: 03/28/20 Principal diagnosis: Small left pleural effusion, TIA/CVA 84-year-old male patient with past medical history of coronary artery disease, with previous stenting, hypertension, hyperlipidemia, hypothyroidism, diabetes mellitus, chronic atrial fibrillation, obstructive sleep apnea status post UPPP, postinflammatory pulmonary fibrosis, peripheral vascular disease, history of abdominal aortic aneurysm, and descending thoracic aortic aneurysm, and patient had undergone abdominal aortic stenting at the [facility]. He follows with Dr. Argueta in the office for chronic bronchitis and a history of postinflammatory pulmonary fibrosis. Patient was seen in the office on 2019 patient was having multiple complaints, he was complaining of abdominal pain for the last few weeks and the pain was mostly brought up by bending down, patient was not having any nausea, vomiting, diarrhea, melena or hematemesis. And the pain seemed to be positional. That reason a CT of the abdomen and pelvis with IV and oral contrast was ordered on an outpatient basis. Also patient was complaining of cough, congestion and wheezing. No fever or chills, no hemoptysis or chest pain. Chest x-ray in the office was completed showing a small left-sided pleural effusion which seemed to be progressing since his last chest x-ray in December. Hence ultrasound the chest was recommended to be done on outpatient basis for consideration of left-sided thoracentesis. His Lasix was increased from 20 mg once daily to 20 mg twice daily. Of note patient has a history of chronic persistent atrial fibrillation and he was not taking his Eliquis for concern of potential bleeding. Patient does have a permanent pacemaker in place. On 03/26/2020 patient is brought into the hospital per EMS evaluation of sudden onset of slurred speech, and right arm weakness. The onset of symptoms was 1 hour prior to arrival. The slurred speech and right arm weakness lasted around 5 minutes and spontaneously resolved, patient had a second episode lasting around 7 minutes and again resolved. No complaints of headache, no confusion, no visual changes. Neuro interventionalist evaluated the patient via telemedicine and did not feel that the patient needed immediate intervention, and recommended medical therapy with Plavix 300 mg and aspirin 325 mg. Neurology consultation is pending, MRI is pending. Brain CT showed no acute intracranial abnormality and chronic white matter ischemic changes. Chest x-ray showed findings consistent with mild heart failure, vascular congestion and mild interstitial changes, and left-sided pleural effusion and possibility of atelectasis or infiltrate. EKG showed her percent ventricular paced rhythm at a rate of 60 BPM. Echocardiogram showed EF of 45-50%, mild anteroseptal LV wall hypokinesis, and apical septum LV wall hypokinesis. Mildly enlarged right ventricle, mild mitral regurg, mild tricuspid regurg, borderline pulmonary hypertension with right-sided pressures of 35.3 mmHg. Patient was supposed to have his outpatient left chest ultrasound completed today and we were asked to see about potential left-sided thoracentesis if the ultrasound showed sufficient pleural fluid. Currently he is resting comfortably in bed, he has a strong [place] accent, but his speech seems to be back to baseline, no slurring, his son is at the bedside providing some occasional help with translation. She is alert and oriented 3, seems to be in no acute distress, his right-sided weakness of his right arm has resolved, he is moving all 4 extremities, denies any shortness of breath, lung sounds reveal diminished breath sounds at the left base, as far as abdominal discomfort his son states that his abdomen seems to be less distended and feels more comfortable at this time, no abdominal tenderness, abdomen is obese but nontender. Ultrasound of the chest film was reviewed by Dr. Argueta, and although the radiologist read a large left pleural effusion pocket the ultrasound film is not show a large fluid pocket and the close proximity to diaphragm would make it a high risk thoracentesis. The CT of the abdomen and pelvis did not show a large pocket of pleural effusion on the left, we'll continue with medical therapy at this time no plans for thoracentesis at this time. On 03/28/2020 patient seen in follow-up on selective care unit, he sitting up in the chair, in no acute distress, his alert and oriented 3, denies any worsening dyspnea, he wore his CPAP at night, he is currently on 2 L of oxygen with a pulse ox 97%, no worsening dyspnea, he is afebrile, lung sounds reveal diminished breath sounds at the left base, no rhonchi or wheezing, he remains on IV diuretics. No plans for thoracentesis at this time as the CT of the chest did not reveal a sufficient pleural fluid pocket for thoracentesis, we recommended medical treatment, patient is improving, CAT scan of the abdomen and pelvis showed only trace abdominal ascites small left pleural effusion and surrounding atelectasis and small pericardial effusion, no evidence of bowel obstruction, and surgically fixated abdominal aortic aneurysm with no evidence of endoleak and no gross enlargement in comparison to 2017. Patient is tolerating oral intake, he is on aspirin and Plavix, neurology is following. His son is at the bedside and he stated that the patient usually takes care of his own medications and his son noticed that he had not been taking his Eliquis, but in view of his recent TIA patient is now agreeable to take his Eliquis Objective - Vital Signs Vital signs: Vital Signs Temp 97.6 F 03/28/20 08:00 Pulse 59 L 03/28/20 08:00 Resp 18 03/28/20 04:00 BP 126/64 03/28/20 08:00 Pulse Ox 97 03/28/20 08:00 Intake & Output 03/27/20 03/28/20 03/28/20 18:59 06:59 18:59 Intake Total 416 Output Total 1150 3400 1000 Balance -734 -3400 -1000 Intake: Oral 416 Output: Urine 1150 3400 1000 Other: Voiding Method Bedside Commode Bedside Commode Urinal Urinal # Voids 1 4 1 - Exam GENERAL EXAM: Alert, very pleasant, obese 84-year-old white male, resting in bed, on 2 L of oxygen with a pulse ox of 97%, and has a strong Vietnamese accent, but is able to make his needs known, with limited assistance with translation from his son who is at the bedside, comfortable in no apparent distress. HEAD: Normocephalic/atraumatic. EYES: Normal reaction of pupils, equal size. Conjunctiva pink, sclera white. NOSE: Clear with pink turbinates. THROAT: No erythema or exudates. NECK: No masses, no JVD, no thyroid enlargement, no adenopathy. CHEST: No chest wall deformity. Symmetrical expansion. LUNGS: Equal air entry with no crackles, wheeze, rhonchi or dullness. CVS: Regular rate and rhythm, normal S1 and S2, no gallops, no murmurs, no rubs ABDOMEN: Soft, obese, nontender No hepatosplenomegaly, normal bowel sounds, no guarding or rigidity. EXTREMITIES: No clubbing, no edema, no cyanosis, 2+ pulses and upper and lower extremities. MUSCULOSKELETAL: Muscle strength and tone normal. SPINE: No scoliosis or deformity SKIN: No rashes CENTRAL NERVOUS SYSTEM: Alert and oriented -3. No focal deficits, tone is normal in all 4 extremities. PSYCHIATRIC: Alert and oriented -3. Appropriate affect. Intact judgment and insight. - Labs CBC & Chem 7: 03/27/20 05:47 03/27/20 05:47 Assessment and Plan Plan: Assessment: #1. Acute TIA versus CVA, with acute onset of right arm weakness, and slurred speech, and the symptoms resolved within a few minutes of the onset, occurred again and resolved again. Brain CT without contrast showed no acute intracranial abnormality, chronic white matter ischemic change. Brain CT with angiography showed no significant carotid stenosis on the left, 27% stenosis in the right carotid, CT of the [place] of [place] was limited by extensive calcification within the carotid siphon, questionable stenosis in the M1 segment on the left. #2. Acute onset of slurred speech, and right arm weakness, related to the above, resolved in less than 24 hours from the onset of symptoms #3. Small left-sided pleural effusion, with ultrasound of the left chest showing 11.6 cm fluid pocket, however CT of the abdomen and pelvis only showed a small left pleural effusion with adjacent atelectasis and not enough for thoracentesis #4. Chronic atrial fibrillation, status post permanent pacemaker placement, and patient has not being compliant with oral anticoagulation #5. Hypertension #6. Cardiomyopathy, an echocardiogram showed severe concentric left ventricular hypertrophy and mildly impaired EF between 45 and 50%, mild MR, mild TR, borderline pulmonary hypertension with right-sided pressures of 35.3 mmHg #7. Hyperlipidemia #8. Hypothyroidism #9. Peripheral vascular disease, with previous stenting of the iliac arteries #10. History of thoracic and abdominal aortic aneurysm, status post abdominal aortic stenting at the [facility] #11. Obstructive sleep apnea with an AHI of 128, status post UPPP #12. Carotid artery disease, status post right carotid endarterectomy #13. Former smoker #14. Coronary artery disease status post stenting #15. Obesity Plan: Continue current medical treatment, his left pleural effusion is very small, and does not require draining, CT of the abdomen not show any acute intra-abdominal process. Neurologically patient seems to have recovered, neurology is following, patient was advised to continue taking his Eliquis in view of his und erlying history of A. fib, and patient is agreeable to taking. His lower extremity edema has improved, patient is clinically stable, could be considered for discharge home if cleared by neurology and cardiology. He will need outpatient follow-up with Dr. Argueta in the office in one to 2 weeks I performed a history & physical examination of the patient and discussed their management with my nurse practitioner, Helga Sims. I reviewed the nurse practitioner's note and agree with the documented findings and plan of care. Lung sounds are positive for diminished sounds at the left base. The findings and the impression was discussed with the patient. I attest to the documentation by the nurse practitioner. Time with Patient: Less than 30
[2020-03-28] MEDS: PANTOPRAZOLE 40 MG TABLET PO SCH (17:43)
[2020-03-28] MEDS: FUROSEMIDE 40 MG TAB PO SCH (17:43)
[2020-03-28] MEDS: AMITRIPTYLINE HCL 50 MG TAB PO STA ×2 (21:59→22:14)
[2020-03-28] MEDS ORDERED: IBUPROFEN 200 MG TAB PO STA (22:00)
[2020-03-29] MEDS: PANTOPRAZOLE 40 MG TABLET PO SCH (06:42)
[2020-03-29 09:00] VITALS: RESP 16; TEMP 97.7
[2020-03-29] MEDS ORDERED: ASPIRIN 81 MG PO SCH (09:00)
[2020-03-29] MEDS: LOSARTAN 50 MG TAB PO SCH (09:01)
[2020-03-29] MEDS: FUROSEMIDE 40 MG TAB PO SCH ×2 (09:01→16:18)
[2020-03-29] MEDS: CLOPIDOGREL 75 MG TAB PO SCH (09:02)
[2020-03-29] MEDS: amLODIPine 5 MG TAB PO SCH (09:02)
[2020-03-29] MEDS: HEPARIN SODIUM,PORCINE 5,000 UNIT/ML 1 ML VIAL SQ SCH (09:02)
--- NOTE | 2020-03-29 11:05 | P.PN ---
Subjective Progress Note Date: 03/29/20 84-year-old male patient with past medical history of coronary artery disease, with previous stenting, hypertension, hyperlipidemia, hypothyroidism, diabetes mellitus, chronic atrial fibrillation, obstructive sleep apnea status post UPPP, postinflammatory pulmonary fibrosis, peripheral vascular disease, history of abdominal aortic aneurysm, and descending thoracic aortic aneurysm, and patient had undergone abdominal aortic stenting at the [facility]. Patient has a history of chronic persistent atrial fibrillation and he was not taking his Eliquis for concern of potential bleeding. Patient does have a permanent pacemaker in place. On 03/26/2020 patient is brought into the hospital per EMS evaluation of sudden onset of slurred speech, and right arm weakness. The onset of symptoms was 1 hour prior to arrival. The slurred speech and right arm weakness lasted around 5 minutes and spontaneously resolved, patient had a second episode lasting around 7 minutes and again resolved. No complaints of headache, no confusion, no visual changes. Neuro interventionalist evaluated the patient via telemedicine and did not feel that the patient needed immediate intervention, and recommended medical therapy with Plavix 300 mg and aspirin 325 mg. Neurology consultation is pending, MRI is pending. Brain CT showed no acute intracranial abnormality and chronic white matter ischemic changes. Chest x-ray showed findings consistent with mild heart failure, vascular congestion and mild interstitial changes, and left-sided pleural effusion and possibility of atelectasis or infiltrate. EKG showed 100% percent ventricular paced rhythm at a rate of 60 BPM. Echocardiogram showed EF of 45-50%, mild anteroseptal LV wall hypokinesis, and apical septum LV wall hypokinesis. Mildly enlarged right ventricle, mild mitral regurg, mild tricuspid regurg, borderline pulmonary hypertension with right-sided pressures of 35.3 mmHg. an ultrasound of the chest was performed which revealed a large left-sided pleural effusion, this was reviewed by Dr. Regan and not felt to be significant effusion therefore thoracentesis will not be performed. Patient should be able to be resumed on his Eliquis if okay with neurology, we would then recommend to discontinue the aspirin and continue Plavix. This will be discussed with neurology and further detail. 03/29/2020 Patient was seen and examined this morning, overall doing much better. We'll discontinue the aspirin today and start the patient on Eliquis. He may be able to be discharged home from our perspective. Blood pressure 128/60 with a heart rate in the 60s, 94% on room air. Objective - Vital Signs Vital signs: Vital Signs Temp 97.7 F 03/29/20 08:00 Pulse 60 03/29/20 08:00 Resp 16 03/29/20 08:00 BP 139/66 03/29/20 08:00 Pulse Ox 94 L 03/29/20 08:00 Intake & Output 03/28/20 03/29/20 03/29/20 18:59 06:59 18:59 Intake Total 576 180 240 Output Total 1425 1000 200 Balance -849 -820 40 Weight 105.2 kg Intake: Oral 576 180 240 Output: Urine 1425 1000 200 Other: Voiding Method Bedside Commode Urinal # Voids 1 1 1 - Exam GENERAL EXAM: Alert, very pleasant, obese 84-year-old white male, resting in bed, on 2 L of oxygen with a pulse ox of 94%, and has a strong [place] accent, but is able to make his needs known, with limited assistance with translation from his son who is at the bedside, comfortable in no apparent distress. HEAD: Normocephalic/atraumatic. EYES: Normal reaction of pupils, equal size. Conjunctiva pink, sclera white. NOSE: Clear with pink turbinates. THROAT: No erythema or exudates. NECK: No masses, no JVD, no thyroid enlargement, no adenopathy. CHEST: No chest wall deformity. Symmetrical expansion. LUNGS: Equal air entry with no crackles, wheeze, rhonchi or dullness. CVS: Regular rate and rhythm, normal S1 and S2, no gallops, no murmurs, no rubs ABDOMEN: Soft, obese, nontender No hepatosplenomegaly, normal bowel sounds, no guarding or rigidity. EXTREMITIES: No clubbing, no edema, no cyanosis, 2+ pulses and upper and lower extremities. MUSCULOSKELETAL: Muscle strength and tone normal. SPINE: No scoliosis or deformity SKIN: No rashes CENTRAL NERVOUS SYSTEM: Alert and oriented -3. No focal deficits, tone is normal in all 4 extremities. PSYCHIATRIC: Alert and oriented -3. Appropriate affect. Intact judgment and insight. - Labs CBC & Chem 7: 03/27/20 05:47 03/27/20 05:47 Assessment and Plan Plan: Assessment and plan: #1. Acute TIA versus CVA, with acute onset of right arm weakness, and slurred speech, and the symptoms resolved within a few minutes of the onset, occurred again and resolved again. Brain CT without contrast showed no acute intracranial abnormality, chronic white matter ischemic change. Brain CT with angiography showed no significant carotid stenosis on the left, 27% stenosis in the right carotid, CT of the [place] was limited by extensive calcification within the carotid siphon, questionable stenosis in the M1 segment on the left. #2. Acute onset of slurred speech, and right arm weakness, related to the above, resolved in less than 24 hours from the onset of symptoms #3. Large left-sided pleural effusion, with ultrasound of the left chest showing 11.6 cm fluid pocket, reviewed by Dr. Regan and not felt to be a significant effusion. No thoracentesis at this time #4. Chronic atrial fibrillation, status post permanent pacemaker placement #5. Hypertension #6. Cardiomyopathy, an echocardiogram showed severe concentric left ventricular hypertrophy and mildly impaired EF between 45 and 50%, mild MR, mild TR, borderline pulmonary hypertension with right-sided pressures of 35.3 mmHg #7. Hyperlipidemia #8. Hypothyroidism #9. Peripheral vascular disease, with previous stenting of the iliac arteries #10. History of thoracic and abdominal aortic aneurysm, status post abdominal aortic stenting at the [facility] #11. Obstructive sleep apnea with an AHI of 128, status post UPPP #12. Carotid artery disease, status post right carotid endarterectomy #13. Former smoker #14. Coronary artery disease status post stenting #15. Obesity Plan We will discontinue the aspirin today and start the patient on Eliquis 2-1/2 mg one tablet by mouth twice a day, continue Plavix. DNP note has been reviewed, I agree with a documented findings and plan of care. Patient was seen and examined.
[2020-03-29] MEDS ORDERED: APIXABAN 2.5 MG TABLET PO SCH (11:15)
--- NOTE | 2020-03-29 11:52 | P.PN ---
Subjective Progress Note Date: 03/29/20 Principal diagnosis: Small left pleural effusion, TIA/CVA 84-year-old male patient with past medical history of coronary artery disease, with previous stenting, hypertension, hyperlipidemia, hypothyroidism, diabetes mellitus, chronic atrial fibrillation, obstructive sleep apnea status post UPPP, postinflammatory pulmonary fibrosis, peripheral vascular disease, history of abdominal aortic aneurysm, and descending thoracic aortic aneurysm, and patient had undergone abdominal aortic stenting at the [facility]. He follows with Dr. Argueta in the office for chronic bronchitis and a history of postinflammatory pulmonary fibrosis. Patient was seen in the office on 2019 patient was having multiple complaints, he was complaining of abdominal pain for the last few weeks and the pain was mostly brought up by bending down, patient was not having any nausea, vomiting, diarrhea, melena or hematemesis. And the pain seemed to be positional. That reason a CT of the abdomen and pelvis with IV and oral contrast was ordered on an outpatient basis. Also patient was complaining of cough, congestion and wheezing. No fever or chills, no hemoptysis or chest pain. Chest x-ray in the office was completed showing a small left-sided pleural effusion which seemed to be progressing since his last chest x-ray in December. Hence ultrasound the chest was recommended to be done on outpatient basis for consideration of left-sided thoracentesis. His Lasix was increased from 20 mg once daily to 20 mg twice daily. Of note patient has a history of chronic persistent atrial fibrillation and he was not taking his Eliquis for concern of potential bleeding. Patient does have a permanent pacemaker in place. On 03/26/2020 patient is brought into the hospital per EMS evaluation of sudden onset of slurred speech, and right arm weakness. The onset of symptoms was 1 hour prior to arrival. The slurred speech and right arm weakness lasted around 5 minutes and spontaneously resolved, patient had a second episode lasting around 7 minutes and again resolved. No complaints of headache, no confusion, no visual changes. Neuro interventionalist evaluated the patient via telemedicine and did not feel that the patient needed immediate intervention, and recommended medical therapy with Plavix 300 mg and aspirin 325 mg. Neurology consultation is pending, MRI is pending. Brain CT showed no acute intracranial abnormality and chronic white matter ischemic changes. Chest x-ray showed findings consistent with mild heart failure, vascular congestion and mild interstitial changes, and left-sided pleural effusion and possibility of atelectasis or infiltrate. EKG showed her percent ventricular paced rhythm at a rate of 60 BPM. Echocardiogram showed EF of 45-50%, mild anteroseptal LV wall hypokinesis, and apical septum LV wall hypokinesis. Mildly enlarged right ventricle, mild mitral regurg, mild tricuspid regurg, borderline pulmonary hypertension with right-sided pressures of 35.3 mmHg. Patient was supposed to have his outpatient left chest ultrasound completed today and we were asked to see about potential left-sided thoracentesis if the ultrasound showed sufficient pleural fluid. Currently he is resting comfortably in bed, he has a strong [place] accent, but his speech seems to be back to baseline, no slurring, his son is at the bedside providing some occasional help with translation. She is alert and oriented 3, seems to be in no acute distress, his right-sided weakness of his right arm has resolved, he is moving all 4 extremities, denies any shortness of breath, lung sounds reveal diminished breath sounds at the left base, as far as abdominal discomfort his son states that his abdomen seems to be less distended and feels more comfortable at this time, no abdominal tenderness, abdomen is obese but nontender. Ultrasound of the chest film was reviewed by Dr. Argueta, and although the radiologist read a large left pleural effusion pocket the ultrasound film is not show a large fluid pocket and the close proximity to diaphragm would make it a high risk thoracentesis. The CT of the abdomen and pelvis did not show a large pocket of pleural effusion on the left, we'll continue with medical therapy at this time no plans for thoracentesis at this time. On 03/28/2020 patient seen in follow-up on selective care unit, he sitting up in the chair, in no acute distress, his alert and oriented 3, denies any worsening dyspnea, he wore his CPAP at night, he is currently on 2 L of oxygen with a pulse ox 97%, no worsening dyspnea, he is afebrile, lung sounds reveal diminished breath sounds at the left base, no rhonchi or wheezing, he remains on IV diuretics. No plans for thoracentesis at this time as the CT of the chest did not reveal a sufficient pleural fluid pocket for thoracentesis, we recommended medical treatment, patient is improving, CAT scan of the abdomen and pelvis showed only trace abdominal ascites small left pleural effusion and surrounding atelectasis and small pericardial effusion, no evidence of bowel obstruction, and surgically fixated abdominal aortic aneurysm with no evidence of endoleak and no gross enlargement in comparison to 2017. Patient is tolerating oral intake, he is on aspirin and Plavix, neurology is following. His son is at the bedside and he stated that the patient usually takes care of his own medications and his son noticed that he had not been taking his Eliquis, but in view of his recent TIA patient is now agreeable to take his Eliquis On 03/29/2020 patient seen in follow-up on selective care unit, he is awake and alert, in no acute distress, no new complaints, he was evaluated by speech therapy and passed the bedside swallow evaluation and no treatment was recommended. Breathing is comfortable, no acute events overnight, no complaints of chest pain, no shortness of breath, he is on room air with pulse ox of 94%, vital signs are stable, patient started on Norvasc in addition to his losartan, this morning's blood pressure is 139/66. Lung sounds are clear, diminished at the left base, no worsening dyspnea. Patient has been diuresed with IV Lasix, and he is in 1669 mL fluid balance since admission he is in -9 kg of fluid balance, no lower extremity edema, and his abdominal distention seems to have significantly improved. Neurology recommendations were noted, patient is on Plavix, he is agreeable to take his Eliquis. Patient is being discharged home today and we will follow-up with him in the office Objective - Vital Signs Vital signs: Vital Signs Temp 97.7 F 03/29/20 08:00 Pulse 60 03/29/20 08:00 Resp 16 03/29/20 08:00 BP 139/66 03/29/20 08:00 Pulse Ox 94 L 03/29/20 08:00 Intake & Output 03/28/20 03/29/20 03/29/20 18:59 06:59 18:59 Intake Total 576 180 240 Output Total 1425 1000 200 Balance -849 -820 40 Weight 105.2 kg Intake: Oral 576 180 240 Output: Urine 1425 1000 200 Other: Voiding Method Bedside Commode Urinal # Voids 1 1 1 - Exam GENERAL EXAM: Alert, very pleasant, obese 84-year-old white male, sitting up in the chair, with room air pulse ox 94%, and has a strong [place] accent, but is able to make his needs known, with limited assistance with translation from his son who is at the bedside, comfortable in no apparent distress. HEAD: Normocephalic/atraumatic. EYES: Normal reaction of pupils, equal size. Conjunctiva pink, sclera white. NOSE: Clear with pink turbinates. THROAT: No erythema or exudates. NECK: No masses, no JVD, no thyroid enlargement, no adenopathy. CHEST: No chest wall deformity. Symmetrical expansion. LUNGS: Equal air entry with no crackles, wheeze, rhonchi or dullness. CVS: Regular rate and rhythm, normal S1 and S2, no gallops, no murmurs, no rubs ABDOMEN: Soft, obese, nontender No hepatosplenomegaly, normal bowel sounds, no guarding or rigidity. EXTREMITIES: No clubbing, no edema, no cyanosis, 2+ pulses and upper and lower extremities. MUSCULOSKELETAL: Muscle strength and tone normal. SPINE: No scoliosis or deformity SKIN: No rashes CENTRAL NERVOUS SYSTEM: Alert and oriented -3. No focal deficits, tone is normal in all 4 extremities. PSYCHIATRIC: Alert and oriented -3. Appropriate affect. Intact judgment and insight. - Labs CBC & Chem 7: 03/27/20 05:47 03/27/20 05:47 Assessment and Plan Plan: Assessment: #1. Acute TIA versus CVA, with acute onset of right arm weakness, and slurred speech, and the symptoms resolved within a few minutes of the onset, occurred again and resolved again. Brain CT without contrast showed no acute intracranial abnormality, chronic white matter ischemic change. Brain CT with angiography showed no significant carotid stenosis on the left, 27% stenosis in the right carotid, CT of the [place] was limited by extensive calcification within the carotid siphon, questionable stenosis in the M1 segment on the left. #2. Acute onset of slurred speech, and right arm weakness, related to the above, resolved in less than 24 hours from the onset of symptoms #3. Small left-sided pleural effusion, with ultrasound of the left chest showing 11.6 cm fluid pocket, however CT of the abdomen and pelvis only showed a small left pleural effusion with adjacent atelectasis and not enough for thora centesis #4. Chronic atrial fibrillation, status post permanent pacemaker placement, and patient has not being compliant with oral anticoagulation #5. Hypertension #6. Cardiomyopathy, an echocardiogram showed severe concentric left ventricular hypertrophy and mildly impaired EF between 45 and 50%, mild MR, mild TR, borderline pulmonary hypertension with right-sided pressures of 35.3 mmHg #7. Hyperlipidemia #8. Hypothyroidism #9. Peripheral vascular disease, with previous stenting of the iliac arteries #10. History of thoracic and abdominal aortic aneurysm, status post abdominal a ortic stenting at the [facility] #11. Obstructive sleep apnea with an AHI of 128, status post UPPP #12. Carotid artery disease, status post right carotid endarterectomy #13. Former smoker #14. Coronary artery disease status post stenting #15. Obesity Plan: Patient is clinically stable, breathing is stable, he is on room air, has been diuresed, he is in negative and 1.6 L fluid balance in the last 24 hours, significantly improved abdominal distention and lower extremity edema, n eurologically he seems to be back to his baseline, he is agreeable to take his medications as prescribed including Eliquis. Stable for discharge home from pulmonary perspective and he already has a follow-up appointment with Dr. Argueta in the office I performed a history & physical examination of the patient and discussed their management with my nurse practitioner, Helga Sims. I reviewed the nurse practitioner's note and agree with the documented findings and plan of care. Lung sounds are positive for diminished sounds at the left base. The findings and the impression was discussed with the patient. I attest to the documentation by the nurse practitioner. Time with Patient: Less than 30
[2020-03-29 12:00] VITALS: BP 135/69; PULSE 63
--- NOTE | 2020-03-29 14:43 | P.PN ---
Subjective Progress Note Date: 03/29/20 Principal diagnosis: TIA Patient continues to remain hemodynamically stable overnight. No new complaints. Patient reports that the right upper extremity weakness has completely resolved. He feels no difficulty with speech or word finding difficulty. Patient denies having any difficulty with headaches change in vision or swallowing. Objective - Vital Signs Vital signs: Vital Signs Temp 97.7 F 03/29/20 08:00 Pulse 63 03/29/20 11:59 Resp 16 03/29/20 08:00 BP 135/69 03/29/20 11:59 Pulse Ox 93 L 03/29/20 11:59 Intake & Output 03/28/20 03/29/20 03/29/20 18:59 06:59 18:59 Intake Total 576 180 600 Output Total 1425 1000 200 Balance -849 -820 400 Weight 105.2 kg Intake: Oral 576 180 600 Output: Urine 1425 1000 200 Other: Voiding Method Bedside Commode Urinal # Voids 1 1 1 - Exam Chart reviewed. No formal examination done. I Angelica visit was to discuss post discharge plan. - Labs CBC & Chem 7: 03/27/20 05:47 03/27/20 05:47 Assessment and Plan Plan: This is an 84-year-old gentleman with chronic atrial fibrillation pacemaker, diabetes, hypertension, DLD who presented to the emergency room with right upper extremity weakness and speech difficulty. 5 days prior to this event he has stopped his Eliquis for due to hitting a [place] and bleeding. This patient has been on both Plavix and Eliquis as prescribed by his radio director. During the course of this admission he initially was held off Eliquis but will restart this PM & continued on Plavix during the hospitalization. The patient also has severe obstructive sleep apnea currently on BiPAP device. I discussed with his son since his father's atrial fibrillation, obesity and reactive airway disease, could pit him at increased risk for complex sleep apnea. I'm strongly recommending that he be reevaluated with a BiPAP- BIPAP ST titration to address complex sleep apnea. This patient is cleared by neurology for discharge home. I discussed with the son and the patient himself that if there is any clinical change that he must seek immediate medical attention. All questions were answered during this visit. Patient is cleared for discharge Key Quiroz M.D. Board Certified in Neurology and Sleep medicine
--- NOTE | 2020-03-29 22:32 | P.DS ---
Providers Date of admission: 03/26/20 14:26 Attending physician: Jarrett Washington MD Consults: 03/26/20 14:26 Consult Physician Urgent Consulting Provider: Marcie Owen Consult Reason/Comments: tia Do you want consulting provider notified?: Yes, Notify in am 03/26/20 16:44 Consult Physician Routine Consulting Provider: Lacy Mann Consult Reason/Comments: CHF with epigastric pain Do you want consulting provider notified?: Yes 03/26/20 21:48 Consult Physician Routine Consulting Provider: Galileo Rangel Consult Reason/Comments: knew the pt Do you want consulting provider notified?: Yes Primary care physician: Galileo Rangel Hospital Course: transient ischemic attack secondary to noncompliance with his blood thinner, with slurred speech and right arm weakness which is resolved Acute on chronic systolic congestive heart failure and ejection fraction of 45- 50% , improved. no left pleural effusion Chronic atrial fibrillation Abdominal pain and tenderness, resolved Hypertension Hyperlipidemia Hypothyroidism chronic hypoxic respiratory failure chronic kidney disease, stage II Severe obstructive sleep apnea on BiPAP History of coronary artery disease status post stenting thoracic aortic aneurysm status post aortic stent placement and iliac arteries stents Hospital course: This is a pleasant 84 years old male with past medical history of hypertension, hyperlipidemia, hypothyroidism, severe obstructive sleep apnea on BiPAP, coronary artery disease status post stenting, chronic atrial fibrillation, thoracic aortic aneurysm status post aortic stent placement and iliac arteries stents. Presents with slurred speech and right arm weakness, that lasted for about 5 minutes as per documents. At home he was taking aspirin, Plavix and Eliquis, recently he had a bleeding episode secondary to cut wound and he stopped taking his Eliquis which was already started by his PCP Dr. Argueta on 12/2019. Patient has been evaluated by neurologist, intelligence officer and recommended the patient was started on Eliquis and Plavix well. Aspirin since his last stent was about in 2017 as per son at bedside. Discussed the benefits, risks and alternatives were extensively for the patient on the son and they agree with a recommendation with Eliquis and Plavix upon discharge, however as per my discussion with the neurologist he'll be at increased risk of bleeding with the Plavix, so changed to Eliquis 2.5 mg and aspirin 81 mg, discussed with his PCP Dr. Argueta and he recommended this regimen of Eliquis and aspirin on discharge. (Patient and his son are aware of the potential risk of bleeding with these medication including but not limited to bring bleed and they agree with the medication intake) His nerve symptoms resolved and patient back to his baseline. No chest pain or dyspnea On admission patient was found to have limited congestion, recent short course of IV Lasix and his symptoms improved. Patient will be discharged on oral Lasix Patient was cleared for discharge by neurology, cardiology and pulmonary services Problems and management plan were discussed with the patient and he verbalized understanding and acceptance Patient was found stable and can be discharged home however he needs follow-up as an outpatient. Patient was instructed to follow up with PCP Dr. Argueta within one week and patient agrees. Patient agrees with Dr. Argueta and Dr. Martini appointments Gen: patient is a AAOx3, no distress CVS: S1-S2, RRR, no murmur Lungs: B/L CTA, no wheezing Abdomen: soft, no distention, no tenderness, positive bowel sounds Extremity: no leg edema or induration Time spent more than 35 minutes Patient Condition at Discharge: Stable Plan - Discharge Summary Discharge Rx Participant: No New Discharge Prescriptions: New amLODIPine [Norvasc] 5 mg PO DAILY #30 tab Furosemide [Lasix] 40 mg PO DAILY #30 tablet Pantoprazole Sodium [Protonix] 40 mg PO DAILY #30 tablet. Aspirin 81 mg PO DAILY #30 chewable Apixaban [Eliquis] 2.5 mg PO BID #60 tab Continue Levothyroxine Sodium [Synthroid] 50 mcg PO DAILY Simvastatin [Zocor] 20 mg PO HS Potassium Chloride [Klor-Con 20] 20 meq PO DAILY Isosorbide Mononitrate ER [Imdur] 60 mg PO DAILY Losartan Potassium 100 mg PO DAILY Discontinued Amitriptyline HCl [Elavil] 50 mg PO HS Aspirin EC [Ecotrin] 325 mg PO DAILY Celecoxib [CeleBREX] 200 mg PO DAILY predniSONE See Taper PO DAILY Azithromycin [Zithromax] 500 mg PO DAILY Furosemide [Lasix] 20 mg PO DAILY Clopidogrel [Plavix] 75 mg PO DAILY Discharge Medication List Levothyroxine Sodium [Synthroid] 50 mcg PO DAILY 08/30/14 [History] Potassium Chloride [Klor-Con 20] 20 meq PO DAILY 08/30/14 [History] Simvastatin [Zocor] 20 mg PO HS 10/21/14 [History] Isosorbide Mononitrate ER [Imdur] 60 mg PO DAILY 07/30/17 [History] Losartan Potassium 100 mg PO DAILY 03/26/20 [History] Apixaban [Eliquis] 2.5 mg PO BID #60 tab 03/29/20 [Rx] Aspirin 81 mg PO DAILY #30 chewable 03/29/20 [Rx] Furosemide [Lasix] 40 mg PO DAILY #30 tablet 03/29/20 [Rx] Pantoprazole Sodium [Protonix] 40 mg PO DAILY #30 tablet.dr 03/29/20 [Rx] amLODIPine [Norvasc] 5 mg PO DAILY #30 tab 03/29/20 [Rx] Follow up Appointment(s)/Referral(s): Galileo Rangel MD [Primary Care Provider] - 04/04/20 (Please keep scheduled appointment) Osito Lopez MD [STAFF PHYSICIAN] - 04/13/20 10:30 am () Patient Instructions/Handouts: Ischemic Stroke (DC), Safe Use of Anticoagulants (DC) Discharge Disposition: HOME SELF-CARE
== END 2020-03-29 18:00 | disposition home or self-care (01) | DRG 69 ==
LOC: EC 12:59 → SUPCPDRO 12:59 → 3SCARD 14:26
PROVIDERS: ADMIT Internal Medicine; ATTEND Internal Medicine
DX: G45.9 Transient cerebral ischemic attack, unspecified (principal); I50.23 Acute on chronic systolic (congestive) heart failure; I13.0 Hypertensive heart and chronic kidney disease with heart failure and stage 1 through stage 4 chronic kidney disease, or unspecified chronic kidney disease; I42.9 Cardiomyopathy, unspecified; I48.21 Permanent atrial fibrillation; J96.11 Chronic respiratory failure with hypoxia; J98.11 Atelectasis; G81.91 Hemiplegia, unspecified affecting right dominant side; E03.9 Hypothyroidism, unspecified; E11.22 Type 2 diabetes mellitus with diabetic chronic kidney disease; E11.36 Type 2 diabetes mellitus with diabetic cataract; E11.51 Type 2 diabetes mellitus with diabetic peripheral angiopathy without gangrene; E66.01 Morbid (severe) obesity due to excess calories; Z68.36 Body mass index [BMI] 36.0-36.9, adult; E78.5 Hyperlipidemia, unspecified; G47.33 Obstructive sleep apnea (adult) (pediatric); Z99.89 Dependence on other enabling machines and devices; Z11.59 Encounter for screening for other viral diseases; I08.1 Rheumatic disorders of both mitral and tricuspid valves; I25.10 Atherosclerotic heart disease of native coronary artery without angina pectoris; I27.20 Pulmonary hypertension, unspecified; Z79.01 Long term (current) use of anticoagulants; T45.516A Underdosing of anticoagulants, initial encounter; Z91.128 Patient's intentional underdosing of medication regimen for other reason; Z86.79 Personal history of other diseases of the circulatory system; J42 Unspecified chronic bronchitis; J84.10 Pulmonary fibrosis, unspecified; N18.2 Chronic kidney disease, stage 2 (mild); Z79.02 Long term (current) use of antithrombotics/antiplatelets; R47.81 Slurred speech; Z79.1 Long term (current) use of non-steroidal anti-inflammatories (NSAID); Z79.82 Long term (current) use of aspirin; Z79.890 Hormone replacement therapy; Z79.899 Other long term (current) drug therapy; Z87.891 Personal history of nicotine dependence; Z95.0 Presence of cardiac pacemaker; Z95.5 Presence of coronary angioplasty implant and graft; Z96.659 Presence of unspecified artificial knee joint; Z90.49 Acquired absence of other specified parts of digestive tract; Z95.9 Presence of cardiac and vascular implant and graft, unspecified; Z79.84 Long term (current) use of oral hypoglycemic drugs; Z88.1 Allergy status to other antibiotic agents; Z88.8 Allergy status to other drugs, medicaments and biological substances
CPT/HCPCS: 36415; 70450; 70496; 70498; 71045; 74177; 76604; 80048; 80053; 80061; 84484; 85025; 85027; 85610; 85730; 87635; 93005; 93306; 99285

== ENCOUNTER 2020-10-11 16:56 | Emergency (ER) | payer MEDICARE ==
[2020-10-11 17:28] VITALS: TEMP 98.9
[2020-10-11] MEDS ORDERED: SODIUM CHLORIDE 0.9% 500 ML 500 ML IV STA (18:04)
[2020-10-11] MEDS ORDERED: ASPIRIN 81 MG PO STA (18:04)
[2020-10-11] MEDS ORDERED: NITROGLYCERIN SL TABS 0.4 MG TAB SUBLINGUAL STA (18:04)
[2020-10-11] MEDS ORDERED: NITROGLYCERIN OINT 1 INCH/GM PACKET TOPICAL STA (18:04)
[2020-10-11] MEDS ORDERED: HEPARIN SODIUM,PORCINE 5,000 UNIT/ML 1 ML VIAL IV STA (18:04)
[2020-10-11] MEDS ORDERED: SODIUM CHLORIDE 0.9% 1,000 ML IV ONE (18:27)
[2020-10-11 18:42] LABS: Basophils # (A) 0.1 k/uL (0-0.2); Basophils % (A) 1 %; Eosinophils # (A) 0.4 k/uL (0-0.7); Eosinophils % (A) 3 %; HCT 34.3 % (39.0-53.0); Hypochromasia Moderate; Lymphocytes # (A) 1.1 k/uL (1.0-4.8); Lymphocytes % (A) 9 %; MCH 26.7 pg (25.0-35.0); MCHC 32.1 g/dL (31.0-37.0); MCV 83.2 fL (80.0-100.0); Mean Platelet Volume 8.6; Monocytes # (A) 0.7 k/uL (0-1.0); Monocytes % (A) 5 %; Neutrophils # (A) 10.7 k/uL (1.3-7.7); Neutrophils % (A) 81 %; Platelet Count 181 k/uL (150-450); RBC 4.12 m/uL (4.30-5.90); RDW 14.8 % (11.5-15.5); WBC 13.2 k/uL (3.8-10.6)
--- NOTE | 2020-10-11 18:50 | ED ---
General Adult HPI - General Chief complaint: Upper Respiratory Infection Stated complaint: PCP sent for Covid Test and xray Time Seen by Provider: 10/11/20 17:25 Source: patient, RN notes reviewed, old records reviewed Mode of arrival: ambulatory Limitations: no limitations - History of Present Illness Initial comments: This is a 85-year-old male who presents emergency Department who comes in complaining of nausea vomiting and diarrhea for the last couple of days. Patient denies any chest pain. Patient also states he is primary medical care doctor wanted to come to the emergency department because he also is complaining some shortness of breath and congestion. Patient states his abdomen hurts a little in the mid abdominal region. Patient denies any fever chills. Patient states she has a cough but has been dry cough. Patient denies any dysuria hematuria urinary frequency. - Related Data Home Medications Medication Instructions Recorded Confirmed Levothyroxine Sodium [Synthroid] 50 mcg PO DAILY 08/30/14 03/26/20 Potassium Chloride [Klor-Con 20] 20 meq PO DAILY 08/30/14 03/26/20 Simvastatin [Zocor] 20 mg PO HS 08/30/14 03/26/20 Isosorbide Mononitrate ER [Imdur] 60 mg PO DAILY 07/30/17 03/26/20 Losartan Potassium 100 mg PO DAILY 03/26/20 03/26/20 Previous Rx's Medication Instructions Recorded Apixaban [Eliquis] 2.5 mg PO BID #60 tab 03/29/20 Aspirin 81 mg PO DAILY #30 chewable 03/29/20 Furosemide [Lasix] 40 mg PO DAILY #30 tablet 03/29/20 Pantoprazole Sodium [Protonix] 40 mg PO DAILY #30 tablet.dr 03/29/20 amLODIPine [Norvasc] 5 mg PO DAILY #30 tab 03/29/20 Allergies Allergy/AdvReac Type Severity Reaction Status Date / Time cefazolin sodium [From Ancef] Allergy Anaphylaxis Verified 10/11/20 20:45 hylan G-F 20 [From [employer]] Allergy Anaphylaxis Verified 10/11/20 20:45 Review of Systems ROS Statement: Those systems with pertinent positive or pertinent negative responses have been documented in the HPI. ROS Other: All systems not noted in ROS Statement are negative. Past Medical History Past Medical History: Atrial Fibrillation, Hyperlipidemia, Hypertension, Respiratory Disorder, Thyroid Disorder Additional Past Medical History / Comment(s): Severe JORDANA with an H of 128 seated with a BiPAP pressure of 17/13 cm of water, obesity, coronary artery disease wit h previous coronary intervention and stenting, tonic atrial fibrillation, hyperlipidemia, hypertension, hypothyroidism, ascending thoracic aortic aneurysm, ascending thoracic aortic aneurysm measuring 4.2 cm in size. Peripheral vascular disease with a stent within the aorta and stents also placed in the iliacs History of Any Multi-Drug Resistant Organisms: None Reported Past Surgical History: Cholecystectomy, Heart Catheterization With Stent Additional Past Surgical History / Comment(s): UPPP for obstructive sleep apnea, abdominal aortic aneurysm repair, vascular stenting to the lower extremities including the iliacs for peripheral vascular disease, cataracts, right carotid endarterectomy, cholecystectomy Past Anesthesia/Blood Transfusion Reactions: No Reported Reaction Date of Last Stent Placement:: 1995, Type of Cardiac Device: Permanent Pacemaker Device Placement Date:: JUL 2017 Past Psychological History: No Psychological Hx Reported Smoking Status: Never smoker Past Alcohol Use History: None Reported Past Drug Use History: None Reported General Exam - General Exam Comments Initial Comments: GENERAL: Patient is well-developed and well-nourished. Patient is nontoxic and well- hydrated and is in mild distress. ENT: Neck is soft and supple. No significant lymphadenopathy is noted. Oropharynx is clear. Moist mucous membranes. Neck has full range of motion without eliciting any pain. EYES: The sclera were anicteric and conjunctiva were pink and moist. Extraocular movements were intact and pupils were equal round and reactive to light. Eyelids were unremarkable. PULMONARY: Unlabored respirations. Good breath sounds bilaterally. No audible rales rhonchi or wheezing was noted. CARDIOVASCULAR: There is a regular rate and rhythm without any murmurs gallops or rubs. ABDOMEN: Soft and nontender with normal bowel sounds. No palpable organomegaly was noted. There is no palpable pulsatile mass. SKIN: Skin is clear with no lesions or rashes and otherwise unremarkable. NEUROLOGIC: Patient is alert and oriented x3. Cranial nerves II through XII are grossly intact. Motor and sensory are also intact. Normal speech, volume and content. Symmetrical smile. MUSCULOSKELETAL: Normal extremities with adequate strength and full range of motion. No lower extremity swelling or edema. No calf tenderness. LYMPHATICS: No significant lymphadenopathy is noted PSYCHIATRIC: Normal psychiatric evaluation. Limitations: no limitations Course Vital Signs 10/11/20 10/11/20 10/11/20 17:25 18:01 18:36 Temperature 98.9 F Pulse Rate 59 L 58 L Respiratory 24 22 16 Rate Blood Pressure 116/60 128/58 O2 Sat by Pulse 96 95 Oximetry 10/11/20 19:36 Temperature Pulse Rate 63 Respiratory 18 Rate Blood Pressure 143/64 O2 Sat by Pulse 98 Oximetry Medical Decision Making - Medical Decision Making EKG shows a paced rhythm at 60 bpm QRS is under 74 Q-T intervals 460 QTC is 460. Patient's EKG shows no ST segment elevation or depression. Chest x-ray shows pulmonary edema. I gave the patient Lasix IV. I suggest the patient stated the patient absolutely refused to stay so I told him to double his Lasix at home because he did state he took one. - Lab Data Result diagrams: 10/11/20 18:29 10/11/20 18:29 Lab Results 10/11/20 10/11/20 10/11/20 Range/Units 18:29 18:29 18:29 WBC 13.2 H (3.8-10.6) k/uL RBC 4.12 L (4.30-5.90) m/uL Hgb 11.0 L (13.0-17.5) gm/dL Hct 34.3 L (39.0-53.0) % MCV 83.2 (80.0-100.0) fL MCH 26.7 (25.0-35.0) pg MCHC 32.1 (31.0-37.0) g/dL RDW 14.8 (11.5-15.5) % Plt Count 181 (150-450) k/uL MPV 8.6 Neutrophils % 81 % Lymphocytes % 9 % Monocytes % 5 % Eosinophils % 3 % Basophils % 1 % Neutrophils # 10.7 H (1.3-7.7) k/uL Lymphocytes # 1.1 (1.0-4.8) k/uL Monocytes # 0.7 (0-1.0) k/uL Eosinophils # 0.4 (0-0.7) k/uL Basophils # 0.1 (0-0.2) k/uL Hypochromasia Moderate Sodium 141 (137-145) mmol/L Potassium 4.0 (3.5-5.1) mmol/L Chloride 106 (98-107) mmol/L Carbon Dioxide 27 (22-30) mmol/L Anion Gap 8 mmol/L BUN 17 (9-20) mg/dL Creatinine 0.98 (0.66-1.25) mg/dL Est GFR (CKD-EPI)AfAm 81 (>60 ml/min/1.73 sqM) Est GFR (CKD-EPI)NonAf 70 (>60 ml/min/1.73 sqM) Glucose 94 (74-99) mg/dL Plasma Lactic Acid [place] 2.2 H* (0.7-2.0) mmol/L Calcium 8.9 (8.4-10.2) mg/dL Magnesium 1.8 (1.6-2.3) mg/dL Total Bilirubin 0.7 (0.2-1.3) mg/dL AST 27 (17-59) U/L ALT 16 (4-49) U/L Alkaline Phosphatase 92 (38-126) U/L Troponin I (0.000-0.034) ng/mL NT-Pro-B Natriuret Pep pg/mL Total Protein 7.4 (6.3-8.2) g/dL Albumin 3.6 (3.5-5.0) g/dL 10/11/20 10/11/20 Range/Units 18:29 20:06 WBC (3.8-10.6) k/uL RBC (4.30-5.90) m/uL Hgb (13.0-17.5) gm/dL Hct (39.0-53.0) % MCV (80.0-100.0) fL MCH (25.0-35.0) pg MCHC (31.0-37.0) g/dL RDW (11.5-15.5) % Plt Count (150-450) k/uL MPV Neutrophils % % Lymphocytes % % Monocytes % % Eosinophils % % Basophils % % Neutrophils # (1.3-7.7) k/uL Lymphocytes # (1.0-4.8) k/uL Monocytes # (0-1.0) k/uL Eosinophils # (0-0.7) k/uL Basophils # (0-0.2) k/uL Hypochromasia Sodium (137-145) mmol/L Potassium (3.5-5.1) mmol/L Chloride (98-107) mmol/L Carbon Dioxide (22-30) mmol/L Anion Gap mmol/L BUN (9-20) mg/dL Creatinine (0.66-1.25) mg/dL Est GFR (CKD-EPI)AfAm (>60 ml/min/1.73 sqM) Est GFR (CKD-EPI)NonAf (>60 ml/min/1.73 sqM) Glucose (74-99) mg/dL Plasma Lactic Acid [place] (0.7-2.0) mmol/L Calcium (8.4-10.2) mg/dL Magnesium (1.6-2.3) mg/dL Total Bilirubin (0.2-1.3) mg/dL AST (17-59) U/L ALT (4-49) U/L Alkaline Phosphatase (38-126) U/L Troponin I 0.024 (0.000-0.034) ng/mL NT-Pro-B Natriuret Pep 6100 pg/mL Total Protein (6.3-8.2) g/dL Albumin (3.5-5.0) g/dL Disposition Clinical Impression: Pulmonary edema Disposition: HOME SELF-CARE Additional Instructions: Patient should take Lasix twice a day. Is patient prescribed a controlled substance at d/c from ED?: No Referrals: Galileo Rangel MD [Primary Care Provider] - 1-2 days Time of Disposition: 20:49
[2020-10-11 18:57] LABS: Albumin 3.6 g/dL (3.5-5.0); Calcium 8.9 mg/dL (8.4-10.2); Magnesium 1.8 mg/dL (1.6-2.3); Total Bilirubin 0.7 mg/dL (0.2-1.3); Total Protein 7.4 g/dL (6.3-8.2)
--- NOTE | 2020-10-11 18:59 | XR ---
EXAMINATION TYPE: XR chest 2V DATE OF EXAM: 10/11/2020 COMPARISON: 07/18/2020 HISTORY: Difficulty breathing TECHNIQUE: FINDINGS: Heart is moderately enlarged. There is mild pulmonary congestion. There is a left axillary pacemaker. There is slight blunting of the costophrenic angles. IMPRESSION: Cardiomegaly and mild congestion. Mild heart failure is possible. Small pleural effusions . Pulmonary congestion is new compared to old exam.
[2020-10-11 19:37] VITALS: BP 143/64; PULSE 63; RESP 18
[2020-10-11] MEDS ORDERED: FUROSEMIDE 10 MG/ML 2 ML VIAL IV STA (20:37)
== END 2020-10-11 21:22 | disposition home or self-care (01) ==
LOC: EC 16:56
DX: J81.1 Chronic pulmonary edema (principal); I10 Essential (primary) hypertension; E03.9 Hypothyroidism, unspecified; E78.5 Hyperlipidemia, unspecified; G47.33 Obstructive sleep apnea (adult) (pediatric); Z79.899 Other long term (current) drug therapy; Z79.890 Hormone replacement therapy; Z88.1 Allergy status to other antibiotic agents; Z88.8 Allergy status to other drugs, medicaments and biological substances; Z99.89 Dependence on other enabling machines and devices; Z90.49 Acquired absence of other specified parts of digestive tract; Z95.5 Presence of coronary angioplasty implant and graft; Z20.828 Contact with and (suspected) exposure to other viral communicable diseases
CPT/HCPCS: 36415; 93005; 83880; 80053; 83605; 83735; 84484; 85025; 87635; 71046; 99284; 96374; 96361 ×2; J1940

== ENCOUNTER 2021-04-06 14:20 | Inpatient (IN) | payer MEDICARE ==
[2021-04-06 15:29] LABS: Anisocytosis Slight; Basophils # (A) 0.1 k/uL (0-0.2); Basophils % (A) 1 %; Eosinophils # (A) 0.5 k/uL (0-0.7); Eosinophils % (A) 7 %; HGB 10.9 gm/dL (13.0-17.5); Hypochromasia Slight; Lymphocytes # (A) 0.9 k/uL (1.0-4.8); Lymphocytes % (A) 13 %; MCH 26.2 pg (25.0-35.0); MCHC 32.2 g/dL (31.0-37.0); MCV 81.4 fL (80.0-100.0); Mean Platelet Volume 8.1; Monocytes # (A) 0.5 k/uL (0-1.0); Monocytes % (A) 7 %; Neutrophils # (A) 4.9 k/uL (1.3-7.7); Neutrophils % (A) 71 %; Platelet Count 142 k/uL (150-450); RBC 4.18 m/uL (4.30-5.90); RDW 16.6 % (11.5-15.5); WBC 6.8 k/uL (3.8-10.6)
[2021-04-06 15:30] LABS: Appearance,Urine Clear (Clear); Bilirubin,Urine Negative (Negative); Blood,Urine Negative (Negative); Color,Urine Light Yellow; Glucose,Urine (UA) Negative (Negative); Ketones,Urine Negative (Negative); Leukocyte Esterase,Urine Negative (Negative); Nitrite,Urine Negative (Negative); PH, Urine 6.5 (5.0-8.0); Protein,Urine Negative (Negative); Specific Gravity,Urine 1.006 (1.001-1.035); Urobilinogen,Urine <2.0 mg/dL (<2.0)
[2021-04-06 15:40] LABS: Albumin 3.9 g/dL (3.5-5.0); Calcium 9.1 mg/dL (8.4-10.2); Potassium 3.8 mmol/L (3.5-5.1); Total Bilirubin 0.6 mg/dL (0.2-1.3); Total Protein 7.4 g/dL (6.3-8.2)
[2021-04-06 15:42] LABS: Partial Thromboplastin Time 25.7 sec (22.0-30.0)
--- NOTE | 2021-04-06 15:54 | XR ---
EXAMINATION TYPE: XR chest 2V DATE OF EXAM: 04/06/2021 COMPARISON: 12/13/2020 HISTORY: Shortness of breath FINDINGS: Noted is pulmonary venous congestion with scattered infiltrates. There is also cardiomegaly and small effusions. IMPRESSION: Findings compatible with congestive failure. Infiltrates of other etiology are not excluded. Clinical correlation and progress studies are recommended.
[2021-04-06 16:00] LABS: D-Dimer 2.96 mg/L FEU (<0.60)
--- NOTE | 2021-04-06 16:34 | ED ---
General Adult HPI - General Chief complaint: Shortness of Breath Stated complaint: Back pain,SOB Time Seen by Provider: 04/06/21 14:51 Source: patient, RN notes reviewed Mode of arrival: ambulatory Limitations: no limitations - History of Present Illness Initial comments: 85-year-old male with a past medical history of atrial fibrillation, hyperlipidemia, hypertension, respiratory disorder, CAD, descending thoracic aortic aneurysm presents to the emergency room for a chief complaint of shortness of breath. Patient has had worsening shortness of breath over the past 3 days. States every time he coughs he has pain in his upper abdomen and chest. Patient also has low back pain. Patient reports the pain is becoming severe. This prompted him to present to the emergency room.Patient has no other complaints at this time including shortness of breath, chest pain, abdominal pain, nausea or vomiting, headache, or visual changes. - Related Data Home Medications Medication Instructions Recorded Confirmed Levothyroxine Sodium [Synthroid] 50 mcg PO DAILY 08/30/14 04/06/21 Potassium Chloride [Klor-Con 20] 20 meq PO HS 08/30/14 04/06/21 Simvastatin [Zocor] 20 mg PO HS 08/30/14 04/06/21 Isosorbide Mononitrate ER [Imdur] 60 mg PO DAILY 07/30/17 04/06/21 Albuterol Sulfate [Ventolin HFA] 1 - 2 puff INHALATION RT-Q6H PRN 10/11/20 04/06/21 Aspirin 81 mg PO HS 10/11/20 04/06/21 Furosemide [Lasix] 40 mg PO DAILY 10/11/20 04/06/21 Glucosamine/Chondr Nguyen A Sod [Osteo 1 tab PO DAILY 10/11/20 04/06/21 Bi-Flex Caplet] traMADol HCL 50 mg PO Q6H PRN 10/11/20 04/06/21 Fluticasone/Salmeterol [Advair 1 puff INHALATION RT-BID 04/06/21 04/06/21 250-50 Diskus] Gabapentin [Neurontin] 200 mg PO HS PRN 04/06/21 04/06/21 Loratadine [Claritin] 10 mg PO DAILY PRN 04/06/21 04/06/21 Magnesium Hydroxide [Milk of 2,400 mg PO DAILY PRN 04/06/21 04/06/21 Magnesia] Previous Rx's Medication Instructions Recorded Apixaban [Eliquis] 2.5 mg PO BID #60 tab 03/29/20 Pantoprazole Sodium [Protonix] 40 mg PO DAILY #30 tablet. 03/29/20 Allergies Allergy/AdvReac Type Severity Reaction Status Date / Time cefazolin sodium [From Ancef] Allergy Anaphylaxis Verified 04/06/21 16:41 hylan G-F 20 [From [employer]] Allergy Anaphylaxis Verified 04/06/21 16:41 Review of Systems ROS Statement: Those systems with pertinent positive or pertinent negative responses have been documented in the HPI. ROS Other: All systems not noted in ROS Statement are negative. Past Medical History Past Medical History: Atrial Fibrillation, Hyperlipidemia, Hypertension, Respiratory Disorder, Thyroid Disorder Additional Past Medical History / Comment(s): Severe JORDANA with an H of 128 seated with a BiPAP pressure of 17/13 cm of water, obesity, coronary artery disease with previous coronary intervention and stenting, tonic atrial fibrillation, hyperlipidemia, hypertension, hypothyroidism, ascending thoracic aortic aneurysm, ascending thoracic aortic aneurysm measuring 4.2 cm in size. Peripheral vascular disease with a stent within the aorta and stents also placed in the iliacs History of Any Multi-Drug Resistant Organisms: None Reported Past Surgical History: Cholecystectomy, Heart Catheterization With Stent Additional Past Surgical History / Comment(s): UPPP for obstructive sleep apnea, abdominal aortic aneurysm repair, vascular stenting to the lower extremities including the iliacs for peripheral vascular disease, cataracts, right carotid endarterectomy, cholecystectomy Past Anesthesia/Blood Transfusion Reactions: No Reported Reaction Date of Last Stent Placement:: 1995, Type of Cardiac Device: Permanent Pacemaker Device Placement Date:: JUL 2017 Past Psychological History: No Psychological Hx Reported Smoking Status: Never smoker Past Alcohol Use History: None Reported Past Drug Use History: None Reported General Exam Limitations: no limitations General appearance: alert, in no apparent distress Head exam: Present: atraumatic, normocephalic Eye exam: Present: normal appearance, PERRL, EOMI. Absent: scleral icterus, conjunctival injection, periorbital swelling ENT exam: Present: normal exam, mucous membranes moist Neck exam: Present: normal inspection, full ROM. Absent: tenderness, meningismus, lymphadenopathy Respiratory exam: Present: normal lung sounds bilaterally. Absent: respiratory distress, wheezes, rales, rhonchi, stridor Cardiovascular Exam: Present: regular rate, normal rhythm, normal heart sounds. Absent: systolic murmur, diastolic murmur, rubs, gallop, clicks GI/Abdominal exam: Present: soft, normal bowel sounds. Absent: distended, tenderness, guarding, rebound, rigid Neurological exam: Present: alert Course Vital Signs 04/06/21 14:30 Temperature 98.5 F Pulse Rate 58 L Respiratory 18 Rate Blood Pressure 131/67 O2 Sat by Pulse 95 Oximetry EKG Findings - EKG Comments: EKG Findings:: v-paced, vent rate 60, qrs 190, QTc 472 Medical Decision Making - Medical Decision Making Vitals are stable. Patient appears mildly short of breath. Oxygenation in the room is 92-93% on room air. Laboratory valuation was initiated, CBC CMP unremarkable. However patient does have an elevated d-dimer. Therefore CTA chest was ordered which shows no evidence of pulmonary embolism. There is a left lower lobe infiltrate and atelectasis with a left pleural effusion. Mild aneurysm of the thoracic aorta at 4.2 cm which is chronic for patient. No sign of dissection. BNP is elevated and 4000 patient will be admitted for CHF exacerbation as well as pneumonia. - Lab Data Result diagrams: 04/06/21 14:49 04/06/21 14:49 Lab Results 04/06/21 04/06/21 04/06/21 Range/Units 14:49 14:49 14:49 WBC 6.8 (3.8-10.6) k/uL RBC 4.18 L (4.30-5.90) m/uL Hgb 10.9 L (13.0-17.5) gm/dL Hct 34.0 L (39.0-53.0) % MCV 81.4 (80.0-100.0) fL MCH 26.2 (25.0-35.0) pg MCHC 32.2 (31.0-37.0) g/dL RDW 16.6 H (11.5-15.5) % Plt Count 142 L (150-450) k/uL MPV 8.1 Neutrophils % 71 % Lymphocytes % 13 % Monocytes % 7 % Eosinophils % 7 % Basophils % 1 % Neutrophils # 4.9 (1.3-7.7) k/uL Lymphocytes # 0.9 L (1.0-4.8) k/uL Monocytes # 0.5 (0-1.0) k/uL Eosinophils # 0.5 (0-0.7) k/uL Basophils # 0.1 (0-0.2) k/uL Hypochromasia Slight Anisocytosis Slight PT 11.0 (9.0-12.0) sec INR 1.0 (<1.2) APTT 25.7 (22.0-30.0) sec D-Dimer 2.96 H (<0.60) mg/L FEU Sodium (137-145) mmol/L Potassium (3.5-5.1) mmol/L Chloride (98-107) mmol/L Carbon Dioxide (22-30) mmol/L Anion Gap mmol/L BUN (9-20) mg/dL Creatinine (0.66-1.25) mg/dL Est GFR (CKD-EPI)AfAm (>60 ml/min/1.73 sqM) Est GFR (CKD-EPI)NonAf (>60 ml/min/1.73 sqM) Glucose (74-99) mg/dL Calcium (8.4-10.2) mg/dL Magnesium (1.6-2.3) mg/dL Total Bilirubin (0.2-1.3) mg/dL AST (17-59) U/L ALT (4-49) U/L Alkaline Phosphatase (38-126) U/L Troponin I (0.000-0.034) ng/mL NT-Pro-B Natriuret Pep pg/mL Total Protein (6.3-8.2) g/dL Albumin (3.5-5.0) g/dL Urine Color Light Yellow Urine Appearance Clear (Clear) Urine pH 6.5 (5.0-8.0) Ur Specific [place] 1.006 (1.001-1.035) Urine Protein Negative (Negative) Urine Glucose (UA) Negative (Negative) Urine Ketones Negative (Negative) Urine Blood Negative (Negative) Urine Nitrite Negative (Negative) Urine Bilirubin Negative (Negative) Urine Urobilinogen <2.0 (<2.0) mg/dL Ur Leukocyte Esterase Negative (Negative) 04/06/21 04/06/21 04/06/21 Range/Units 14:49 14:49 14:49 WBC (3.8-10.6) k/uL RBC (4.30-5.90) m/uL Hgb (13.0-17.5) gm/dL Hct (39.0-53.0) % MCV (80.0-100.0) fL MCH (25.0-35.0) pg MCHC (31.0-37.0) g/dL RDW (11.5-15.5) % Plt Count (150-450) k/uL MPV Neutrophils % % Lymphocytes % % Monocytes % % Eosinophils % % Basophils % % Neutrophils # (1.3-7.7) k/uL Lymphocytes # (1.0-4.8) k/uL Monocytes # (0-1.0) k/uL Eosinophils # (0-0.7) k/uL Basophils # (0-0.2) k/uL Hypochromasia Anisocytosis PT (9.0-12.0) sec INR (<1.2) APTT (22.0-30.0) sec D-Dimer (<0.60) mg/L FEU Sodium 141 (137-145) mmol/L Potassium 3.8 (3.5-5.1) mmol/L Chloride 102 (98-107) mmol/L Carbon Dioxide 34 H (22-30) mmol/L Anion Gap 5 mmol/L BUN 21 H (9-20) mg/dL Creatinine 1.00 (0.66-1.25) mg/dL Est GFR (CKD-EPI)AfAm 79 (>60 ml/min/1.73 sqM) Est GFR (CKD-EPI)NonAf 68 (>60 ml/min/1.73 sqM) Glucose 121 H (74-99) mg/dL Calcium 9.1 (8.4-10.2) mg/dL Magnesium 2.0 (1.6-2.3) mg/dL Total Bilirubin 0.6 (0.2-1.3) mg/dL AST 23 (17-59) U/L ALT 10 (4-49) U/L Alkaline Phosphatase 119 (38-126) U/L Troponin I 0.014 (0.000-0.034) ng/mL NT-Pro-B Natriuret Pep 4120 pg/mL Total Protein 7.4 (6.3-8.2) g/dL Albumin 3.9 (3.5-5.0) g/dL Urine Color Urine Appearance (Clear) Urine pH (5.0-8.0) Ur Specific [place] (1.001-1.035) Urine Protein (Negative) Urine Glucose (UA) (Negative) Urine Ketones (Negative) Urine Blood (Negative) Urine Nitrite (Negative) Urine Bilirubin (Negative) Urine Urobilinogen (<2.0) mg/dL Ur Leukocyte Esterase (Negative) Disposition Clinical Impression: CHF (congestive heart failure), Pneumonia, Shortness of breath Disposition: ADMITTED IP TO THIS HOSP Is patient prescribed a controlled substance at d/c from ED?: No Referrals: Galileo Rangel MD [Primary Care Provider] - 1-2 days Time of Disposition: 17:15
--- NOTE | 2021-04-06 16:52 | CT ---
EXAMINATION TYPE: CT chest angio for PE DATE OF EXAM: 04/06/2021 COMPARISON: None HISTORY: Shortness of breath. CT DLP: 625.9 mGycm Automated exposure control for dose reduction was used. CONTRAST: Performed with IV Contrast, patient injected with 100 mL of Isovue 370. There are 3-D post processed images. Images obtained from the thoracic inlet to the diaphragm with IV contrast. Heart is enlarged. Thoracic aorta is atheromatous. There is 4.2 cm aneurysm of the ascending aorta. T here is no sign of dissection. There are large pulmonary arteries. There is no evidence of filling de fect in the pulmonary arteries. There is left pleural effusion. There is airspace infiltrate and atel ectasis left lower lobe. There is no pericardial effusion. There is degenerative spurring in the thoracic spine. There is no compression fracture. The sternum i s intact. There is stent in the abdominal aorta. IMPRESSION: No evidence of pulmonary embolism. Left lower lobe infiltrate and atelectasis. Left pleural effusion. Mild aneurysm of the thoracic aorta.
[2021-04-06] MEDS ORDERED: LEVOFLOXACIN 750MG-D5W PMX 750 MG in DEXTROSE/WATER 1 150ML.BAG IVPB STA (17:10)
[2021-04-06] MEDS ORDERED: FUROSEMIDE 10 MG/ML 4 ML VIAL IV SCH (17:15)
[2021-04-06] MEDS ORDERED: LORATADINE 10 MG TAB PO PRN (19:02)
[2021-04-06] MEDS ORDERED: traMADol 50 MG TAB PO PRN (19:02)
[2021-04-06] MEDS ORDERED: MAGNESIUM HYDROXIDE 2,400 MG/10 ML CUP PO PRN (19:02)
[2021-04-06] MEDS ORDERED: GABAPENTIN 100 MG CAP PO PRN (19:02)
[2021-04-06] MEDS ORDERED: ALPRAZolam 0.25 MG TAB PO PRN (19:04)
[2021-04-06] MEDS: FUROSEMIDE 10 MG/ML 4 ML VIAL IV SCH ×2 (19:49→23:11)
[2021-04-06] MEDS: POTASSIUM CHLORIDE ER 20 MEQ TAB.ER PO SCH (20:30)
[2021-04-06] MEDS: APIXABAN 2.5 MG TABLET PO SCH (20:30)
[2021-04-06] MEDS: ATORVASTATIN 10 MG TAB PO SCH (20:30)
[2021-04-06] MEDS: ASPIRIN 81 MG PO SCH (20:30)
--- NOTE | 2021-04-06 20:36 | HP ---
HISTORY AND PHYSICAL DATE OF SERVICE: 04/06/2021 CHIEF COMPLAINT: Shortness of breath. HISTORY OF PRESENT ILLNESS: This 85-year-old gentleman with a past medical history of multiple medical problems, including atrial fibrillation, hypertension, hyperlipidemia, history of hypothyroidism, being followed by Dr. Rangel in the outpatient setting, was complaining of shortness of breath over the past several days. The patient also was apparently having some worsening cough. The patient came to [facility] and was admitted for further evaluation and treatment. The patient also complains of some low back pain. The patient's daughter suspected that the patient spent too much time on the tractor. Otherwise, the patient is also reporting a significant amount of water during nighttime, but the daughter also informed me that the patient is not taking Lasix as much as before because of the fear of frequent urination. Chest x-ray showed possible CHF and the patient also had a CT angio of the chest because of the elevated D-dimer. The CT angio, which was reviewed personally by me, showed some evidence of interstitial pneumonia and some interstitial fluid also; mild aneurysmal thoracic aorta was also noted. There is no evidence of pulmonary embolism. Patient admitted for further evaluation and treatment. There is no history of any fever, rigors or chills at this time. PAST MEDICAL HISTORY: 1. History of atrial fibrillation. 2. Hypertension. 3. Hyperlipidemia. 4. History of CAD and stent. HOME MEDICATIONS: Reviewed. They include magnesium, Neurontin, Claritin, Ultram, Zocor, Klor-Con, Advair, Protonix, Synthroid, Imdur, Osteo Bi-Flex, Lasix, aspirin, Eliquis, Ventolin. ALLERGIES: ANCEF AND SYNVISC. FAMILY HISTORY: No history of heart disease or strokes in the family. SOCIAL HISTORY: Previous history of smoking. No current smoking or alcohol. REVIEW OF SYSTEMS: ENT: Diminished hearing. Diminished vision. CARDIOVASCULAR SYSTEM: As mentioned earlier. RESPIRATORY SYSTEM: As mentioned earlier. GI: No nausea, vomiting. : No dysuria or retention. NERVOUS SYSTEM: No numbness, weakness. ALLERGY/IMMUNOLOGY: No asthma, hayfever. MUSCULOSKELETAL: As mentioned earlier. HEMATOLOGY/ONCOLOGY: No history of anemia. ENDOCRINE: No history of diabetes, hypothyroidism. CONSTITUTIONAL: As mentioned earlier. DERMATOLOGY: Negative. RHEUMATOLOGY: Negative. PSYCHIATRY: As mentioned earlier. PHYSICAL EXAMINATION: Patient alert and oriented x3. Pulse is 64, blood pressure 142/71, respiration 22, temperature 98.5, pulse ox 94% on 2 L. HEENT: Conjunctivae normal. Oral mucosa moist. NECK: No jugular venous distention. No carotid bruit. No lymph node enlargement. Breathing efforts are slightly increased. Bilateral scattered rhonchi and crackles. CARDIOVASCULAR: Ejection systolic murmur present. ABDOMEN: Soft, obese, non-tender. No mass palpable. LEGS: Minimal bilateral leg edema. NERVOUS SYSTEM: Higher functions as mentioned earlier. Moves all 4 limbs. No focal motor or sensory deficit. LYMPHATICS: No lymph node palpable in neck, axillae or groin. SKIN: No ulcer, rash, bleeding. JOINTS: No active deforming arthropathy. LABS: WBC 6.8, hemoglobin 10.9, platelets 142. D-dimer is 2.9. ASSESSMENT: 1. Shortness of breath; possibly congestive heart failure, acute exacerbation, ejection fraction unknown. 2. Anemia, normocytic anemia of chronic disease. 3. Thrombocytopenia. 4. Elevated D-dimer without any evidence of pulmonary embolism. 5. Possible suppurative left lower lobe pneumonia, possibly Gram-negative. 6. Atrial fibrillation. 7. Hypertension. 8. Hyperlipidemia. 9. Hypothyroidism. 10.Obstructive sleep apnea. 11.History of coronary artery disease, stent. 12.Ascending thoracic aortic aneurysm history. 13.History of UPPP for obstructive sleep apnea. 14.History of permanent pacemaker. 15.Obesity with body mass index 36. RECOMMENDATIONS AND DISCUSSION: In this 85-year-old gentleman who presented with multiple complex medical issues, we will monitor the patient closely, continue the current medications, continue symptomatic treatment. I recommend IV Lasix, a 2D echo with Doppler. BNP was 4120. Empiric antibiotics. Consult Dr. Jane. Guarded prognosis because of multiple complex medical problems. Further recommendations to follow. A copy of this dictation is being forwarded to Dr. Rangel, who is the primary physician. MMODL / IJN: [id number] /
[2021-04-06] MEDS: SYMBICORT 80-4.5 MCG INHALER INHALATION SCH (21:06)
[2021-04-07] MEDS: ACETAMINOPHEN TAB 500 MG TAB PO PRN (08:31)
[2021-04-07] MEDS: APIXABAN 2.5 MG TABLET PO SCH ×2 (08:33→20:21)
[2021-04-07] MEDS: PANTOPRAZOLE 40 MG TABLET PO SCH (08:33)
[2021-04-07] MEDS: LEVOTHYROXINE 50 MCG TAB PO SCH (08:33)
[2021-04-07] MEDS: ISOSORBIDE MONONITRATE ER 60 MG TAB.ER.24H PO SCH (08:33)
[2021-04-07] MEDS: LEVOFLOXACIN 750MG-D5W PMX 750 MG in DEXTROSE/WATER 1 150ML.BAG IVPB SCH (08:33)
[2021-04-07] MEDS: FUROSEMIDE 10 MG/ML 4 ML VIAL IV SCH (08:35)
[2021-04-07] MEDS: SYMBICORT 80-4.5 MCG INHALER INHALATION SCH ×2 (08:46→20:48)
[2021-04-07] MEDS ORDERED: NON FORMULARY DRUG (Glucosamine/Chondr Su A Sod [Osteo Bi-Flex Caplet] 1 EACH Tablet) PO SCH (09:00)
[2021-04-07] MEDS ORDERED: guaiFENesin-DM 100-10MG/5ML 10 ML CUP PO PRN (11:52)
--- NOTE | 2021-04-07 11:54 | P.CNPUL ---
History of Present Illness Consult date: 04/07/21 Reason for consult: dyspnea History of present illness: 85-year-old male patient presented emergency department because of worsening shortness of breath a few days duration. He also had some increased cough and he was having some abdominal discomfort and chest discomfort along with cough and. His pain is been quite extensive. For all this reasons, the patient came into the emergency. Initial pulse ox was 92-93% on room air oxygen. Hemod ynamically stable. Blood work was unremarkable. He did have some mild elevation of the d-dimer at 2.96. His proBNP level was 4120 and the troponin was 0.014. Based on that, the patient was given a CT angiogram which showed no evidence of any pulmonary embolism. There was a left lower lobe atelectasis with low with a small effusion. He is known to have a thoracic aortic aneurysm measuring 4.2 cm in size. He was admitted for treatment of CHF and pneumonia. Patient was started on Levaquin 750 every 24 hours. The patient is also on Lasix 40 mg IV every 8 hours. Note that his COVID-19 evaluation by PCR came back negative. Past medical history of coronary artery disease, with previous st enting, hypertension, hyperlipidemia, hypothyroidism, diabetes mellitus, chronic atrial fibrillation, obstructive sleep apnea status post UPPP, postinflammatory pulmonary fibrosis, peripheral vascular disease, history of abdominal aortic aneurysm, and descending thoracic aortic aneurysm, and patient had undergone abdominal aortic stenting at the [facility]. He follows with Dr. Argueta in the office for chronic bronchitis and a history of postinflammatory pulmonary fibrosis. Review of Systems Constitutional: Denies chills, Denies fever Eyes: denies blurred vision, denies pain Ears, nose, mouth and throat: Denies headache, Denies sore throat Cardiovascular: Denies chest pain, shortness of breath Respiratory: cough and worsening shortness of breath Gastrointestinal: Denies abdominal pain, Denies diarrhea, Denies nausea, Denies vomiting Musculoskeletal: Denies myalgias Integumentary: Denies pruritus, Denies rash Neurological: Reports change in speech, Reports weakness, Denies numbness Psychiatric: Denies anxiety, Denies depression Endocrine: Denies fatigue, Denies weight change Past Medical History Past Medical History: Atrial Fibrillation, Hyperlipidemia, Hypertension, Respiratory Disorder, Thyroid Disorder Additional Past Medical History / Comment(s): Severe JORDANA with an H of 128 seated with a BiPAP pressure of 17/13 cm of water, obesity, coronary artery disease with previous coronary intervention and stenting, tonic atrial fibrillation, hyperlipidemia, hypertension, hypothyroidism, ascending thoracic aortic aneurysm, ascending thoracic aortic aneurysm measuring 4.2 cm in size. Peripheral vascular disease with a stent within the aorta and stents also placed in the iliacs History of Any Multi-Drug Resistant Organisms: None Reported Past Surgical History: Cholecystectomy, Heart Catheterization With Stent Additional Past Surgical History / Comment(s): UPPP for obstructive sleep apnea, abdominal aortic aneurysm repair, vascular stenting to the lower extremities including the iliacs for peripheral vascular disease, cataracts, right carotid endarterectomy, cholecystectomy Past Anesthesia/Blood Transfusion Reactions: No Reported Reaction Date of Last Stent Placement:: 1995, Type of Cardiac Device: Permanent Pacemaker Device Placement Date:: JUL 2017 Past Psychological History: No Psychological Hx Reported Additional Psychological History / Comment(s): 2012 Smoking Status: Never smoker Past Alcohol Use History: None Reported Past Drug Use History: None Reported Medications and Allergies Home Medications Medication Instructions Recorded Confirmed Type Levothyroxine Sodium [Synthroid] 50 mcg PO DAILY 08/30/14 04/06/21 History Potassium Chloride [Klor-Con 20] 20 meq PO HS 08/30/14 04/06/21 History Simvastatin [Zocor] 20 mg PO HS 08/30/14 04/06/21 History Isosorbide Mononitrate ER [Imdur] 60 mg PO DAILY 07/30/17 04/06/21 History Apixaban [Eliquis] 2.5 mg PO BID #60 tab 03/29/20 04/06/21 Rx Pantoprazole Sodium [Protonix] 40 mg PO DAILY #30 tablet.dr 03/29/20 04/06/21 Rx Albuterol Sulfate [Ventolin HFA] 1 - 2 puff INHALATION RT-Q6H PRN 10/11/20 04/06/21 History Aspirin 81 mg PO HS 10/11/20 04/06/21 History Furosemide [Lasix] 40 mg PO DAILY 10/11/20 04/06/21 History Glucosamine/Chondr Nguyen A Sod [Osteo 1 tab PO DAILY 10/11/20 04/06/21 History Bi-Flex Caplet] traMADol HCL 50 mg PO Q6H PRN 10/11/20 04/06/21 History Fluticasone/Salmeterol [Advair 1 puff INHALATION RT-BID 04/06/21 04/06/21 History 250-50 Diskus] Gabapentin [Neurontin] 200 mg PO HS PRN 04/06/21 04/06/21 History Loratadine [Claritin] 10 mg PO DAILY PRN 04/06/21 04/06/21 History Magnesium Hydroxide [Milk of 2,400 mg PO DAILY PRN 04/06/21 04/06/21 History Magnesia] Allergies Allergy/AdvReac Type Severity Reaction Status Date / Time cefazolin sodium [From Anc] Allergy Anaphylaxis Verified 04/06/21 16:41 hylan G-F 20 [From Ondore] Allergy Anaphylaxis Verified 04/06/21 16:41 Physical Exam Vitals: Vital Signs Temp Pulse Pulse Resp BP BP Pulse Ox 04/07/21 08:00 98.7 F 60 20 148/81 97 04/07/21 02:00 60 17 127/68 98 04/06/21 20:00 60 18 04/06/21 19:49 98.2 F 60 18 133/68 96 04/06/21 19:00 98.1 F 60 18 130/62 96 04/06/21 17:00 64 22 146/71 94 L 04/06/21 15:00 62 22 154/73 95 04/06/21 14:30 98.5 F 58 L 18 131/67 95 Intake and Output 04/06/21 04/07/21 04/07/21 22:59 06:59 14:59 Other: Voiding Method Toilet Toilet # Voids 4 Weight 104.326 kg GENERAL EXAM: Alert, very pleasant, obese 84-year-old white male, resting in bed, on 2 L of oxygen with a pulse ox of 94%, and has a strong [place] accent, but is able to make his needs known, with limited assistance with translation from his son who is at the bedside, comfortable in no apparent distress. HEAD: Normocephalic/atraumatic. EYES: Normal reaction of pupils, equal size. Conjunctiva pink, sclera white. NOSE: Clear with pink turbinates. THROAT: No erythema or exudates. NECK: No masses, no JVD, no thyroid enlargement, no adenopathy. CHEST: No chest wall deformity. Symmetrical expansion. LUNGS: Equal air entry with no crackles, wheeze, rhonchi or dullness. CVS: Regular rate and rhythm, normal S1 and S2, no gallops, no murmurs, no rubs ABDOMEN: Soft, obese, nontender No hepatosplenomegaly, normal bowel sounds, no guarding or rigidity. EXTREMITIES: No clubbing, no edema, no cyanosis, 2+ pulses and upper and lower extremities. MUSCULOSKELETAL: Muscle strength and tone normal. SPINE: No scoliosis or deformity SKIN: No rashes CENTRAL NERVOUS SYSTEM: Alert and oriented -3. No focal deficits, tone is normal in all 4 extremities. PSYCHIATRIC: Alert and oriented -3. Appropriate affect. Intact judgment and insight. Results - Laboratory Findings CBC and BMP: 04/06/21 14:49 04/06/21 14:49 ABG WBC 6.8 k/uL (3.8-10.6) 04/06/21 14:49 RBC 4.18 m/uL (4.30-5.90) L 04/06/21 14:49 Hgb 10.9 gm/dL (13.0-17.5) L 04/06/21 14:49 Hct 34.0 % (39.0-53.0) L 04/06/21 14:49 MCV 81.4 fL (80.0-100.0) 04/06/21 14:49 MCH 26.2 pg (25.0-35.0) 04/06/21 14:49 MCHC 32.2 g/dL (31.0-37.0) 04/06/21 14:49 RDW 16.6 % (11.5-15.5) H 04/06/21 14:49 Plt Count 142 k/uL (150-450) L 04/06/21 14:49 MPV 8.1 04/06/21 14:49 Neutrophils % 71 % 04/06/21 14:49 Lymphocytes % 13 % 04/06/21 14:49 Monocytes % 7 % 04/06/21 14:49 Eosinophils % 7 % 04/06/21 14:49 Basophils % 1 % 04/06/21 14:49 Neutrophils # 4.9 k/uL (1.3-7.7) 04/06/21 14:49 Lymphocytes # 0.9 k/uL (1.0-4.8) L 04/06/21 14:49 Monocytes # 0.5 k/uL (0-1.0) 04/06/21 14:49 Eosinophils # 0.5 k/uL (0-0.7) 04/06/21 14:49 Basophils # 0.1 k/uL (0-0.2) 04/06/21 14:49 Hypochromasia Slight 04/06/21 14:49 Anisocytosis Slight 04/06/21 14:49 PT 11.0 sec (9.0-12.0) 04/06/21 14:49 INR 1.0 (<1.2) 04/06/21 14:49 APTT 25.7 sec (22.0-30.0) 04/06/21 14:49 D-Dimer 2.96 mg/L FEU (<0.60) H 04/06/21 14:49 Sodium 141 mmol/L (137-145) 04/06/21 14:49 Potassium 3.8 mmol/L (3.5-5.1) 04/06/21 14:49 Chloride 102 mmol/L (98-107) 04/06/21 14:49 Carbon Dioxide 34 mmol/L (22-30) H 04/06/21 14:49 Anion Gap 5 mmol/L 04/06/21 14:49 BUN 21 mg/dL (9-20) H 04/06/21 14:49 Creatinine 1.00 mg/dL (0.66-1.25) 04/06/21 14:49 Est GFR (CKD-EPI)AfAm 79 (>60 ml/min/1.73 sqM) 04/06/21 14:49 Est GFR (CKD-EPI)NonAf 68 (>60 ml/min/1.73 sqM) 04/06/21 14:49 Glucose 121 mg/dL (74-99) H 04/06/21 14:49 Calcium 9.1 mg/dL (8.4-10.2) 04/06/21 14:49 Magnesium 2.0 mg/dL (1.6-2.3) 04/06/21 14:49 Total Bilirubin 0.6 mg/dL (0.2-1.3) 04/06/21 14:49 AST 23 U/L (17-59) 04/06/21 14:49 ALT 10 U/L (4-49) 04/06/21 14:49 Alkaline Phosphatase 119 U/L (38-126) 04/06/21 14:49 Troponin I 0.018 ng/mL (0.000-0.034) 04/06/21 21:35 NT-Pro-B Natriuret Pep 4120 pg/mL 04/06/21 14:49 Total Protein 7.4 g/dL (6.3-8.2) 04/06/21 14:49 Albumin 3.9 g/dL (3.5-5.0) 04/06/21 14:49 Urine Color Light Yellow 04/06/21 14:49 Urine Appearance Clear (Clear) 04/06/21 14:49 Urine pH 6.5 (5.0-8.0) 04/06/21 14:49 Ur Specific [place] 1.006 (1.001-1.035) 04/06/21 14:49 Urine Protein Negative (Negative) 04/06/21 14:49 Urine Glucose (UA) Negative (Negative) 04/06/21 14:49 Urine Ketones Negative (Negative) 04/06/21 14:49 Urine Blood Negative (Negative) 04/06/21 14:49 Urine Nitrite Negative (Negative) 04/06/21 14:49 Urine Bilirubin Negative (Negative) 04/06/21 14:49 Urine Urobilinogen <2.0 mg/dL (<2.0) 04/06/21 14:49 Ur Leukocyte Esterase Negative (Negative) 04/06/21 14:49 Coronavirus (PCR) Not Detected (Not Detectd) 04/06/21 17:23 PT/INR, D-dimer PT 11.0 sec (9.0-12.0) 04/06/21 14:49 INR 1.0 (<1.2) 04/06/21 14:49 D-Dimer 2.96 mg/L FEU (<0.60) H 04/06/21 14:49 Abnormal lab findings: Abnormal Labs 04/06/21 04/06/21 04/06/21 14:49 14:49 14:49 RBC 4.18 L Hgb 10.9 L Hct 34.0 L RDW 16.6 H Plt Count 142 L Lymphocytes # 0.9 L D-Dimer 2.96 H Carbon Dioxide 34 H BUN 21 H Glucose 121 H - Diagnostic Findings Chest x-ray: image reviewed CT scan - chest: image reviewed Assessment and Plan Plan: #1. Shortness of breath with some limited bronchospasm wheezing cough and congestion consistent with tracheobronchitis. At the same time, there may be a component of mild CHF.. Previous echocardiogram showed an ejection fraction of 45-50% and the patient also had diastolic heart failure with severe concentric ventricular hypertrophy. ProBNP level is elevated #2 Previous history of TIA versus CVA. Brain CT without contrast showed no acute intracranial abnormality, chronic white matter ischemic change. Brain CT with angiography showed no significant carotid stenosis on the left, 27% stenosis in the right carotid, CT of the three affiliated of [place] was limited by extensive calcification within the carotid siphon, questionable stenosis in the M1 segment on the left. #3. Small left-sided pleural effusion, #4. Chronic atrial fibrillation, status post permanent pacemaker placement #5. Hypertension #6. Cardiomyopathy, an echocardiogram showed severe concentric left ventricular hypertrophy and mildly impaired EF between 45 and 50%, mild MR, mild TR, borderline pulmonary hypertension with right-sided pressures of 35.3 mmHg #7. Hyperlipidemia #8. Hypothyroidism #9. Peripheral vascular disease, with previous stenting of the iliac arteries #10. History of thoracic and abdominal aortic aneurysm, status post abdominal aortic stenting at the [facility] #11. Obstructive sleep apnea with an AHI of 128, status post UPPP #12. Carotid artery disease, status post right carotid endarterectomy #13. Former smoker #14. Coronary artery disease status post stenting #15. Obesity Plan Agree on Levaquin Kept on the Lasix to 40 mg every 24 hours , IV Give the patient DuoNeb nebulized treatments 4 times a day [id number] IV Solu Medrol 40 mg every 6 hours Robitussin-DM for cough and congestion Continue CPAP therapy here in the hospital Resume all medications repeat 2-D echocardiogram We'll continue to follow
[2021-04-07 12:04] LABS: Anisocytosis Slight; Basophils # (A) 0.1 k/uL (0-0.2); Basophils % (A) 1 %; Eosinophils # (A) 0.5 k/uL (0-0.7); Eosinophils % (A) 6 %; HCT 35.7 % (39.0-53.0); HGB 10.9 gm/dL (13.0-17.5); Hypochromasia Moderate; Lymphocytes # (A) 1.1 k/uL (1.0-4.8); Lymphocytes % (A) 13 %; MCH 25.1 pg (25.0-35.0); MCHC 30.7 g/dL (31.0-37.0); MCV 81.6 fL (80.0-100.0); Mean Platelet Volume 7.9; Monocytes # (A) 0.6 k/uL (0-1.0); Monocytes % (A) 8 %; Neutrophils # (A) 5.6 k/uL (1.3-7.7); Neutrophils % (A) 70 %; Platelet Count 156 k/uL (150-450); RBC 4.37 m/uL (4.30-5.90); RDW 16.5 % (11.5-15.5)
[2021-04-07] MEDS: IPRATROPIUM-ALBUTEROL 3 ML NEB INHALATION SCH ×3 (12:24→20:48)
[2021-04-07 12:48] LABS: Albumin 3.9 g/dL (3.5-5.0); Albumin/Globulin Ratio 1.1; Chloride 97 mmol/L (98-107); Globulin 3.6 g/dL; Glucose 100 mg/dL (74-99); Total Protein 7.5 g/dL (6.3-8.2)
[2021-04-07 12:49] LABS: ALT 10 U/L (4-49); AST 23 U/L (17-59); African American GFR (CKD) 69 (>60 ml/min/1.73 sqM); Alkaline Phosphatase 118 U/L (38-126); Anion Gap 10 mmol/L; Blood Urea Nitrogen 24 mg/dL (9-20); Calcium 9.2 mg/dL (8.4-10.2); Carbon Dioxide 36 mmol/L (22-30); Non-African American GFR(CKD) 60 (>60 ml/min/1.73 sqM); Potassium 3.7 mmol/L (3.5-5.1); Sodium 143 mmol/L (137-145); Total Bilirubin 0.6 mg/dL (0.2-1.3)
[2021-04-07] MEDS: methylPREDNISolone SOD SUCCI 125 MG/2 ML VIAL IV SCH ×2 (14:16→20:21)
--- NOTE | 2021-04-07 14:41 | CONS ---
CONSULTATION HISTORY OF PRESENT ILLNESS: This is an elderly 85-year-old gentleman with a history of CAD, details unavailable. Apparently he had a coronary stent. Details are not available. He has hypertension, hyperlipidemia, chronic atrial fibrillation sick sinus syndrome with a permanent pacemaker. He also has history of a permanent pacemaker that was placed by Dr. Lopez. He came into the hospital with complaints of having discomfort in the chest when he coughs and also increasing shortness of breath. Chest x-ray suggested mild CHF and also because of elevated D-dimer, CT angio was performed which did not reveal any evidence of pulmonary embolism. The patient's BNP is also mildly elevated. The patient has mild congestive heart failure type picture. It is unclear if he has been taking his medications regularly. However, at the time of my evaluation, he is more comfortable, resting. He is on Lasix 40 mg q.12 hours IV push. PAST MEDICAL HISTORY: 1. Remarkable for chronic atrial fibrillation with underlying pacemaker. 2. Mild aneurysmal dilatation of the ascending thoracic aorta not significant. 3. Hypertension. 4. Hyperlipidemia. 5. CAD with stent. Details are unclear. PHYSICAL EXAMINATION: On examination, blood pressure is 140/80, pulse rate is about 70 per minute. HEENT unremarkable. Fundus was not examined by me. NECK: Supple. There is JVD of 1 cm. No carotid bruit. HEART exam reveals S1 and S2 with a short systolic murmur audible at the left sternal border. LUNGS reveal fine rales on both bases. ABDOMEN is soft, nontender. Lower EXTREMITIES reveal diminished pulses. CENTRAL NERVOUS SYSTEM grossly no focal deficits but there is generalized weakness. IMPRESSION: 1. Exacerbation of congestive heart failure. 2. Exacerbation of chronic obstructive pulmonary disease. 3. History of coronary artery disease, details are unavailable. 4. Patient also has a history of the ascending thoracic aortic aneurysm, which is not significant. 5. History of sick sinus syndrome with a permanent pacemaker that seems to be functioning well. RECOMMENDATIONS: I would recommend that we leave the Lasix at 40 mg IV push q.12 hours for now. Check a CBC and BMP in the morning and then make further recommendations. There is also a question of pneumonia and this is being worked up by pulmonology. Patient is also on antibiotics. I will recommend that we continue Lasix. Check CBC, BMP tomorrow and I will also review the echocardiogram as well. Thank you very much for the consult. MMODL / IJN: [id number] /
[2021-04-07] MEDS: ASPIRIN 81 MG PO SCH (20:21)
[2021-04-07] MEDS: POTASSIUM CHLORIDE ER 20 MEQ TAB.ER PO SCH (20:21)
[2021-04-07] MEDS: ATORVASTATIN 10 MG TAB PO SCH (20:21)
--- NOTE | 2021-04-07 20:36 | PN ---
PROGRESS NOTE DATE OF SERVICE: 04/07/2021 This 85-year-old gentleman admitted with shortness of breath, had possibly a combination of COPD and pneumonia. The patient is on IV steroids and empiric antibiotics. Patient is complaining of lower chest pain which is more of a pleuritic type at this time. PAST MEDICAL HISTORY: Reviewed. REVIEW OF SYSTEMS: CARDIOVASCULAR SYSTEM: No angina. RESPIRATORY: As mentioned earlier. GI: As mentioned earlier. : No dysuria or retention. NERVOUS SYSTEM: No numbness, weakness. CURRENT MEDICATIONS: Include Tylenol, DuoNeb, Xanax, aspirin, Symbicort, Lasix, gabapentin, Imdur, Levaquin. PHYSICAL EXAMINATION: Patient is alert and oriented x3. Pulse is 62, blood pressure 127/67, respirations 16, temperature 98.2, pulse ox 98% on room air. HEENT: Conjunctivae normal. Oral mucosa moist. NECK: No jugular venous distention. No lymph node enlargement. CARDIOVASCULAR: S1, S2, muffled. No S3, no S4, RESPIRATORY: Diminished breath sounds at the bases. Bilateral scattered rhonchi and crackles, left more than the right, coarse crackles present. ABDOMEN: Soft, nontender. LEGS: No edema, no swelling. NERVOUS SYSTEM: No focal deficits. LABS: WBC 8, hemoglobin 10.9, sodium 143, potassium 3.7. ASSESSMENT: 1. Congestive heart failure acute exacerbation with acute on chronic systolic dysfunction, ejection fraction 45-50%. 2. Anemia, normocytic anemia of chronic disease. 3. Possible left lower pneumonia and pleuritic chest pain. 4. Thrombocytopenia. 5. Elevated D-dimer without any evidence of pulmonary embolism. 6. Atrial fibrillation, chronic. 7. Hypertension. 8. Hyperlipidemia. 9. Hypothyroidism. 10.Obstructive sleep apnea. 11.History of CAD, stent. 12.Ascending thoracic aortic aneurysm history. 13.History of UPPP for obstructive sleep apnea. 14.History of permanent pacemaker. 15.Obesity with body mass index of 36. RECOMMENDATIONS AND DISCUSSION: Recommend to continue current medications, continue to monitor, continue symptomatic treatment. Otherwise, at this time I recommend continue with empiric antibiotics. Continue with the diuretics. Monitor labs. Closely follow with multiple consultants. Otherwise, guarded prognosis because of multiple complex medical issues. Further recommendations to follow. I would also recommend a chest x-ray in the morning. MMODL / IJN: [id number] /
[2021-04-07] MEDS ORDERED: FUROSEMIDE 10 MG/ML 4 ML VIAL IV SCH (21:00)
[2021-04-08] MEDS: ACETAMINOPHEN TAB 500 MG TAB PO PRN ×2 (00:58→19:42)
[2021-04-08 07:14] LABS: Anisocytosis Slight; Basophils % (A) 0 %; Eosinophils % (A) 0 %; HCT 37.9 % (39.0-53.0); HGB 11.9 gm/dL (13.0-17.5); Hypochromasia Slight; Lymphocytes # (A) 0.6 k/uL (1.0-4.8); Lymphocytes % (A) 6 %; MCH 25.2 pg (25.0-35.0); MCHC 31.3 g/dL (31.0-37.0); MCV 80.4 fL (80.0-100.0); Mean Platelet Volume 8.8; Monocytes # (A) 0.2 k/uL (0-1.0); Monocytes % (A) 2 %; Neutrophils # (A) 8.9 k/uL (1.3-7.7); Neutrophils % (A) 91 %; Platelet Count 188 k/uL (150-450); RBC 4.72 m/uL (4.30-5.90); RDW 16.7 % (11.5-15.5); WBC 9.8 k/uL (3.8-10.6)
[2021-04-08] MEDS: IPRATROPIUM-ALBUTEROL 3 ML NEB INHALATION SCH ×4 (07:18→19:47)
[2021-04-08] MEDS: SYMBICORT 80-4.5 MCG INHALER INHALATION SCH ×2 (07:19→19:47)
[2021-04-08 07:41] LABS: African American GFR (CKD) 56 (>60 ml/min/1.73 sqM); Anion Gap 12 mmol/L; Blood Urea Nitrogen 34 mg/dL (9-20); Calcium 9.2 mg/dL (8.4-10.2); Carbon Dioxide 30 mmol/L (22-30); Chloride 98 mmol/L (98-107); Glucose 173 mg/dL (74-99); Non-African American GFR(CKD) 49 (>60 ml/min/1.73 sqM); Potassium 4.3 mmol/L (3.5-5.1); Sodium 140 mmol/L (137-145)
--- NOTE | 2021-04-08 08:15 | XR ---
EXAMINATION TYPE: XR chest 1V portable DATE OF EXAM: 04/08/2021 COMPARISON: Chest x-ray 04/06/2021 HISTORY: Congestive heart failure TECHNIQUE: Single frontal view of the chest is obtained. FINDINGS: There is improvement in the interstitium, central vascularity. No evident pneumothorax, th ere may be improvement in pleural effusion. Interstitium mildly increased. Heart remains enlarged. IMPRESSION: Improvement in aeration, volume status.
[2021-04-08] MEDS: ISOSORBIDE MONONITRATE ER 60 MG TAB.ER.24H PO SCH (08:17)
[2021-04-08] MEDS: APIXABAN 2.5 MG TABLET PO SCH ×2 (08:17→21:04)
[2021-04-08] MEDS: LEVOTHYROXINE 50 MCG TAB PO SCH (08:17)
[2021-04-08] MEDS: PANTOPRAZOLE 40 MG TABLET PO SCH (08:17)
[2021-04-08] MEDS: LEVOFLOXACIN 750MG-D5W PMX 750 MG in DEXTROSE/WATER 1 150ML.BAG IVPB SCH (08:18)
[2021-04-08] MEDS ORDERED: FUROSEMIDE 10 MG/ML 4 ML VIAL IV SCH (09:00)
--- NOTE | 2021-04-08 09:00 | ECHOF ---
Referral Reason:chf MEASUREMENTS -------- HEIGHT: 170.2 cm WEIGHT: 104.3 kg BP: 127/68 RVIDd: 3.7 cm (< 3.3) IVSd: 1.4 cm (0.6 - 1.1) LVIDd: 4.0 cm (3.9 - 5.3) LVPWd: 1.8 cm (0.6 - 1.1) IVSs: 2.2 cm LVIDs: 2.2 cm LVPWs: 1.8 cm Ao Diam: 3.9 cm (2.0 - 3.7) AV Cusp: 2.0 cm (1.5 - 2.6) LA Diam: 4.1 cm (2.7 - 3.8) MV EXCURSION: 15.662 mm (> 18.000) MV EF SLOPE: 22 mm/s (70 - 150) EPSS: 0.9 cm MV E Yovani: 1.25 m/s MV DecT: 292 ms MV A Yovani: 0.48 m/s MV E/A Ratio: 2.59 AV maxP.01 mmHg AV meanP.12 mmHg RAP: 5.00 mmHg RVSP: 31.53 mmHg FINDINGS -------- Paced rhythm. This was a technically adequate study. The left ventricular size is normal. There is moderate concentric left ventricular hypertrophy. O verall left ventricular systolic function is mildly impaired with, an EF between 45 - 50 %. Left ve ntricular fillimg pressure cannot be estimated due to paced rhythm. Apical anterior LV wall motion is hypokinetic. Apical septum LV wall motion is hypokinetic. The right ventricle is mildly enlarged. The left atrial size is normal. The right atrial size is normal. Aortic valve is trileaflet and is mildly thickened. There is mild aortic valve sclerosis. Peak/me an gradient across the Aortic Valve is 10.01mmHg / 5.12mmHg. The mitral valve is normal. There is trace mitral regurgitation. The tricuspid valve appears structurally normal. Mild tricuspid regurgitation present. Right vent ricular systolic pressure is normal at < 35 mmHg. There is no pulmonic regurgitation present. The aortic root is dilated measuring up to 4.0 cm. Normal inferior vena cava with normal inspiratory collapse consistent with estimated right atrial pre ssure of 5 mmHg. There is a trivial pericardial effusion present. CONCLUSIONS -------- 1. Paced rhythm. 2. The left ventricular size is normal. 3. There is moderate concentric left ventricular hypertrophy. 4. Left ventricular fillimg pressure cannot be estimated due to paced rhythm. 5. Apical anterior LV wall motion is hypokinetic. 6. Apical septum LV wall motion is hypokinetic. 7. The right ventricle is mildly enlarged. 8. Aortic valve is trileaflet and is mildly thickened. 9. There is mild aortic valve sclerosis. 10. Peak/mean gradient across the Aortic Valve is 10.01mmHg / 5.12mmHg. 11. There is trace mitral regurgitation. 12. Mild tricuspid regurgitation present. 13. The aortic root is dilated measuring up to 4.0 cm. 14. There is a trivial pericardial effusion present. MANAGER LEAN: Haydee Stoner RDCS
--- NOTE | 2021-04-08 09:58 | PN ---
PROGRESS NOTE Mr. Villafana feels much better today. After some diuresis, his breathing is a lot better. He is ambulating without symptoms. His vitals are stable. He has history of COPD and severe sleep apnea, wears a BiPAP. Plan is, from a cardiac standpoint, to change his IV Lasix to oral Lasix 40 mg daily, increase activity and patient can be discharged from a cardiac standpoint and to follow up with Dr. Lopez from a cardiology standpoint and his PCP and Dr. Jane. Vitals are stable. JVD is evident 1 cm. No carotid bruit. Lungs reveal improved air entry. Abdomen is soft. Lower extremities reveal diminished pulses. Central nervous system: No focal deficits. RECOMMENDATIONS: Switch the Lasix from IV to p.o. 40 mg daily, increase activity and he can be discharged from a cardiac standpoint. MMODL / IJN: [id number] /
[2021-04-08] MEDS: FUROSEMIDE 40 MG TAB PO SCH (10:27)
--- NOTE | 2021-04-08 10:59 | P.PN ---
Subjective Progress Note Date: 04/08/21 85-year-old male patient presented emergency department because of worsening shortness of breath a few days duration. He also had some increased cough and he was having some abdominal discomfort and chest discomfort along with cough and. His pain is been quite extensive. For all this reasons, the patient came into the emergency. Initial pulse ox was 92-93% on room air oxygen. Hemodynamically stable. Blood work was unremarkable. He did have some mild elevation of the d-dimer at 2.96. His proBNP level was 4120 and the troponin was 0.014. Based on that, the patient was given a CT angiogram which showed no evidence of any pulmonary embolism. There was a left lower lobe atelectasis with low with a small effusion. He is known to have a thoracic aortic aneurysm measuring 4.2 cm in size. He was admitted for treatment of CHF and pneumonia. Patient was started on Levaquin 750 every 24 hours. The patient is also on Lasix 40 mg IV every 8 hours. Note that his COVID-19 evaluation by PCR came back negative. Past medical history of coronary artery disease, with previous stenting, hypertension, hyperlipidemia, hypothyroidism, diabetes mellitus, chronic atrial fibrillation, obstructive sleep apnea status post UPPP, postinflammatory pulmonary fibrosis, peripheral vascular disease, history of abdominal aortic aneurysm, and descending thoracic aortic aneurysm, and patient had undergone abdominal aortic stenting at the [facility]. He follows with Dr. Argueta in the office for chronic bronchitis and a history of postinflammatory pulmonary fibrosis. 04/08/2021, the patient is feeling slightly better. Still has some congested cough. Less short of breath compared to yesterday. He was switched to oral Lasix. He was also she had with a combination of Levaquin and then. His current pulse ox is 95% 2 L of oxygen by nasal cannula. His afebrile. He is using CPAP during the day and continuously at nighttime. He remains on his bronchodilators. He is on long-term atrial fibrillation with Eliquis. Much improved and the patient is even being contemplated to be at discharged home today. Objective - Vital Signs Vital signs: Vital Signs Temp 98.1 F 04/08/21 07:52 Pulse 58 L 04/08/21 07:52 Resp 20 04/08/21 07:52 BP 124/74 04/08/21 07:52 Pulse Ox 95 04/08/21 07:52 Intake & Output 04/07/21 04/08/21 04/08/21 18:59 06:59 18:59 Intake Total 200 Balance 200 Intake: Oral 200 Other: Voiding Method Toilet Toilet # Voids 2 1 - Exam GENERAL EXAM: Alert, very pleasant, obese 84-year-old white male, resting in b ed, on 2 L of oxygen with a pulse ox of 94%, and has a strong [place] accent, but is able to make his needs known, with limited assistance with translation from his son who is at the bedside, comfortable in no apparent distress. HEAD: Normocephalic/atraumatic. EYES: Normal reaction of pupils, equal size. Conjunctiva pink, sclera white. NOSE: Clear with pink turbinates. THROAT: No erythema or exudates. NECK: No masses, no JVD, no thyroid enlargement, no adenopathy. CHEST: No chest wall deformity. Symmetrical expansion. LUNGS: Equal air entry with no crackles, wheeze, rhonchi or dullness. CVS: Regular rate and rhythm, normal S1 and S2, no gallops, no murmurs, no rubs ABDOMEN: Soft, obese, nontender No hepatosplenomegaly, normal bowel sounds, no guarding or rigidity. EXTREMITIES: No clubbing, no edema, no cyanosis, 2+ pulses and upper and lower extremities. MUSCULOSKELETAL: Muscle strength and tone normal. SPINE: No scoliosis or deformity SKIN: No rashes CENTRAL NERVOUS SYSTEM: Alert and oriented -3. No focal deficits, tone is normal in all 4 extremities. PSYCHIATRIC: Alert and oriented -3. Appropriate affect. Intact judgment and insight. - Labs CBC & Chem 7: 04/08/21 06:46 04/08/21 06:46 Labs: Abnormal Lab Results - Last 24 Hours (Table) 04/07/21 04/07/21 04/08/21 Range/Units 11:27 11:27 06:46 Hgb 10.9 L (13.0-17.5) gm/dL Hct 35.7 L (39.0-53.0) % MCHC 30.7 L (31.0-37.0) g/dL RDW 16.5 H (11.5-15.5) % Neutrophils # (1.3-7.7) k/uL Lymphocytes # (1.0-4.8) k/uL Chloride 97 L (98-107) mmol/L Carbon Dioxide 36 H (22-30) mmol/L BUN 24 H 34 H (9-20) mg/dL Creatinine 1.32 H (0.66-1.25) mg/dL Glucose 100 H 173 H (74-99) mg/dL 04/08/21 Range/Units 06:46 Hgb 11.9 L (13.0-17.5) gm/dL Hct 37.9 L (39.0-53.0) % MCHC (31.0-37.0) g/dL RDW 16.7 H (11.5-15.5) % Neutrophils # 8.9 H (1.3-7.7) k/uL Lymphocytes # 0.6 L (1.0-4.8) k/uL Chloride (98-107) mmol/L Carbon Dioxide (22-30) mmol/L BUN (9-20) mg/dL Creatinine (0.66-1.25) mg/dL Glucose (74-99) mg/dL Microbiology - Last 24 Hours (Table) 04/06/21 18:30 Blood Culture - Preliminary Blood No Growth after 24 hours 04/06/21 18:45 Blood Culture - Preliminary Blood No Growth after 24 hours Assessment and Plan Plan: #1. Shortness of breath with some limited bronchospasm wheezing cough and congestion consistent with tracheobronchitis. At the same time, there may be a component of mild CHF.. Previous echocardiogram showed an ejection fraction of 45-50% and the patient also had diastolic heart failure with severe concentric ventricular hypertrophy. ProBNP level is elevated clinically much improved and the patient is feeling that he is back to his baseline. #2 Previous history of TIA versus CVA. Brain CT without contrast showed no acute intracranial abnormality, chronic white matter ischemic change. Brain CT with angiography showed no significant carotid stenosis on the left, 27% stenosis in the right carotid, CT of [place] was limited by extensive calcification within the carotid siphon, questionable stenosis in the M1 segment on the left. #3. Small left-sided pleural effusion, #4. Chronic atrial fibrillation, status post permanent pacemaker placement #5. Hypertension #6. Cardiomyopathy, an echocardiogram showed severe concentric left ventricular hypertrophy and mildly impaired EF between 45 and 50%, mild MR, mild TR, borderline pulmonary hypertension with right-sided pressures of 35.3 mmHg #7. Hyperlipidemia #8. Hypothyroidism #9. Peripheral vascular disease, with previous stenting of the iliac arteries #10. History of thoracic and abdominal aortic aneurysm, status post abdominal aortic stenting at the [facility] #11. Obstructive sleep apnea with an AHI of 128, status post UPPP #12. Carotid artery disease, status post right carotid endarterectomy #13. Former smoker #14. Coronary artery disease status post stenting #15. Obesity Plan Agree on Levaquin, completed Levaquin as outpatient basis for the next 7 days the same dose 70 mg on a daily basis Switch this patient to oral Lasix Give the patient DuoNeb nebulized treatments 4 times a day [id number] Robitussin-DM for cough and congestion Continue CPAP therapy here in the hospital Resume all medications Echocardiogram showed a preserved ejection fraction of 45-50% and there is only mild systolic failure. RV is mildly enlarged. There is mild aortic valve sclerosis. No other significant valvular abnormalities some. Some apical anterior LV motion hypokinesis in addition to septal n motion hypokinesis. Cardiology is on the case. Condition is much stable. Cleared from a pulmonary standpoint for discharge. We'll need to get a clearance from cardiology and if so be discharged home today. We'll continue to follow
[2021-04-08 12:32] VITALS: BMI 36.0
[2021-04-08] MEDS: ATORVASTATIN 10 MG TAB PO SCH (21:04)
[2021-04-08] MEDS: POTASSIUM CHLORIDE ER 20 MEQ TAB.ER PO SCH (21:04)
[2021-04-08] MEDS: ASPIRIN 81 MG PO SCH (21:04)
--- NOTE | 2021-04-08 21:19 | PN ---
PROGRESS NOTE DATE OF SERVICE: 04/08/2021 DATE OF SERVICE: This 85-year-old gentleman who was admitted with congestive heart failure acute exacerbation also had possible pneumonia. The patient being closely monitored. Patient is on p.o. Lasix. No chest pain. No palpitations. No fever. PHYSICAL EXAMINATION: Alert and oriented x3. Pulse 60, blood pressure 113/50, respirations 16, temperature 97.9, pulse ox 94% on room air. HEENT: Conjunctivae normal. NECK: No JVD. CARDIOVASCULAR: S1, S2 muffled. RESPIRATIONS: Breath sounds diminished in the bases. A few scattered rhonchi. ABDOMEN: Soft. NERVOUS SYSTEM: No focal deficits. LABS: Creatinine 1.32. ASSESSMENT: 1. Congestive heart failure acute exacerbation, acute on chronic systolic dysfunction, ejection fraction 40% to 50%. 2. Anemia, normocytic anemia of chronic disease. 3. Possible left lower pneumonia with pleuritic chest pain. 4. Possibly gram-negative. 5. Thrombocytopenia. 6. Elevated D-dimer without any evidence of pulmonary embolism. 7. Atrial fibrillation chronic. 8. Hypertension. 9. Hyperlipidemia. 10.Hypothyroidism. 11.Obstructive sleep apnea. 12.History of coronary artery disease/ stent. 13.Ascending thoracic aortic aneurysm history. 14.History of uvulopalatopharyngoplasty for obstructive sleep apnea. 15.History of a permanent pacemaker. 16.Obesity with body mass index of 36. RECOMMENDATIONS AND DISCUSSION: Continue current medications, continue monitoring, symptomatic treatment. Otherwise, at this time, repeat labs. Lasix to p.o. Prognosis guarded because of multiple complex medical issues. Further recommendations to follow. MMODL / IJN: [id number] /
[2021-04-09] MEDS: SYMBICORT 80-4.5 MCG INHALER INHALATION SCH (08:10)
[2021-04-09] MEDS: IPRATROPIUM-ALBUTEROL 3 ML NEB INHALATION SCH (08:10)
[2021-04-09 08:14] VITALS: PULSE 60
[2021-04-09] MEDS: LEVOTHYROXINE 50 MCG TAB PO SCH (08:18)
[2021-04-09] MEDS: ISOSORBIDE MONONITRATE ER 60 MG TAB.ER.24H PO SCH (08:18)
[2021-04-09] MEDS: PANTOPRAZOLE 40 MG TABLET PO SCH (08:18)
[2021-04-09] MEDS: FUROSEMIDE 40 MG TAB PO SCH (08:18)
[2021-04-09] MEDS: APIXABAN 2.5 MG TABLET PO SCH (08:18)
[2021-04-09 08:21] VITALS: BP 156/80; RESP 16; TEMP 97.8
--- NOTE | 2021-04-09 10:21 | P.PN ---
Subjective Progress Note Date: 04/09/21 85-year-old male patient presented emergency department because of worsening shortness of breath a few days duration. He also had some increased cough and he was having some abdominal discomfort and chest discomfort along with cough and. His pain is been quite extensive. For all this reasons, the patient came into the emergency. Initial pulse ox was 92-93% on room air oxygen. Hemodynamically stable. Blood work was unremarkable. He did have some mild elevation of the d-dimer at 2.96. His proBNP level was 4120 and the troponin was 0.014. Based on that, the patient was given a CT angiogram which showed no evidence of any pulmonary embolism. There was a left lower lobe atelectasis with low with a small effusion. He is known to have a thoracic aortic aneurysm measuring 4.2 cm in size. He was admitted for treatment of CHF and pneumonia. Patient was started on Levaquin 750 every 24 hours. The patient is also on Lasix 40 mg IV every 8 hours. Note that his COVID-19 evaluation by PCR came back negative. Past medical history of coronary artery disease, with previous stenting, hypertension, hyperlipidemia, hypothyroidism, diabetes mellitus, chronic atrial fibrillation, obstructive sleep apnea status post UPPP, postinflammatory pulmonary fibrosis, peripheral vascular disease, history of abdominal aortic aneurysm, and descending thoracic aortic aneurysm, and patient had undergone abdominal aortic stenting at the [facility]. He follows with Dr. Argueta in the office for chronic bronchitis and a history of postinflammatory pulmonary fibrosis. 04/08/2021, the patient is feeling slightly better. Still has some congested cough. Less short of breath compared to yesterday. He was switched to oral Lasix. He was also she had with a combination of Levaquin and then. His current pulse ox is 95% 2 L of oxygen by nasal cannula. His afebrile. He is using CPAP during the day and continuously at nighttime. He remains on his bronchodilators. He is on long-term atrial fibrillation with Eliquis. Much improved and the patient is even being contemplated to be at discharged home today. 04/09/2021, the patient has no new complaints. Sitting up on a chair. He is currently on room air oxygen. No respiratory difficulties. Still on antibiotics. Cough and congestion has subsided. Objective - Vital Signs Vital signs: Vital Signs Temp 97.8 F 04/09/21 08:00 Pulse 60 04/09/21 08:21 Resp 16 04/09/21 08:00 BP 156/80 04/09/21 08:00 Pulse Ox 95 04/09/21 08:00 Intake & Output 04/08/21 04/09/21 04/09/21 18:59 06:59 18:59 Intake Total 400 Balance 400 Weight 104.326 kg Intake: Oral 400 Other: Voiding Method Toilet # Voids 3 1 - Exam GENERAL EXAM: Alert, very pleasant, obese 84-year-old white male, resting in bed, on RA oxygen with a pulse ox of 94%, and has a strong Persian accent, but is able to make his needs known, with limited assistance with translation from his son who is at the bedside, comfortable in no apparent distress. HEAD: Normocephalic/atraumatic. EYES: Normal reaction of pupils, equal size. Conjunctiva pink, sclera white. NOSE: Clear with pink turbinates. THROAT: No erythema or exudates. NECK: No masses, no JVD, no thyroid enlargement, no adenopathy. CHEST: No chest wall deformity. Symmetrical expansion. LUNGS: Equal air entry with no crackles, wheeze, rhonchi or dullness. CVS: Regular rate and rhythm, normal S1 and S2, no gallops, no murmurs, no rubs ABDOMEN: Soft, obese, nontender No hepatosplenomegaly, normal bowel sounds, no guarding or rigidity. EXTREMITIES: No clubbing, no edema, no cyanosis, 2+ pulses and upper and lower extremities. MUSCULOSKELETAL: Muscle strength and tone normal. SPINE: No scoliosis or deformity SKIN: No rashes CENTRAL NERVOUS SYSTEM: Alert and oriented -3. No focal deficits, tone is normal in all 4 extremities. PSYCHIATRIC: Alert and oriented -3. Appropriate affect. Intact judgment and insight. - Labs CBC & Chem 7: 04/08/21 06:46 04/08/21 06:46 Labs: Microbiology - Last 24 Hours (Table) 04/06/21 18:45 Blood Culture - Preliminary Blood No Growth after 48 hours 04/06/21 18:30 Blood Culture - Preliminary Blood No Growth after 48 hours Assessment and Plan Plan: #1. Shortness of breath with some limited bronchospasm wheezing cough and congestion consistent with tracheobronchitis. At the same time, there may be a component of mild CHF.. Previous echocardiogram showed an ejection fraction of 45-50% and the patient also had diastolic heart failure with severe concentric ventricular hypertrophy. ProBNP level is elevated clinically much improved and the patient is feeling that he is back to his baseline. #2 Previous history of TIA versus CVA. Brain CT without contrast showed no acute intracranial abnormality, chronic white matter ischemic change. Brain CT with angiography showed no significant carotid stenosis on the left, 27% stenosis in the right carotid, CT of the [place] was limited by extensive calcification within the carotid siphon, questionable stenosis in the M1 segment on the left. #3. Small left-sided pleural effusion, #4. Chronic atrial fibrillation, status post permanent pacemaker placement #5. Hypertension #6. Cardiomyopathy, an echocardiogram showed severe concentric left ventricular hypertrophy and mildly impaired EF between 45 and 50%, mild MR, mild TR, borderline pulmonary hypertension with right-sided pressures of 35.3 mmHg #7. Hyperlipidemia #8. Hypothyroidism #9. Peripheral vascular disease, with previous stenting of the iliac arteries #10. History of thoracic and abdominal aortic aneurysm, status post abdominal aortic stenting at the [facility] #11. Obstructive sleep apnea with an AHI of 128, status post UPPP #12. Carotid artery disease, status post right carotid endarterectomy #13. Former smoker #14. Coronary artery disease status post stenting #15. Obesity Plan Complete Levaquin course oral Lasix DuoNeb nebulized treatments 4 times a day [id number] Robitussin-DM for cough and congestion Continue CPAP therapy here in the hospital Resume all medications Echocardiogram showed a preserved ejection fraction of 45-50% and there is only mild systolic failure. RV is mildly enlarged. There is mild aortic valve sclerosis. No other significant valvular abnormalities some. Some apical anterior LV motion hypokinesis in addition to septal n motion hypokinesis. Cardiology is on the case. Condition is much stable. Cleared from a pulmonary standpoint for discharge. We'll need to get a clearance from cardiology and if so be discharged home today. Consider discharging the patient home. The patient is clear from the pulmonary standpoint.
[2021-04-09 12:13] LABS: African American GFR (CKD) 63.1 (60.0-200.0); Anion Gap 10.9 mmol/L (4.00-12.00); BUN/Creat Ratio 34.17 Ratio (12.00-20.00); Carbon Dioxide 33.1 mmol/L (21.6-31.8); Non-African American GFR(CKD) 54.4 (60.0-200.0); Potassium 4.1 mmol/L (3.5-5.5)
[2021-04-09 12:41] LABS: Basophils # (A) 0.02 X 10*3/uL (0.00-0.10); Basophils % (A) 0.2 %; Eosinophils # (A) 0.02 X 10*3/uL (0.04-0.35); Eosinophils % (A) 0.2 %; HCT 38.1 % (39.6-50.0); HGB 11.4 g/dL (13.0-17.0); Lymphocytes # (A) 1.32 X 10*3/uL (0.90-5.00); Lymphocytes % (A) 12.8 %; MCH 25.1 pg (27.0-32.0); MCHC 29.9 g/dL (32.0-37.0); MCV 83.7 fL (80.0-97.0); Mean Platelet Volume 11.8 fL (9.5-12.2); Monocytes # (A) 1.04 X 10*3/uL (0.20-1.00); Monocytes % (A) 10.1 %; Neutrophils # (A) 7.88 X 10*3/uL (1.80-7.70); Neutrophils % (A) 76.4 %; Platelet Count 192 X 10*3/uL (140-440); RBC 4.55 X 10*6/uL (4.40-5.60); RDW 17.7 % (11.5-14.5); WBC 10.31 X 10*3/uL (4.50-10.00)
--- NOTE | 2021-04-09 20:03 | DS ---
DISCHARGE SUMMARY DATE OF SERVICE: 04/09/2021 FINAL DIAGNOSES: 1. Congestive heart failure acute exacerbation acute on chronic systolic dysfunction, ejection fraction 40% to 50%. 2. Anemia, normocytic anemia of chronic disease. 3. Possible left lower pneumonia with pleuritic chest pain with possibly gram-negative pneumonia. 4. Thrombocytopenia. 5. Elevated D-dimer without any evidence of pulmonary embolism. 6. Atrial fibrillation, chronic. 7. Hypertension. 8. Hyperlipidemia. 9. Hypothyroidism. 10.History of obstructive sleep apnea. 11.History of coronary artery disease, stent. 12.Ascending thoracic aortic aneurysm history. 13.History of uvulopalatopharyngoplasty for obstructive sleep apnea. 14.History of permanent pacemaker. 15.Obesity with body mass index of 36. DISCHARGE DISPOSITION: The patient discharged in stable condition with guarded prognosis. HISTORY OF PRESENT ILLNESS: This 85-year-old male gentleman with a past medical history of multiple medical problems was admitted with CHF acute exacerbation. Patient treated with IV diuretics. Patient improved significantly and given empiric antibiotics, short course of empiric antibiotics also. On exam, vitals are stable. Cardiovascular: S1, S2. Abdomen soft. Nervous system: No focal deficits. DISCHARGE ADVICE AND MEDICATIONS: 1. Diet is cardiac diet. 2. Activity limited until followup. 3. Follow up with Dr. Rangel in 1-2 days. MEDICATIONS: 1. Advair 1 b.i.d. 2. Aspirin 81 mg q.h.s. 3. Claritin p.r.n. 4. Imdur ER 60 mg daily. 5. K-Dur 20 mEq p.o. q.h.s. 6. Lasix 40 mg p.o. daily. 7. Magnesium 2.4 daily. 8. Neurontin 200 mg q.h.s. 9. Glucosamine. 10.Levothyroxine 50 mcg p.o. daily. 11.Ultram 50 mg q.6 p.r.n. 12.Zocor 20 mg q.h.s. 13.DuoNeb q.i.d. and p.r.n. 14.Eliquis 2.5 mg p.o. b.i.d. 15.Protonix 40 mg p.o. daily. 16.Guaifenesin p.r.n. 17.Tylenol p.r.n. CBC, BMP in the outpatient setting. MMODL / IJN: [id number] /
[2021-04-10] MEDS ORDERED: LEVOFLOXACIN 750MG-D5W PMX 750 MG in DEXTROSE/WATER 1 150ML.BAG IVPB SCH (09:00)
== END 2021-04-09 14:36 | disposition home or self-care (01) | DRG 291 ==
LOC: EC 14:20 → 4SSUR 17:12
PROVIDERS: ADMIT Hospitalist; ATTEND Hospitalist
DX: I11.0 Hypertensive heart disease with heart failure (principal); J18.9 Pneumonia, unspecified organism; I48.20 Chronic atrial fibrillation, unspecified; J44.1 Chronic obstructive pulmonary disease with (acute) exacerbation; I50.23 Acute on chronic systolic (congestive) heart failure; I42.9 Cardiomyopathy, unspecified; I25.10 Atherosclerotic heart disease of native coronary artery without angina pectoris; I71.2 Thoracic aortic aneurysm, without rupture; M54.5 Low back pain; Z20.822 Contact with and (suspected) exposure to COVID-19; Z79.890 Hormone replacement therapy; Z79.82 Long term (current) use of aspirin; E78.5 Hyperlipidemia, unspecified; G47.33 Obstructive sleep apnea (adult) (pediatric); E66.9 Obesity, unspecified; Z68.36 Body mass index [BMI] 36.0-36.9, adult; Z95.5 Presence of coronary angioplasty implant and graft; Z87.891 Personal history of nicotine dependence; D63.8 Anemia in other chronic diseases classified elsewhere; R78.89 Finding of other specified substances, not normally found in blood; Z95.0 Presence of cardiac pacemaker; E11.51 Type 2 diabetes mellitus with diabetic peripheral angiopathy without gangrene; J84.10 Pulmonary fibrosis, unspecified; D69.6 Thrombocytopenia, unspecified
CPT/HCPCS: 36415; 71045; 71046; 71275; 80048; 80053; 81003; 83735; 83880; 84145; 84484; 85025; 85379; 85610; 85730; 87040; 87635; 93005; 93306; 94640; 94760; 99285

== ENCOUNTER 2021-12-31 13:09 | Inpatient (IN) | payer MEDICARE ==
[2021-12-31 13:53] LABS: Anisocytosis Slight; Basophils # (A) 0.1 k/uL (0-0.2); Basophils % (A) 1 %; Eosinophils # (A) 0.3 k/uL (0-0.7); Eosinophils % (A) 5 %; HCT 31.2 % (39.0-53.0); HGB 9.7 gm/dL (13.0-17.5); Hypochromasia Moderate; Lymphocytes # (A) 0.9 k/uL (1.0-4.8); Lymphocytes % (A) 15 %; MCHC 31.1 g/dL (31.0-37.0); MCV 87.1 fL (80.0-100.0); Mean Platelet Volume 9.7; Monocytes # (A) 0.4 k/uL (0-1.0); Monocytes % (A) 6 %; Neutrophils # (A) 4.4 k/uL (1.3-7.7); Neutrophils % (A) 73 %; Platelet Count 137 k/uL (150-450); RBC 3.58 m/uL (4.30-5.90); RDW 16.1 % (11.5-15.5); WBC 6.1 k/uL (3.8-10.6)
[2021-12-31 14:05] LABS: Albumin 3.5 g/dL (3.5-5.0); Calcium 8.6 mg/dL (8.4-10.2); Potassium 3.9 mmol/L (3.5-5.1); Total Bilirubin 0.6 mg/dL (0.2-1.3); Total Protein 6.9 g/dL (6.3-8.2)
[2021-12-31 14:09] LABS: INR 1.1 (<1.2); Partial Thromboplastin Time 29.2 sec (22.0-30.0); Prothrombin Time 11.7 sec (9.0-12.0)
[2021-12-31 14:42] LABS: Appearance,Urine Clear (Clear); Bilirubin,Urine Negative (Negative); Blood,Urine Negative (Negative); Color,Urine Yellow; Glucose,Urine (UA) Negative (Negative); Hyaline Casts,Urine 3 /lpf (0-2); Ketones,Urine Negative (Negative); Leukocyte Esterase,Urine Negative (Negative); Mucus,Urine Rare /hpf; Nitrite,Urine Negative (Negative); Protein,Urine 1+ (Negative); RBC,Urine 2 /hpf (0-5); Specific Gravity,Urine 1.018 (1.001-1.035); Squamous Epithelial Cell,Urine 1 /hpf (0-4); Urobilinogen,Urine <2.0 mg/dL (<2.0); WBC,Urine 1 /hpf (0-5)
[2021-12-31] MEDS ORDERED: ALBUTEROL NEBULIZED 2.5 MG/3 ML INHALATION STA (16:07)
[2021-12-31] MEDS ORDERED: IPRATROPIUM 0.5 MG/2.5 ML NEBU INHALATION STA (16:07)
--- NOTE | 2021-12-31 16:12 | ED ---
General Adult HPI - General Chief complaint: Shortness of Breath Stated complaint: Shortness of Breath, Abdominal Pain Time Seen by Provider: 12/31/21 15:50 Source: patient, RN notes reviewed, old records reviewed Mode of arrival: wheelchair Limitations: language barrier - History of Present Illness Initial comments: This is an 86-year-old male has a past medical history significant for congestive heart failure and pulmonary fibrosis. Patient also has chronic abdominal pain for more than a year. Patient comes in today because of difficulty breathing. Patient noticed over the last day that walking around is become much more difficult because he short of breath. Patient denies any chest pain or palpitations. Patient denies any fever chills or cough. Patient states the abdominal pain is unchanged. Patient denies any vomiting or diarrhea. Patient states he takes breathing treatments at home and does help his also noticed increased swelling in his legs. - Related Data Home Medications Medication Instructions Recorded Confirmed Levothyroxine Sodium [Synthroid] 50 mcg PO DAILY 08/30/14 12/31/21 Potassium Chloride [Klor-Con 20] 20 meq PO HS 08/30/14 12/31/21 Simvastatin [Zocor] 20 mg PO HS 08/30/14 12/31/21 Isosorbide Mononitrate ER [Imdur] 60 mg PO DAILY 07/30/17 12/31/21 Aspirin 81 mg PO HS 10/11/20 12/31/21 Furosemide [Lasix] 40 mg PO DAILY 10/11/20 12/31/21 Glucosamine/Chondr Nguyen A Sod [Osteo 1 tab PO DAILY 10/11/20 12/31/21 Bi-Flex Caplet] Loratadine [Claritin] 10 mg PO DAILY PRN 04/06/21 12/31/21 Albuterol Nebulized [Ventolin 2.5 mg INHALATION RT-QID PRN 12/31/21 12/31/21 Nebulized] Ibuprofen [Motrin Ib] 400 mg PO Q8H PRN 12/31/21 12/31/21 Ipratropium-Albuterol Nebulize 3 ml INHALATION RT-QID PRN 12/31/21 12/31/21 [Duoneb 0.5 mg-3 mg/3 ml Soln] Previous Rx's Medication Instructions Recorded Apixaban [Eliquis] 2.5 mg PO BID #60 tab 03/29/20 Pantoprazole Sodium [Protonix] 40 mg PO DAILY #30 tablet. 03/29/20 Allergies Allergy/AdvReac Type Severity Reaction Status Date / Time cefazolin sodium [From Ancef] Allergy Anaphylaxis Verified 12/31/21 16:32 hylan G-F 20 [From Synvisc] Allergy Anaphylaxis Verified 12/31/21 16:32 Review of Systems ROS Statement: Those systems with pertinent positive or pertinent negative responses have been documented in the HPI. ROS Other: All systems not noted in ROS Statement are negative. Past Medical History Past Medical History: Atrial Fibrillation, Hyperlipidemia, Hypertension, Respiratory Disorder, Thyroid Disorder Additional Past Medical History / Comment(s): Severe JORDANA with an H of 128 seated with a BiPAP pressure of 17/13 cm of water, obesity, coronary artery disease with previous coronary intervention and stenting, tonic atrial fibrillation, hyperlipidemia, hypertension, hypothyroidism, ascending thoracic aortic aneurysm, ascending thoracic aortic aneurysm measuring 4.2 cm in size. Samantha pheral vascular disease with a stent within the aorta and stents also placed in the iliacs History of Any Multi-Drug Resistant Organisms: None Reported Past Surgical History: Cholecystectomy, Heart Catheterization With Stent Additional Past Surgical History / Comment(s): UPPP for obstructive sleep apnea, abdominal aortic aneurysm repair, vascular stenting to the lower extremities including the iliacs for peripheral vascular disease, cataracts, right carotid endarterectomy, cholecystectomy Past Anesthesia/Blood Transfusion Reactions: No Reported Reaction Date of Last Stent Placement:: 1995, [id number] Type of Cardiac Device: Permanent Pacemaker Device Placement Date:: JUL 2017 Past Psychological History: No Psychological Hx Reported Smoking Status: Never smoker Past Alcohol Use History: None Reported Past Drug Use History: None Reported General Exam - General Exam Comments Initial Comments: GENERAL: Patient is well-developed and well-nourished. Patient is nontoxic and well- hydrated and is in mild distress. ENT: Neck is soft and supple. No significant lymphadenopathy is noted. Oropharynx is clear. Moist mucous membranes. Neck has full range of motion without eliciting any pain. EYES: The sclera were anicteric and conjunctiva were pink and moist. Extraocular movements were intact and pupils were equal round and reactive to light. Eyelids were unremarkable. PULMONARY: Unlabored respirations. Good breath sounds bilaterally. Expiratory wheezing with scattered crackles. CARDIOVASCULAR: There is a regular rate and rhythm without any murmurs gallops or rubs. ABDOMEN: Soft and nontender with normal bowel sounds. SKIN: Skin is clear with no lesions or rashes and otherwise unremarkable. NEUROLOGIC: Patient is alert and oriented x3. Cranial nerves II through XII are grossly intact. Motor and sensory are also intact. Normal speech, volume and content. Symmetrical smile. MUSCULOSKELETAL: Normal extremities with adequate strength and full range of motion. 2+ bilaterally edema LYMPHATICS: No significant lymphadenopathy is noted PSYCHIATRIC: Normal psychiatric evaluation. Limitations: language barrier Course Vital Signs 12/31/21 12/31/21 12/31/21 13:11 17:09 17:25 Temperature 98.2 F Pulse Rate 60 64 62 Respiratory 20 Rate Blood Pressure 132/66 O2 Sat by Pulse 96 Oximetry Medical Decision Making - Medical Decision Making EKG shows a paced rhythm at 60 bpm QRS is 190 QT interval 467 QTC is 467. Chest x-ray shows congestive heart. Patient was given Lasix and nitroglycerin. I spoke with Dr. hagan he agreed to admit the patient to the patient wrote admitting orders I consult cardiology continued Lasix and nitroglycerin on the floor - Lab Data Result diagrams: 12/31/21 13:22 12/31/21 13:22 Lab Results 12/31/21 12/31/21 12/31/21 Range/Units 13:22 13:22 13:22 WBC 6.1 (3.8-10.6) k/uL RBC 3.58 L (4.30-5.90) m/uL Hgb 9.7 L (13.0-17.5) gm/dL Hct 31.2 L (39.0-53.0) % MCV 87.1 (80.0-100.0) fL MCH 27.0 (25.0-35.0) pg MCHC 31.1 (31.0-37.0) g/dL RDW 16.1 H (11.5-15.5) % Plt Count 137 L (150-450) k/uL MPV 9.7 Neutrophils % 73 % Lymphocytes % 15 % Monocytes % 6 % Eosinophils % 5 % Basophils % 1 % Neutrophils # 4.4 (1.3-7.7) k/uL Lymphocytes # 0.9 L (1.0-4.8) k/uL Monocytes # 0.4 (0-1.0) k/uL Eosinophils # 0.3 (0-0.7) k/uL Basophils # 0.1 (0-0.2) k/uL Hypochromasia Moderate Anisocytosis Slight PT 11.7 (9.0-12.0) sec INR 1.1 (<1.2) APTT 29.2 (22.0-30.0) sec Sodium 142 (137-145) mmol/L Potassium 3.9 (3.5-5.1) mmol/L Chloride 109 H (98-107) mmol/L Carbon Dioxide 27 (22-30) mmol/L Anion Gap 6 mmol/L BUN 23 H (9-20) mg/dL Creatinine 1.03 (0.66-1.25) mg/dL Est GFR (CKD-EPI)AfAm 76 (>60 ml/min/1.73 sqM) Est GFR (CKD-EPI)NonAf 65 (>60 ml/min/1.73 sqM) Glucose 118 H (74-99) mg/dL Calcium 8.6 (8.4-10.2) mg/dL Total Bilirubin 0.6 (0.2-1.3) mg/dL AST 23 (17-59) U/L ALT 12 (4-49) U/L Alkaline Phosphatase 105 (38-126) U/L Troponin I (0.000-0.034) ng/mL NT-Pro-B Natriuret Pep pg/mL Total Protein 6.9 (6.3-8.2) g/dL Albumin 3.5 (3.5-5.0) g/dL Urine Color Urine Appearance (Clear) Urine pH (5.0-8.0) Ur Specific [place] (1.001-1.035) Urine Protein (Negative) Urine Glucose (UA) (Negative) Urine Ketones (Negative) Urine Blood (Negative) Urine Nitrite (Negative) Urine Bilirubin (Negative) Urine Urobilinogen (<2.0) mg/dL Ur Leukocyte Esterase (Negative) Urine RBC (0-5) /hpf Urine WBC (0-5) /hpf Ur Squamous Epith Cells (0-4) /hpf Hyaline Casts (0-2) /lpf Urine Mucus (None) /hpf 12/31/21 12/31/21 12/31/21 Range/Units 13:22 13:22 13:53 WBC (3.8-10.6) k/uL RBC (4.30-5.90) m/uL Hgb (13.0-17.5) gm/dL Hct (39.0-53.0) % MCV (80.0-100.0) fL MCH (25.0-35.0) pg MCHC (31.0-37.0) g/dL RDW (11.5-15.5) % Plt Count (150-450) k/uL MPV Neutrophils % % Lymphocytes % % Monocytes % % Eosinophils % % Basophils % % Neutrophils # (1.3-7.7) k/uL Lymphocytes # (1.0-4.8) k/uL Monocytes # (0-1.0) k/uL Eosinophils # (0-0.7) k/uL Basophils # (0-0.2) k/uL Hypochromasia Anisocytosis PT (9.0-12.0) sec INR (<1.2) APTT (22.0-30.0) sec Sodium (137-145) mmol/L Potassium (3.5-5.1) mmol/L Chloride (98-107) mmol/L Carbon Dioxide (22-30) mmol/L Anion Gap mmol/L BUN (9-20) mg/dL Creatinine (0.66-1.25) mg/dL Est GFR (CKD-EPI)AfAm (>60 ml/min/1.73 sqM) Est GFR (CKD-EPI)NonAf (>60 ml/min/1.73 sqM) Glucose (74-99) mg/dL Calcium (8.4-10.2) mg/dL Total Bilirubin (0.2-1.3) mg/dL AST (17-59) U/L ALT (4-49) U/L Alkaline Phosphatase (38-126) U/L Troponin I 0.023 (0.000-0.034) ng/mL NT-Pro-B Natriuret Pep 4720 pg/mL Total Protein (6.3-8.2) g/dL Albumin (3.5-5.0) g/dL Urine Color Yellow Urine Appearance Clear (Clear) Urine pH 6.0 (5.0-8.0) Ur Specific [place] 1.018 (1.001-1.035) Urine Protein 1+ H (Negative) Urine Glucose (UA) Negative (Negative) Urine Ketones Negative (Negative) Urine Blood Negative (Negative) Urine Nitrite Negative (Negative) Urine Bilirubin Negative (Negative) Urine Urobilinogen <2.0 (<2.0) mg/dL Ur Leukocyte Esterase Negative (Negative) Urine RBC 2 (0-5) /hpf Urine WBC 1 (0-5) /hpf Ur Squamous Epith Cells 1 (0-4) /hpf Hyaline Casts 3 H (0-2) /lpf Urine Mucus Rare H (None) /hpf Critical Care Time Critical Care Time: Yes Total Critical Care Time: 35 Disposition Clinical Impression: Acute pulmonary edema Disposition: ADMITTED IP TO THIS HOSP Referrals: Galileo Rangel MD [Primary Care Provider] - 1-2 days Time of Disposition: 18:32
--- NOTE | 2021-12-31 16:43 | XR ---
EXAMINATION TYPE: XR chest 2V DATE OF EXAM: 12/31/2021 COMPARISON: 09/19/2021 HISTORY: Shortness of breath TECHNIQUE: Frontal and lateral views of the chest are obtained. FINDINGS: There is mild interstitial edema with superimposed diffuse hazy opacity. No significant pl eural effusion, or pneumothorax seen. Stable cardiomegaly and left-sided pacemaker. The osseous str uctures are intact. IMPRESSION: CHF
[2021-12-31] MEDS ORDERED: NITROGLYCERIN OINT 1 INCH/GM PACKET TOPICAL STA (17:55)
[2021-12-31] MEDS ORDERED: FUROSEMIDE 10 MG/ML 10 ML VIAL IV STA (17:55)
[2022-01-01] MEDS ORDERED: FUROSEMIDE 10 MG/ML 4 ML VIAL IV SCH (03:00)
[2022-01-01] MEDS: NITROGLYCERIN OINT 1 INCH/GM PACKET TOPICAL SCH ×5 (03:11→20:45)
[2022-01-01 07:00] LABS: Calcium 9.1 mg/dL (8.4-10.2); Magnesium 2.2 mg/dL (1.6-2.3); Potassium 3.6 mmol/L (3.5-5.1)
[2022-01-01] MEDS: APIXABAN 2.5 MG TABLET PO SCH ×2 (09:08→20:44)
[2022-01-01] MEDS: FUROSEMIDE 10 MG/ML 4 ML VIAL IV SCH ×2 (09:08→20:44)
[2022-01-01] MEDS: ISOSORBIDE MONONITRATE ER 60 MG TAB.ER.24H PO SCH (09:08)
[2022-01-01] MEDS ORDERED: HYDROcodone/APAP 5-325MG 1 EACH TAB PO STA (09:26)
[2022-01-01] MEDS ORDERED: ACETAMINOPHEN TAB 325 MG TAB PO PRN (09:27)
--- NOTE | 2022-01-01 09:29 | P.HPIM ---
History of Present Illness This is a pleasant 86 years old male with past medical history of Atrial Fibrillation on Eliquis, Hyperlipidemia, Hypertension, hypothyroidism,, Severe JORDANA with an H of 128 seated with a BiPAP pressure of 17/13 cm of water, obesity, coronary artery disease with previous coronary intervention and stenting, ascending thoracic aortic aneurysm measuring 4.2 cm in size. Peripheral vascular disease with a stent within the aorta and stents also placed in the iliacs, Permanent Pacemaker Patient states that he came to the hospital because of 2 weeks of chest pain on the left side radiating to the back about 8/10 in severity, he could not describe it to be specific about it is associated with dry towels and breathing is sometimes difficult as described but he describes also evidence of paroxysmal nocturnal dyspnea going on for more than 2 weeks. He has also pain actually below both ribs with continuous coughing. Also he has a scattered wheezing. He denies vomiting or diarrhea. He said there is some increase in frequency of urination, but he attributes this to Lasix. No dysuria. No headache or weakness or dizziness or numbness. He has chronic back pain for a year but making for example difficult for him to tie his shoes. She is not on home oxygen but uses CPAP machine He quit smoking 30 years ago, no alcohol or illicit drugs. Vitals are stable and patient is afebrile and his saturation 95% on room air. Showing unremarkable CBC except for mild anemia 9.7 and thrombocytopenia 12/09/1969 INR 1.1, the MP, liver enzymes are unremarkable. Troponin 0.023, proBNP elevated 4720. Urine analysis is not suspicious of infection and Chest x-ray showing CHF with mild interstitial edema with superimposed diffuse hazy opacity. EKG showing ventricular paced rhythm at 60 bpm In the emergency room was started on IV Lasix 40 mg every 8 hours Echocardiogram on 03/2021 showing hypokinesia with ejection fraction 45-50% Review of Systems Review of systems CONSTITUTIONAL: No fever, no malaise, no fatigue. HEENT: No recent visual problems or hearing problems. Denied any sore throat. CARDIOVASCULAR: No orthopnea, PND, no palpitations, no syncope. PULMONARY: No shortness of breath, no cough, no hemoptysis. GASTROINTESTINAL: No diarrhea, no nausea, no vomiting, no abdominal pain. Normoactive bowel sounds. NEUROLOGICAL: No headaches, no weakness, no numbness. HEMATOLOGICAL: Denies any bleeding or petechiae. GENITOURINARY: Denies any burning micturition, frequency, or urgency. MUSCULOSKELETAL/RHEUMATOLOGICAL: Denies any joint pain, swelling, or any muscle pain. ENDOCRINE: Denies any polyuria or polydipsia. Past Medical History Past Medical History: Atrial Fibrillation, Hyperlipidemia, Hypertension, Respiratory Disorder, Thyroid Disorder Additional Past Medical History / Comment(s): Severe JORDANA with an H of 128 seated with a BiPAP pressure of 17/13 cm of water, obesity, coronary artery disease with previous coronary intervention and stenting, tonic atrial fibrillation, hyperlipidemia, hypertension, hypothyroidism, ascending thoracic aortic aneurysm, ascending thoracic aortic aneurysm measuring 4.2 cm in size. Peripheral vascular disease with a stent within the aorta and stents also placed in the iliacs History of Any Multi-Drug Resistant Organisms: None Reported Past Surgical History: Cholecystectomy, Heart Catheterization With Stent Additional Past Surgical History / Comment(s): UPPP for obstructive sleep apnea, abdominal aortic aneurysm repair, vascular stenting to the lower extremities including the iliacs for peripheral vascular disease, cataracts, right carotid endarterectomy, cholecystectomy Past Anesthesia/Blood Transfusion Reactions: No Reported Reaction Date of Last Stent Placement:: 1995, Type of Cardiac Device: Permanent Pacemaker Device Placement Date:: JUL 2017 Past Psychological History: No Psychological Hx Reported Smoking Status: Never smoker Past Alcohol Use History: None Reported Past Drug Use History: None Reported Medications and Allergies Home Medications Medication Instructions Recorded Confirmed Type Levothyroxine Sodium [Synthroid] 50 mcg PO DAILY 08/30/14 12/31/21 History Potassium Chloride [Klor-Con 20] 20 meq PO HS 08/30/14 12/31/21 History Simvastatin [Zocor] 20 mg PO HS 08/30/14 12/31/21 History Isosorbide Mononitrate ER [Imdur] 60 mg PO DAILY 07/30/17 12/31/21 History Apixaban [Eliquis] 2.5 mg PO BID #60 tab 03/29/20 12/31/21 Rx Pantoprazole Sodium [Protonix] 40 mg PO DAILY #30 tablet.dr 03/29/20 12/31/21 Rx Aspirin 81 mg PO HS 10/11/20 12/31/21 History Furosemide [Lasix] 40 mg PO DAILY 10/11/20 12/31/21 History Glucosamine/Chondr Nguyen A Sod [Osteo 1 tab PO DAILY 10/11/20 12/31/21 History Bi-Flex Caplet] Loratadine [Claritin] 10 mg PO DAILY PRN 04/06/21 12/31/21 History Albuterol Nebulized [Ventolin 2.5 mg INHALATION RT-QID PRN 12/31/21 12/31/21 History Nebulized] Ibuprofen [Motrin Ib] 400 mg PO Q8H PRN 12/31/21 12/31/21 History Ipratropium-Albuterol Nebulize 3 ml INHALATION RT-QID PRN 12/31/21 12/31/21 History [Duoneb 0.5 mg-3 mg/3 ml Soln] Allergies Allergy/AdvReac Type Severity Reaction Status Date / Time cefazolin sodium [From Ancef] Allergy Anaphylaxis Verified 12/31/21 16:32 hylan G-F 20 [From [place]] Allergy Anaphylaxis Verified 12/31/21 16:32 Physical Exam Vitals: Vital Signs Temp Pulse Resp BP Pulse Ox 01/01/22 09:06 97.7 F 60 14 127/68 93 L 01/01/22 04:00 61 H 128/78 95 01/01/22 03:27 98.0 F 60 20 149/69 96 12/31/21 23:00 60 16 117/73 95 12/31/21 19:15 60 16 156/71 95 12/31/21 18:50 24 12/31/21 17:25 62 12/31/21 17:09 64 12/31/21 13:11 98.2 F 60 20 132/66 96 - GENERAL: The patient is alert and oriented x3, not in any acute distress. Well obese HEENT: Pupils are round and equally reacting to light. EOMI. No scleral icterus. No conjunctival pallor. Normocephalic, atraumatic. No pharyngeal erythema. No thyromegaly. CARDIOVASCULAR: S1 and S2 present. No murmurs, rubs, or gallops. PULMONARY: Chest is clear to auscultation, no wheezing or crackles. -ABDOMEN: Soft, RLQ tenderness, no rebound tenderness, nondistended, normoactive bowel sounds. No palpable organomegaly. MUSCULOSKELETAL: No joint swelling or deformity. EXTREMITIES: No cyanosis, clubbing, or pedal edema. NEUROLOGICAL: Gross neurological examination did not reveal any focal deficits. SKIN: No rashes. no petechiae. Results CBC & Chem 7: 12/31/21 13:22 01/01/22 06:30 Labs: Abnormal Lab Results - Last 24 Hours (Table) 12/31/21 12/31/21 12/31/21 Range/Units 13:22 13:22 13:53 RBC 3.58 L (4.30-5.90) m/uL Hgb 9.7 L (13.0-17.5) gm/dL Hct 31.2 L (39.0-53.0) % RDW 16.1 H (11.5-15.5) % Plt Count 137 L (150-450) k/uL Lymphocytes # 0.9 L (1.0-4.8) k/uL Chloride 109 H (98-107) mmol/L Carbon Dioxide (22-30) mmol/L BUN 23 H (9-20) mg/dL Glucose 118 H (74-99) mg/dL Urine Protein 1+ H (Negative) Hyaline Casts 3 H (0-2) /lpf Urine Mucus Rare H (None) /hpf 01/01/22 Range/Units 06:30 RBC (4.30-5.90) m/uL Hgb (13.0-17.5) gm/dL Hct (39.0-53.0) % RDW (11.5-15.5) % Plt Count (150-450) k/uL Lymphocytes # (1.0-4.8) k/uL Chloride (98-107) mmol/L Carbon Dioxide 35 H (22-30) mmol/L BUN 24 H (9-20) mg/dL Glucose 102 H (74-99) mg/dL Urine Protein (Negative) Hyaline Casts (0-2) /lpf Urine Mucus (None) /hpf Assessment and Plan Assessment: Acute on chronic systolic congestive heart failure, EF 45-50% Paroxysmal atrial fibrillation on Eliquis bilateral rib cage pain and tenderness secondary to coughing There was suspicion of right lower quadrant abdominal pain Hypertension Hyperlipidemia chronic back pain Hypothyroidism History of severe obstructive sleep apnea on BiPAP at home History of coronary artery disease status post stenting History of peripheral vascular disease status post stenting into the aorta and the iliac arteries History of ascending aortic aneurysm 4.2 cm Status post pacemaker Obesity with BMI of 34.5 Plan: This is a pleasant 86 years old male who presents with CHF Continue with IV Lasix Monitor input, output, creatinine and electrolytes Cardiology consult GI team 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 We will add Symbicort and Duonebs [place] 325 mg-5 mg for pain control as well as Tylenol Labs and medication were reviewed.. Continue same treatment. Continue with symptomatic treatment. Resume home medication. Monitor lytes and vitals. DVT and GI prophylaxis. Further recommendations as per clinical course of the patient DVT prophylaxis: Eliquis GI Prophylaxis: Pepcid PT/OT: Pending Prognosis is guarded
[2022-01-01] MEDS ORDERED: FAMOTIDINE 20 MG/2 ML VIAL IV SCH (09:30)
--- NOTE | 2022-01-01 10:19 | P.CNPUL ---
History of Present Illness Consult date: 01/01/22 Requesting physician: Jarrett Washington Reason for consult: dyspnea Chief complaint: Shortness of breath, abdominal pain History of present illness: This is a pleasant 86-year-old male patient who has a history of coronary artery disease with previous stent placement, hypertension, hyperlipidemia, hypothyroidism, diabetes mellitus, chronic atrial fibrillation, obstructive sleep apnea status post UPPP and utilizing CPAP, postinflammatory pulmonary fibrosis, peripheral vascular disease, abdominal aortic aneurysm, descending thoracic aortic aneurysm with previous stent placement at [facility]. He follows with Dr. Rangel in the office for chronic bronchitis and the postinflammatory pulmonary fibrosis. He is also been having ongoing issues with abdominal discomfort for quite some time now with previous workup being negative. He presented to the emergency room yesterday with complaints of increasing shortness of breath cough congestion, chest tightness and yellow phlegm. No nausea vomiting or diarrhea. Some mild abdominal discomfort. Chest x-ray reveals mild interstitial edema with superimposed diffuse hazy opacity. No significant pleural effusion. No pneumothorax. Evidence of left-sided pacemaker. 6 revealed a WBC 6.1. Hemoglobin 9.7. Platelets 137. Sodium 145. Potassium 3.6. Bicarb 35. Creatinine 1.11. Glucose 102. ProBNP 4720. Troponin 0.023. He's been initiated on Lasix 40 mg IV every 12 hours along with Symbicort, DuoNeb inhalations, anticoagulated with Eliquis. He is seen today in consultation in the emergency department. He is currently sitting up in the stretcher. Awake and alert in no acute distress. Maintaining O2 saturations in the 90s on room air. He is afebrile. Hemodynamically stable. Review of Systems REVIEW OF SYSTEMS: CONSTITUTIONAL: Denies any recent significant weight loss or weight gain. EYES: Denies change in vision. EARS, NOSE, MOUTH, THROAT: Denies headaches, denies sore throat. CARDIOVASCULAR: Denies chest pain, palpitations or syncopal episodes. RESPIRATORY: Positive for shortness of breath, cough, congestion no hemoptysis. GASTROINTESTINAL: Denies change in appetite, positive for abdominal pain GENITOURINARY: Denies hematuria, denies infections. MUSKULOSKELETAL: Denies pain, denies swelling. INTEGUMENTARY: Denies rash, denies eczema. NEUROLOGICAL: Denies recent memory loss, no recent seizure activity. PSYCHIATRIC: Denies anxiety, denies depression. HEMATOLOGIC/LYMPHATIC: Denies anemia, denies enlarged lymph nodes. Past Medical History Past Medical History: Atrial Fibrillation, Hyperlipidemia, Hypertension, Respiratory Disorder, Thyroid Disorder Additional Past Medical History / Comment(s): Severe JORDANA with an H of 128 seated with a BiPAP pressure of 17/13 cm of water, obesity, coronary artery disease wit h previous coronary intervention and stenting, tonic atrial fibrillation, hyperlipidemia, hypertension, hypothyroidism, ascending thoracic aortic aneurysm, ascending thoracic aortic aneurysm measuring 4.2 cm in size. Peripheral vascular disease with a stent within the aorta and stents also placed in the iliacs History of Any Multi-Drug Resistant Organisms: None Reported Past Surgical History: Cholecystectomy, Heart Catheterization With Stent Additional Past Surgical History / Comment(s): UPPP for obstructive sleep apnea, abdominal aortic aneurysm repair, vascular stenting to the lower extremities including the iliacs for peripheral vascular disease, cataracts, right carotid endarterectomy, cholecystectomy Past Anesthesia/Blood Transfusion Reactions: No Reported Reaction Date of Last Stent Placement:: 1995, Type of Cardiac Device: Permanent Pacemaker Device Placement Date:: JUL 2017 Past Psychological History: No Psychological Hx Reported Smoking Status: Never smoker Past Alcohol Use History: None Reported Past Drug Use History: None Reported Medications and Allergies Home Medications Medication Instructions Recorded Confirmed Type Levothyroxine Sodium [Synthroid] 50 mcg PO DAILY 08/30/14 12/31/21 History Potassium Chloride [Klor-Con 20] 20 meq PO HS 08/30/14 12/31/21 History Simvastatin [Zocor] 20 mg PO HS 08/30/14 12/31/21 History Isosorbide Mononitrate ER [Imdur] 60 mg PO DAILY 07/30/17 12/31/21 History Apixaban [Eliquis] 2.5 mg PO BID #60 tab 03/29/20 12/31/21 Rx Pantoprazole Sodium [Protonix] 40 mg PO DAILY #30 tablet. 03/29/20 12/31/21 Rx Aspirin 81 mg PO HS 10/11/20 12/31/21 History Furosemide [Lasix] 40 mg PO DAILY 10/11/20 12/31/21 History Glucosamine/Chondr Nguyen A Sod [Osteo 1 tab PO DAILY 10/11/20 12/31/21 History Bi-Flex Caplet] Loratadine [Claritin] 10 mg PO DAILY PRN 04/06/21 12/31/21 History Albuterol Nebulized [Ventolin 2.5 mg INHALATION RT-QID PRN 12/31/21 12/31/21 History Nebulized] Ibuprofen [Motrin Ib] 400 mg PO Q8H PRN 12/31/21 12/31/21 History Ipratropium-Albuterol Nebulize 3 ml INHALATION RT-QID PRN 12/31/21 12/31/21 History [Duoneb 0.5 mg-3 mg/3 ml Soln] Allergies Allergy/AdvReac Type Severity Reaction Status Date / Time cefazolin sodium [From Anc] Allergy Anaphylaxis Verified 12/31/21 16:32 hylan G-F 20 [From [employer]] Allergy Anaphylaxis Verified 12/31/21 16:32 Physical Exam Vitals: Vital Signs Temp Pulse Resp BP Pulse Ox 01/01/22 09:06 97.7 F 60 14 127/68 93 L 01/01/22 04:00 61 H 128/78 95 01/01/22 03:27 98.0 F 60 20 149/69 96 12/31/21 23:00 60 16 117/73 95 12/31/21 19:15 60 16 156/71 95 12/31/21 18:50 24 12/31/21 17:25 62 12/31/21 17:09 64 12/31/21 13:11 98.2 F 60 20 132/66 96 GENERAL EXAM: Alert, pleasant 86-year-old male patient, on room air, fairly comfortable in no apparent distress. HEAD: Normocephalic. EYES: Normal reaction of pupils, equal size. NOSE: Clear with pink turbinates. THROAT: No erythema or exudates. NECK: No masses, no JVD. CHEST: No chest wall deformity. LUNGS: Equal air entry with crackles in the bilateral bases. CVS: S1 and S2 normal with no audible murmur, regular paced rhythm. ABDOMEN: No hepatosplenomegaly, normal bowel sounds, no guarding or rigidity. SPINE: No scoliosis or deformity SKIN: No rashes CENTRAL NERVOUS SYSTEM: No focal deficits, tone is normal in all 4 extremities. EXTREMITIES: There is 1+ peripheral edema. No clubbing, no cyanosis. P eripheral pulses are intact. Results - Laboratory Findings CBC and BMP: 12/31/21 13:22 01/01/22 06:30 PT/INR, D-dimer PT 11.7 sec (9.0-12.0) 12/31/21 13:22 INR 1.1 (<1.2) 12/31/21 13:22 Abnormal lab findings: Abnormal Labs 12/31/21 12/31/21 12/31/21 13:22 13:22 13:53 RBC 3.58 L Hgb 9.7 L Hct 31.2 L RDW 16.1 H Plt Count 137 L Lymphocytes # 0.9 L Chloride 109 H Carbon Dioxide BUN 23 H Glucose 118 H Urine Protein 1+ H Hyaline Casts 3 H Urine Mucus Rare H 01/01/22 06:30 RBC Hgb Hct RDW Plt Count Lymphocytes # Chloride Carbon Dioxide 35 H BUN 24 H Glucose 102 H Urine Protein Hyaline Casts Urine Mucus - Diagnostic Findings Chest x-ray: image reviewed Assessment and Plan Assessment: 1 Acute exacerbation of chronic systolic congestive heart failure with mildly impaired left ventricular systolic function ejection fraction 45-50% possible diastolic component. 2 History of coronary artery disease with previous stent placement 3 Chronic atrial fibrillation anticoagulated with Eliquis, status post permanent pacemaker implantation 4 Hypertension 5 Hyperlipidemia 6 Hypothyroidism 7 Peripheral vascular disease with previous stenting of the iliac arteries 8 History of thoracic and abdominal aortic aneurysm, status post aortic stenting at the [facility] 9 Obstructive sleep apnea with previous UPPP, AHI of 128, on CPAP 10 Carotid artery disease status post right carotid endarterectomy 11 Former smoker 12 History of chronic bronchitis 13 History of postinflammatory pulmonary fibrosis 14 Obesity Plan: The patient was seen and evaluated Chest x-ray and labs reviewed Continue Lasix 40 mg every 12 hours Continue Symbicort and DuoNeb inhalations Add Solu-Medrol 40 mg every 8 hours We will continue to follow and make further recommendations based on his clinical status I, the cosigning physician, performed a history & physical examination of the patient. Lungs sounds with crackles in the posterior bases, end expiratory wheeze, diminished. Maintaining good O2 saturations in the 90s on room air. I discussed the assessment and plan of care with my nurse practitioner, Chanell Soriano. I attest to the above consultation as dictated by her. I have personally seen and examined the patient, performed the documentation and the assessment and plan as written. Number of minutes spent on the visit: 20.
--- NOTE | 2022-01-01 10:39 | CONS ---
CONSULTATION This is an 86-year-old elderly gentleman with a permanent pacemaker who also has history of diastolic heart failure and has had chronic abdominal pain on and off. He came in mainly with complaints of abdominal discomfort and shortness of breath. He received some IV Lasix and his breathing has improved. He is ambulating in the ER without any symptoms. However, he complains of abdominal discomfort and has had chronic pain and was scheduled to see Dr. France from a GI point of view. He has a history of CAD with previous PCI, details unavailable. However, he also has had a previous stress test that did not reveal any significant areas of ischemia. He has a recent echocardiogram from March of last year which revealed ejection fraction in the 45% to 50% range with apical wall motion hypokinesia and apical septal hypokinesia. He came in mainly with shortness of breath but seems to have improved. He complains of abdominal discomfort. At the time of my evaluation he is comfortable and resting. PAST MEDICAL HISTORY: 1. CAD with prior PCI and known prior KS with ejection fraction in the 45% to 50% range. 2. History of complete heart block with a permanent pacemaker. 3. History of paroxysmal/persistent atrial fibrillation but currently in a paced rhythm. 4. Chronic abdominal pain, for which he was scheduled to see Dr. France. 5. Hypothyroidism. 6. Hypercholesterolemia. MEDICATIONS: Medications at home include simvastatin, Imdur, Lasix, apixaban, aspirin, Synthroid, and he also takes ibuprofen. ALLERGIES: KEFZOL and also hylan for his joint injections. PHYSICAL EXAMINATION: On examination, blood pressure is 130/80, pulse rate is 60 per minute, paced. HEENT unremarkable. Fundus was not examined by me. Neck is supple. There is JVD of 1 cm. No carotid bruit. Heart exam reveals S1, S2 with a short systolic murmur. No gallops. Lungs reveal fine rales over both bases, but overall air entry is good. Abdomen is soft, non-tender. Lower extremities reveal trace edema, diminished pulses. Central nervous system grossly within normal limits. IMPRESSION: 1. Acute diastolic heart failure with improvement on diuresis. 2. History of sick sinus syndrome with a permanent pacemaker. 3. Coronary artery disease, stable, with previous percutaneous coronary intervention; details unavailable. 4. Abdominal pain; was scheduled to see Dr. France. RECOMMENDATIONS: I am recommending that we will continue diuresis for now and also request Dr. France to evaluate the patient, since he was scheduled to see her as an outpatient. I will switch her to Lasix 40 mg IV push q.12 hours and then switch to oral Lasix tomorrow. Continue other medications. Troponin is normal. Thank you very much for the consult. TALON / JOSSELIN: [id number] /
[2022-01-01] MEDS: methylPREDNISolone SOD SUCCI 40 MG/ML 1 ML VIAL IV SCH ×3 (11:05→23:37)
[2022-01-01 14:39] VITALS: BMI 34.4
[2022-01-01] MEDS ORDERED: IPRATROPIUM-ALBUTEROL 3 ML NEB INHALATION SCH (16:00)
[2022-01-01] MEDS: guaiFENesin-DM 100-10MG/5ML 10 ML CUP PO SCH ×3 (17:33→20:44)
[2022-01-01] MEDS: SYMBICORT 160-4.5 MCG INHALER INHALATION SCH (20:27)
[2022-01-01] MEDS: HYDROcodone/APAP 5-325MG 1 EACH TAB PO PRN (20:43)
[2022-01-01] MEDS: ASPIRIN 81 MG PO SCH (20:43)
[2022-01-01] MEDS: ATORVASTATIN 10 MG TAB PO SCH (20:44)
[2022-01-01] MEDS ORDERED: IPRATROPIUM-ALBUTEROL 3 ML NEB INHALATION PRN (20:55)
[2022-01-02] MEDS: guaiFENesin-DM 100-10MG/5ML 10 ML CUP PO SCH ×4 (05:31→22:13)
[2022-01-02 07:34] LABS: Glucose,Whole Blood 216 mg/dL (75-99)
[2022-01-02] MEDS: INSULIN ASPART (NovoLOG) 100 UNIT/ML VIAL SQ SCH ×4 (08:11→22:12)
[2022-01-02] MEDS: APIXABAN 2.5 MG TABLET PO SCH ×2 (08:12→20:22)
[2022-01-02] MEDS: ISOSORBIDE MONONITRATE ER 60 MG TAB.ER.24H PO SCH (08:12)
[2022-01-02] MEDS: FUROSEMIDE 10 MG/ML 4 ML VIAL IV SCH (08:12)
[2022-01-02] MEDS: FAMOTIDINE 20 MG TAB PO SCH (08:12)
[2022-01-02] MEDS: methylPREDNISolone SOD SUCCI 40 MG/ML 1 ML VIAL IV SCH ×3 (08:12→22:13)
[2022-01-02 08:18] LABS: African American GFR (CKD) 67 (>60 ml/min/1.73 sqM); Anion Gap 6 mmol/L; Blood Urea Nitrogen 36 mg/dL (9-20); Calcium 8.9 mg/dL (8.4-10.2); Carbon Dioxide 37 mmol/L (22-30); Chloride 98 mmol/L (98-107); Glucose 191 mg/dL (74-99); Non-African American GFR(CKD) 58 (>60 ml/min/1.73 sqM); Potassium 3.6 mmol/L (3.5-5.1); Sodium 141 mmol/L (137-145)
[2022-01-02] MEDS: SYMBICORT 160-4.5 MCG INHALER INHALATION SCH ×2 (08:28→19:06)
[2022-01-02] MEDS ORDERED: FAMOTIDINE 20 MG/2 ML VIAL IV SCH (09:00)
--- NOTE | 2022-01-02 09:07 | P.PN ---
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 He follows with Dr. Lopez. We have been consultation for congestive heart failure. Patient admitted to the hospital with complaints of abdominal discomfort and shortness of breath. He received IV Lasix and his breathing has improved. He also has some abdominal pain and bilateral rib discomfort when taking a deep breath. He does have chronic lower extremity edema, he states it has improved since admission. Patient was started on IV Lasix 40 mg twice a day. His breathing has improved. Currently denies any shortness of breath or chest pain. Labs pending from today. He is currently maintained on Eliquis 2.5 mg twice a day, aspirin 81 mg daily, atorvastatin 10 mg nightly, IV Lasix 40 mg twice a day, DuoNeb's, Imdur 60 mg daily Blood pressure 126/50, heart rate 60, afebrile, saturations 99% on 2 L nasal cannula GENERAL: Well-appearing, well-nourished and in no acute distress. NECK: Supple without JVD or thyromegaly. LUNGS: Breath sounds clear to auscultation bilaterally. Respiration equal and unlabored. No wheezes, rales or rhonchi. HEART: Regular rate and rhythm , Systolic ejection murmur noted. No rubs or gallops. S1 and S2 heard. EXTREMITIES: Normal range of motion, 1+bilateral lower extremity edema. No clubbing or cyanosis. Peripheral pulses intact. ASSESSMENT Acute on chronic heart failure with preserved ejection fraction, mildly impaired 45-50% Abdominal pain Hypertension Dyslipidemia Coronary artery disease status post PCI of the mid LAD and proximal RCA in 1995 Persistent atrial fibrillation on Eliquis History of third degree AV block status post dual-chamber pacemaker implantation in 2017 PLAN From a cardiology perspective, patient is stable. We will transition to by mouth Lasix 40 mg BID. Okay to discharge when cleared by primary and other consultants. Patient to follow-up with Dr. Lopez in 1 week. Nurse Practitioner note has been reviewed, I agree with a documented findings and plan of care. Patient was seen and examined. Objective - Vital Signs Vital signs: Vital Signs Temp 97.4 F L 01/02/22 07:27 Pulse 60 01/02/22 08:38 Resp 18 01/02/22 07:27 BP 126/50 01/02/22 07:27 Pulse Ox 99 01/02/22 08:32 Intake & Output 01/01/22 01/02/22 01/02/22 18:59 06:59 18:59 Intake Total 118 120 Balance 118 120 Weight 99.79 kg Intake: Oral 118 120 Other: # Voids 1 2 - Labs CBC & Chem 7: 12/31/21 13:22 01/02/22 06:59 Labs: Abnormal Lab Results - Last 24 Hours (Table) 01/02/22 01/02/22 Range/Units 06:59 07:25 Carbon Dioxide 37 H (22-30) mmol/L BUN 36 H (9-20) mg/dL Glucose 191 H (74-99) mg/dL POC Glucose (mg/dL) 216 H (75-99) mg/dL
[2022-01-02] MEDS: IOPAMIDOL CONTRAST (ORAL USE) VIAL PO PRN ×2 (09:44→10:34)
--- NOTE | 2022-01-02 11:41 | CT ---
EXAMINATION TYPE: CT abdomen pelvis w con DATE OF EXAM: 01/02/2022 COMPARISON: CT dated 03/27/2020 HISTORY: abdominal pain CT DLP: 1526.5 mGycm Automated exposure control for dose reduction was used. TECHNIQUE: Helical acquisition of images was performed from the lung bases through the pelvis. CONTRAST: Performed with Oral Contrast and with IV Contrast, patient injected with 100 mL of Isovue 300. FINDINGS: Nodular outline of the liver, please correlate with liver function tests and hepatic viral serology. Previous cholecystectomy. Unremarkable spleen and adrenals. Atrophic pancreas. Bilateral renal hypode nsities, likely representing renal cysts. Focal scarring is seen at the lower pole of the right kidne y. The urinary bladder is not distended. Unremarkable prostate and seminal vesicles. Previous repair of abdominal aortic aneurysm with aortoiliac bypass graft, apparently patent. The ane urysmal sac measures up to 4.5 cm compared to 4.4 cm previously. No convincing evidence of endovascul ar leak by this CT scan. Mild wall thickening of the stomach, nonspecific. Unremarkable duodenum and small bowel with no evidence of bowel obstruction. Significant fecal loading of the colon. The patien t may benefit from an enema or laxative use. No suspicious lymphadenopathy or sizable ascites. Dense atherosclerotic calcifications versus stentin g of the proximal portions of the superior mesenteric and renal arteries. The enhancement of the supe rior mesenteric artery is suboptimally assessed by this CT scan. Cardiomegaly, please correlate with echocardiographic results. Left basal subsegmental pulmonary atelectasis with loss of volume of the l eft lower lobe. Severe degenerative changes of the lower lumbar spine. IMPRESSION: Significant fecal loading of the colon which may suggest constipation. No definite acute abnormality seen in the abdomen and the pelvis otherwise. Incidental findings as described above.
--- NOTE | 2022-01-02 11:46 | P.PN ---
Subjective Progress Note Date: 01/02/22 This is a pleasant 86-year-old male patient who has a history of coronary artery disease with previous stent placement, hypertension, hyperlipidemia, hypothyroidism, diabetes mellitus, chronic atrial fibrillation, obstructive sleep apnea status post UPPP and utilizing CPAP, postinflammatory pulmonary fibr osis, peripheral vascular disease, abdominal aortic aneurysm, descending thoracic aortic aneurysm with previous stent placement at [facility]. He follows with Dr. Rangel in the office for chronic bronchitis and the postinflammatory pulmonary fibrosis. He is also been having ongoing issues with abdominal discomfort for quite some time now with previous workup being negative. He presented to the emergency room yesterday with complaints of increasing shortness of breath cough congestion, chest tightness and yellow phlegm. No nausea vomiting or diarrhea. Some mild abdominal discomfort. Chest x-ray reveals mild interstitial edema with superimposed diffuse hazy opacity. No significant pleural effusion. No pneumothorax. Evidence of left-sided pacemaker. 6 revealed a WBC 6.1. Hemoglobin 9.7. Platelets 137. Sodium 145. Potassium 3.6. Bicarb 35. Creatinine 1.11. Glucose 102. ProBNP 4720. Troponin 0.023. He's been initiated on Lasix 40 mg IV every 12 hours along with Symbicort, DuoNeb inhalations, anticoagulated with Eliquis. He is seen today in consultation in the emergency department. He is currently sitting up in the stretcher. Awake and alert in no acute distress. Maintaining O2 saturations in the 90s on room air. He is afebrile. Hemodynamically stable. The patient is seen today 01/02/2022 in follow-up on the regular medical floor. He is currently sitting up in a chair at the bedside. Awake and alert in no acute distress. He is maintaining O2 saturations in the 90s on room air. He's afebrile. Hemodynamically stable. His breathing is better today compared to yesterday. His lungs sound better. He is still complaining of abdominal discomfort. No nausea, vomiting or diarrhea. Appetite is good. Sodium 141. Potassium 3.6. Bicarb 37. Creatinine 1.14. Alvarado virus by PCR was not detected. He is continued on Symbicort, DuoNeb inhalations, IV Solu-Medrol. Remains on oral diuretics. Anticoagulated with Eliquis. Objective - Vital Signs Vital signs: Vital Signs Temp 97.4 F L 01/02/22 07:27 Pulse 60 01/02/22 08:38 Resp 18 01/02/22 07:27 BP 126/50 01/02/22 07:27 Pulse Ox 99 01/02/22 08:32 Intake & Output 01/01/22 01/02/22 01/02/22 18:59 06:59 18:59 Intake Total 118 120 Balance 118 120 Weight 99.79 kg Intake: Oral 118 120 Other: # Voids 1 2 - Exam GENERAL EXAM: Alert, pleasant 86-year-old male patient, on room air, fairly comfortable in no apparent distress. HEAD: Normocephalic. EYES: Normal reaction of pupils, equal size. NOSE: Clear with pink turbinates. THROAT: No erythema or exudates. NECK: No masses, no JVD. CHEST: No chest wall deformity. LUNGS: Equal air entry with crackles in the bilateral bases. CVS: S1 and S2 normal with no audible murmur, regular paced rhythm. ABDOMEN: No hepatosplenomegaly, normal bowel sounds, no guarding or rigidity. SPINE: No scoliosis or deformity SKIN: No rashes CENTRAL NERVOUS SYSTEM: No focal deficits, tone is normal in all 4 extremities. EXTREMITIES: There is 1+ peripheral edema. No clubbing, no cyanosis. Peripheral pulses are intact. - Labs CBC & Chem 7: 12/31/21 13:22 01/02/22 06:59 Labs: Abnormal Lab Results - Last 24 Hours (Table) 01/02/22 01/02/22 Range/Units 06:59 07:25 Carbon Dioxide 37 H (22-30) mmol/L BUN 36 H (9-20) mg/dL Glucose 191 H (74-99) mg/dL POC Glucose (mg/dL) 216 H (75-99) mg/dL Assessment and Plan Assessment: 1 Acute exacerbation of chronic systolic congestive heart failure with mildly impaired left ventricular systolic function ejection fraction 45-50% possible diastolic component. 2 Abdominal discomfort of unclear etiology, CT scan of the abdomen pelvis pending, GI services consulted 3 History of coronary artery disease with previous stent placement 4 Chronic atrial fibrillation anticoagulated with Eliquis, status post permanent pacemaker implantation 5 Hypertension 6 Hyperlipidemia 7 Peripheral vascular disease with previous stenting of the iliac arteries 8 History of thoracic and abdominal aortic aneurysm, status post aortic stenting at the [facility] 9 Obstructive sleep apnea with previous UPPP, AHI of 128, on CPAP 10 Carotid artery disease status post right carotid endarterectomy 11 Former smoker 12 History of chronic bronchitis 13 History of postinflammatory pulmonary fibrosis 14 Obesity 15 Hypothyroidism Plan: The patient was seen and evaluated Labs reviewed Stable and on room air Continue diuretics Continue Symbicort, DuoNeb inhalations, Solu-Medrol Computed tomography scan of the abdomen pelvis for ongoing abdominal discomfort GI services consulted If no significant findings probable home in the a.m. We will continue to follow I, the cosigning physician, performed a history & physical examination of the patient. Lungs sounds with crackles in the posterior bases, end expiratory wheeze, diminished. Maintaining good O2 saturations in the 90s on room air. I discussed the assessment and plan of care with my nurse practitioner, Chanell Soriano. I attest to the above note as dictated by her. I have personally seen and examined the patient, performed the documentation and the assessment and plan as written. Number of minutes spent on the visit: 10.
[2022-01-02 11:49] LABS: Glucose,Whole Blood 145 mg/dL (75-99)
[2022-01-02] MEDS: polyethylene glycoL 3350 17 GM POWD.PACK PO SCH (12:46)
--- NOTE | 2022-01-02 13:43 | P.PN ---
Subjective This is a pleasant 86 years old male with past medical history of Atrial Fibrillation on Eliquis, Hyperlipidemia, Hypertension, hypothyroidism,, Severe JORDANA with an H of 128 seated with a BiPAP pressure of 17/13 cm of water, obesity, coronary artery disease with previous coronary intervention and stenting, ascending thoracic aortic aneurysm measuring 4.2 cm in size. Peripheral vascular disease with a stent within the aorta and stents also placed in the iliacs, Permanent Pacemaker Patient states that he came to the hospital because of 2 weeks of chest pain on the left side radiating to the back about 8/10 in severity, he could not describe it to be specific about it is associated with dry towels and breathing is sometimes difficult as described but he describes also evidence of paroxysmal nocturnal dyspnea going on for more than 2 weeks. He has also pain actually below both ribs with continuous coughing. Also he has a scattered wheezing. He denies vomiting or diarrhea. He said there is some increase in frequency of urination, but he attributes this to Lasix. No dysuria. No headache or weakness or dizziness or numbness. He has chronic back pain for a year but making for example difficult for him to tie his shoes. She is not on home oxygen but uses CPAP machine He quit smoking 30 years ago, no alcohol or illicit drugs. Vitals are stable and patient is afebrile and his saturation 95% on room air. Showing unremarkable CBC except for mild anemia 9.7 and thrombocytopenia 12/09/1969 INR 1.1, the MP, liver enzymes are unremarkable. Troponin 0.023, proBNP elevated 4720. Urine analysis is not suspicious of infection and Chest x-ray showing CHF with mild interstitial edema with superimposed diffuse hazy opacity. EKG showing ventricular paced rhythm at 60 bpm In the emergency room was started on IV Lasix 40 mg every 8 hours Echocardiogram on 03/2021 showing hypokinesia with ejection fraction 45-50% 20 01/28/2012 Patient awake, no respiratory distress, sitting in chair comfortable. He still has wheezing and requiring 2 L of oxygen per minute He is hemodynamically stable and labs are stable. His oral Lasix is a started instead of IV route. He remains on IV Solu-Medrol Computed tomography scan of the abdomen and pelvis with contrast showing fecal loading corresponded for constipation with nodular liver and cholecystectomy. Patient remains on oral Lasix 40 mg twice daily and Solu-Medrol. Possible discharge in 24-48 hours if he keeps improving Objective - Vital Signs Vital signs: Vital Signs Temp 97.4 F L 01/02/22 07:27 Pulse 60 01/02/22 08:38 Resp 18 01/02/22 07:27 BP 126/50 01/02/22 07:27 Pulse Ox 99 01/02/22 08:32 Intake & Output 01/01/22 01/02/22 01/02/22 18:59 06:59 18:59 Intake Total 118 120 Balance 118 120 Weight 99.79 kg Intake: Oral 118 120 Other: # Voids 1 2 - Exam - GENERAL: The patient is alert and oriented x3, not in any acute distress. Well obese HEENT: Pupils are round and equally reacting to light. EOMI. No scleral icterus. No conjunctival pallor. Normocephalic, atraumatic. No pharyngeal erythema. No thyromegaly. CARDIOVASCULAR: S1 and S2 present. No murmurs, rubs, or gallops. -PULMONARY: Chest is clear to auscultation, Prolonged wheezing, no crepitation -ABDOMEN: Soft, RLQ tenderness, no rebound tenderness, nondistended, normoactive bowel sounds. No palpable organomegaly. MUSCULOSKELETAL: No joint swelling or deformity. EXTREMITIES: No cyanosis, clubbing, or pedal edema. NEUROLOGICAL: Gross neurological examination did not reveal any focal deficits. SKIN: No rashes. no petechiae. - Labs CBC & Chem 7: 12/31/21 13:22 01/02/22 06:59 Labs: Abnormal Lab Results - Last 24 Hours (Table) 01/02/22 01/02/22 Range/Units 06:59 07:25 Carbon Dioxide 37 H (22-30) mmol/L BUN 36 H (9-20) mg/dL Glucose 191 H (74-99) mg/dL POC Glucose (mg/dL) 216 H (75-99) mg/dL Assessment and Plan Assessment: Acute on chronic systolic congestive heart failure, EF 45-50% Acute COPD exacerbation Paroxysmal atrial fibrillation on Eliquis bilateral rib cage pain and tenderness secondary to coughing There was suspicion of right lower quadrant abdominal pain Hypertension Hyperlipidemia chronic back pain Hypothyroidism History of severe obstructive sleep apnea on BiPAP at home History of coronary artery disease status post stenting History of peripheral vascular disease status post stenting into the aorta and the iliac arteries History of ascending aortic aneurysm 4.2 cm Status post pacemaker Obesity with BMI of 34.5 Plan: This is a pleasant 86 years old male who presents with CHF Continue with IV Lasix Monitor input, output, creatinine and electrolytes Cardiology consult GI team was consulted by steam setter. We will add Symbicort and Duonebs [place] 325 mg-5 mg for pain control as well as Tylenol Labs and medication were reviewed.. Continue same treatment. Continue with symptomatic treatment. Resume home medication. Monitor lytes and vitals. DVT and GI prophylaxis. Further recommendations as per clinical course of the patient DVT prophylaxis: Eliquis GI Prophylaxis: Pepcid PT/OT: Home health care Prognosis is guarded
[2022-01-02] MEDS: FUROSEMIDE 40 MG TAB PO SCH (15:25)
[2022-01-02] MEDS: DOCUSATE 100 MG CAP PO SCH ×2 (15:25→20:28)
--- NOTE | 2022-01-02 16:23 | P.CONS ---
History of Present Illness - Reason for Consult Consult date: 01/02/22 Abdominal pain Requesting physician: Galileo Rangel - Chief Complaint Shortness of breath - History of Present Illness This is an 86-year-old male with a history of atrial fibrillation on [place], hyperlipidemia, hypertension, hypothyroidism, coronary artery disease status p ost stenting and pacemaker, and obstructive sleep apnea who presented to the emergency department with complaints of shortness of breath and pain on the left and right side sides radiating to his back. Patient is describing this pain more as abdominal pain and states that he has a appointment with Dr. France on January 14. Gastroenterology was consulted to evaluate further for abdominal pain. He states he has had this pain for the last 6-7 months duration. Grossly on the right and left lateral sides of the abdomen and rib cage. Pain is mostly at night when sleeping. Patient states his bowel movements are normal, he is urinating without any difficulty, he denies any nausea or vomiting. He does not believe he's had a previous colonoscopy. He has been afebrile. He was admitted with pulmonary edema and is being followed by cardiology as well as pulmonology. WBC 6.1 hemoglobin 9.7 hematocrit 31 platelet count 137,000. INR 1.1 total bilirubin 0.6 AST 23 ALT 12 alkaline phosphatase 105. Oxygenation is 97-99% on 2 L of nasal cannula Review of Systems REVIEW OF SYSTEMS: CARDIOPULMONARY: No chest pain. Shortness of breath. Gastrointestinal: No epigastric pain. States pain is on bilateral sides and uncomfortable to sleep at night. No nausea or vomiting. No hematemesis, coffee-ground emesis. No rectal bleeding, or melena. GENITOURINARY: No dysuria or hematuria. MUSCULOSKELETAL: Reports normal range of motion., Joint pain. SKIN: No rashes. No jaundice. ENDOCRINE: No chills, fevers. No excessive weight gain or loss. No polydipsia or polyuria. PSYCHIATRIC: Unremarkable. NEUROLOGY: No change in mental status. Denies dizziness, headache. ENT: Vision unremarkable. CONSTITUTIONAL: No recent weight loss. No fever, chills, night sweats. Past Medical History Past Medical History: Atrial Fibrillation, Hyperlipidemia, Hypertension, Respiratory Disorder, Thyroid Disorder Additional Past Medical History / Comment(s): Severe JORDANA with an H of 128 seated with a BiPAP pressure of 17/13 cm of water, obesity, coronary artery disease with previous coronary intervention and stenting, tonic atrial fibrillation, hyperlipidemia, hypertension, hypothyroidism, ascending thoracic aortic aneurysm, ascending thoracic aortic aneurysm measuring 4.2 cm in size. Peripheral vascular disease with a stent within the aorta and stents also placed in the iliacs History of Any Multi-Drug Resistant Organisms: None Reported Past Surgical History: Cholecystectomy, Heart Catheterization With Stent Additional Past Surgical History / Comment(s): UPPP for obstructive sleep apnea, abdominal aortic aneurysm repair, vascular stenting to the lower extremities including the iliacs for peripheral vascular disease, cataracts, right carotid endarterectomy, cholecystectomy Past Anesthesia/Blood Transfusion Reactions: No Reported Reaction Date of Last Stent Placement:: 1995, Type of Cardiac Device: Permanent Pacemaker Device Placement Date:: JUL 2017 Past Psychological History: No Psychological Hx Reported Additional Psychological History / Comment(s): 2012 Smoking Status: Former smoker Past Alcohol Use History: None Reported Past Drug Use History: None Reported Medications and Allergies Home Medications Medication Instructions Recorded Confirmed Type Levothyroxine Sodium [Synthroid] 50 mcg PO DAILY 08/30/14 12/31/21 History Potassium Chloride [Klor-Con 20] 20 meq PO HS 08/30/14 12/31/21 History Simvastatin [Zocor] 20 mg PO HS 08/30/14 12/31/21 History Isosorbide Mononitrate ER [Imdur] 60 mg PO DAILY 07/30/17 12/31/21 History Apixaban [Eliquis] 2.5 mg PO BID #60 tab 03/29/20 12/31/21 Rx Pantoprazole Sodium [Protonix] 40 mg PO DAILY #30 tablet. 03/29/20 12/31/21 Rx Aspirin 81 mg PO HS 10/11/20 12/31/21 History Glucosamine/Chondr Nguyen A Sod [Osteo 1 tab PO DAILY 10/11/20 12/31/21 History Bi-Flex Caplet] Loratadine [Claritin] 10 mg PO DAILY PRN 04/06/21 12/31/21 History Albuterol Nebulized [Ventolin 2.5 mg INHALATION RT-QID PRN 12/31/21 12/31/21 History Nebulized] Ibuprofen [Motrin Ib] 400 mg PO Q8H PRN 12/31/21 12/31/21 History Ipratropium-Albuterol Nebulize 3 ml INHALATION RT-QID PRN 12/31/21 12/31/21 History [Duoneb 0.5 mg-3 mg/3 ml Soln] Furosemide [Lasix] 40 mg PO BID@0900,1600 30 Days #60 01/02/22 Rx tab Allergies Allergy/AdvReac Type Severity Reaction Status Date / Time cefazolin sodium [From [facility] Allergy Anaphylaxis Verified 12/31/21 16:32 hylan G-F 20 [From [facility]] Allergy Anaphylaxis Verified 12/31/21 16:32 Physical Exam Vitals: Vital Signs Temp Pulse Pulse Resp BP BP BP 01/02/22 08:38 60 01/02/22 08:32 01/02/22 08:29 60 01/02/22 07:27 97.4 F L 60 18 126/50 01/02/22 01:20 97.5 F L 60 16 143/74 01/01/22 21:10 97.8 F 60 16 119/68 01/01/22 20:00 16 01/01/22 16:42 72 01/01/22 16:34 01/01/22 16:27 68 01/01/22 13:45 98.0 F 60 16 123/62 01/01/22 13:18 98.2 F 60 18 123/52 Pulse Ox 01/02/22 08:38 01/02/22 08:32 99 01/02/22 08:29 01/02/22 07:27 97 01/02/22 01:20 94 L 01/01/22 21:10 93 L 01/01/22 20:00 01/01/22 16:42 01/01/22 16:34 96 01/01/22 16:27 01/01/22 13:45 97 01/01/22 13:18 95 Intake and Output 01/01/22 01/02/22 01/02/22 22:59 06:59 14:59 Intake Total 118 120 Balance 118 120 Intake: Oral 118 120 Other: # Voids 1 2 General appearance: The patient is alert, oriented, appears in no acute distress. HET: Head is normocephalic and atraumatic. Conjunctiva pink. Sclera anicteric. Neck: Supple without lymphadenopathy. Trachea midline. Heart: S1 S2. Regular rate and rhythm. Lungs: Crackles in bilateral lower bases. Abdomen: Soft, nontender, nondistended with bowel sounds. No guarding or rigidity. Patient with tenderness along bilateral rib cages wrapping around towards his back. Skin: No rashes. No jaundice. Extremities: Normal skin color and turgor. No pedal edema. Neurological: No focal deficits. Alert and oriented x3. Results CBC & Chem 7: 12/31/21 13:22 01/02/22 06:59 Labs: Abnormal Lab Results - Last 24 Hours (Table) 01/02/22 01/02/22 01/02/22 Range/Units 06:59 07:25 11:42 Carbon Dioxide 37 H (22-30) mmol/L BUN 36 H (9-20) mg/dL Glucose 191 H (74-99) mg/dL POC Glucose (mg/dL) 216 H 145 H (75-99) mg/dL CT scan - abdomen: report reviewed (Significant fecal loading of the colon which may suggest constipation. No definite acute abnormality seen in the abdomen and pelvis otherwise. Incidental findings as described above) Assessment and Plan (1) Abdominal pain Narrative/Plan: 86-year-old male with complaints of abdominal pain. Patient states he's had pain on bilateral sides of his abdomen and ribs for the last 7 months duration. Has seen an appointment outpatient set up with Dr. France on January 14. He denies any previous EGD or colonoscopy. He states the pain is mostly when he is lying down and sleeping. He he denies any nausea or vomiting. He does state sometimes he'll have some right lower abdominal discomfort after eating. He had a CT of the abdomen and pelvis that shows stool burden. Otherwise no significant findings. Patient does have a history of back surgery that was done at the [facility]. It appears that this pain is more musculoskeletal along the rib line and flank wrapping around to his back. Patient is a 29 scheduled for appointment with gastroenterology on 01/14/2022. No plans on endoscopic evaluation. Will follow up as an outpatient. Again pain is consistent with musculoskeletal. Current Visit: Yes Status: Acute Code(s): R10.9 - UNSPECIFIED ABDOMINAL PAIN SNOMED Code(s): 50048572 (2) Atrial fibrillation Current Visit: No Status: Acute Code(s): I48.91 - UNSPECIFIED ATRIAL FIBRILLATION SNOMED Code(s): 48037637 (3) CHF (congestive heart failure) Current Visit: No Status: Acute Code(s): I50.9 - HEART FAILURE, UNSPECIFIED SNOMED Code(s): 57408032 (4) Shortness of breath Current Visit: No Status: Acute Code(s): R06.02 - SHORTNESS OF BREATH SNOMED Code(s): 351226307 Plan: 1. Continue symptomatic and supportive care 2. CT of abdomen and pelvis reviewed 3. Agree with MiraLAX may titrate to twice a day 4. Abdominal pain more consistent with musculoskeletal pain along the right left flank and rib cage 5. No further workup from gastroenterology at this time. Patient can follow-up with gastroenterology as scheduled as an outpatient. Thank you for this consultation, we will continue to follow. Dr. Bradley France I agree with the dictator's note, documented as a scribe by Ana Luisa Daniels.
[2022-01-02 17:13] LABS: Glucose,Whole Blood 209 mg/dL (75-99)
[2022-01-02] MEDS: ASPIRIN 81 MG PO SCH (20:20)
[2022-01-02] MEDS: HYDROcodone/APAP 5-325MG 1 EACH TAB PO PRN (20:20)
[2022-01-02] MEDS: ATORVASTATIN 10 MG TAB PO SCH (20:20)
[2022-01-02 21:48] LABS: Glucose,Whole Blood 175 mg/dL (75-99)
[2022-01-03] MEDS: guaiFENesin-DM 100-10MG/5ML 10 ML CUP PO SCH ×2 (05:24→10:54)
[2022-01-03 07:22] LABS: Glucose,Whole Blood 173 mg/dL (75-99)
[2022-01-03] MEDS: HYDROcodone/APAP 5-325MG 1 EACH TAB PO PRN (08:10)
[2022-01-03] MEDS: SYMBICORT 160-4.5 MCG INHALER INHALATION SCH (08:21)
[2022-01-03] MEDS: polyethylene glycoL 3350 17 GM POWD.PACK PO SCH (10:51)
[2022-01-03] MEDS: methylPREDNISolone SOD SUCCI 40 MG/ML 1 ML VIAL IV SCH (10:52)
[2022-01-03] MEDS: APIXABAN 2.5 MG TABLET PO SCH (10:53)
[2022-01-03] MEDS: FUROSEMIDE 40 MG TAB PO SCH (10:53)
[2022-01-03] MEDS: FAMOTIDINE 20 MG TAB PO SCH (10:53)
[2022-01-03] MEDS: DOCUSATE 100 MG CAP PO SCH (10:53)
[2022-01-03] MEDS: ISOSORBIDE MONONITRATE ER 60 MG TAB.ER.24H PO SCH (10:56)
[2022-01-03] MEDS: INSULIN ASPART (NovoLOG) 100 UNIT/ML VIAL SQ SCH ×2 (10:57→12:36)
[2022-01-03 12:08] LABS: Glucose,Whole Blood 128 mg/dL (75-99)
--- NOTE | 2022-01-03 12:38 | P.PN ---
Subjective Progress Note Date: 01/03/22 This is a pleasant 86-year-old male patient who has a history of coronary artery disease with previous stent placement, hypertension, hyperlipidemia, hypothyroidism, diabetes mellitus, chronic atrial fibrillation, obstructive sleep apnea status post UPPP and utilizing CPAP, postinflammatory pulmonary fibr osis, peripheral vascular disease, abdominal aortic aneurysm, descending thoracic aortic aneurysm with previous stent placement at [facility]. He follows with Dr. Rangel in the office for chronic bronchitis and the postinflammatory pulmonary fibrosis. He is also been having ongoing issues with abdominal discomfort for quite some time now with previous workup being negative. He presented to the emergency room yesterday with complaints of increasing shortness of breath cough congestion, chest tightness and yellow phlegm. No nausea vomiting or diarrhea. Some mild abdominal discomfort. Chest x-ray reveals mild interstitial edema with superimposed diffuse hazy opacity. No significant pleural effusion. No pneumothorax. Evidence of left-sided pacemaker. 6 revealed a WBC 6.1. Hemoglobin 9.7. Platelets 137. Sodium 145. Potassium 3.6. Bicarb 35. Creatinine 1.11. Glucose 102. ProBNP 4720. Troponin 0.023. He's been initiated on Lasix 40 mg IV every 12 hours along with Symbicort, DuoNeb inhalations, anticoagulated with Eliquis. He is seen today in consultation in the emergency department. He is currently sitting up in the stretcher. Awake and alert in no acute distress. Maintaining O2 saturations in the 90s on room air. He is afebrile. Hemodynamically stable. The patient is seen today 01/02/2022 in follow-up on the regular medical floor. He is currently sitting up in a chair at the bedside. Awake and alert in no acute distress. He is maintaining O2 saturations in the 90s on room air. He's afebrile. Hemodynamically stable. His breathing is better today compared to yesterday. His lungs sound better. He is still complaining of abdominal discomfort. No nausea, vomiting or diarrhea. Appetite is good. Sodium 141. Potassium 3.6. Bicarb 37. Creatinine 1.14. [place]varado virus by PCR was not detected. He is continued on Symbicort, DuoNeb inhalations, IV Solu-Medrol. Remains on oral diuretics. Anticoagulated with Eliquis. The patient is seen today 01/03/2022 in follow-up on the regular medical floor. He is awake and alert in no acute distress. Sitting up in a chair at the bedside. Continues with a good appetite. He was started on MiraLAX for CAT scan findings of fecal retention. Otherwise no significant abnormalities on the CAT scan. He denies any worsening shortness of breath, cough or congestion. No worsening abdominal discomfort. Continue on Symbicort, DuoNeb inhalations, IV Solu-Medrol. Anticoagulated with Eliquis. He is maintaining good O2 saturations in the 90s on room air. He's been afebrile. Hemodynamically sta ble. Objective - Vital Signs Vital signs: Vital Signs Temp 97.6 F 01/03/22 07:48 Pulse 93 01/03/22 07:48 Resp 18 01/03/22 07:48 BP 153/79 01/03/22 07:48 Pulse Ox 94 L 01/03/22 08:23 Intake & Output 01/02/22 01/03/22 01/03/22 18:59 06:59 18:59 Intake Total 360 340 Balance 360 340 Weight 97.3 kg Intake: Oral 360 340 Other: # Voids 2 1 - Exam GENERAL EXAM: Alert, pleasant 86-year-old male patient, on room air, fairly comfortable in no apparent distress. HEAD: Normocephalic. EYES: Normal reaction of pupils, equal size. NOSE: Clear with pink turbinates. THROAT: No erythema or exudates. NECK: No masses, no JVD. CHEST: No chest wall deformity. LUNGS: Equal air entry with crackles in the bilateral bases. CVS: S1 and S2 normal with no audible murmur, regular paced rhythm. ABDOMEN: No hepatosplenomegaly, normal bowel sounds, no guarding or rigidity. SPINE: No scoliosis or deformity SKIN: No rashes CENTRAL NERVOUS SYSTEM: No focal deficits, tone is normal in all 4 extremities. EXTREMITIES: There is 1+ peripheral edema. No clubbing, no cyanosis. Peripheral pulses are intact. - Labs CBC & Chem 7: 12/31/21 13:22 01/02/22 06:59 Labs: Abnormal Lab Results - Last 24 Hours (Table) 01/02/22 01/02/22 01/03/22 Range/Units 16:59 21:47 07:20 POC Glucose (mg/dL) 209 H 175 H 173 H (75-99) mg/dL 01/03/22 Range/Units 12:05 POC Glucose (mg/dL) 128 H (75-99) mg/dL Assessment and Plan Assessment: 1 Acute exacerbation of chronic systolic congestive heart failure with mildly impaired left ventricular systolic function ejection fraction 45-50% possible diastolic component. 2 Abdominal discomfort, CT scan of the abdomen revealed significant fecal loading of the colon suggestive of constipation. No definite acute abnormality seen in the abdomen and pelvis. 3 History of coronary artery disease with previous stent placement 4 Chronic atrial fibrillation anticoagulated with Eliquis, status post permanent pacemaker implantation 5 Hypertension 6 Hyperlipidemia 7 Peripheral vascular disease with previous stenting of the iliac arteries 8 History of thoracic and abdominal aortic aneurysm, status post aortic stenting at the [facility] 9 Obstructive sleep apnea with previous UPPP, AHI of 128, on CPAP 10 Carotid artery disease status post right carotid endarterectomy 11 Former smoker 12 History of chronic bronchitis 13 History of postinflammatory pulmonary fibrosis 14 Obesity 15 Hypothyroidism Plan: The patient was seen and evaluated Stable and on room air Continue diuretics Continue Symbicort, DuoNeb inhalations, prednisone Cleared for discharge from the pulmonary standpoint Follow-up with Dr. Rangel in 1-2 weeks' I, the cosigning physician, performed a history & physical examination of the patient. Lungs sounds with crackles in the posterior bases, end expiratory wheeze, diminished. Maintaining good O2 saturations in the 90s on room air. I discussed the assessment and plan of care with my nurse practitioner, Chanell Soriano. I attest to the above note as dictated by her. I have personally seen and examined the patient, performed the documentation and the assessment and plan as written. Number of minutes spent on the visit: 10.
--- NOTE | 2022-01-03 13:07 | P.PN ---
Subjective Progress Note Date: 01/03/22 Principal diagnosis: Abdominal/flank pain 86-year-old male who presented to the emergency room with shortness of breath found to be in pulmonary edema, CHF. He also had complaints of abdominal pain which he states has been ongoing for the last 6-7 months duration. Most of the pain is in the right and left flank area and rib cage. He does have a history of back surgery which was done at the [facility]. Most of the pain and tenderness to palpation along the ribs and flank likely musculoskeletal. Bowel movements have been normal. He denies any abdominal pain currently. States he did sleep better last night. States breathing has improved. No chest pain. Objective - Vital Signs Vital signs: Vital Signs Temp 97.6 F 01/03/22 07:48 Pulse 93 01/03/22 07:48 Resp 18 01/03/22 07:48 BP 153/79 01/03/22 07:48 Pulse Ox 94 L 01/03/22 08:23 Intake & Output 01/02/22 01/03/22 01/03/22 18:59 06:59 18:59 Intake Total 360 340 Balance 360 340 Weight 97.3 kg Intake: Oral 360 340 Other: # Voids 2 1 - Exam General appearance: The patient is alert, oriented, appears in no acute distress. Obese. HET: Head is normocephalic and atraumatic. Conjunctiva pink. Sclera anicteric. Neck: Supple without lymphadenopathy. Abdomen: Soft, nontender, nondistended with bowel sounds. No guarding or rigidity. Extremities: Normal skin color and turgor. No pedal edema Skin: No rashes, no jaundice Neurological: No focal deficits. Alert and oriented -3. - Labs CBC & Chem 7: 12/31/21 13:22 01/02/22 06:59 Labs: Abnormal Lab Results - Last 24 Hours (Table) 01/02/22 01/02/22 01/02/22 Range/Units 11:42 16:59 21:47 POC Glucose (mg/dL) 145 H 209 H 175 H (75-99) mg/dL 01/03/22 Range/Units 07:20 POC Glucose (mg/dL) 173 H (75-99) mg/dL Assessment and Plan (1) Abdominal pain Narrative/Plan: 86-year-old male with complaints of abdominal pain. Patient states he's had pain on bilateral sides of his abdomen and ribs for the last 7 months duration. Has seen an appointment outpatient set up with Dr. France on January 14. He denies any previous EGD or colonoscopy. He states the pain is mostly when he is lying down and sleeping. He he denies any nausea or vomiting. He does state sometimes he'll have some right lower abdominal discomfort after eating. He had a CT of the abdomen and pelvis that shows stool burden. Otherwise no significant findings. Patient does have a history of back surgery that was done at the [facility]. It appears that this pain is more musculoskeletal along the rib line and flank wrapping around to his back. Patient is a 29 scheduled for appointment with gastroenterology on 01/14/2022. No plans on endoscopic evaluation. Will follow up as an outpatient. Again pain is consistent with musculoskeletal. Current Visit: Yes Status: Acute Code(s): R10.9 - UNSPECIFIED ABDOMINAL PAIN SNOMED Code(s): 59318520 (2) Atrial fibrillation Current Visit: No Status: Acute Code(s): I48.91 - UNSPECIFIED ATRIAL FIBRILLATION SNOMED Code(s): 33581942 (3) CHF (congestive heart failure) Current Visit: No Status: Acute Code(s): I50.9 - HEART FAILURE, UNSPECIFIED SNOMED Code(s): 64011394 (4) Shortness of breath Current Visit: No Status: Acute Code(s): R06.02 - SHORTNESS OF BREATH SNOMED Code(s): 340948995 Plan: 1. Continue symptomatic and supportive care 2. CT of abdomen and pelvis reviewed 3. Agree with MiraLAX may titrate to twice a day 4. Abdominal pain more consistent with musculoskeletal pain along the right left flank and rib cage 5. No further workup from gastroenterology at this time. Patient can follow-up with gastroenterology as scheduled as an outpatient. Thank you for this consultation, we will sign off at this time. Dr. Bradley France I agree with the dictator's note, documented as a scribe by Ana Luisa Daniels.
[2022-01-03 13:56] VITALS: PULSE 59
[2022-01-03 13:57] VITALS: BP 127/62; RESP 17; TEMP 98.1
--- NOTE | 2022-01-03 22:27 | P.DS ---
Providers Date of admission: 01/03/22 07:57 Attending physician: Jarrett Washington MD Consults: 12/31/21 18:33 Consult Physician Routine Consulting Provider: [facility] Consult Reason/Comments: Acute pulmonary edema Do you want consulting provider notified?: Yes 01/02/22 08:17 Consult Physician Routine Consulting Provider: Jesusita France Consult Reason/Comments: Abdominal pain Do you want consulting provider notified?: Yes Primary care physician: Galileo [facility] Course: Diagnoses: Diagnoses: Acute on chronic systolic congestive heart failure, EF 45-50%. Improved Acute COPD exacerbation. Improved Paroxysmal atrial fibrillation on Eliquis bilateral rib cage pain and tenderness secondary to coughing There was suspicion of right lower quadrant abdominal pain. Most likely its m usculoskeletal pain Hypertension Hyperlipidemia chronic back pain Hypothyroidism History of severe obstructive sleep apnea on BiPAP at home History of coronary artery disease status post stenting History of peripheral vascular disease status post stenting into the aorta and the iliac arteries History of ascending aortic aneurysm 4.2 cm Status post pacemaker Obesity with BMI of 34.5 Hospital course This is a pleasant 86 years old male with past medical history of Atrial Fibrillation on Eliquis, Hyperlipidemia, Hypertension, hypothyroidism,, Severe JORDANA with an H of 128 seated with a BiPAP pressure of 17/13 cm of water, obesity, coronary artery disease with previous coronary intervention and stenting, ascending thoracic aortic aneurysm measuring 4.2 cm in size. Peripheral vascular disease with a stent within the aorta and stents also placed in the iliacs, Permanent Pacemaker Patient states that he came to the hospital because of 2 weeks of chest pain . Patient evaluated by log handling equipment operator and development educator and found to have systolic CHF exacerbation with ejection fraction 40-45% treated with IV Lasix switched oral Lasix upon resolution as well as COPD exacerbation treated with IV Solu- Medrol and switched to the distal taper upon discharge. GI service also evaluated for his abdominal pain but this pain for most likely musculoskeletal and no further workup is needed. On the date of discharge patient feels much better, he denies chest pain or dyspnea, no change in urine or bowel habits. Although he has some constipation related. No fever. Patient agrees to go home actually when I went this morning to his room he was already dressed up and sitting in the chair Patient was cleared for discharge by pulmonary, cardiology and GI service Problems and management plan were discussed with the patient and he verbalized understanding and acceptance Patient was found stable and can be discharged home however he needs follow-up as an outpatient. Patient was instructed to follow up with PCP Dr. Argueta within one week and patient agrees Also was instructed to follow up with Dr. Lopez log handling equipment operator and Dr. France GI in 1-2 weeks and he agrees to call and make his own appointments Physical exam Gen: patient is a AAOx3, no distress CVS: S1-S2, RRR, no murmur Lungs: B/L CTA, no wheezing Abdomen: soft, no distention, no tenderness, positive bowel sounds Extremity: no leg edema or induration Time spent more than 35 minutes Plan - Discharge Summary Discharge Rx Participant: No New Discharge Prescriptions: New guaiFENesin-DM 100-10MG/5ML [Robitussin DM] 10 ml PO Q6HR ml Furosemide [Lasix] 40 mg PO BID@0900,1600 30 Days #60 tab Docusate [Colace] 100 mg PO BID PRN 7 Days #14 cap PRN Reason: Constipation predniSONE 10 mg PO DIRECTED #40 tab Continue Levothyroxine Sodium [Synthroid] 50 mcg PO DAILY Simvastatin [Zocor] 20 mg PO HS Potassium Chloride [Klor-Con 20] 20 meq PO HS Isosorbide Mononitrate ER [Imdur] 60 mg PO DAILY Pantoprazole Sodium [Protonix] 40 mg PO DAILY #30 tablet. Apixaban [Eliquis] 2.5 mg PO BID #60 tab Aspirin 81 mg PO HS Glucosamine/Chondr Nguyen A Sod [Osteo Bi-Flex Caplet] 1 tab PO DAILY Loratadine [Claritin] 10 mg PO DAILY PRN PRN Reason: Allergy Symptoms Ipratropium-Albuterol Nebulize [Duoneb 0.5 mg-3 mg/3 ml Soln] 3 ml INHALATION RT-QID PRN PRN Reason: Shortness Of Breath Albuterol Nebulized [Ventolin Nebulized] 2.5 mg INHALATION RT-QID PRN PRN Reason: Shortness Of Breath Discontinued Furosemide [Lasix] 40 mg PO DAILY Ibuprofen [Motrin Ib] 400 mg PO Q8H PRN PRN Reason: Pain Discharge Medication List Levothyroxine Sodium [Synthroid] 50 mcg PO DAILY 08/30/14 [History] Potassium Chloride [Klor-Con 20] 20 meq PO HS 08/30/14 [History] Simvastatin [Zocor] 20 mg PO HS 08/30/14 [History] Isosorbide Mononitrate ER [Imdur] 60 mg PO DAILY 07/30/17 [History] Apixaban [Eliquis] 2.5 mg PO BID #60 tab 03/29/20 [Rx] Pantoprazole Sodium [Protonix] 40 mg PO DAILY #30 tablet. 03/29/20 [Rx] Aspirin 81 mg PO HS 10/11/20 [History] Glucosamine/Chondr Nguyen A Sod [Osteo Bi-Flex Caplet] 1 tab PO DAILY 10/11/20 [History] Loratadine [Claritin] 10 mg PO DAILY PRN 04/06/21 [History] Albuterol Nebulized [Ventolin Nebulized] 2.5 mg INHALATION RT-QID PRN 12/31/21 [History] Ipratropium-Albuterol Nebulize [Duoneb 0.5 mg-3 mg/3 ml Soln] 3 ml INHALATION RT-QID PRN 12/31/21 [History] Furosemide [Lasix] 40 mg PO BID@0900,1600 30 Days #60 tab 01/02/22 [Rx] Docusate [Colace] 100 mg PO BID PRN 7 Days #14 cap 01/03/22 [Rx] guaiFENesin-DM 100-10MG/5ML [Robitussin DM] 10 ml PO Q6HR ml 01/03/22 [Rx] predniSONE 10 mg PO DIRECTED #40 tab 01/03/22 [Rx] Follow up Appointment(s)/Referral(s): Galileo Rangel MD [Primary Care Provider] - 1-2 days Jesusita France MD [STAFF PHYSICIAN] - 1 Week Osito Lopez MD [STAFF PHYSICIAN] - 1 Week Patient Instructions/Handouts: Heart Failure (GEN), Pulmonary Edema (GEN) Activity/Diet/Wound Care/Special Instructions: Heart healthy diet Activity is restricted till you see your doctor Discharge Disposition: HOME WITH HOME HEALTH SERVICES
[2022-01-04] MEDS ORDERED: predniSONE 20 MG TAB PO SCH (09:00)
== END 2022-01-03 14:47 | disposition home health service (06) | DRG 291 ==
LOC: EC 13:09 → 3SCARD 18:40 → 6NMEDSUR 01-01 10:51 → OBSVTOIN 01-03 07:57
PROVIDERS: ADMIT Internal Medicine; ATTEND Internal Medicine
DX: I11.0 Hypertensive heart disease with heart failure (principal); I50.23 Acute on chronic systolic (congestive) heart failure; I48.19 Other persistent atrial fibrillation; J44.1 Chronic obstructive pulmonary disease with (acute) exacerbation; E03.9 Hypothyroidism, unspecified; E11.51 Type 2 diabetes mellitus with diabetic peripheral angiopathy without gangrene; E66.9 Obesity, unspecified; Z68.33 Body mass index [BMI] 33.0-33.9, adult; E78.00 Pure hypercholesterolemia, unspecified; Z20.822 Contact with and (suspected) exposure to COVID-19; G47.33 Obstructive sleep apnea (adult) (pediatric); G89.29 Other chronic pain; I25.10 Atherosclerotic heart disease of native coronary artery without angina pectoris; I25.2 Old myocardial infarction; J84.10 Pulmonary fibrosis, unspecified; K59.00 Constipation, unspecified; Z79.01 Long term (current) use of anticoagulants; Z79.82 Long term (current) use of aspirin; Z79.890 Hormone replacement therapy; Z79.899 Other long term (current) drug therapy; Z87.891 Personal history of nicotine dependence; Z95.0 Presence of cardiac pacemaker; Z95.5 Presence of coronary angioplasty implant and graft; Z95.820 Peripheral vascular angioplasty status with implants and grafts; I71.2 Thoracic aortic aneurysm, without rupture; M54.9 Dorsalgia, unspecified; R10.9 Unspecified abdominal pain
CPT/HCPCS: 36415; 71046; 74177; 80048; 80053; 81001; 83735; 83880; 84484; 85025; 85610; 85730; 87635; 93005; 94640; 94760; 99291

== ENCOUNTER 2022-02-05 08:17 | Day surgery (SDC) | payer MEDICARE ==
[2022-02-01 14:57] VITALS: BMI 33.2
[~2022-02-05 08:17] MED LIST: LACTATED RINGERS 1,000 ML IV SCH
[2022-02-05 09:01] VITALS: TEMP 98.1
[2022-02-05 09:22] LABS: Glucose,Whole Blood 86 mg/dL (75-99)
[2022-02-05] MEDS ORDERED: PROPOFOL 10 MG/ML 20 ML VIAL IV ONE (09:56)
[2022-02-05] MEDS ORDERED: LIDOCAINE 1% INJ 10MG/ML (20 ML MDV) ONE (09:56)
--- NOTE | 2022-02-05 10:24 | P.PCN ---
Date of Procedure: 02/05/22 Procedure(s) Performed: Brief history: Patient is a pleasant 86-year-old male scheduled for an elective upper endoscopy as well as colonoscopy as a part of evaluation of GERD and diffuse abdominal pain for the last [address] of abdomen and pelvis was unremarkable. Procedure performed: Esophagogastroduodenoscopy with biopsy Colonoscopy with biopsy Preoperative diagnosis: GERD and Chronic diffuse abdominal pain of 3 months duration Anesthesia: MAC Procedure: After informed consent was obtained from the patient was brought into the endoscopy unit and IV sedation was administered by anesthesia under continuous monitoring. Initially upper endoscopy was done. The Olympus GF 160 video endoscope was inserted inserted into the mouth and esophagus intubated without any difficulty and was gradually advanced into the stomach and duodenum and carefully examined. The bulb and second part of the duodenum appeared normal. The scope was then withdrawn into the stomach adequately insufflated with air and upon careful examination the antrum and body, diffuse gastritis and biopsie s were done from this area. The cardia and fundus appeared normal. The scope was then withdrawn into the esophagus. The GE junction was located at 40 cm to the incisors. It appeared regular with no erythema erosions or ulcerations. Rest of the esophagus appeared normal. Patient tolerated the procedure well. At this time the patient continued to remain sedation. Initial digital rectal examination was normal. Olympus CF 160 video colonoscope was then inserted into the rectum and gradually advanced to the cecum without any difficulty. Careful examination was performed as the scope was gradually being withdrawn. The prep was excellent. The cecum, ascending colon, a normal. In the transverse colon there was a 3 mm polyp that was removed by cold biopsy. Rest of the transverse colon, descending colon, sigmoid colon and rectum appeared normal. At her sigmoid diverticulosis seen. Retroflexion was performed in the rectum and no lesions were noted. Patient tolerated the procedure well. Impression: 1. Upper endoscopy revealed diffuse gastritis involving the antrum and body the stomach status post biopsy 2. Colonoscopy revealed a 3 mm transverse colon polyp serous was cold biopsy and scattered sigmoid diverticulosis Recommendations: Findings of this examination were discussed with the patient as well as his family. He was advised to follow with the biopsy result. He'll continue with a high-fiber diet and fiber supplements a regular basis.
[2022-02-05 10:32] VITALS: RESP 18
[2022-02-05 10:53] VITALS: BP 120/78; PULSE 71
[2022-02-05] MEDS ORDERED: traMADol 50 MG TAB PO STA (10:56)
[2022-02-05] MEDS ORDERED: traMADol 50 MG TAB ONE ×2 (10:58→10:59)
== END 2022-02-05 11:45 | disposition home or self-care (01) ==
LOC: ORWHC2ENDO 08:17
PROVIDERS: ATTEND Internal Medicine Gastroenterology
DX: K29.50 Unspecified chronic gastritis without bleeding (principal); D12.3 Benign neoplasm of transverse colon; K21.9 Gastro-esophageal reflux disease without esophagitis
CPT/HCPCS: 45380; 43239; 88305; J2001; J2704

== ENCOUNTER 2022-09-19 08:16 | Inpatient (IN) | payer MEDICARE ==
[2022-09-19] MEDS ORDERED: HYDROmorphone 0.5 MG/0.5 ML SYRINGE IVP STA (08:38)
[2022-09-19] MEDS ORDERED: ONDANSETRON 4 MG/2 ML VIAL IVP STA (08:38)
[2022-09-19] MEDS ORDERED: SODIUM CHLORIDE 0.9% 500 ML 500 ML IV STA (08:38)
--- NOTE | 2022-09-19 08:45 | ED ---
Abdominal Pain HPI - General Chief Complaint: Abdominal Pain Stated Complaint: Abd & Back Pain Time Seen by Provider: 09/19/22 08:21 Source: patient, RN notes reviewed Limitations: language barrier (limited; Son in room to help translate) - History of Present Illness Initial Comments: Patient is a 87 year old male presenting to the ER with a chief complaint of abdominal pain, back and chest Patient reports this is a chronic issue but within the last 24 hours the pain has worsened. In the past, he has seen Dr. Borja and been worked up for this abdominal pain. Today, he describes the pain as a sharp epigastric 10/10 pain with radiation to his back. He states it hurts to have a shirt touch his skin and worse with eating. He denies vomiting, nausea, diarrhea, dysuria, or increase in urinary frequency. Denies black tarry stools. Patient denies taking any pain medication today. Pt has a hx of cholecystectomy, cardic stents and thoracic abdominal aortic aneurysm. - Related Data Home Medications Medication Instructions Recorded Confirmed Levothyroxine Sodium [Synthroid] 50 mcg PO DAILY 08/30/14 09/19/22 Potassium Chloride [Klor-Con 20] 20 meq PO PC-SUPPER 08/30/14 09/19/22 Simvastatin [Zocor] 20 mg PO PC-SUPPER 08/30/14 09/19/22 Isosorbide Mononitrate ER [Imdur] 60 mg PO DAILY 07/30/17 09/19/22 Glucosamine/Chondr Nguyen A Sod [Osteo 1 tab PO DAILY 10/11/20 09/19/22 Bi-Flex Caplet] Loratadine [Claritin] 10 mg PO DAILY PRN 04/06/21 09/19/22 Albuterol Nebulized [Ventolin 2.5 mg INHALATION RT-QID 12/31/21 09/19/22 Nebulized] Aspirin EC [Ecotrin Low Dose] 81 mg PO PC-SUPPER 09/19/22 09/19/22 Cyclobenzaprine [Flexeril] 10 mg PO BID PRN 09/19/22 09/19/22 Furosemide [Lasix] 40 mg PO DAILY 09/19/22 09/19/22 Ibuprofen [Motrin Ib] 400 mg PO Q8H PRN 09/19/22 09/19/22 oxyCODONE-APAP 7.5-325MG [Percocet 1 tab PO Q6H PRN 09/19/22 09/19/22 7.5-325 mg] Previous Rx's Medication Instructions Recorded Apixaban [Eliquis] 2.5 mg PO BID #60 tab 03/29/20 Pantoprazole Sodium [Protonix] 40 mg PO DAILY #30 tablet. 03/29/20 Allergies Allergy/AdvReac Type Severity Reaction Status Date / Time cefazolin sodium [From Ancef] Allergy Anaphylaxis Verified 09/19/22 08:21 hylan G-F 20 [From SIMI] Allergy Anaphylaxis Verified 09/19/22 08:21 Review of Systems ROS Statement: Those systems with pertinent positive or pertinent negative responses have been documented in the HPI. ROS Other: All systems not noted in ROS Statement are negative. Past Medical History Past Medical History: Atrial Fibrillation, Coronary Artery Disease (CAD), Heart Failure, Hyperlipidemia, Hypertension, Respiratory Disorder, Thyroid Disorder, Vascular Disorder Additional Past Medical History / Comment(s): Severe JORDANA with an H of 128 seated with a BiPAP pressure of 17/13 cm of water uses 2 L of oxygen at night with bipap, obesity, coronary artery disease with previous coronary intervention and stenting, tonic atrial fibrillation,hypothyroidism, ascending thoracic aortic aneurysm-measuring 4.2 cm in size,steroids January 2022 History of Any Multi-Drug Resistant Organisms: None Reported Past Surgical History: Cholecystectomy, Heart Catheterization With Stent, Joint Replacement Additional Past Surgical History / Comment(s): UPPP for obstructive sleep apnea, abdominal aortic aneurysm repair, a stent within the aorta and stents also placed in the iliacs, cataracts, right carotid endarterectomy, cholecystectomy,sebastian knee replacements Past Anesthesia/Blood Transfusion Reactions: No Reported Reaction Date of Last Stent Placement:: 1995, 2010X2 Type of Cardiac Device: Permanent Pacemaker Device Placement Date:: JUL 2017 Past Psychological History: No Psychological Hx Reported Smoking Status: Former smoker Past Alcohol Use History: None Reported Past Drug Use History: None Reported - Past Family History Mother Family Medical History: No Reported History General Exam Limitations: no limitations General appearance: alert, in no apparent distress Respiratory exam: Present: normal lung sounds bilaterally. Absent: respiratory distress, wheezes, rales, rhonchi, stridor Cardiovascular Exam: Present: regular rate, normal rhythm, normal heart sounds. Absent: systolic murmur, diastolic murmur, rubs, gallop, clicks GI/Abdominal exam: Present: soft, tenderness (diffuse ), guarding, normal bowel sounds Back exam: Present: normal inspection Neurological exam: Present: alert, oriented X3, CN II-XII intact Psychiatric exam: Present: normal affect, normal mood Skin exam: Present: warm, dry, intact, normal color. Absent: rash Course Vital Signs 09/19/22 08:19 Temperature 97.5 F L Pulse Rate 60 Respiratory 20 Rate Blood Pressure 147/74 O2 Sat by Pulse 96 Oximetry Medical Decision Making - Medical Decision Making Patient workup including labs, CT labs reveal mild elevated troponin concern for anginal equivalent, unstable angina. Patient admitted for cardiac rule out CT does show some erosion thoracic spine unclear this is infectious versus chronic changes. Patient will be further workup and inpatient aspect. - Lab Data Result diagrams: 09/19/22 08:59 09/19/22 08:59 Lab Results 09/19/22 09/19/22 09/19/22 Range/Units 08:59 08:59 08:59 WBC 6.2 (3.8-10.6) k/uL RBC 4.37 (4.30-5.90) m/uL Hgb 11.4 L (13.0-17.5) gm/dL Hct 36.4 L (39.0-53.0) % MCV 83.2 (80.0-100.0) fL MCH 26.1 (25.0-35.0) pg MCHC 31.4 (31.0-37.0) g/dL RDW 16.9 H (11.5-15.5) % Plt Count 150 (150-450) k/uL MPV 9.3 Neutrophils % 70 % Lymphocytes % 15 % Monocytes % 7 % Eosinophils % 5 % Basophils % 1 % Neutrophils # 4.3 (1.3-7.7) k/uL Lymphocytes # 1.0 (1.0-4.8) k/uL Monocytes # 0.4 (0-1.0) k/uL Eosinophils # 0.3 (0-0.7) k/uL Basophils # 0.1 (0-0.2) k/uL Hypochromasia Marked Anisocytosis Slight Sodium 141 (137-145) mmol/L Potassium 3.4 L (3.5-5.1) mmol/L Chloride 103 (98-107) mmol/L Carbon Dioxide 32 H (22-30) mmol/L Anion Gap 6 mmol/L BUN 23 H (9-20) mg/dL Creatinine 1.07 (0.66-1.25) mg/dL Est GFR (CKD-EPI)AfAm 72 (>60 ml/min/1.73 sqM) Est GFR (CKD-EPI)NonAf 62 (>60 ml/min/1.73 sqM) Glucose 103 H (74-99) mg/dL Plasma Lactic Acid Corwin 0.9 (0.7-2.0) mmol/L Calcium 9.1 (8.4-10.2) mg/dL Total Bilirubin 0.8 (0.2-1.3) mg/dL AST 26 (17-59) U/L ALT 14 (4-49) U/L Alkaline Phosphatase 124 (38-126) U/L Troponin I (0.000-0.034) ng/mL Total Protein 7.7 (6.3-8.2) g/dL Albumin 4.3 (3.5-5.0) g/dL Lipase 109 (23-300) U/L 09/19/22 Range/Units 08:59 WBC (3.8-10.6) k/uL RBC (4.30-5.90) m/uL Hgb (13.0-17.5) gm/dL Hct (39.0-53.0) % MCV (80.0-100.0) fL MCH (25.0-35.0) pg MCHC (31.0-37.0) g/dL RDW (11.5-15.5) % Plt Count (150-450) k/uL MPV Neutrophils % % Lymphocytes % % Monocytes % % Eosinophils % % Basophils % % Neutrophils # (1.3-7.7) k/uL Lymphocytes # (1.0-4.8) k/uL Monocytes # (0-1.0) k/uL Eosinophils # (0-0.7) k/uL Basophils # (0-0.2) k/uL Hypochromasia Anisocytosis Sodium (137-145) mmol/L Potassium (3.5-5.1) mmol/L Chloride (98-107) mmol/L Carbon Dioxide (22-30) mmol/L Anion Gap mmol/L BUN (9-20) mg/dL Creatinine (0.66-1.25) mg/dL Est GFR (CKD-EPI)AfAm (>60 ml/min/1.73 sqM) Est GFR (CKD-EPI)NonAf (>60 ml/min/1.73 sqM) Glucose (74-99) mg/dL Plasma Lactic Acid Corwin (0.7-2.0) mmol/L Calcium (8.4-10.2) mg/dL Total Bilirubin (0.2-1.3) mg/dL AST (17-59) U/L ALT (4-49) U/L Alkaline Phosphatase (38-126) U/L Troponin I 0.045 H* (0.000-0.034) ng/mL Total Protein (6.3-8.2) g/dL Albumin (3.5-5.0) g/dL Lipase (23-300) U/L - EKG Data -: EKG Interpreted by Me EKG Comments: EKG performed at 9:00 ventricular paced rhythm at a rate of 60 QRS to 12 QT/QTC 495/495 Disposition Clinical Impression: Unstable angina, Anginal equivalent, Back pain Disposition: ADMITTED IP TO THIS [facility] Referrals: Galileo Rangel MD [Primary Care Provider] - 1-2 days Time of Disposition: 11:20
[2022-09-19 09:36] LABS: Albumin 4.3 g/dL (3.5-5.0); Anisocytosis Slight; Basophils # (A) 0.1 k/uL (0-0.2); Basophils % (A) 1 %; Calcium 9.1 mg/dL (8.4-10.2); Eosinophils # (A) 0.3 k/uL (0-0.7); Eosinophils % (A) 5 %; HCT 36.4 % (39.0-53.0); HGB 11.4 gm/dL (13.0-17.5); Hypochromasia Marked; Lymphocytes % (A) 15 %; MCH 26.1 pg (25.0-35.0); MCHC 31.4 g/dL (31.0-37.0); MCV 83.2 fL (80.0-100.0); Mean Platelet Volume 9.3; Monocytes # (A) 0.4 k/uL (0-1.0); Monocytes % (A) 7 %; Neutrophils # (A) 4.3 k/uL (1.3-7.7); Neutrophils % (A) 70 %; Platelet Count 150 k/uL (150-450); Potassium 3.4 mmol/L (3.5-5.1); RBC 4.37 m/uL (4.30-5.90); RDW 16.9 % (11.5-15.5); Total Bilirubin 0.8 mg/dL (0.2-1.3); Total Protein 7.7 g/dL (6.3-8.2); WBC 6.2 k/uL (3.8-10.6)
--- NOTE | 2022-09-19 11:04 | CT ---
EXAMINATION TYPE: CT abdomen pelvis w con CT DLP: 1787.9 mGycm, Automated exposure control for dose reduction was used. DATE OF EXAM: 09/19/2022 10:47 AM COMPARISON: CT abdomen pelvis most recent from 01/02/2022 . CLINICAL INDICATION:Male, 87 years old with history of severe abdominal pain, hx AAA; abdomen and juan k pain TECHNIQUE: Standard CT of the abdomen and pelvis following the administration of 100 cc of Isovue 3 00 IV contrast material. Coronal and sagittal reformats were performed. FINDINGS: LOWER CHEST: Moderate cardiomegaly redemonstrated. Partial visualization of cardiac pacemaker leads. Coronary artery calcifications and/or stents. Trace left pleural effusion with associated atelectasis . Calcifications along the left hemidiaphragm. ABDOMEN LIVER: Subtle nodularity to the liver with widened fissures. No distinct hepatic lesion. GALLBLADDER AND BILE DUCTS: Postcholecystectomy. Prominence of the extrahepatic bile duct which is no t unexpected considering cholecystectomy. No intrahepatic biliary duct dilatation. PANCREAS: Fatty infiltration of the pancreas. SPLEEN: Punctate calcifications within the spleen likely sequela of prior granulomatous disease. ADRENAL GLANDS: Unremarkable. KIDNEYS AND URETERS: No evidence of hydronephrosis or renal calculus. Mild bilateral renal atrophy wi th cortical thinning likely related to prior injury. Additional bilateral subcentimeter hypodense foc i which are too small to characterize but likely represent cysts. The kidneys enhance symmetrically. PELVIS BLADDER: Unremarkable REPRODUCTIVE: Coarse calcifications of the prostate gland are identified. ABDOMEN & PELVIS STOMACH AND BOWEL: Stomach and duodenum are unremarkable . No focal wall thickening. No surrounding i nflammatory changes. Moderate amount stool is present throughout the colon. No evidence of bowel obst ruction. PERITONEUM: No evidence of pneumoperitoneum or free fluid. VASCULATURE: Previous repair of abdominal aortic aneurysm with aortobiiliac bypass graft which is pat ent. The aneurysm sac measures up to 4.7 cm which is slightly increased in prior examination. No conv incing evidence of endovascular leak by this CT scan. Atherosclerotic calcification of the splenic ve in and SMA and bilateral renal arteries. Retroaortic left renal vein. MUSCULOSKELETAL: Increased osseous erosive changes of the inferior endplate of T7 and superior endpla te of T8 when compared to prior examination. No paraspinal edema. Severe degenerative changes of the visualized spine. Grade 1 anterolisthesis of L4 on L5 without evidence of pars defects. LYMPH NODES: No gross evidence for lymphadenopathy. SOFT TISSUE/ABDOMINAL WALL: Small fat filled umbilical hernia. Postsurgical changes within the bilate ral inguinal regions. IMPRESSION: 1. No acute intra-abdominal/pelvic process. 2. Increased osseous erosive changes of the inferior endplate of T7 and superior endplate of T8 from prior examination. There is no paraspinal edema. Findings may relate to worsening degenerative disc d isease however discitis/osteomyelitis is not excluded. Correlate with point tenderness. 3. Postsurgical changes from abdominal aortic aneurysm repair with aortobiiliac bypass graft. There i s slight increase in size of the excluded aneurysm sac measuring up to 4.7 cm without convincing evid ence for endovascular leak on this CT exam. Continued follow-up is recommended. 4. Nodular contour to the liver suggestive of cirrhosis. Correlation with liver function tests is rec ommended. 5. Trace left pleural effusion.
[2022-09-19] MEDS ORDERED: HEPARIN SODIUM 1,000 UN/ML (10ML VL) IV PRN (11:44)
[2022-09-19] MEDS ORDERED: HEPARIN SODIUM 1,000 UN/ML (10ML VL) IV ONE (11:44)
[2022-09-19] MEDS ORDERED: NITROGLYCERIN SL TABS 0.4 MG TAB SUBLINGUAL PRN (11:44)
[2022-09-19] MEDS ORDERED: ASPIRIN 81 MG PO STA (11:44)
[2022-09-19] MEDS: HEPARIN SOD,PORK IN 0.45% NACL 25,000 UNIT in 0.45% NACL 1 250ML.BAG IV SCH (12:47)
[2022-09-19] MEDS ORDERED: LORATADINE 10 MG TAB PO PRN (13:30)
[2022-09-19] MEDS ORDERED: CYCLOBENZAPRINE 10 MG TAB PO PRN (13:30)
[2022-09-19] MEDS: oxyCODONE-APAP 7.5-325MG 1 EACH TAB PO PRN ×2 (13:50→21:26)
[2022-09-19] MEDS: ALBUTEROL NEBULIZED 2.5 MG/3 ML INHALATION SCH ×2 (17:15→20:51)
[2022-09-19] MEDS: POTASSIUM CHLORIDE ER 20 MEQ TAB.ER PO SCH (17:19)
[2022-09-19] MEDS: ASPIRIN 81 MG PO SCH (17:19)
[2022-09-19] MEDS: ATORVASTATIN 10 MG TAB PO SCH (17:19)
[2022-09-19] MEDS: HYDROmorphone 0.5 MG/0.5 ML SYRINGE IVP PRN (19:05)
[2022-09-20] MEDS: PANTOPRAZOLE 40 MG TABLET PO SCH (06:26)
[2022-09-20] MEDS: LEVOTHYROXINE 50 MCG TAB PO SCH (06:26)
[2022-09-20] MEDS: ALBUTEROL NEBULIZED 2.5 MG/3 ML INHALATION SCH ×4 (07:27→19:28)
[2022-09-20 08:22] LABS: Anisocytosis Slight; Basophils # (A) 0.1 k/uL (0-0.2); Basophils % (A) 1 %; Eosinophils # (A) 0.3 k/uL (0-0.7); Eosinophils % (A) 5 %; HCT 35.4 % (39.0-53.0); HGB 10.9 gm/dL (13.0-17.5); Hypochromasia Marked; Lymphocytes # (A) 1.4 k/uL (1.0-4.8); Lymphocytes % (A) 22 %; MCH 26.2 pg (25.0-35.0); MCHC 30.7 g/dL (31.0-37.0); MCV 85.4 fL (80.0-100.0); Mean Platelet Volume 9.7; Monocytes # (A) 0.4 k/uL (0-1.0); Monocytes % (A) 6 %; Neutrophils # (A) 4.1 k/uL (1.3-7.7); Neutrophils % (A) 64 %; Platelet Count 136 k/uL (150-450); RBC 4.15 m/uL (4.30-5.90); RDW 16.9 % (11.5-15.5); WBC 6.3 k/uL (3.8-10.6)
[2022-09-20 08:35] LABS: African American GFR (CKD) 61 (>60 ml/min/1.73 sqM); Anion Gap 7 mmol/L; Blood Urea Nitrogen 21 mg/dL (9-20); Calcium 8.7 mg/dL (8.4-10.2); Carbon Dioxide 30 mmol/L (22-30); Chloride 103 mmol/L (98-107); Glucose 100 mg/dL (74-99); Non-African American GFR(CKD) 53 (>60 ml/min/1.73 sqM); Potassium 3.9 mmol/L (3.5-5.1); Sodium 140 mmol/L (137-145)
--- NOTE | 2022-09-20 08:36 | HP ---
HISTORY AND PHYSICAL CHIEF COMPLAINT: Abdomen and chest pain and multiple complaints. HISTORY OF PRESENT ILLNESS: This is an 87-year-old gentleman with a past medical history of multiple medical problems, including CAD, CHF, hypertension, hyperlipidemia, being followed by Dr. Rangel in the outpatient setting complaining of multiple symptomatology. The patient had chest pain felt in the left lateral part of the chest. The patient also had back pain. The patient also had some abdominal discomfort and cramping also. The patient came to [facility]. Troponin was slightly elevated. Otherwise, CT abdomen which was done in the ER and I personally reviewed showed no acute abnormality. Multiple findings are noted. There is no history of any fever, rigors, or chills at this time. PAST MEDICAL HISTORY: Reviewed, include coronary artery disease, CHF. The rest of the history and old chart is also reviewed. HOME MEDICATIONS: Reviewed include oxycodone. Doses and rest of medications reviewed. ALLERGIES: Cefazolin. FAMILY HISTORY: No history of heart disease or strokes in the family. SOCIAL HISTORY: Previous history of smoking. REVIEW OF SYSTEMS: A 14-point review of systems is negative except as mentioned earlier. PHYSICAL EXAMINATION: VITAL SIGNS: Pulse is 60, blood pressure 140/70, respirations 20. HEENT: Conjunctivae normal. NECK: No jugular venous distention. CARDIOVASCULAR: S1, S2. RESPIRATIONS: Clear to auscultation. ABDOMEN: Soft, mild diffuse distention, mild diffuse discomfort on palpation. No guarding. No rigidity. Bowel sounds present. LEGS: No edema. NERVOUS SYSTEM: No focal deficits. SKIN: No ulcer, rash, bleeding. JOINTS: No active deforming arthropathy. LABS: Reviewed. ASSESSMENT: 1. Chest pain, possible acute non ST segment elevation myocardial infarction with troponin 0.045. 2. Abdominal pain for evaluation. 3. Back pain and degenerative joint disease. 4. Atrial fibrillation. 5. History of congestive heart failure. 6. Multiple medical issues. RECOMMENDATIONS AND DISCUSSION: This is an 87-year-old gentleman, who presented with multiple medical issues. At this time, I recommend to continue current management and symptomatic treatment. Consult Cardiology. Resume the home medications. We will continue with protocol. Symptomatic treatment with abdominal pain. We will resume the home medications once they are confirmed. Prognosis guarded because of multiple complex medical issues. Further recommendations to follow. MMODL / IJN: [id number] /
[2022-09-20] MEDS ORDERED: NON FORMULARY DRUG (Glucosamine/Chondr Su A Sod [Osteo Bi-Flex Caplet] 1 EACH Tablet) PO SCH (09:00)
[2022-09-20] MEDS ORDERED: ASPIRIN 325 MG TAB PO SCH (09:00)
[2022-09-20] MEDS: oxyCODONE-APAP 7.5-325MG 1 EACH TAB PO PRN ×2 (10:11→18:23)
--- NOTE | 2022-09-20 10:11 | P.CNOR ---
History of Present Illness - [facility] Consult date: 09/20/22 History of present illness: History of Presenting Illness Patient is a pleasant 87-year-old male who presented to the ER with abdominal pain. Our services were consulted for a report of chronic back pain. Patient reports chronic back pain that seemed to have worsened over the past day. Today he states that his pain has improved. He has complaint of cramping in the left lower back. Patient denies any numbness or tingling to bilateral upper and lower extremities. He denies any weakness or recent falls. Patient does have a history of bilateral knee replacement. Denies any other orthopedic procedures. Patient denies any fever/chills, nausea/vomiting, or chest pain. CT scan of Abdomen/Pelvis results indicate increased osseous erosive changes of the inferior endplate of T7 and superior endplate of T8 from prior exam. There is no paraspinal edema. Findings may relate to worsening degenerative disc disease however discitis/osteomyelitis is not excluded. Correlate with point tenderness. Review of Systems Pertinent positives and negatives as discussed in HPI, a complete review of systems was performed and all other systems are negative. Physical Examination General: The patient is awake and alert, in no acute distress Skin: Skin is warm and dry with no obvious rashes or lesions. Hairy patches absent, no dorsal skin dimples, no cafe au lait spots, and no surgical incisions. Eye: Pupils are equal, round and reactive to light, extra-ocular movements are intact; there is normal conjunctiva bilaterally. Neck: The neck is supple, there is no tenderness and ROM intact. Cardiovascular: There is a regular rate and rhythm. No murmur, rub or gallop is appreciated. Respiratory: Lungs are clear to auscultation, respirations are non-labored, breath sounds are equal. Gastrointestinal: Soft, non-distended, non-tender abdomen. Back: There is no tenderness to palpation in the midline, paralumbar, parathoracic or buttocks region. There is no obvious deformity. Musculoskeletal: FROM Shoulder abduction 5/5, elbow flexors 5/5, wrist dorsiflexors 5/5. finger abductor 5/5, criminal justice [employer] chair 5/5, hip flexor 5/5, knee flexor 5/5, ankle dorsiflexor 5/5, ankle plantarflexion 5/5 and extensor hallucis 5/5. Neurological: CN 2-12 intact. There are no obvious motor or sensory deficits. Movement and coordination equal and intact. Sensory exam to light touch intact C5-T1 and intact from L2-S1. Reflexes 2/4 in bilateral upper and lower extremities. Negative Hoffmans, babinski, and clonus signs. Psychiatric: Cooperative, appropriate mood & affect, normal judgment. Assessment and Plan No surgical intervention needed at this time. Continue pain management Recommend muscle relaxer as needed Follow up in office in as needed We are signing off at this time from orthopedic standpoint. Patient may follow up in office as needed for back pain. If you have any further questions or concerns, please feel free to reach out to our services. Thank you for consult. I reviewed and discussed this case with my attending Dr. Baker, whom has reviewed this chart and films and is in agreement with assessment and plan of care as outlined above. I have personally seen and examined the patient, performed the documentation and the assessment and plan as written. Number of minutes spent on the visit: 20m. Past Medical History Past Medical History: Atrial Fibrillation, Coronary Artery Disease (CAD), Heart Failure, Hyperlipidemia, Hypertension, Respiratory Disorder, Thyroid Disorder, Vascular Disorder Additional Past Medical History / Comment(s): Severe JORDANA with an H of 128 seated with a BiPAP pressure of 17/13 cm of water uses 2 L of oxygen at night with bipap, obesity, coronary artery disease with previous coronary intervention and stenting, tonic atrial fibrillation,hypothyroidism, ascending thoracic aortic aneurysm-measuring 4.2 cm in size,steroids January 2022 History of Any Multi-Drug Resistant Organisms: None Reported Past Surgical History: Cholecystectomy, Heart Catheterization With Stent, Joint Replacement Additional Past Surgical History / Comment(s): UPPP for obstructive sleep apnea, abdominal aortic aneurysm repair, a stent within the aorta and stents also placed in the iliacs, cataracts, right carotid endarterectomy, cholecystectomy,sebastian knee replacements Past Anesthesia/Blood Transfusion Reactions: No Reported Reaction Date of Last Stent Placement:: 1995, 2010X2 Type of Cardiac Device: Permanent Pacemaker Device Placement Date:: JUL 2017 Past Psychological History: No Psychological Hx Reported Additional Psychological History / Comment(s): 2012 Smoking Status: Former smoker Past Alcohol Use History: None Reported Additional Past Alcohol Use History / Comment(s): quit smoking years ago Past Drug Use History: None Reported - Past Family History Mother Family Medical History: No Reported History Medications and Allergies Home Medications Medication Instructions Recorded Confirmed Type Levothyroxine Sodium [Synthroid] 50 mcg PO DAILY 08/30/14 09/19/22 History Potassium Chloride [Klor-Con 20] 20 meq PO PC-SUPPER 08/30/14 09/19/22 History Simvastatin [Zocor] 20 mg PO PC-SUPPER 08/30/14 09/19/22 History Isosorbide Mononitrate ER [Imdur] 60 mg PO DAILY 07/30/17 09/19/22 History Apixaban [Eliquis] 2.5 mg PO BID #60 tab 03/29/20 09/19/22 Rx Pantoprazole Sodium [Protonix] 40 mg PO DAILY #30 tablet. 03/29/20 09/19/22 Rx Glucosamine/Chondr Nguyen A Sod [Osteo 1 tab PO DAILY 10/11/20 09/19/22 History Bi-Flex Caplet] Loratadine [Claritin] 10 mg PO DAILY PRN 04/06/21 09/19/22 History Albuterol Nebulized [Ventolin 2.5 mg INHALATION RT-QID 12/31/21 09/19/22 History Nebulized] Aspirin EC [Ecotrin Low Dose] 81 mg PO PC-SUPPER 09/19/22 09/19/22 History Cyclobenzaprine [Flexeril] 10 mg PO BID PRN 09/19/22 09/19/22 History Furosemide [Lasix] 40 mg PO DAILY 09/19/22 09/19/22 History Ibuprofen [Motrin Ib] 400 mg PO Q8H PRN 09/19/22 09/19/22 History oxyCODONE-APAP 7.5-325MG [Percocet 1 tab PO Q6H PRN 09/19/22 09/19/22 History 7.5-325 mg] Allergies Allergy/AdvReac Type Severity Reaction Status Date / Time cefazolin sodium [From [facility]] Allergy Anaphylaxis Verified 09/19/22 08:21 hylan G-F 20 [From [facility]] Allergy Anaphylaxis Verified 09/19/22 08:21 Results - Labs Labs: Abnormal Lab Results - Last 24 Hours (Table) 09/19/22 09/19/22 09/19/22 Range/Units 08:59 08:59 08:59 RBC (4.30-5.90) m/uL Hgb 11.4 L (13.0-17.5) gm/dL Hct 36.4 L (39.0-53.0) % MCHC (31.0-37.0) g/dL RDW 16.9 H (11.5-15.5) % Plt Count (150-450) k/uL APTT (22.0-30.0) sec Potassium 3.4 L (3.5-5.1) mmol/L Carbon Dioxide 32 H (22-30) mmol/L BUN 23 H (9-20) mg/dL Glucose 103 H (74-99) mg/dL Troponin I 0.045 H* (0.000-0.034) ng/mL 09/19/22 09/19/22 09/19/22 Range/Units 12:20 14:33 19:35 RBC (4.30-5.90) m/uL Hgb (13.0-17.5) gm/dL Hct (39.0-53.0) % MCHC (31.0-37.0) g/dL RDW (11.5-15.5) % Plt Count (150-450) k/uL APTT 57.2 H (22.0-30.0) sec Potassium (3.5-5.1) mmol/L Carbon Dioxide (22-30) mmol/L BUN (9-20) mg/dL Glucose (74-99) mg/dL Troponin I 0.039 H* 0.043 H* (0.000-0.034) ng/mL 09/20/22 09/20/22 09/20/22 Range/Units 07:55 07:55 07:55 RBC 4.15 L (4.30-5.90) m/uL Hgb 10.9 L (13.0-17.5) gm/dL Hct 35.4 L (39.0-53.0) % MCHC 30.7 L (31.0-37.0) g/dL RDW 16.9 H (11.5-15.5) % Plt Count 136 L (150-450) k/uL APTT 60.8 H (22.0-30.0) sec Potassium (3.5-5.1) mmol/L Carbon Dioxide (22-30) mmol/L BUN 21 H (9-20) mg/dL Glucose 100 H (74-99) mg/dL Troponin I (0.000-0.034) ng/mL H & H 09/19/22 09/20/22 Range/Units 08:59 07:55 Hgb 11.4 L 10.9 L (13.0-17.5) gm/dL Hct 36.4 L 35.4 L (39.0-53.0) % Result Diagrams: 09/20/22 07:55 09/20/22 07:55
[2022-09-20] MEDS: FUROSEMIDE 40 MG TAB PO SCH (10:13)
[2022-09-20] MEDS: ISOSORBIDE MONONITRATE ER 60 MG TAB.ER.24H PO SCH (10:13)
[2022-09-20] MEDS: HYDROmorphone 0.5 MG/0.5 ML SYRINGE IVP PRN ×2 (11:32→21:55)
[2022-09-20] MEDS: HEPARIN SOD,PORK IN 0.45% NACL 25,000 UNIT in 0.45% NACL 1 250ML.BAG IV SCH (11:38)
--- NOTE | 2022-09-20 11:58 | P.PN ---
Subjective Progress Note Date: 09/20/22 87 year old male presenting to the ER with a chief complaint of abdominal pain, back and chest Patient reports this is a chronic issue but within the last 24 hours the pain has worsened. In the past, he has seen Dr. Borja and been worked up for this abdominal pain. Today, he describes the pain as a sharp epigastric 10/10 pain with radiation to his back. He states it hurts to have a shirt touch his skin and worse with eating. He denies vomiting, nausea, diarrhea, dysuria, or increase in urinary frequency. Denies black tarry stools. Patient denies taking any pain medication today. Pt has a hx of cholecystectomy, cardic stents and thoracic abdominal aortic aneurysm. Objective - Vital Signs Vital signs: Vital Signs Temp 96.4 F L 09/20/22 07:59 Pulse 60 09/20/22 07:59 Resp 16 09/20/22 07:59 BP 124/60 09/20/22 07:59 Pulse Ox 92 L 09/20/22 07:59 FiO2 Intake & Output 09/19/22 09/20/22 09/20/22 18:59 06:59 18:59 Intake Total 180 Output Total 200 150 Balance 180 -200 -150 Weight 96.162 kg Intake: Oral 180 Output: Urine 200 150 Other: Voiding Method Toilet Toilet # Voids 2 - Exam General appearance: alert, in no apparent distress Respiratory exam: Present: normal lung sounds bilaterally. Absent: respiratory distress, wheezes, rales, rhonchi, stridor Cardiovascular Exam: Present: regular rate, normal rhythm, normal heart sounds. Absent: systolic murmur, diastolic murmur, rubs, gallop, clicks GI/Abdominal exam: Present: soft, tenderness (diffuse ), guarding, normal bowel sounds Back exam: Present: normal inspection Neurological exam: Present: alert, oriented X3, CN II-XII intact Psychiatric exam: Present: normal affect, normal mood Skin exam: Present: warm, dry, intact, normal color. Absent: rash - Labs CBC & Chem 7: 09/20/22 07:55 09/20/22 07:55 Labs: Abnormal Lab Results - Last 24 Hours (Table) 09/19/22 09/19/22 09/19/22 Range/Units 12:20 14:33 19:35 RBC (4.30-5.90) m/uL Hgb (13.0-17.5) gm/dL Hct (39.0-53.0) % MCHC (31.0-37.0) g/dL RDW (11.5-15.5) % Plt Count (150-450) k/uL APTT 57.2 H (22.0-30.0) sec BUN (9-20) mg/dL Glucose (74-99) mg/dL Troponin I 0.039 H* 0.043 H* (0.000-0.034) ng/mL 09/20/22 09/20/22 09/20/22 Range/Units 07:55 07:55 07:55 RBC 4.15 L (4.30-5.90) m/uL Hgb 10.9 L (13.0-17.5) gm/dL Hct 35.4 L (39.0-53.0) % MCHC 30.7 L (31.0-37.0) g/dL RDW 16.9 H (11.5-15.5) % Plt Count 136 L (150-450) k/uL APTT 60.8 H (22.0-30.0) sec BUN 21 H (9-20) mg/dL Glucose 100 H (74-99) mg/dL Troponin I (0.000-0.034) ng/mL Assessment and Plan Assessment: 1. Elevated troponin/NSTEMI/unstable angina - Patient placed on IV heparin in ED which has been continued - Patient remains on aspirin, Lipitor 10 mg daily at bedtime, Imdur 60 mg daily - Cardiology consulted for further evaluation 2. Intractable back pain; CT of the spine was completed which reveals questionable thoracic spine erosion it is unclear chronic change versus infectious - Patient has been evaluated by thoracic surgery for erosive changes in the inferior endplate of T7; thought to be worsening degenerative disc disease however discitis/osteomyelitis is not excluded; patient remains on - Orthopedic surgery not recommending any further testing - We will consult ID to rule out discitis versus osteomyelitis of T7 - Patient is currently on Flexeril 10 mg twice a day when necessary, Dilaudid 0.5 mg IV every 4 hours and oxycodone 7.5 mg every 6 hours 3. Hyperlipidemia; Zocor 20 mg daily 4. Hypothyroidism; levothyroxin 50 MCG daily 5. History of CAD/CHF; remains on IV heparin, aspirin, Lipitor and Imdur; Lasix 40 mg daily DVT prophylaxis; SCDs/IV heparin CODE STATUS; full code
--- NOTE | 2022-09-20 12:14 | P.CRDCN ---
History of Present Illness History of present illness: HISTORY OF PRESENTING ILLNESS Patient is a pleasant 87-year-old male with history of CAD with previous stenting, persistent atrial fibrillation, hypertension, hyperlipidemia, ascending aortic aneurysm, sinus syndrome status post permanent pacemaker who presents for a number of complaints. His main complaint is left flank pain and states he normally takes some pain pills at home. He also admits to some abdominal pain. He also admits to some neck pain however not clearly associated with any exertion. Denies any shortness breath. Denies any lightheadedness. He believes he previously followed with Dr. Lopez. Troponin noted to be mildly elevated 0.04, 0.039, 0.04. EKG shows ventricular paced rhythm. The abdomen and pelvis showed no acute intra-abdominal or pelvic process. REVIEW OF SYSTEMS At the time of my exam: CONSTITUTIONAL: Denies fever or chills. CARDIOVASCULAR: Denies chest pain, shortness of breath, orthopnea, PND or palpitations. +flank pain, +neck pain RESPIRATORY: Denies cough. GASTROINTESTINAL: Denies abdominal pain, diarrhea, constipation, nausea or vomiting. MUSCULOSKELETAL: Denies myalgias. NEUROLOGIC: Denies numbness, tingling or weakness. ENDOCRINE: Denies fatigue, weight change, polydipsia or polyurina. GENITOURINARY: Denies burning, hematuria or urgency with micturation. HEMATOLOGIC: Denies history of anemia or bleeding. PHYSICAL EXAMINATION Vital signs reviewed. CONSTITUTIONAL: No apparent distress. HEENT: Head is normocephalic. Pupils are equal, round. Sclerae anicteric. Mucous membranes of the mouth are moist. No JVD. No carotid bruit. CHEST EXAMINATION: Lungs are clear to auscultation. No chest wall tenderness is noted on palpation or with deep breathing. HEART EXAMINATION: Regular rate and rhythm. S1, S2 heard. No murmurs, gallops or rub. ABDOMEN: Soft, nontender. Positive bowel sounds. EXTREMITIES: 2+ peripheral pulses, no lower extremity edema and no calf tenderness. NEUROLOGIC EXAMINATION: Patient is awake, alert and oriented x3. ASSESSMENT 1. Atypical flank and neck pain, does not appear consistent with angina 2. Mildly elevated troponins of unclear etiology, not clearly non-STEMI may be related to age, chronic kidney disease 3. History of permanent pacemaker 4. Persistent atrial fibrillation 5. History of CAD with previous PLAN Patient overall is having atypical symptoms and his main complaint is more left- sided flank pain. This is reproducible with palpation. Does not appear consistent with angina. Minimally elevated troponins however no rise and fall and does not appear consistent with acute coronary syndrome. Continue heparin drip for now and check 2-D echo. If stable possible discharge home in 24 hours however monitor closely. Past Medical History Past Medical History: Atrial Fibrillation, Coronary Artery Disease (CAD), Heart Failure, Hyperlipidemia, Hypertension, Respiratory Disorder, Thyroid Disorder, Vascular Disorder Additional Past Medical History / Comment(s): Severe JORDANA with an H of 128 seated with a BiPAP pressure of 17/13 cm of water uses 2 L of oxygen at night with bipap, obesity, coronary artery disease with previous coronary intervention and stenting, tonic atrial fibrillation,hypothyroidism, ascending thoracic aortic aneurysm-measuring 4.2 cm in size,steroids January 2022 History of Any Multi-Drug Resistant Organisms: None Reported Past Surgical History: Cholecystectomy, Heart Catheterization With Stent, Joint Replacement Additional Past Surgical History / Comment(s): UPPP for obstructive sleep apnea, abdominal aortic aneurysm repair, a stent within the aorta and stents also placed in the iliacs, cataracts, right carotid endarterectomy, cholecystectomy,sebastian knee replacements Past Anesthesia/Blood Transfusion Reactions: No Reported Reaction Date of Last Stent Placement:: 1995, 2010X2 Type of Cardiac Device: Permanent Pacemaker Device Placement Date:: JUL 2017 Past Psychological History: No Psychological Hx Reported Additional Psychological History / Comment(s): 2012 Smoking Status: Former smoker Past Alcohol Use History: None Reported Additional Past Alcohol Use History / Comment(s): quit smoking years ago Past Drug Use History: None Reported - Past Family History Mother Family Medical History: No Reported History Medications and Allergies Home Medications Medication Instructions Recorded Confirmed Type Levothyroxine Sodium [Synthroid] 50 mcg PO DAILY 08/30/14 09/19/22 History Potassium Chloride [Klor-Con 20] 20 meq PO PC-SUPPER 08/30/14 09/19/22 History Simvastatin [Zocor] 20 mg PO PC-SUPPER 08/30/14 09/19/22 History Isosorbide Mononitrate ER [Imdur] 60 mg PO DAILY 07/30/17 09/19/22 History Apixaban [Eliquis] 2.5 mg PO BID #60 tab 03/29/20 09/19/22 Rx Pantoprazole Sodium [Protonix] 40 mg PO DAILY #30 tablet. 03/29/20 09/19/22 Rx Glucosamine/Chondr Nguyen A Sod [Osteo 1 tab PO DAILY 10/11/20 09/19/22 History Bi-Flex Caplet] Loratadine [Claritin] 10 mg PO DAILY PRN 04/06/21 09/19/22 History Albuterol Nebulized [Ventolin 2.5 mg INHALATION RT-QID 12/31/21 09/19/22 History Nebulized] Aspirin EC [Ecotrin Low Dose] 81 mg PO PC-SUPPER 09/19/22 09/19/22 History Cyclobenzaprine [Flexeril] 10 mg PO BID PRN 09/19/22 09/19/22 History Furosemide [Lasix] 40 mg PO DAILY 09/19/22 09/19/22 History Ibuprofen [Motrin Ib] 400 mg PO Q8H PRN 09/19/22 09/19/22 History oxyCODONE-APAP 7.5-325MG [Percocet 1 tab PO Q6H PRN 09/19/22 09/19/22 History 7.5-325 mg] Allergies Allergy/AdvReac Type Severity Reaction Status Date / Time cefazolin sodium [From [facility]] Allergy Anaphylaxis Verified 09/19/22 08:21 hylan G-F 20 [From [facility]] Allergy Anaphylaxis Verified 09/19/22 08:21 Physical Exam Vitals: Vital Signs Temp Pulse Pulse Resp BP BP BP 09/20/22 11:25 60 09/20/22 11:14 60 09/20/22 07:59 96.4 F L 60 16 124/60 09/20/22 07:40 61 09/20/22 07:27 60 09/20/22 04:00 97.8 F 60 18 155/81 09/20/22 02:00 18 09/20/22 00:00 97.4 F L 60 18 128/66 09/19/22 21:03 60 09/19/22 20:52 60 09/19/22 20:00 98.2 F 60 16 143/76 09/19/22 17:25 65 09/19/22 17:17 09/19/22 17:15 60 61 16 152/76 09/19/22 14:50 97.8 F 60 16 131/64 09/19/22 13:51 60 16 134/73 Pulse Ox 09/20/22 11:25 09/20/22 11:14 09/20/22 07:59 92 L 09/20/22 07:40 09/20/22 07:27 90 L 09/20/22 04:00 100 09/20/22 02:00 09/20/22 00:00 94 L 09/19/22 21:03 09/19/22 20:52 09/19/22 20:00 97 09/19/22 17:25 09/19/22 17:17 90 L 09/19/22 17:15 96 09/19/22 14:50 95 09/19/22 13:51 99 Intake and Output 09/19/22 09/20/22 09/20/22 22:59 06:59 14:59 Intake Total 180 228.5 Output Total 200 150 Balance 180 -200 78.5 Intake: Intake, IV Titration 228.5 Amount Heparin Sod,Pork in 0.45% 228.5 NaCl 25,000 unit In 0.45 % NaCl 1 250ml.bag @ 11. 023 UNITS/KG/HR 10 mls/hr IV .Q24H [facility] Rx#: [id number] Oral 180 Output: Urine 200 150 Other: Voiding Method Toilet Toilet # Voids 2 2 Results 09/20/22 07:55 09/20/22 07:55 Cardiac Enzymes 09/19/22 09/19/22 Range/Units 12:20 14:33 Troponin I 0.039 H* 0.043 H* (0.000-0.034) ng/mL Coagulation 09/19/22 09/20/22 Range/Units 19:35 07:55 APTT 57.2 H 60.8 H (22.0-30.0) sec CBC 09/20/22 Range/Units 07:55 WBC 6.3 (3.8-10.6) k/uL RBC 4.15 L (4.30-5.90) m/uL Hgb 10.9 L (13.0-17.5) gm/dL Hct 35.4 L (39.0-53.0) % Plt Count 136 L (150-450) k/uL Comprehensive Metabolic Panel 09/20/22 Range/Units 07:55 Sodium 140 (137-145) mmol/L Potassium 3.9 (3.5-5.1) mmol/L Chloride 103 (98-107) mmol/L Carbon Dioxide 30 (22-30) mmol/L BUN 21 H (9-20) mg/dL Creatinine 1.22 (0.66-1.25) mg/dL Glucose 100 H (74-99) mg/dL Calcium 8.7 (8.4-10.2) mg/dL Current Medications Generic Name Dose Route Start Last Admin Trade Name Freq PRN Reason Stop Dose Admin Albuterol Sulfate 2.5 mg 09/19/22 16:00 09/20/22 11:14 Albuterol Nebulized 2.5 Mg/3 Ml INHALATION 2.5 mg RT-QID KVNG Administration Aspirin 81 mg 09/19/22 18:30 09/19/22 17:19 Aspirin 81 Mg PO 81 mg PC-SUPPER KVNG Administration Atorvastatin Calcium 10 mg 09/19/22 18:30 09/19/22 17:19 Atorvastatin 10 Mg Tab PO 10 mg PC-SUPPER KVNG Administration Cyclobenzaprine HCl 10 mg 09/19/22 13:30 Cyclobenzaprine 10 Mg Tab PO BID PRN Muscle Spasm Furosemide 40 mg 09/20/22 09:00 09/20/22 10:13 Furosemide 40 Mg Tab PO 40 mg DAILY KVNG Administration Heparin Sodium (Porcine) 0 unit 09/19/22 11:44 Heparin Sodium 1,000 Un/Ml (10ml Vl) IV Q6HR PRN Chest Pain Protocol Hydromorphone HCl 0.5 mg 09/19/22 18:46 09/20/22 11:32 Hydromorphone 0.5 Mg/0.5 Ml Syringe IVP 0.5 mg Q4HR PRN Administration Pain Heparin Sodium/Sodium Chloride 250 mls @ 10 mls/hr 09/19/22 11:45 09/20/22 11:38 25,000 unit/ Sodium Chloride IV 11.023 units/kg/hr .Q24H KVNG 10 mls/hr Administration Protocol 11.023 UNITS/KG/HR Isosorbide Mononitrate 60 mg 09/20/22 09:00 09/20/22 10:13 Isosorbide Mononitrate Er 60 Mg Tab.Er.24h PO 60 mg DAILY KVNG Administration Levothyroxine Sodium 50 mcg 09/20/22 06:30 09/20/22 06:26 Levothyroxine 50 Mcg Tab PO 50 mcg DAILY@0630 KVNG Administration Loratadine 10 mg 09/19/22 13:30 Loratadine 10 Mg Tab PO DAILY PRN Allergy Symptoms Nitroglycerin 0.4 mg 09/19/22 11:44 Nitroglycerin Sl Tabs 0.4 Mg Tab SUBLINGUAL Q5M PRN Chest Pain Oxycodone/Acetaminophen 1 each 09/19/22 13:30 09/20/22 10:11 Oxycodone-Apap 7.5-325mg 1 Each Tab PO 1 each Q6H PRN Administration Pain Pantoprazole Sodium 40 mg 09/20/22 07:30 09/20/22 06:26 Pantoprazole 40 Mg Tablet PO 40 mg DAILY@0730 [facility] Administration Potassium Chloride 20 meq 09/19/22 18:30 09/19/22 17:19 Potassium Chloride Er 20 Meq Tab.Er PO 20 meq PC-SUPPER KVNG Administration Intake and Output 09/19/22 09/20/22 09/20/22 22:59 06:59 14:59 Intake Total 180 228.5 Output Total 200 150 Balance 180 -200 78.5 Intake: Intake, IV Titration 228.5 Amount Heparin Sod,Pork in 0.45% 228.5 NaCl 25,000 unit In 0.45 % NaCl 1 250ml.bag @ 11. 023 UNITS/KG/HR 10 mls/hr IV .Q24H [facility] Rx#: [id number] Oral 180 Output: Urine 200 150 Other: Voiding Method Toilet Toilet # Voids 2 2 09/20/22 07:55 09/20/22 07:55
[2022-09-20 14:48] LABS: Chol/HDL Ratio 2.44 Ratio; LDL Cholesterol,Calculated 42.1 mg/dL (0.0-131.0)
--- NOTE | 2022-09-20 18:17 | CA ---
Transthoracic Echo Report Name: Hong Villafana Age: 87 Gender: M : 1935 Exam Date: 09/20/2022 13:33 Exam Location: [facility] Ht (in): 67 Wt (lb): 212 Ordering Physician: Sunny Reina DO ([email or web address]) Attending/Referring Phys: Reconciler Maria Elena Cerda RDCS Procedure CPT: Indications: re: CP Cardiac Hx: Technical Quality: Good Contrast 1: Total Dose (mL): Contrast 2: Total Dose (mL): MEASUREMENTS (Male / Female) Normal Values 2D ECHO LV Diastolic Diameter PLAX 4.4 cm 4.2 - 5.9 / 3.9 - 5.3 cm LV Systolic Diameter PLAX 3.0 cm IVS Diastolic Thickness 1.5 cm 0.6 - 1.0 / 0.6 - 0.9 cm LVPW Diastolic Thickness 1.6 cm 0.6 - 1.0 / 0.6 - 0.9 cm LV Relative Wall Thickness 0.7 RV Internal Dim ED PLAX 4.1 cm LVOT Diameter 2.9 cm LA Systolic Diameter LX 3.4 cm 3.0 - 4.0 / 2.7 - 3.8 cm LA Volume 127.2 cm??? 18 - 58 / 22 - 52 cm??? M-MODE Aortic Root Diameter MM 4.1 cm MV E Point Septal Separation 0.8 cm AV Cusp Separation MM 1.9 cm DOPPLER AV Peak Velocity 156.6 cm/s AV Peak Gradient 9.8 mmHg LVOT Peak Velocity 91.1 cm/s LVOT Peak Gradient 3.3 mmHg AV Area Cont Eq pk 3.9 cm??? MV Area PHT 5.9 cm??? Mitral E Point Velocity 122.7 cm/s Mitral A Point Velocity 37.4 cm/s Mitral E to A Ratio 3.3 MV Deceleration Time 128.7 ms MV E' Velocity 4.7 cm/s Mitral E to MV E' Ratio 25.9 TR Peak Velocity 362.9 cm/s TR Peak Gradient 52.7 mmHg Right Ventricular Systolic Press 55.2 mmHg FINDINGS Left Ventricle Left ventricular ejection fraction is estimated at 50 %. left ventricular cavity size normal. Moderate concentric left ventricular hypertrophy. Right Ventricle Severe right ventricular dilatation. Severe pulmonary hypertension. Right Atrium Normal right atrial size. Left Atrium Severely increased left atrial volume. Moderately increased left atrial area. No evidence for an atrial septal defect. Mitral Valve Mild mitral annular calcification. Mild mitral regurgitation. Aortic Valve Trileaflet aortic valve. Thickened aortic valve without stenosis. Tricuspid Valve Structurally normal tricuspid valve. Moderate tricuspid regurgitation. Pulmonic Valve Mild pulmonic regurgitation. Pericardium Normal pericardium. No pericardial effusion. Aorta Moderate aortic dilatation at the level of the sinuses of valsalva 41 mm CONCLUSIONS Low normal left ventricular systolic function was EF around 50% Aortic sclerosis Previewed by: Dr. Lucas Carrillo MD (Electronically Signed) Final Date: 20 September 2022 18:16
[2022-09-20] MEDS: ATORVASTATIN 10 MG TAB PO SCH (18:24)
[2022-09-20] MEDS: POTASSIUM CHLORIDE ER 20 MEQ TAB.ER PO SCH (18:24)
[2022-09-20] MEDS: ASPIRIN 81 MG PO SCH (18:25)
--- NOTE | 2022-09-21 00:16 | P.CONS ---
History of Present Illness - Reason for Consult Consult date: 09/20/22 - History of Present Illness Patient is 87-year-old male presenting to the ER yesterday morning for evaluation of predominantly epigastric pain describing it to be sharp almost nonreproducible lesion to the back denies any nausea vomiting or any diarrhea patient on presentation to the hospital was afebrile and no fever has been recorded subsequently patient did have a normal white count creatinine has been normal liver enzymes are normal troponins are elevated lipase was normal patient did have negative COVID testing patient did have CT of abdominal pelvis no acute intra-abdominal pathology, however did show abnormality of the T7 and T8 endplate and concern for possible discitis or osteomyelitis that has prompted this infectious disease consultation to rule out osteomyelitis patient currently has been complaining of pain mostly to the left scapular area he did have some pain lower back more for the laking to the doctor no radiation to either leg and no bowel or bladder problem Past Medical History Past Medical History: Atrial Fibrillation, Coronary Artery Disease (CAD), Heart Failure, Hyperlipidemia, Hypertension, Respiratory Disorder, Thyroid Disorder, V ascular Disorder Additional Past Medical History / Comment(s): Severe JORDANA with an H of 128 seated with a BiPAP pressure of 17/13 cm of water uses 2 L of oxygen at night with b ipap, obesity, coronary artery disease with previous coronary intervention and stenting, tonic atrial fibrillation,hypothyroidism, ascending thoracic aortic aneurysm-measuring 4.2 cm in size,steroids January 2022 History of Any Multi-Drug Resistant Organisms: None Reported Past Surgical History: Cholecystectomy, Heart Catheterization With Stent, Joint Replacement Additional Past Surgical History / Comment(s): UPPP for obstructive sleep apnea, abdominal aortic aneurysm repair, a stent within the aorta and stents also p laced in the iliacs, cataracts, right carotid endarterectomy, cholecystectomy,sebastian knee replacements Past Anesthesia/Blood Transfusion Reactions: No Reported Reaction Date of Last Stent Placement:: 1995, [id number] Type of Cardiac Device: Permanent Pacemaker Device Placement Date:: JUL 2017 Past Psychological History: No Psychological Hx Reported Additional Psychological History / Comment(s): 2012 Smoking Status: Former smoker Past Alcohol Use History: None Reported Additional Past Alcohol Use History / Comment(s): quit smoking years ago Past Drug Use History: None Reported - Past Family History Mother Family Medical History: No Reported History Medications and Allergies Home Medications Medication Instructions Recorded Confirmed Type Levothyroxine Sodium [Synthroid] 50 mcg PO DAILY 08/30/14 09/19/22 History Potassium Chloride [Klor-Con 20] 20 meq PO PC-SUPPER 08/30/14 09/19/22 History Simvastatin [Zocor] 20 mg PO PC-SUPPER 08/30/14 09/19/22 History Isosorbide Mononitrate ER [Imdur] 60 mg PO DAILY 07/30/17 09/19/22 History Apixaban [Eliquis] 2.5 mg PO BID #60 tab 03/29/20 09/19/22 Rx Pantoprazole Sodium [Protonix] 40 mg PO DAILY #30 tablet. 03/29/20 09/19/22 Rx Glucosamine/Chondr Nguyen A Sod [Osteo 1 tab PO DAILY 10/11/20 09/19/22 History Bi-Flex Caplet] Loratadine [Claritin] 10 mg PO DAILY PRN 04/06/21 09/19/22 History Albuterol Nebulized [Ventolin 2.5 mg INHALATION RT-QID 12/31/21 09/19/22 History Nebulized] Aspirin EC [Ecotrin Low Dose] 81 mg PO PC-SUPPER 09/19/22 09/19/22 History Cyclobenzaprine [Flexeril] 10 mg PO BID PRN 09/19/22 09/19/22 History Furosemide [Lasix] 40 mg PO DAILY 09/19/22 09/19/22 History Ibuprofen [Motrin Ib] 400 mg PO Q8H PRN 09/19/22 09/19/22 History oxyCODONE-APAP 7.5-325MG [Percocet 1 tab PO Q6H PRN 09/19/22 09/19/22 History 7.5-325 mg] Allergies Allergy/AdvReac Type Severity Reaction Status Date / Time cefazolin sodium [From Ancef] Allergy Anaphylaxis Verified 09/19/22 08:21 hylan G-F 20 [From Synvisc] Allergy Anaphylaxis Verified 09/19/22 08:21 Physical Exam Vitals: Vital Signs Temp Pulse Pulse Resp BP BP BP 09/20/22 11:25 60 09/20/22 11:14 60 09/20/22 07:59 96.4 F L 60 16 124/60 09/20/22 07:40 61 09/20/22 07:27 60 09/20/22 04:00 97.8 F 60 18 155/81 09/20/22 02:00 18 09/20/22 00:00 97.4 F L 60 18 128/66 09/19/22 21:03 60 09/19/22 20:52 60 09/19/22 20:00 98.2 F 60 16 143/76 09/19/22 17:25 65 09/19/22 17:17 09/19/22 17:15 60 61 16 152/76 09/19/22 14:50 97.8 F 60 16 131/64 09/19/22 13:51 60 16 134/73 Pulse Ox 09/20/22 11:25 09/20/22 11:14 09/20/22 07:59 92 L 09/20/22 07:40 09/20/22 07:27 90 L 09/20/22 04:00 100 09/20/22 02:00 09/20/22 00:00 94 L 09/19/22 21:03 09/19/22 20:52 09/19/22 20:00 97 09/19/22 17:25 09/19/22 17:17 90 L 09/19/22 17:15 96 09/19/22 14:50 95 09/19/22 13:51 99 Intake and Output 09/19/22 09/20/22 09/20/22 22:59 06:59 14:59 Intake Total 180 228.5 Output Total 200 150 Balance 180 -200 78.5 Intake: Intake, IV Titration 228.5 Amount Heparin Sod,Pork in 0.45% 228.5 NaCl 25,000 unit In 0.45 % NaCl 1 250ml.bag @ 11. 023 UNITS/KG/HR 10 mls/hr IV .Q24H [facility] Rx#: [id number] Oral 180 Output: Urine 200 150 Other: Voiding Method Toilet Toilet # Voids 2 2 Results CBC & Chem 7: 09/20/22 07:55 09/20/22 07:55 Labs: Abnormal Lab Results - Last 24 Hours (Table) 09/19/22 09/19/22 09/19/22 Range/Units 12:20 14:33 19:35 RBC (4.30-5.90) m/uL Hgb (13.0-17.5) gm/dL Hct (39.0-53.0) % MCHC (31.0-37.0) g/dL RDW (11.5-15.5) % Plt Count (150-450) k/uL APTT 57.2 H (22.0-30.0) sec BUN (9-20) mg/dL Glucose (74-99) mg/dL Troponin I 0.039 H* 0.043 H* (0.000-0.034) ng/mL 09/20/22 09/20/22 09/20/22 Range/Units 07:55 07:55 07:55 RBC 4.15 L (4.30-5.90) m/uL Hgb 10.9 L (13.0-17.5) gm/dL Hct 35.4 L (39.0-53.0) % MCHC 30.7 L (31.0-37.0) g/dL RDW 16.9 H (11.5-15.5) % Plt Count 136 L (150-450) k/uL APTT 60.8 H (22.0-30.0) sec BUN 21 H (9-20) mg/dL Glucose 100 H (74-99) mg/dL Troponin I (0.000-0.034) ng/mL Assessment and Plan Plan: 1patient with a abnormal CT abdominal pelvis showing abnormality of the inferior endplate of the T7 and superior endplate of the T8 vertebra and this patient was in the hospital with epigastric pain for which a CT was done patient currently afebrile and did have normal white count and no evidence of any tenderness to the thoracolumbar spine area clinically not behaving as osteomyelitis/discitis. 2 We will obtain a CRP sed rate and check a blood culture 3-if the patient did have elevated sed rate may benefit from an MRI of the thoracic spine with contrast to rule out discitis however if the sed rate is normal that would go against discitis/osteomyelitis and there will be no need for MRI at that point as the patient is clinically not behaving as discitis 4we will hold on empiric antibiotic therapy at this point We will follow on clinical condition and cultures to further adjust medication if needed Thank you for this consultation will follow this patient along with you Time with Patient: Greater than 30
[2022-09-21] MEDS: LEVOTHYROXINE 50 MCG TAB PO SCH (06:12)
[2022-09-21] MEDS: PANTOPRAZOLE 40 MG TABLET PO SCH (06:39)
[2022-09-21] MEDS: ALBUTEROL NEBULIZED 2.5 MG/3 ML INHALATION SCH ×4 (08:57→19:43)
[2022-09-21] MEDS: ISOSORBIDE MONONITRATE ER 60 MG TAB.ER.24H PO SCH (09:16)
[2022-09-21] MEDS: FUROSEMIDE 40 MG TAB PO SCH (09:16)
[2022-09-21] MEDS: oxyCODONE-APAP 7.5-325MG 1 EACH TAB PO PRN ×2 (09:20→15:43)
[2022-09-21 09:22] LABS: Anisocytosis Slight; Basophils # (A) 0.1 k/uL (0-0.2); Basophils % (A) 1 %; Eosinophils # (A) 0.4 k/uL (0-0.7); Eosinophils % (A) 7 %; HGB 10.2 gm/dL (13.0-17.5); Hypochromasia Marked; Lymphocytes # (A) 0.8 k/uL (1.0-4.8); Lymphocytes % (A) 13 %; MCH 25.6 pg (25.0-35.0); MCHC 29.9 g/dL (31.0-37.0); MCV 85.4 fL (80.0-100.0); Mean Platelet Volume 9.8; Monocytes # (A) 0.4 k/uL (0-1.0); Monocytes % (A) 6 %; Neutrophils # (A) 4.4 k/uL (1.3-7.7); Neutrophils % (A) 71 %; Platelet Count 133 k/uL (150-450); RBC 3.98 m/uL (4.30-5.90); RDW 17.1 % (11.5-15.5); WBC 6.2 k/uL (3.8-10.6)
[2022-09-21 09:46] LABS: African American GFR (CKD) 62 (>60 ml/min/1.73 sqM); Anion Gap 8 mmol/L; Blood Urea Nitrogen 25 mg/dL (9-20); C Reactive Protein <0.5 mg/dL (<1.0); Calcium 8.8 mg/dL (8.4-10.2); Carbon Dioxide 28 mmol/L (22-30); Chloride 102 mmol/L (98-107); Glucose 109 mg/dL (74-99); Non-African American GFR(CKD) 54 (>60 ml/min/1.73 sqM); Potassium 4.3 mmol/L (3.5-5.1); Sodium 138 mmol/L (137-145)
[2022-09-21] MEDS: HYDROmorphone 0.5 MG/0.5 ML SYRINGE IVP PRN ×2 (12:54→22:44)
--- NOTE | 2022-09-21 12:55 | P.PN ---
Subjective HISTORY OF PRESENTING ILLNESS Patient is a pleasant 87-year-old male with history of CAD with previous stenting, persistent atrial fibrillation, hypertension, hyperlipidemia, ascending aortic aneurysm, sinus syndrome status post permanent pacemaker who presents for a number of complaints. His main complaint is left flank pain and states he normally takes some pain pills at home. He also admits to some abdominal pain. He also admits to some neck pain however not clearly associated with any exertion. Denies any shortness breath. Denies any lightheadedness. He believes he previously followed with Dr. Lopez. Troponin noted to be mildly elevated 0.04, 0.039, 0.04. EKG shows ventricular paced rhythm. The abdomen and pelvis showed no acute intra-abdominal or pelvic process. REVIEW OF SYSTEMS At the time of my exam: CONSTITUTIONAL: Denies fever or chills. CARDIOVASCULAR: Denies chest pain, shortness of breath, orthopnea, PND or palpitations. +flank pain, +neck pain RESPIRATORY: Denies cough. GASTROINTESTINAL: Denies abdominal pain, diarrhea, constipation, nausea or vomiting. MUSCULOSKELETAL: Denies myalgias. NEUROLOGIC: Denies numbness, tingling or weakness. ENDOCRINE: Denies fatigue, weight change, polydipsia or polyurina. GENITOURINARY: Denies burning, hematuria or urgency with micturation. HEMATOLOGIC: Denies history of anemia or bleeding. PHYSICAL EXAMINATION Vital signs reviewed. CONSTITUTIONAL: No apparent distress. HEENT: Head is normocephalic. Pupils are equal, round. Sclerae anicteric. Mucous membranes of the mouth are moist. No JVD. No carotid bruit. CHEST EXAMINATION: Lungs are clear to auscultation. No chest wall tenderness is noted on palpation or with deep breathing. HEART EXAMINATION: Regular rate and rhythm. S1, S2 heard. No murmurs, gallops or rub. ABDOMEN: Soft, nontender. Positive bowel sounds. EXTREMITIES: 2+ peripheral pulses, no lower extremity edema and no calf tenderness. NEUROLOGIC EXAMINATION: Patient is awake, alert and oriented x3. ASSESSMENT 1. Atypical flank and neck pain, does not appear consistent with angina 2. Mildly elevated troponins of unclear etiology, not clearly non-STEMI may be related to age, chronic kidney disease 3. History of permanent pacemaker 4. Persistent atrial fibrillation 5. History of CAD with previous PLAN Patient's symptoms are atypical with more flank pain and reproducible. Patient mainly asking for pain medications. Mildly elevated troponins however no evidence of acute coronary syndrome. Remainder of pulmonary hypertension may be worked up outpatient and patient appears relatively stable. Stop heparin drip and resume home Eliquis. Likely DC either later today or tomorrow from cardio perspective. Objective - Vital Signs Vital signs: Vital Signs Temp 98.4 F 09/21/22 07:56 Pulse 60 09/21/22 08:58 Resp 18 09/21/22 07:56 BP 137/67 09/21/22 07:56 Pulse Ox 93 L 09/21/22 08:58 FiO2 Intake & Output 09/20/22 09/21/22 09/21/22 18:59 06:59 18:59 Intake Total 1096.5 349.5 Output Total 450 650 350 Balance 646.5 -650 -0.5 Intake: Intake, IV Titration 228.5 231.5 Amount Heparin Sod,Pork in 0.45% 228.5 231.5 NaCl 25,000 unit In 0.45 % NaCl 1 250ml.bag @ 11. 023 UNITS/KG/HR 10 mls/hr IV .Q24H REPLACED BY [facility] Rx#: [id number] Oral 868 118 Output: Urine 450 650 350 Other: Voiding Method Toilet Toilet Urinal - Labs CBC & Chem 7: 09/21/22 08:34 09/21/22 08:34 Labs: Abnormal Lab Results - Last 24 Hours (Table) 09/20/22 09/21/22 09/21/22 Range/Units 12:39 08:34 08:34 RBC 3.98 L (4.30-5.90) m/uL Hgb 10.2 L (13.0-17.5) gm/dL Hct 34.0 L (39.0-53.0) % MCHC 29.9 L (31.0-37.0) g/dL RDW 17.1 H (11.5-15.5) % Plt Count 133 L (150-450) k/uL Lymphocytes # 0.8 L (1.0-4.8) k/uL ESR 17 H (0-15) mm/hr APTT (22.0-30.0) sec BUN 25 H (9-20) mg/dL Glucose 109 H (74-99) mg/dL 09/21/22 Range/Units 08:34 RBC (4.30-5.90) m/uL Hgb (13.0-17.5) gm/dL Hct (39.0-53.0) % MCHC (31.0-37.0) g/dL RDW (11.5-15.5) % Plt Count (150-450) k/uL Lymphocytes # (1.0-4.8) k/uL ESR (0-15) mm/hr APTT 43.0 H (22.0-30.0) sec BUN (9-20) mg/dL Glucose (74-99) mg/dL
[2022-09-21] MEDS: HEPARIN SOD,PORK IN 0.45% NACL 25,000 UNIT in 0.45% NACL 1 250ML.BAG IV SCH (13:05)
[2022-09-21] MEDS: POTASSIUM CHLORIDE ER 20 MEQ TAB.ER PO SCH (17:35)
[2022-09-21] MEDS: ATORVASTATIN 10 MG TAB PO SCH (17:35)
[2022-09-21] MEDS: ASPIRIN 81 MG PO SCH (17:35)
[2022-09-21] MEDS: APIXABAN 2.5 MG TABLET PO SCH (22:44)
[2022-09-22] MEDS: LEVOTHYROXINE 50 MCG TAB PO SCH (06:20)
[2022-09-22] MEDS: PANTOPRAZOLE 40 MG TABLET PO SCH (06:42)
[2022-09-22] MEDS: ALBUTEROL NEBULIZED 2.5 MG/3 ML INHALATION SCH ×4 (08:24→20:03)
[2022-09-22 09:06] LABS: Anisocytosis Slight; Basophils # (A) 0.1 k/uL (0-0.2); Basophils % (A) 1 %; Eosinophils # (A) 0.4 k/uL (0-0.7); Eosinophils % (A) 7 %; HCT 33.9 % (39.0-53.0); HGB 10.1 gm/dL (13.0-17.5); Hypochromasia Marked; Lymphocytes # (A) 0.8 k/uL (1.0-4.8); Lymphocytes % (A) 13 %; MCH 25.3 pg (25.0-35.0); MCHC 29.8 g/dL (31.0-37.0); MCV 84.9 fL (80.0-100.0); Mean Platelet Volume 10.2; Monocytes # (A) 0.4 k/uL (0-1.0); Monocytes % (A) 6 %; Neutrophils # (A) 4.2 k/uL (1.3-7.7); Neutrophils % (A) 71 %; Platelet Count 127 k/uL (150-450); RBC 3.99 m/uL (4.30-5.90); RDW 17.1 % (11.5-15.5); WBC 5.9 k/uL (3.8-10.6)
[2022-09-22 09:19] LABS: Calcium 8.8 mg/dL (8.4-10.2); Potassium 4.1 mmol/L (3.5-5.1)
[2022-09-22] MEDS: oxyCODONE-APAP 7.5-325MG 1 EACH TAB PO PRN ×2 (10:09→15:51)
[2022-09-22] MEDS: ISOSORBIDE MONONITRATE ER 60 MG TAB.ER.24H PO SCH (10:09)
[2022-09-22] MEDS: APIXABAN 2.5 MG TABLET PO SCH ×2 (10:10→19:59)
[2022-09-22] MEDS: FUROSEMIDE 40 MG TAB PO SCH (10:10)
--- NOTE | 2022-09-22 15:04 | P.PN ---
Subjective HISTORY OF PRESENTING ILLNESS Patient is a pleasant 87-year-old male with history of CAD with previous stenting, persistent atrial fibrillation, hypertension, hyperlipidemia, ascending aortic aneurysm, sinus syndrome status post permanent pacemaker who presents for a number of complaints. His main complaint is left flank pain and states he normally takes some pain pills at home. He also admits to some abdominal pain. He also admits to some neck pain however not clearly associated with any exertion. Denies any shortness breath. Denies any lightheadedness. He believes he previously followed with Dr. Lopez. Troponin noted to be mildly elevated 0.04, 0.039, 0.04. EKG shows ventricular paced rhythm. The abdomen and pelvis showed no acute intra-abdominal or pelvic process. 09/22 Patient seen and examined. Patient denies any chest pain or pressure. He did have drop in oxygen saturations in the 80s overnight per nursing. Remains on nasal cannula. He was changed over to oral Lasix yesterday however does have crackles at the bases today. PHYSICAL EXAMINATION Vital signs reviewed. CONSTITUTIONAL: No apparent distress. HEENT: Head is normocephalic. Pupils are equal, round. Sclerae anicteric. Mucous membranes of the mouth are moist. No JVD. No carotid bruit. CHEST EXAMINATION: +Crackles at bases HEART EXAMINATION: Regular rate and rhythm. S1, S2 heard. No murmurs, gallops or rub. ABDOMEN: Soft, nontender. Positive bowel sounds. EXTREMITIES: 2+ peripheral pulses, no lower extremity edema and no calf tenderness. NEUROLOGIC EXAMINATION: Patient is awake, alert and oriented x3. ASSESSMENT 1. Atypical flank and neck pain, does not appear consistent with angina 2. Mildly elevated troponins of unclear etiology, not clearly non-STEMI may be related to age, chronic kidney disease 3. History of permanent pacemaker 4. Persistent atrial fibrillation 5. History of CAD with previous 6. Acute on chronic respiratory failure, likely component of heart failure 7. Acute on chronic diastolic heart failure PLAN Patient initially came and more with reproducible flank pain which appeared noncardiac. Echo shows predominantly preserved EF 50%. He does however have significant pulmonary hypertension and unfortunately is having or respiratory complaints with mild drop in oxygen saturations. Check repeat x-ray and change to IV diuretics for one day and monitor response. Further recommendations to follow. Objective - Vital Signs Vital signs: Vital Signs Temp 98.2 F 09/22/22 12:00 Pulse 60 09/22/22 12:00 Resp 18 09/22/22 12:00 BP 151/66 09/22/22 12:00 Pulse Ox 94 L 09/22/22 12:00 FiO2 Intake & Output 09/21/22 09/22/22 09/22/22 18:59 06:59 18:59 Intake Total 1189.5 Output Total 1125 Balance 64.5 Intake: Intake, IV Titration 231.5 Amount Heparin Sod,Pork in 0.45% 231.5 NaCl 25,000 unit In 0.45 % NaCl 1 250ml.bag @ 11. 023 UNITS/KG/HR 10 mls/hr IV .Q24H [facility] Rx#: [id number] Oral 958 Output: Urine 1125 Other: Voiding Method Toilet Toilet Toilet Urinal Urinal Urinal # Voids 3 - Labs CBC & Chem 7: 09/22/22 07:50 09/22/22 07:50 Labs: Abnormal Lab Results - Last 24 Hours (Table) 09/22/22 09/22/22 Range/Units 07:50 07:50 RBC 3.99 L (4.30-5.90) m/uL Hgb 10.1 L (13.0-17.5) gm/dL Hct 33.9 L (39.0-53.0) % MCHC 29.8 L (31.0-37.0) g/dL RDW 17.1 H (11.5-15.5) % Plt Count 127 L (150-450) k/uL Lymphocytes # 0.8 L (1.0-4.8) k/uL Carbon Dioxide 31 H (22-30) mmol/L BUN 25 H (9-20) mg/dL Glucose 108 H (74-99) mg/dL Microbiology - Last 24 Hours (Table) 09/20/22 12:39 Blood Culture - Preliminary Blood No Growth after 24 hours
[2022-09-22] MEDS: FUROSEMIDE 10 MG/ML 10 ML VIAL IV SCH ×2 (15:44→19:59)
--- NOTE | 2022-09-22 16:33 | P.PN ---
Subjective Progress Note Date: 09/21/22 Principal diagnosis: Elevated troponin/NSTEMI/unstable angina--- ACS ruled out Intractable back pain 87 year old male presenting to the ER with a chief complaint of abdominal pain, back and chest Patient reports this is a chronic issue but within the last 24 hours the pain has worsened. In the past, he has seen Dr. Borja and been worked up for this abdominal pain. Today, he describes the pain as a sharp epigastric 10/10 pain with radiation to his back. He states it hurts to have a shirt touch his skin and worse with eating. He denies vomiting, nausea, diarrhea, dysuria, or increase in urinary frequency. Denies black tarry stools. Patient denies ta nini any pain medication today. Pt has a hx of cholecystectomy, cardic stents and thoracic abdominal aortic aneurysm. 09/21/2022 Patient is seen and evaluated sitting up in bed with nursing staff at bedside; continues to report of reproducible flank pain; no complaining of chest pain Patient has been evaluated by cardiology; likely atypical chest and neck pain not consistent with angina; acute coronary syndrome has been ruled out Cardiology recommending to discontinue IV heparin and patient can resume home oral anticoagulation Objective - Vital Signs Vital signs: Vital Signs Temp 98.4 F 09/21/22 07:56 Pulse 60 09/21/22 08:58 Resp 18 09/21/22 07:56 BP 137/67 09/21/22 07:56 Pulse Ox 93 L 09/21/22 08:58 FiO2 Intake & Output 09/20/22 09/21/22 09/21/22 18:59 06:59 18:59 Intake Total 1096.5 349.5 Output Total 450 650 350 Balance 646.5 -650 -0.5 Intake: Intake, IV Titration 228.5 231.5 Amount Heparin Sod,Pork in 0.45% 228.5 231.5 NaCl 25,000 unit In 0.45 % NaCl 1 250ml.bag @ 11. 023 UNITS/KG/HR 10 mls/hr IV .Q24H [facility] Rx#: [id number] Oral [id number] Output: Urine 450 650 350 Other: Voiding Method Toilet Toilet Urinal - Exam General appearance: alert, in no apparent distress Respiratory exam: Present: normal lung sounds bilaterally. Absent: respiratory distress, wheezes, rales, rhonchi, stridor Cardiovascular Exam: Present: regular rate, normal rhythm, normal heart sounds. Absent: systolic murmur, diastolic murmur, rubs, gallop, clicks GI/Abdominal exam: Present: soft, tenderness (diffuse ), guarding, normal bowel sounds Back exam: Present: normal inspection Neurological exam: Present: alert, oriented X3, CN II-XII intact Psychiatric exam: Present: normal affect, normal mood Skin exam: Present: warm, dry, intact, normal color. Absent: rash - Labs CBC & Chem 7: 09/22/22 07:50 09/22/22 07:50 Labs: Abnormal Lab Results - Last 24 Hours (Table) 09/20/22 09/21/22 09/21/22 Range/Units 12:39 08:34 08:34 RBC 3.98 L (4.30-5.90) m/uL Hgb 10.2 L (13.0-17.5) gm/dL Hct 34.0 L (39.0-53.0) % MCHC 29.9 L (31.0-37.0) g/dL RDW 17.1 H (11.5-15.5) % Plt Count 133 L (150-450) k/uL Lymphocytes # 0.8 L (1.0-4.8) k/uL ESR 17 H (0-15) mm/hr APTT (22.0-30.0) sec BUN 25 H (9-20) mg/dL Glucose 109 H (74-99) mg/dL 09/21/22 Range/Units 08:34 RBC (4.30-5.90) m/uL Hgb (13.0-17.5) gm/dL Hct (39.0-53.0) % MCHC (31.0-37.0) g/dL RDW (11.5-15.5) % Plt Count (150-450) k/uL Lymphocytes # (1.0-4.8) k/uL ESR (0-15) mm/hr APTT 43.0 H (22.0-30.0) sec BUN (9-20) mg/dL Glucose (74-99) mg/dL Assessment and Plan Assessment: 1. Elevated troponin/NSTEMI/unstable angina - Patient placed on IV heparin in ED which has been continued - Patient remains on aspirin, Lipitor 10 mg daily at bedtime, Imdur 60 mg daily - Cardiology consulted for further evaluation 2. Intractable back pain; CT of the spine was completed which reveals questionable thoracic spine erosion it is unclear chronic change versus infectious - Patient has been evaluated by thoracic surgery for erosive changes in the inferior endplate of T7; thought to be worsening degenerative disc disease however discitis/osteomyelitis is not excluded; patient remains on - Orthopedic surgery not recommending any further testing - We will consult ID to rule out discitis versus osteomyelitis of T7 - Patient is currently on Flexeril 10 mg twice a day when necessary, Dilaudid 0.5 mg IV every 4 hours and oxycodone 7.5 mg every 6 hours 3. Hyperlipidemia; Zocor 20 mg daily 4. Hypothyroidism; levothyroxin 50 MCG daily 5. History of CAD/CHF; remains on IV heparin, aspirin, Lipitor and Imdur; Lasix 40 mg daily DVT prophylaxis; SCDs/IV heparin CODE STATUS; full code
[2022-09-22] MEDS: ASPIRIN 81 MG PO SCH (17:43)
[2022-09-22] MEDS: POTASSIUM CHLORIDE ER 20 MEQ TAB.ER PO SCH (17:43)
[2022-09-22] MEDS: ATORVASTATIN 10 MG TAB PO SCH (17:43)
--- NOTE | 2022-09-22 17:52 | XR ---
EXAMINATION TYPE: XR chest 1V portable DATE OF EXAM: 09/22/2022 COMPARISON: 12/31/2021 HISTORY: Hypoxemia TECHNIQUE: FINDINGS: There is some infiltrate and atelectasis left lung base. There is blunting left costophreni c angle. No gross heart failure. There is left axillary pacemaker. Heart is enlarged. There are chest leads. There are arthritic changes at the right shoulder joint with superior subluxation of the derick ral head. IMPRESSION: Left lower lobe infiltrate or atelectasis which is not significantly different than last exam. No obvious heart failure.
--- NOTE | 2022-09-22 19:29 | P.PN ---
Subjective Progress Note Date: 09/22/22 Principal diagnosis: Elevated troponin/NSTEMI/unstable angina--- ACS ruled out Intractable back pain 87 year old male presenting to the ER with a chief complaint of abdominal pain, back and chest Patient reports this is a chronic issue but within the last 24 hours the pain has worsened. In the past, he has seen Dr. Borja and been worked up for this abdominal pain. Today, he describes the pain as a sharp epigastric 10/10 pain with radiation to his back. He states it hurts to have a shirt touch his skin and worse with eating. He denies vomiting, nausea, diarrhea, dysuria, or increase in urinary frequency. Denies black tarry stools. Patient denies ta nini any pain medication today. Pt has a hx of cholecystectomy, cardic stents and thoracic abdominal aortic aneurysm. 09/21/2022 Patient is seen and evaluated sitting up in bed with nursing staff at bedside; continues to report of reproducible flank pain; no complaining of chest pain Patient has been evaluated by cardiology; likely atypical chest and neck pain not consistent with angina; acute coronary syndrome has been ruled out Cardiology recommending to discontinue IV heparin and patient can resume home oral anticoagulation 24 hour interval change 09/22/2022 Patient is seen and evaluated in room at bedside; discussed with nursing staff; patient had episodes of desaturation with oxygen saturation up and down to 80s Patient does seem to be fluid overloaded; cardiology has evaluated patient and recommended to continue with IV Lasix for another 24 hours prior to switching to by mouth; chest x-ray is ordered and pending Echocardiogram reveals an EF of 50%; does reveal pulmonary hypertension which is planned to be worked up as an outpatient Objective - Vital Signs Vital signs: Vital Signs Temp 98.2 F 09/22/22 12:00 Pulse 60 09/22/22 12:00 Resp 18 09/22/22 12:00 BP 151/66 09/22/22 12:00 Pulse Ox 94 L 09/22/22 12:00 FiO2 Intake & Output 09/21/22 09/22/22 09/22/22 18:59 06:59 18:59 Intake Total 1189.5 Output Total 1125 Balance 64.5 Intake: Intake, IV Titration 231.5 Amount Heparin Sod,Pork in 0.45% 231.5 NaCl 25,000 unit In 0.45 % NaCl 1 250ml.bag @ 11. 023 UNITS/KG/HR 10 mls/hr IV .Q24H [facility] Rx#: [id number] Oral 958 Output: Urine 1125 Other: Voiding Method Toilet Toilet Toilet Urinal Urinal Urinal # Voids 3 - Exam General appearance: alert, in no apparent distress Respiratory exam: Present: normal lung sounds bilaterally. Absent: respiratory distress, wheezes, rales, rhonchi, stridor Cardiovascular Exam: Present: regular rate, normal rhythm, normal heart sounds. Absent: systolic murmur, diastolic murmur, rubs, gallop, clicks GI/Abdominal exam: Present: soft, tenderness (diffuse ), guarding, normal bowel sounds Back exam: Present: normal inspection Neurological exam: Present: alert, oriented X3, CN II-XII intact Psychiatric exam: Present: normal affect, normal mood Skin exam: Present: warm, dry, intact, normal color. Absent: rash - Labs CBC & Chem 7: 09/22/22 07:50 09/22/22 07:50 Labs: Abnormal Lab Results - Last 24 Hours (Table) 09/22/22 09/22/22 Range/Units 07:50 07:50 RBC 3.99 L (4.30-5.90) m/uL Hgb 10.1 L (13.0-17.5) gm/dL Hct 33.9 L (39.0-53.0) % MCHC 29.8 L (31.0-37.0) g/dL RDW 17.1 H (11.5-15.5) % Plt Count 127 L (150-450) k/uL Lymphocytes # 0.8 L (1.0-4.8) k/uL Carbon Dioxide 31 H (22-30) mmol/L BUN 25 H (9-20) mg/dL Glucose 108 H (74-99) mg/dL Microbiology - Last 24 Hours (Table) 09/20/22 12:39 Blood Culture - Preliminary Blood No Growth after 48 hours Assessment and Plan Assessment: 1. Elevated troponin/NSTEMI/unstable angina - Patient placed on IV heparin in ED which has been continued - Patient remains on aspirin, Lipitor 10 mg daily at bedtime, Imdur 60 mg daily - Cardiology consulted for further evaluation 2. Intractable back pain; CT of the spine was completed which reveals questionable thoracic spine erosion it is unclear chronic change versus infectious - Patient has been evaluated by thoracic surgery for erosive changes in the inferior endplate of T7; thought to be worsening degenerative disc disease however discitis/osteomyelitis is not excluded; patient remains on - Orthopedic surgery not recommending any further testing - We will consult ID to rule out discitis versus osteomyelitis of T7 - Patient is currently on Flexeril 10 mg twice a day when necessary, Dilaudid 0.5 mg IV every 4 hours and oxycodone 7.5 mg every 6 hours 3. Hyperlipidemia; Zocor 20 mg daily 4. Hypothyroidism; levothyroxin 50 MCG daily 5. History of CAD/CHF; remains on IV heparin, aspirin, Lipitor and Imdur; Lasix 40 mg daily DVT prophylaxis; SCDs/IV heparin CODE STATUS; full code
[2022-09-23] MEDS: oxyCODONE-APAP 7.5-325MG 1 EACH TAB PO PRN (00:06)
[2022-09-23] MEDS: LEVOTHYROXINE 50 MCG TAB PO SCH (06:14)
[2022-09-23] MEDS: PANTOPRAZOLE 40 MG TABLET PO SCH (06:14)
[2022-09-23] MEDS: ALBUTEROL NEBULIZED 2.5 MG/3 ML INHALATION SCH ×4 (07:42→19:23)
[2022-09-23 07:54] LABS: Anisocytosis Slight; Basophils # (A) 0.1 k/uL (0-0.2); Basophils % (A) 1 %; Eosinophils # (A) 0.6 k/uL (0-0.7); Eosinophils % (A) 6 %; HCT 37.7 % (39.0-53.0); HGB 11.6 gm/dL (13.0-17.5); Hypochromasia Marked; Lymphocytes % (A) 11 %; MCH 26.1 pg (25.0-35.0); MCHC 30.8 g/dL (31.0-37.0); MCV 84.7 fL (80.0-100.0); Mean Platelet Volume 9.4; Monocytes # (A) 0.6 k/uL (0-1.0); Monocytes % (A) 7 %; Neutrophils # (A) 6.4 k/uL (1.3-7.7); Neutrophils % (A) 73 %; Platelet Count 144 k/uL (150-450); RBC 4.45 m/uL (4.30-5.90); RDW 16.9 % (11.5-15.5); WBC 8.8 k/uL (3.8-10.6)
[2022-09-23 08:10] LABS: Calcium 9.4 mg/dL (8.4-10.2); Potassium 4.3 mmol/L (3.5-5.1)
[2022-09-23] MEDS: ISOSORBIDE MONONITRATE ER 60 MG TAB.ER.24H PO SCH (09:07)
[2022-09-23] MEDS: APIXABAN 2.5 MG TABLET PO SCH (09:07)
[2022-09-23] MEDS: FUROSEMIDE 10 MG/ML 10 ML VIAL IV SCH (09:07)
[2022-09-23 09:13] VITALS: RESP 20
--- NOTE | 2022-09-23 13:53 | P.PN ---
Subjective Progress Note Date: 09/23/22 HISTORY OF PRESENT ILLNESS: Patient is a pleasant 87-year-old male with history of CAD with previous stenting, persistent atrial fibrillation, hypertension, hyperlipidemia, ascending aortic aneurysm, sinus syndrome status post permanent pacemaker who presents for a number of complaints. His main complaint is left flank pain and states he normally takes some pain pills at home. He also admits to some abdominal pain. He also admits to some neck pain however not clearly associated with any exertion. Denies any shortness breath. Denies any lightheadedness. He believes he previously followed with Dr. Lopez. Troponin noted to be mildly elevated 0.04, 0.039, 0.04. EKG shows ventricular paced rhythm. The abdomen and pelvis showed no acute intra-abdominal or pelvic process. 09/22 Patient seen and examined. Patient denies any chest pain or pressure. He did have drop in oxygen saturations in the 80s overnight per nursing. Remains on nasal cannula. He was changed over to oral Lasix yesterday however does have crackles at the bases today. 09/23/2022 Patient examined this morning the bedside. Patient denies chest pain or pressure. He denies shortness of breath. He remains on IV Lasix. Vital signs are stable. He is hoping to be discharged home today. PHYSICAL EXAM: VITAL SIGNS: Reviewed. GENERAL: Well-developed in no acute distress. NECK: Supple. No JVD or thyromegaly LUNGS: Respirations even and unlabored. Lungs essentially clear to auscultation bilaterally. HEART: Regular rate and rhythm. S1 and S2 heard. EXTREMITIES: Normal range of motion. No clubbing or cyanosis. Peripheral pulses intact. No lower extremity edema ASSESSMENT: 1. Atypical flank and neck pain, does not appear consistent with angina 2. Mildly elevated troponins of unclear etiology, not clearly non-STEMI may be related to age, chronic kidney disease 3. History of permanent pacemaker 4. Persistent atrial fibrillation 5. History of CAD with previous 6. Acute on chronic respiratory failure, likely component of heart failure 7. Acute on chronic diastolic heart failure PLAN: Continue new current cardiac medications Discontinue IV Lasix Begin oral Lasix 40 mg twice a day Patient may be discharged home today from a cardiac standpoint and follow up on an outpatient basis Nurse practitioner note has been reviewed by physician. Signing provider agrees with the documented findings, assessment, and plan of care. Objective - Vital Signs Vital signs: Vital Signs Temp 97.8 F 09/23/22 11:26 Pulse 64 09/23/22 13:03 Resp 20 09/23/22 13:03 BP 130/65 09/23/22 11:26 Pulse Ox 96 09/23/22 13:03 FiO2 Intake & Output 09/22/22 09/23/22 09/23/22 18:59 06:59 18:59 Intake Total 720 236 Output Total 300 Balance 420 236 Weight 86 kg Intake: Oral 720 236 Output: Urine 300 Other: Voiding Method Toilet Toilet Toilet Urinal Urinal Urinal # Voids 3 - Labs CBC & Chem 7: 09/23/22 07:32 09/23/22 07:32 Labs: Abnormal Lab Results - Last 24 Hours (Table) 09/23/22 09/23/22 Range/Units 07:32 07:32 Hgb 11.6 L (13.0-17.5) gm/dL Hct 37.7 L (39.0-53.0) % MCHC 30.8 L (31.0-37.0) g/dL RDW 16.9 H (11.5-15.5) % Plt Count 144 L (150-450) k/uL Chloride 95 L (98-107) mmol/L Carbon Dioxide 38 H (22-30) mmol/L BUN 32 H (9-20) mg/dL Glucose 112 H (74-99) mg/dL Microbiology - Last 24 Hours (Table) 09/20/22 12:39 Blood Culture - Preliminary Blood No Growth after 48 hours
[2022-09-23] MEDS ORDERED: FUROSEMIDE 40 MG TAB PO SCH (16:00)
[2022-09-23 16:19] VITALS: BP 163/83; TEMP 97.5
--- NOTE | 2022-09-23 16:22 | P.PN ---
Subjective Progress Note Date: 09/23/22 Principal diagnosis: Abnormal CT question of possible discitis versus osteo- Patient is a 87-year-old male with multiple comorbidities presented to hospital epigastric pain patient did have CT abdominal pelvis did not show any acute intra-abdominal pathology however did shows T7 and T8 endplate erosion concerning for possible discitis versus advanced osteoarthritis. On today's evaluation that is 09/23/2022 the patient denies having any fever or any chills, he is breathing comfortably on room air he denies having any chest pain or shortness with occasional cough patient has pain to the mid back area no nausea vomiting and no diarrhea Objective - Vital Signs Vital signs: Vital Signs Temp 97.8 F 09/23/22 11:26 Pulse 64 09/23/22 13:03 Resp 20 09/23/22 13:03 BP 130/65 09/23/22 11:26 Pulse Ox 96 09/23/22 13:03 FiO2 Intake & Output 09/22/22 09/23/22 09/23/22 18:59 06:59 18:59 Intake Total 720 236 Output Total 300 Balance 420 236 Weight 86 kg Intake: Oral 720 236 Output: Urine 300 Other: Voiding Method Toilet Toilet Toilet Urinal Urinal Urinal # Voids 3 - Exam GENERAL DESCRIPTION: Middle-aged male lying in bed, no distress. No tachypnea or accessory muscle of respiration use. LUNGS: Unlabored breathing. Decreased breath sound at base HEART: S1, S2, regular rate and rhythm. No loud murmur ABDOMEN: Soft, no tenderness , guarding or rigidity, no organomegaly EXTREMITIES: No edema of feet. MUSCULOSKELETAL: No tenderness to the spine - Labs CBC & Chem 7: 09/23/22 07:32 09/23/22 07:32 Labs: Abnormal Lab Results - Last 24 Hours (Table) 09/23/22 09/23/22 Range/Units 07:32 07:32 Hgb 11.6 L (13.0-17.5) gm/dL Hct 37.7 L (39.0-53.0) % MCHC 30.8 L (31.0-37.0) g/dL RDW 16.9 H (11.5-15.5) % Plt Count 144 L (150-450) k/uL Chloride 95 L (98-107) mmol/L Carbon Dioxide 38 H (22-30) mmol/L BUN 32 H (9-20) mg/dL Glucose 112 H (74-99) mg/dL Microbiology - Last 24 Hours (Table) 09/20/22 12:39 Blood Culture - Preliminary Blood No Growth after 48 hours Assessment and Plan (1) Abnormal CT of spine Current Visit: Yes Status: Acute Code(s): R93.7 - ABNORMAL FINDINGS ON DIAGNOSTIC IMAGING OF PRT MS FIELDS SNOMED Code(s): 020959355 Plan: 1patient with a abnormal CT abdominal pelvis showing abnormality of the inferior endplate of the T7 and superior endplate of the T8 vertebra and this patient was in the hospital with epigastric pain for which a CT was done patient currently afebrile and did have normal white count and no evidence of any tenderness to the thoracolumbar spine area clinically not behaving as osteomyelitis/discitis. 2 Patient did have a sed rate of 17 and did have normal CRP that would go against a diagnosis of discitis and osteomyelitis more likely abnormal CT findings are secondary to advanced osteoarthritis and should be further management by spine surgery 3The patient remains to be afebrile and blood culture has been negative as well recommending no further work-up or antibiotic therapy from infectious disease standpoint Time with Patient: Less than 30
[2022-09-23] MEDS: ASPIRIN 81 MG PO SCH (17:18)
[2022-09-23] MEDS: ATORVASTATIN 10 MG TAB PO SCH (17:18)
[2022-09-23] MEDS: POTASSIUM CHLORIDE ER 20 MEQ TAB.ER PO SCH (17:18)
[2022-09-23 19:40] VITALS: PULSE 65
--- NOTE | 2022-09-23 22:30 | P.DS ---
Providers Date of admission: 09/19/22 12:02 Attending physician: Kevin De La Fuente Consults: 09/19/22 11:44 Consult Physician Urgent Consulting Provider: Andry Baker Consult Reason/Comments: back pain Do you want consulting provider notified?: Yes Consult Physician Urgent Consulting Provider: Lucas Carrillo Consult Reason/Comments: chest pain Do you want consulting provider notified?: Yes 09/19/22 13:24 Consult Physician Routine Consulting Provider: Galileo Rangel Consult Reason/Comments: knew the pt Do you want consulting provider notified?: Yes 09/20/22 11:59 Consult Physician Routine Consulting Provider: Alessandro Morgan Consult Reason/Comments: Intractable back pain/ discitis/osteomyelitis Do you want consulting provider notified?: Yes Primary care physician: Galileo Rangel Hospital Course: Diagnoses: 1. Elevated troponin/ not related to NSTEMI/unstable angina, could be secondary to chronic kidney disease and region for a research scholar who cleared the patient for discharge 2. Acute and chronic abdominal and back pain; CT of the spine was completed which reveals questionable thoracic spine erosion it is unclear chronic change versus infectious. However infection rule out with negative workup no fever or leukocytosis. No antibiotics upon discharge.. By orthopedic for discharge as well. Significantly improved upon discharge 3. Hyperlipidemia; 4. Hypothyroidism; 5. History of CAD/CHF; chronic 6. Persistent atrial fibrillation status post pacemaker, on liquids Hospital course: 87 year old male presenting to the ER with a chief complaint of abdominal pain, patient has chronic abdominal pain that was acute on admission, his been evaluated by orthopedic and infectious disease and research scholar and all workup was unremarkable, there was questionable increased erosions at T7 however infection ruled out. No need for antibiotics as per ID team. Today patient feels much better as he states shortly his abdominal pain about 7- 8/10 and today is even better 5-6/10 in severity. He tolerates that well. Patient was eager to go home today, even he was then stop pending for him to go home today. Patient Is Coming from a Distance to Pick Him up. He Denies Any Other Complaints. No Chest Pain or Dyspnea, No Urinary Complaints. Chest x-ray today showed left lower lobe infiltrate or atelectasis. Patient with no fever or leukocytosis. No need for antibiotics. Dr. Ponce reviewed the chest x-ray and to clear the patient for discharge with bedside nurse He States He Has a Liquids at Home. Last Bowel Movement Was Normal Yesterday. Patient Was Cleared for Discharge by All Consultants As above Including Cork Cutter and Infectious Disease and Pulmonary Team. Orthopedic Team Already Signed off. Problems and management plan were discussed with the patient and he verbalized understanding and acceptance Patient was found stable and can be discharged home in guarded prognosis however he needs follow-up as an outpatient. Patient was instructed to follow up with PCP within one week and patient agrees Patient was instructed to follow up with exhibits manager Dr. Argueta in one week and research scholar Dr. Reina in 1 week and he agrees Physical exam Gen: patient is a AAOx3, no distress CVS: S1-S2, RRR, no murmur Lungs: B/L CTA, no wheezing Abdomen: soft, no distention, no tenderness, positive bowel sounds Extremity: no leg edema or induration Time spent more than 35 minutes Plan - Discharge Summary Discharge Rx Participant: Yes New Discharge Prescriptions: New Furosemide [Lasix] 40 mg PO BID@0900,1600 #60 tab Continue Levothyroxine Sodium [Synthroid] 50 mcg PO DAILY Simvastatin [Zocor] 20 mg PO PC-SUPPER Potassium Chloride [Klor-Con 20] 20 meq PO PC-SUPPER Isosorbide Mononitrate ER [Imdur] 60 mg PO DAILY Pantoprazole Sodium [Protonix] 40 mg PO DAILY #30 tablet. Apixaban [Eliquis] 2.5 mg PO BID #60 tab Glucosamine/Chondr Nguyen A Sod [Osteo Bi-Flex Caplet] 1 tab PO DAILY oxyCODONE-APAP 7.5-325MG [Percocet 7.5-325 mg] 1 tab PO Q6H PRN PRN Reason: Pain Aspirin EC [Ecotrin Low Dose] 81 mg PO PC-SUPPER Loratadine [Claritin] 10 mg PO DAILY PRN PRN Reason: Allergy Symptoms Albuterol Nebulized [Ventolin Nebulized] 2.5 mg INHALATION RT-QID Cyclobenzaprine [Flexeril] 10 mg PO BID PRN PRN Reason: Muscle Spasm Discontinued Ibuprofen [Motrin Ib] 400 mg PO Q8H PRN PRN Reason: Pain Furosemide [Lasix] 40 mg PO DAILY Discharge Medication List Levothyroxine Sodium [Synthroid] 50 mcg PO DAILY 08/30/14 [History] Potassium Chloride [Klor-Con 20] 20 meq PO PC-SUPPER 08/30/14 [History] Simvastatin [Zocor] 20 mg PO PC-SUPPER 08/30/14 [History] Isosorbide Mononitrate ER [Imdur] 60 mg PO DAILY 07/30/17 [History] Apixaban [Eliquis] 2.5 mg PO BID #60 tab 03/29/20 [Rx] Pantoprazole Sodium [Protonix] 40 mg PO DAILY #30 tablet. 03/29/20 [Rx] Glucosamine/Chondr Nguyen A Sod [Osteo Bi-Flex Caplet] 1 tab PO DAILY 10/11/20 [History] Loratadine [Claritin] 10 mg PO DAILY PRN 04/06/21 [History] Albuterol Nebulized [Ventolin Nebulized] 2.5 mg INHALATION RT-QID 12/31/21 [History] Aspirin EC [Ecotrin Low Dose] 81 mg PO PC-SUPPER 09/19/22 [History] Cyclobenzaprine [Flexeril] 10 mg PO BID PRN 09/19/22 [History] oxyCODONE-APAP 7.5-325MG [Percocet 7.5-325 mg] 1 tab PO Q6H PRN 09/19/22 [History] Furosemide [Lasix] 40 mg PO BID@0900,1600 #60 tab 09/23/22 [Rx] Follow up Appointment(s)/Referral(s): Galileo Rangel MD [Primary Care Provider] - 1-2 days Sunny Reina DO [STAFF PHYSICIAN] - 1 Week ([facility]ork Cutter) [facility] [NON-STAFF] - Activity/Diet/Wound Care/Special Instructions: Heart healthy diet activity is restricted till you see your doctor Discharge Disposition: HOME WITH HOME HEALTH SERVICES
== END 2022-09-23 19:46 | disposition home health service (06) | DRG 551 ==
LOC: EC 08:16 → 3SCARD 12:02
PROVIDERS: ADMIT Internal Medicine; ATTEND Internal Medicine
DX: M51.34 Other intervertebral disc degeneration, thoracic region (principal); I50.33 Acute on chronic diastolic (congestive) heart failure; J96.20 Acute and chronic respiratory failure, unspecified whether with hypoxia or hypercapnia; I13.0 Hypertensive heart and chronic kidney disease with heart failure and stage 1 through stage 4 chronic kidney disease, or unspecified chronic kidney disease; I25.110 Atherosclerotic heart disease of native coronary artery with unstable angina pectoris; I48.19 Other persistent atrial fibrillation; J98.11 Atelectasis; M85.88 Other specified disorders of bone density and structure, other site; E03.9 Hypothyroidism, unspecified; E78.5 Hyperlipidemia, unspecified; E66.9 Obesity, unspecified; I71.60 Thoracoabdominal aortic aneurysm, without rupture, unspecified; G89.29 Other chronic pain; N18.9 Chronic kidney disease, unspecified; G47.33 Obstructive sleep apnea (adult) (pediatric); Z68.33 Body mass index [BMI] 33.0-33.9, adult; R10.9 Unspecified abdominal pain; Z87.891 Personal history of nicotine dependence; R77.8 Other specified abnormalities of plasma proteins; M19.90 Unspecified osteoarthritis, unspecified site; Z99.81 Dependence on supplemental oxygen; Z20.822 Contact with and (suspected) exposure to COVID-19; Z79.01 Long term (current) use of anticoagulants; Z79.82 Long term (current) use of aspirin; Z79.890 Hormone replacement therapy; Z79.899 Other long term (current) drug therapy; Z95.0 Presence of cardiac pacemaker; Z95.5 Presence of coronary angioplasty implant and graft; Z96.653 Presence of artificial knee joint, bilateral
CPT/HCPCS: 36415; 71045; 74177; 80048; 80053; 80061; 83605; 83690; 84484; 85025; 85652; 85730; 86140; 87040; 87635; 93005; 93306; 94640; 94760; 96361; 96365; 96366; 96375; 99285

== ENCOUNTER → 2023-06-17 | Outpatient (CLI) | payer MEDICARE ==
--- NOTE | 2023-06-17 17:04 | US ---
EXAMINATION TYPE: US thyroid st tissue head/neck DATE OF EXAM: 06/17/2023 COMPARISON: EXAMINATION TYPE: US thyroid st tissue head/neck DATE OF EXAM: 06/17/2023 COMPARISON: NONE CLINICAL INDICATION: Male, 87 years old with history of R22.1 LOCALIZED SWELLING, MASS AND LUMP, NECK ; TECHNIQUE: Scanned over the pt's stated area of palpable concern. FINDINGS: Normal appearing left submandibular gland tissue noted at the area of concern. Contralate ral side imaged as well. IMPRESSION: Area of palpable abnormalities felt to correlate with a normal submandibular gland. If t here remains concern consider dedicated CTA neck with IV contrast with palpable marker placement.
== END | disposition home or self-care (01) ==
LOC: RADUSWWP 15:18
PROVIDERS: ATTEND Family Medicine
DX: R22.1 Localized swelling, mass and lump, neck (principal)
CPT/HCPCS: 76536

== ENCOUNTER 2023-07-03 12:58 | Inpatient (IN) | payer MEDICARE ==
[2023-07-03] MEDS ORDERED: SODIUM CHLORIDE 0.9% 500 ML 500 ML IV STA (14:09)
[2023-07-03] MEDS ORDERED: HYDROmorphone 0.5 MG/0.5 ML SYRINGE IVP STA (14:11)
--- NOTE | 2023-07-03 14:14 | ED ---
General Adult HPI - General Chief complaint: Weakness Stated complaint: Headache,Weakness Time Seen by Provider: 07/03/23 14:00 Source: patient, RN notes reviewed, old records reviewed Mode of arrival: ambulatory Limitations: language barrier - History of Present Illness Initial comments: This is an 88-year-old male presents to the emergency department with his daughter giving most of the history because his Persian is not good. Patient comes in because yesterday he had chest pain and some shortness of breath with about 2 hours it is subsided he no longer has any chest pain at this time. Patient does have history of congestive heart.. Daughter states she often will get congestive heart failure. It appears to her that the fluid accumulates in the patient's abdomen. Patient also complains of a diffuse headache as well as back pain on the right side of his back radiating down his left leg. Patient denies any fever chills or cough patient denies any recent injury or trauma. Patient denies any palpitations. Patient denies any numbness or weakness. - Related Data Home Medications Medication Instructions Recorded Confirmed Levothyroxine Sodium [Synthroid] 50 mcg PO DAILY 08/30/14 09/19/22 Potassium Chloride [Klor-Con 20] 20 meq PO PC-SUPPER 08/30/14 09/19/22 Simvastatin [Zocor] 20 mg PO PC-SUPPER 08/30/14 09/19/22 Isosorbide Mononitrate ER [Imdur] 60 mg PO DAILY 07/30/17 09/19/22 Glucosamine/Chondr Nguyen A Sod [Osteo 1 tab PO DAILY 10/11/20 09/19/22 Bi-Flex Caplet] Loratadine [Claritin] 10 mg PO DAILY PRN 04/06/21 09/19/22 Albuterol Nebulized [Ventolin 2.5 mg INHALATION RT-QID 12/31/21 09/19/22 Nebulized] Aspirin EC [Ecotrin Low Dose] 81 mg PO PC-SUPPER 09/19/22 09/19/22 Cyclobenzaprine [Flexeril] 10 mg PO BID PRN 09/19/22 09/19/22 oxyCODONE-APAP 7.5-325MG [Percocet 1 tab PO Q6H PRN 09/19/22 09/19/22 7.5-325 mg] Previous Rx's Medication Instructions Recorded Apixaban [Eliquis] 2.5 mg PO BID #60 tab 03/29/20 Pantoprazole Sodium [Protonix] 40 mg PO DAILY #30 tablet. 03/29/20 Furosemide [Lasix] 40 mg PO BID@0900,1600 #60 tab 09/23/22 Allergies Allergy/AdvReac Type Severity Reaction Status Date / Time cefazolin sodium [From Ancef] Allergy Anaphylaxis Verified 07/03/23 13:28 hylan G-F 20 [From Synvisc] Allergy Anaphylaxis Verified 07/03/23 13:28 Review of Systems ROS Statement: Those systems with pertinent positive or pertinent negative responses have been documented in the HPI. ROS Other: All systems not noted in ROS Statement are negative. Past Medical History Past Medical History: Atrial Fibrillation, Coronary Artery Disease (CAD), Heart Failure, Hyperlipidemia, Hypertension, Respiratory Disorder, Thyroid Disorder, Vascular Disorder Additional Past Medical History / Comment(s): Severe JORDANA with an H of 128 seated with a BiPAP pressure of 17/13 cm of water uses 2 L of oxygen at night with bipap, obesity, coronary artery disease with previous coronary intervention and stenting, tonic atrial fibrillation,hypothyroidism, ascending thoracic aortic aneurysm-measuring 4.2 cm in size,steroids January 2022 History of Any Multi-Drug Resistant Organisms: None Reported Past Surgical History: Cholecystectomy, Heart Catheterization With Stent, Joint Replacement Additional Past Surgical History / Comment(s): UPPP for obstructive sleep apnea, abdominal aortic aneurysm repair, a stent within the aorta and stents also placed in the iliacs, cataracts, right carotid endarterectomy, cholecystectomy,sebastian knee replacements Past Anesthesia/Blood Transfusion Reactions: No Reported Reaction Date of Last Stent Placement:: 1995, Type of Cardiac Device: Permanent Pacemaker Device Placement Date:: JUL 2017 Past Psychological History: No Psychological Hx Reported Smoking Status: Former smoker Past Alcohol Use History: None Reported Past Drug Use History: None Reported - Past Family History Mother Family Medical History: No Reported History General Exam - General Exam Comments Initial Comments: GENERAL: Patient is well-developed and well-nourished. Patient is nontoxic and well- hydrated and is in mild distress. ENT: Neck is soft and supple. No significant lymphadenopathy is noted. Oropharynx is clear. Moist mucous membranes. Neck has full range of motion without eliciting any pain. EYES: The sclera were anicteric and conjunctiva were pink and moist. Extraocular movements were intact and pupils were equal round and reactive to light. Eyelids were unremarkable. PULMONARY: Unlabored respirations. Good breath sounds bilaterally. No audible rales rhonchi or wheezing was noted. CARDIOVASCULAR: There is a regular rate and rhythm without any murmurs gallops or rubs. ABDOMEN: Soft and nontender with normal bowel sounds. . SKIN: Skin is clear with no lesions or rashes and otherwise unremarkable. NEUROLOGIC: Patient is alert and oriented x3. Cranial nerves II through XII are grossly intact. Motor and sensory are also intact. Normal speech, volume and content. Symmetrical smile. MUSCULOSKELETAL: Normal extremities with adequate strength and full range of motion. No lower extremity swelling or edema. No calf tenderness. LYMPHATICS: No significant lymphadenopathy is noted PSYCHIATRIC: Normal psychiatric evaluation. Limitations: language barrier Course Vital Signs 07/03/23 07/03/23 13:24 15:38 Temperature 98.3 F Pulse Rate 60 90 Respiratory 20 18 Rate Blood Pressure 135/68 152/79 O2 Sat by Pulse 93 L 98 Oximetry Medical Decision Making - Medical Decision Making EKG shows electronically paced rhythm at 60 bpm QRS is under 90 QT interval is 474 QTC is 474. Was pt. sent in by a medical professional or institution (, PA, [employer], urgent care, hospital, or snf...) When possible be specific @ -[No] Did you speak to anyone other than the patient for history (EMS, parent, family, police, friend...)? What history was obtained from this source @ -[No] Did you review nursing and triage notes (agree or disagree)? Why? @ -[I reviewed and agree with nursing and triage notes] Were old charts reviewed (outside hosp., previous admission, EMS record, old EKG, old radiological studies, urgent care reports/EKG's, snf records)? Report findings @ -I Review prior charts and prior radiological studies on this patient Differential Diagnosis (chest pain, altered mental status, abdominal pain women, abdominal pain men, vaginal bleeding, weakness, fever, dyspnea, syncope, headache, dizziness, GI bleed, back pain, seizure, CVA, palpatations, mental health, musculoskeletal)? @ -Differential Chest Pain: Stable Angina, Unstable Angina, STEMI, NSTEMI Aortic Dissection, Pneumothorax, Musculoskeletal, Esophageal Spasm GERD, Cholecystitis, Pancreatitis, Zoster, this is not meant to be an all-inclusive list. EKG interpreted by me (3pts min.). @ -[As above] X-rays interpreted by me (1pt min.). @ -Chest x-ray shows left-sided pleural effusion. Patient's lumbosacral spine shows degenerative disc disease as well as spinal listhesis of L4 and L5 CT interpreted by me (1pt min.). @ -CT of the brain shows no acute abnormality U/S interpreted by me (1pt. min.). @ -[None done] What testing was considered but not performed or refused? (CT, X-rays, U/S, labs)? Why? @ -[None] What meds were considered but not given or refused? Why? @ -[None] Did you discuss the management of the patient with other professionals (professionals i.e. , PA, [employer] SAL[employer]ERSON, lab, RT, psych nurse, social work supervisor, jockey valet, teacher, special officer, top case assembler)? Give summary @ -I spoke with Dr. Hampton he agreed to admit the patient Was smoking cessation discussed for >3mins.? @ -[No] Was critical care preformed (if so, how long)? @ -[No] Were there social determinants of health that impacted care today? How? (Homelessness, low income, unemployed, alcoholism, drug addiction, transpor tation, low edu. Level, literacy, decrease access to med. care, [facility], rehab)? @ -[No] Was there de-escalation of care discussed even if they declined (Discuss DNR or withdrawal of care, Hospice)? DNR status @ -[No] What co-morbidities impacted this encounter? (DM, HTN, Smoking, COPD, CAD, Cancer, CVA, ARF, Chemo, Hep., AIDS, mental health diagnosis, sleep apnea, morbid obesity)? @ -[None] Was patient admitted / discharged? Hospital course, mention meds given and route, prescriptions, significant lab abnormalities, going to OR and other pertinent info. @ -I gave the patient Dilaudid for the back pain he felt as though the Dilaudid helped him considerably. Patient's lab work came back essentially normal except for a little anemia. Patient's CAT scan showed no acute abnormality. Chest x-ray showed no acute abnormality. I spoke with Dr. Hampton and he agreed to admit the patient I admitted the patient wrote admitting orders Undiagnosed new problem with uncertain prognosis? @ -[No] Drug Therapy requiring intensive monitoring for toxicity (Heparin, Nitro, Insulin, Cardizem)? @ -[No] Were any procedures done? @ -[No] Diagnosis/symptom? @ -Chest pain Acute, or Chronic, or Acute on Chronic? @ -Acute Uncomplicated (without systemic symptoms) or Complicated (systemic symptoms)? @ -Complicated Side effects of treatment? @ -[No] Exacerbation, Progression, or Severe Exacerbation? @ -[No] Poses a threat to life or bodily function? How? (Chest pain, [place], [place], pneumonia, PE, COPD, DKA, ARF, appy, cholecystitis, CVA, Diverticulitis, Homicidal, Suicidal, threat to staff... and all critical care pts) @ -Yes this could lead to FL and end organ dysfunction - Lab Data Result diagrams: 07/03/23 14:17 07/03/23 14:17 Lab Results 07/03/23 07/03/23 07/03/23 Range/Units 14:17 14:17 14:17 WBC 5.8 (3.8-10.6) k/uL RBC 3.54 L (4.30-5.90) m/uL Hgb 9.2 L (13.0-17.5) gm/dL Hct 29.0 L (39.0-53.0) % MCV 81.8 (80.0-100.0) fL MCH 26.0 (25.0-35.0) pg MCHC 31.8 (31.0-37.0) g/dL RDW 17.3 H (11.5-15.5) % Plt Count 158 (150-450) k/uL MPV 8.8 Neutrophils % 75 % Lymphocytes % 12 % Monocytes % 8 % Eosinophils % 4 % Basophils % 0 % Neutrophils # 4.4 (1.3-7.7) k/uL Lymphocytes # 0.7 L (1.0-4.8) k/uL Monocytes # 0.4 (0-1.0) k/uL Eosinophils # 0.2 (0-0.7) k/uL Basophils # 0.0 (0-0.2) k/uL Hypochromasia Marked Anisocytosis Slight PT 11.7 (9.0-12.0) sec INR 1.1 (<1.2) APTT 27.9 (22.0-30.0) sec Sodium 141 (137-145) mmol/L Potassium 4.6 (3.5-5.1) mmol/L Chloride 101 (98-107) mmol/L Carbon Dioxide 31 H (22-30) mmol/L Anion Gap 9 mmol/L BUN 29 H (9-20) mg/dL Creatinine 1.14 (0.66-1.25) mg/dL Est GFR (CKD-EPI)AfAm 66 (>60 ml/min/1.73 sqM) Est GFR (CKD-EPI)NonAf 57 (>60 ml/min/1.73 sqM) Glucose 97 (74-99) mg/dL Plasma Lactic Acid Corwin (0.7-2.0) mmol/L Calcium 8.8 (8.4-10.2) mg/dL Magnesium 2.4 H (1.6-2.3) mg/dL Total Bilirubin 0.7 (0.2-1.3) mg/dL AST 24 (17-59) U/L ALT 13 (4-49) U/L Alkaline Phosphatase 110 (38-126) U/L Troponin I (0.000-0.034) ng/mL Total Protein 7.2 (6.3-8.2) g/dL Albumin 3.7 (3.5-5.0) g/dL Urine Color Urine Appearance (Clear) Urine pH (5.0-8.0) Ur Specific Ripley (1.001-1.035) Urine Protein (Negative) Urine Glucose (UA) (Negative) Urine Ketones (Negative) Urine Blood (Negative) Urine Nitrite (Negative) Urine Bilirubin (Negative) Urine Urobilinogen (<2.0) mg/dL Ur Leukocyte Esterase (Negative) Coronavirus (PCR) (Not Detectd) 07/03/23 07/03/23 07/03/23 Range/Units 14:17 14:17 14:19 WBC (3.8-10.6) k/uL RBC (4.30-5.90) m/uL Hgb (13.0-17.5) gm/dL Hct (39.0-53.0) % MCV (80.0-100.0) fL MCH (25.0-35.0) pg MCHC (31.0-37.0) g/dL RDW (11.5-15.5) % Plt Count (150-450) k/uL MPV Neutrophils % % Lymphocytes % % Monocytes % % Eosinophils % % Basophils % % Neutrophils # (1.3-7.7) k/uL Lymphocytes # (1.0-4.8) k/uL Monocytes # (0-1.0) k/uL Eosinophils # (0-0.7) k/uL Basophils # (0-0.2) k/uL Hypochromasia Anisocytosis PT (9.0-12.0) sec INR (<1.2) APTT (22.0-30.0) sec Sodium (137-145) mmol/L Potassium (3.5-5.1) mmol/L Chloride (98-107) mmol/L Carbon Dioxide (22-30) mmol/L Anion Gap mmol/L BUN (9-20) mg/dL Creatinine (0.66-1.25) mg/dL Est GFR (CKD-EPI)AfAm (>60 ml/min/1.73 sqM) Est GFR (CKD-EPI)NonAf (>60 ml/min/1.73 sqM) Glucose (74-99) mg/dL Plasma Lactic Acid Corwin 1.1 (0.7-2.0) mmol/L Calcium (8.4-10.2) mg/dL Magnesium (1.6-2.3) mg/dL Total Bilirubin (0.2-1.3) mg/dL AST (17-59) U/L ALT (4-49) U/L Alkaline Phosphatase (38-126) U/L Troponin I 0.021 (0.000-0.034) ng/mL Total Protein (6.3-8.2) g/dL Albumin (3.5-5.0) g/dL Urine Color Yellow Urine Appearance Clear (Clear) Urine pH 6.5 (5.0-8.0) Ur Specific Ripley 1.015 (1.001-1.035) Urine Protein Trace H (Negative) Urine Glucose (UA) Negative (Negative) Urine Ketones Negative (Negative) Urine Blood Negative (Negative) Urine Nitrite Negative (Negative) Urine Bilirubin Negative (Negative) Urine Urobilinogen 4.0 (<2.0) mg/dL Ur Leukocyte Esterase Negative (Negative) Coronavirus (PCR) (Not Detectd) 07/03/23 Range/Units 15:19 WBC (3.8-10.6) k/uL RBC (4.30-5.90) m/uL Hgb (13.0-17.5) gm/dL Hct (39.0-53.0) % MCV (80.0-100.0) fL MCH (25.0-35.0) pg MCHC (31.0-37.0) g/dL RDW (11.5-15.5) % Plt Count (150-450) k/uL MPV Neutrophils % % Lymphocytes % % Monocytes % % Eosinophils % % Basophils % % Neutrophils # (1.3-7.7) k/uL Lymphocytes # (1.0-4.8) k/uL Monocytes # (0-1.0) k/uL Eosinophils # (0-0.7) k/uL Basophils # (0-0.2) k/uL Hypochromasia Anisocytosis PT (9.0-12.0) sec INR (<1.2) APTT (22.0-30.0) sec Sodium (137-145) mmol/L Potassium (3.5-5.1) mmol/L Chloride (98-107) mmol/L Carbon Dioxide (22-30) mmol/L Anion Gap mmol/L BUN (9-20) mg/dL Creatinine (0.66-1.25) mg/dL Est GFR (CKD-EPI)AfAm (>60 ml/min/1.73 sqM) Est GFR (CKD-EPI)NonAf (>60 ml/min/1.73 sqM) Glucose (74-99) mg/dL Plasma Lactic Acid Corwin (0.7-2.0) mmol/L Calcium (8.4-10.2) mg/dL Magnesium (1.6-2.3) mg/dL Total Bilirubin (0.2-1.3) mg/dL AST (17-59) U/L ALT (4-49) U/L Alkaline Phosphatase (38-126) U/L Troponin I (0.000-0.034) ng/mL Total Protein (6.3-8.2) g/dL Albumin (3.5-5.0) g/dL Urine Color Urine Appearance (Clear) Urine pH (5.0-8.0) Ur Specific Ripley (1.001-1.035) Urine Protein (Negative) Urine Glucose (UA) (Negative) Urine Ketones (Negative) Urine Blood (Negative) Urine Nitrite (Negative) Urine Bilirubin (Negative) Urine Urobilinogen (<2.0) mg/dL Ur Leukocyte Esterase (Negative) Coronavirus (PCR) Not Detected (Not Detectd) Disposition Clinical Impression: Chest pain, Headache, Sciatica Disposition: ADMITTED IP TO [facility] Time of Disposition: 16:01
--- NOTE | 2023-07-03 14:32 | XR ---
EXAMINATION TYPE: XR chest 2V DATE OF EXAM: 07/03/2023 COMPARISON: 09/22/22 HISTORY: Shortness of breath TECHNIQUE: Frontal and lateral views of the chest are obtained. FINDINGS: Scattered senescent parenchymal changes noted. Hyperinflation compatible with COPD. Increasing opacity left lower lobe which may reflect a combination of effusion, atelectasis and/or in filtrate. There is evidence of pulmonary venous congestion and tiny right-sided effusion. Stable cardiomegaly. Mediastinal structures are stable and grossly unremarkable. No evidence for hilar prominence. Degenerative changes dorsal spine. IMPRESSION: 1. Increasing opacity left lower lobe which may reflect a combination of effusion, atelectasis and/or infiltrate. There is evidence of pulmonary venous congestion and tiny right-sided effusion.
[2023-07-03 14:40] LABS: Anisocytosis Slight; Basophils % (A) 0 %; Eosinophils # (A) 0.2 k/uL (0-0.7); Eosinophils % (A) 4 %; HGB 9.2 gm/dL (13.0-17.5); Hypochromasia Marked; Lymphocytes # (A) 0.7 k/uL (1.0-4.8); Lymphocytes % (A) 12 %; MCHC 31.8 g/dL (31.0-37.0); MCV 81.8 fL (80.0-100.0); Mean Platelet Volume 8.8; Monocytes # (A) 0.4 k/uL (0-1.0); Monocytes % (A) 8 %; Neutrophils # (A) 4.4 k/uL (1.3-7.7); Neutrophils % (A) 75 %; Platelet Count 158 k/uL (150-450); RBC 3.54 m/uL (4.30-5.90); RDW 17.3 % (11.5-15.5); WBC 5.8 k/uL (3.8-10.6)
[2023-07-03 14:40] LABS: Appearance,Urine Clear (Clear); Bilirubin,Urine Negative (Negative); Blood,Urine Negative (Negative); Color,Urine Yellow; Glucose,Urine (UA) Negative (Negative); Ketones,Urine Negative (Negative); Leukocyte Esterase,Urine Negative (Negative); Nitrite,Urine Negative (Negative); PH, Urine 6.5 (5.0-8.0); Protein,Urine Trace (Negative); Specific Gravity,Urine 1.015 (1.001-1.035)
[2023-07-03 14:47] LABS: INR 1.1 (<1.2); Partial Thromboplastin Time 27.9 sec (22.0-30.0); Prothrombin Time 11.7 sec (9.0-12.0)
--- NOTE | 2023-07-03 14:47 | CT ---
EXAMINATION TYPE: CT brain wo con DATE OF EXAM: 07/03/2023 COMPARISON: 03/26/20 HISTORY: Weakness. CT DLP: 1170.[address] of the brain was performed. The ventricles, basal cisterns and sulci overlying the cerebral convexities demonstrate mild enlargem ent. There is no evidence for intracranial hemorrhage or sulcal effacement. There is decreased attenuation about the periventricular white matter and deep white matter of both c erebral hemispheres, compatible with chronic small vessel ischemia. Differential diagnosis does inclu de demyelination. No mass effects are seen.No midline shift. Osseous calvarium is intact. If symptoms persist consider MRI. IMPRESSION: 1. Age related atrophic and chronic small vessel ischemic change without acute intracranial process s een at this time.
[2023-07-03 14:52] LABS: ALT 13 U/L (4-49); AST 24 U/L (17-59); African American GFR (CKD) 66 (>60 ml/min/1.73 sqM); Albumin 3.7 g/dL (3.5-5.0); Alkaline Phosphatase 110 U/L (38-126); Anion Gap 9 mmol/L; Blood Urea Nitrogen 29 mg/dL (9-20); Calcium 8.8 mg/dL (8.4-10.2); Carbon Dioxide 31 mmol/L (22-30); Chloride 101 mmol/L (98-107); Glucose 97 mg/dL (74-99); Magnesium 2.4 mg/dL (1.6-2.3); Non-African American GFR(CKD) 57 (>60 ml/min/1.73 sqM); Potassium 4.6 mmol/L (3.5-5.1); Sodium 141 mmol/L (137-145); Total Bilirubin 0.7 mg/dL (0.2-1.3); Total Protein 7.2 g/dL (6.3-8.2)
[2023-07-03] MEDS ORDERED: ACETAMINOPHEN TAB 500 MG TAB PO STA (15:45)
[2023-07-03] MEDS ORDERED: KETOROLAC 15 MG/ML 1 ML VIAL IVP STA (15:45)
[2023-07-03] MEDS ORDERED: methylPREDNISolone SOD SUCCI 125 MG/2 ML VIAL IV STA ×2 (15:48→16:46)
[2023-07-03] MEDS ORDERED: NITROGLYCERIN SL TABS 0.4 MG TAB SUBLINGUAL PRN (16:02)
--- NOTE | 2023-07-03 16:18 | XR ---
EXAMINATION TYPE: XR lumbar spine 2 or 3V DATE OF EXAM: 07/03/2023 CLINICAL HISTORY: pain TECHNIQUE: Three views of the lumbar spine are submitted. COMPARISON: CT abdomen pelvis 09/19/2022, CT lumbar spine 12/30/2013, MRI lumbar spine 01/01/2012, lumb osacral spine radiograph 09/20/2010 FINDINGS: There are 5 lumbar type vertebral bodies identified. No acute fracture. Mild levo curvature of the evelny mbar spine with apex at L4. Grade 1 anterolisthesis of L4 on L5. Multilevel degenerative disc disease and facet arthropathy with disc space narrowing, endplate sclerosis, vacuum disc disease, and anteri or osteophytosis. This is most prominent at L2-S1. Vertebral body heights are within normal limits. T he overlying soft tissue appears unremarkable. Cholecystectomy clips right upper quadrant. Visualizat ion of aortic stent grafts. Vascular sclerosis. IMPRESSION: 1. No acute fracture or dislocation is seen in the lumbar spine. 2. Moderate to severe multilevel degenerative disc disease and facet arthropathy of the lumbar spine . 3. Grade 1 anterolisthesis of L4 on L5. 4. Mild levoscoliotic curvature.
[2023-07-03] MEDS ORDERED: MAGNESIUM HYDROXIDE 2,400 MG/30 ML CUP PO PRN (18:19)
[2023-07-03] MEDS ORDERED: LORATADINE 10 MG TAB PO PRN (18:19)
--- NOTE | 2023-07-03 18:22 | P.HPIM ---
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 Patient's history is supplemented by daughter who is at bedside. Patient says that for the last 3 days he's had intermittent sharp left-sided headache. At times during these headaches he's had blackout vision of his left and right eye, but worse on the left. These episodes have been present intermittently for the last several months, however, these last 3 days and then the worst yet and h ave not had any moments of relief. Patient does deny fevers, chills, nausea, vomiting. He does report photophobia. He reports brief episode of chest pain, palpitations yesterday. Denies abdominal pain, constipation, diarrhea, dysuria, dyschezia, numbness/weakness of extremities. He does report radicular pain down the right leg starting from the back. In the emergency room, patient was afebrile, 135/68, heart rate 60, 93% on room air. CBC demonstrated anemia down to 9.2, down from 11.1. Basic metabolic panel shows CO2 of 31, BMI 29, creatinine of 1.14. Liver function tests are unremarkable. Troponins 0.0-1. Coags are unremarkable. Urinalysis shows trace protein. Covid was negative. Chest x-ray demonstrates vascular congestion, cardiomegaly, left-sided pleural effusion increased from prior. EKG demonstrated ventricular paced rhythm. Brain CT showed age-related atrophic and chronic small vessel ischemic change. Lumbar x-ray shows moderate to severe multilevel degenerative disc disease and facet arthropathy at the lumbar spine, grade 1 anterolisthesis of L4 to L5. Case was discussed with the emergency room provider and decision was made to admit the patient to observation for headache, episode of chest pain. All Systems reviewed and pertinent positives and negatives noted in HPI, all other symptoms are negative Gen: in no apparent distress, resting comfortably in bed Eyes: PERRL, no scleral injection or icterus, area of scarring on the cornea of the left eye HENT: normocephalic, atraumatic, good hearing acuity, moist mucous membranes, tenderness to palpation of the left adventist, mandible Neck: no tracheal deviation, full range of motion Resp: good air exchange, breathing comfortably with no accessory muscle use, no tactile fremitus, diminished breath sounds on the left, crackles in the right base CVS: good distal perfusion x 4, bilateral pitting edema, regular rate and rhythm without murmurs GI: soft, NTTP, ND, no hepatosplenomegaly : no suprapubic tenderness, no CVAT, herring catheter not present MSK: no clubbing, no cyanosis, no noted contractures of extremities Skin: no noted rashes, petechiae; temperature of skin is appropriate Neuro: moving all extremities without signs of weakness, CN II-XII intact Psych: cooperative, euthymic mood, insight and judgment intact Labs and imaging as above Assessment: Headache Visual changes Chest pain Permanent atrial fibrillation, on Apixiban Chronic diastolic heart failure Hypertension Hyperlipidemia Hypothyroidism Plan: Vital signs reviewed and noted in the HPI Lab work reviewed and noted in the HPI EKG and CXR are personally interpreted and noted in the HPI Case was discussed with the Emergency Room provider and decision was made to admit the patient for headache, visual changes, intermittent chest pain Start high-dose steroids, 1000 mg Solu-Medrol IV daily, obtain ESR/CRP, consult neurology regarding possibility of temporal arteritis Trend troponins, nitroglycerin when necessary, cardiology consult regarding intermittent chest pain Continue Imdur 60 mg daily Continue Lasix 40 mg by mouth daily Continue aspirin 81 mg daily, Apixiban 5 mg twice a day, statin Patient is full code Past Medical History Past Medical History: Atrial Fibrillation, Coronary Artery Disease (CAD), Heart Failure, Hyperlipidemia, Hypertension, Respiratory Disorder, Thyroid Disorder, Vascular Disorder Additional Past Medical History / Comment(s): Severe JORDANA with an H of 128 seated with a BiPAP pressure of 17/13 cm of water uses 2 L of oxygen at night with bipap, obesity, coronary artery disease with previous coronary intervention and stenting, tonic atrial fibrillation,hypothyroidism, ascending thoracic aortic aneurysm-measuring 4.2 cm in size,steroids January 2022 History of Any Multi-Drug Resistant Organisms: None Reported Past Surgical History: Cholecystectomy, Heart Catheterization With Stent, Joint Replacement Additional Past Surgical History / Comment(s): UPPP for obstructive sleep apnea, abdominal aortic aneurysm repair, a stent within the aorta and stents also placed in the iliacs, cataracts, right carotid endarterectomy, cholecystectomy, sebastian knee replacements Past Anesthesia/Blood Transfusion Reactions: No Reported Reaction Date of Last Stent Placement:: 1995, Type of Cardiac Device: Permanent Pacemaker Device Placement Date:: JUL 2017 Past Psychological History: No Psychological Hx Reported Smoking Status: Former smoker Past Alcohol Use History: None Reported Past Drug Use History: None Reported - Past Family History Mother Family Medical History: No Reported History Medications and Allergies Home Medications Medication Instructions Recorded Confirmed Type Levothyroxine Sodium [Synthroid] 50 mcg PO DAILY 08/30/14 07/03/23 History Potassium Chloride [Klor-Con 20] 20 meq PO HS 08/30/14 07/03/23 History Simvastatin [Zocor] 20 mg PO HS 08/30/14 07/03/23 History Isosorbide Mononitrate ER [Imdur] 60 mg PO DAILY 07/30/17 07/03/23 History Apixaban [Eliquis] 2.5 mg PO BID #60 tab 03/29/20 07/03/23 Rx Pantoprazole Sodium [Protonix] 40 mg PO DAILY #30 tablet. 03/29/20 07/03/23 Rx Glucosamine/Chondr Nguyen A Sod [Osteo 1 tab PO DAILY 10/11/20 07/03/23 History Bi-Flex Caplet] Loratadine [Claritin] 10 mg PO DAILY PRN 04/06/21 07/03/23 History Albuterol Nebulized [Ventolin 2.5 mg INHALATION RT-QID 12/31/21 07/03/23 History Nebulized] Furosemide [Lasix] 40 mg PO DAILY 07/03/23 07/03/23 History Ibuprofen [Motrin] 600 mg PO Q8HR PRN 07/03/23 07/03/23 History Magnesium Hydroxide [Milk of 2,400 mg PO DAILY PRN 07/03/23 07/03/23 History Magnesia] oxyCODONE HCL/ACETAMINOPHEN 1 tab PO BID PRN 07/03/23 07/03/23 History [Percocet 5-325 mg] Allergies Allergy/AdvReac Type Severity Reaction Status Date / Time cefazolin sodium [From Ancef] Allergy Anaphylaxis Verified 07/03/23 16:56 hylan G-F 20 [From Synvisc] Allergy Anaphylaxis Verified 07/03/23 16:56 Physical Exam Osteopathic Statement: *. No significant issues noted on an osteopathic structural exam other than those noted in the History and Physical/Consult. Vitals: Vital Signs Temp Pulse Resp BP Pulse Ox 07/03/23 15:38 90 18 152/79 98 07/03/23 13:24 98.3 F 60 20 135/68 93 L Intake and Output 07/03/23 07/03/23 07/03/23 06:59 14:59 22:59 Other: Weight 90.718 kg Results CBC & Chem 7: 07/03/23 14:17 07/03/23 14:17 Labs: Abnormal Lab Results - Last 24 Hours (Table) 07/03/23 07/03/23 07/03/23 Range/Units 14:17 14:17 14:19 RBC 3.54 L (4.30-5.90) m/uL Hgb 9.2 L (13.0-17.5) gm/dL Hct 29.0 L (39.0-53.0) % RDW 17.3 H (11.5-15.5) % Lymphocytes # 0.7 L (1.0-4.8) k/uL Carbon Dioxide 31 H (22-30) mmol/L BUN 29 H (9-20) mg/dL Magnesium 2.4 H (1.6-2.3) mg/dL Urine Protein Trace H (Negative)
[2023-07-03] MEDS: NITROGLYCERIN OINT 1 INCH/GM PACKET TOPICAL SCH (19:03)
[2023-07-03] MEDS: ALBUTEROL NEBULIZED 2.5 MG/3 ML INHALATION SCH (19:18)
[2023-07-03] MEDS: APIXABAN 2.5 MG TABLET PO SCH (20:11)
[2023-07-03] MEDS: ATORVASTATIN 10 MG TAB PO SCH (20:13)
[2023-07-03] MEDS: oxyCODONE-APAP 5-325MG 1 EACH TAB PO PRN (23:09)
[2023-07-04] MEDS: NITROGLYCERIN OINT 1 INCH/GM PACKET TOPICAL SCH ×4 (02:09→18:18)
[2023-07-04] MEDS: ALBUTEROL NEBULIZED 2.5 MG/3 ML INHALATION SCH ×4 (06:35→19:49)
[2023-07-04] MEDS ORDERED: NON FORMULARY DRUG (Glucosamine/Chondr Su A Sod [Osteo Bi-Flex Caplet] 1 EACH Tablet) PO SCH (09:00)
--- NOTE | 2023-07-04 09:28 | US ---
EXAMINATION TYPE: US carotid duplex BILAT DATE OF EXAM: 07/04/2023 COMPARISON: 03/26/2020 CLINICAL INDICATION: Male, 88 years old with history of black out episodes; blackout episodes, headac hes TECHNIQUE: Carotid duplex ultrasound examination. Indirect Doppler criteria was utilized. FINDINGS: EXAM MEASUREMENTS: RIGHT: Peak Systolic Velocity (PSV) cm/sec ----- Right CCA: 49.9 ----- Right ICA: 96.8 ----- Right ECA: 103.0 ICA/CCA ratio: 1.94 RIGHT: End Diastole cm/sec ----- Right CCA: 9.23 ----- Right ICA: 32.1 ----- Right ECA: 0.0 LEFT: Peak Systolic Velocity (PSV) cm/sec ----- Left CCA: 66.5 ----- Left ICA: 113.0 ----- Left ECA: 65.5 ICA/CCA ratio: 1.7 LEFT: End Diastole cm/sec ----- Left CCA: 16.6 ----- Left ICA: 23.2 ----- Left ECA: 3.78 VERTEBRALS (direction of flow): Right Vertebral: Antegrade Left Vertebral: Antegrade Rhythm: Normal E [employer]CHIT[employer] NOTES: atherosclerotic plaque noted bilaterally, exam slightly limited by tortuous vessel s, and body habitus IMPRESSION: Less than 50% stenosis of the bilateral carotid bifurcations. Criteria for Assigning % of Stenosis / Diameter reduction (Estimation based on the indirect measurements of the internal carotid artery velocities (ICA PSV). 1. Normal (no stenosis)=ICA PSV < 125 cm/s: ratio < 2.0: ICA EDV<40 cm/s. 2. Less than 50% stenosis=ICA PSV < 125 cm/s: ratio < 2.0: ICA EDV<40 cm/s. 3. 50 to 69% stenosis=ICA PSV of 125 to 230 cm/s: ration 2.0 ? 4.0: ICA EDV 40-100 cm/s. 4. Greater than 70% stenosis to near occlusion= ICA PSV > 230 cm/s: ratio > 4.0: ICA EDV > 100 cm/s. 5. Near occlusion= ICA PSV velocities may be low or undetectable: variable ratio and ICA EDV. 6. Total occlusion=unable to detect flow.
--- NOTE | 2023-07-04 10:27 | P.CRDCN ---
History of Present Illness History of present illness: Patient presents to the hospital with chest discomfort and shortness of breath that lasted for about 2 hours He has a history of congestive heart failure According to her daughter the patient is experiencing headaches Visual changes worse on the left Home medications include simvastatin, levothyroxine, isosorbide, Lasix, ELIQUIS Twelve-lead EKG shows a paced rhythm with underlying atrial fibrillation Chest x-ray shows a large left-sided pleural effusion Hemoglobin 9.2 Normal troponins Impression Patient presenting with shortness of breath with a large left-sided pleural effusion Underlying atrial fibrillation, on ELIQUIS 2.5 mg twice daily for stroke prevention Permanent pacemaker, paced rhythm, likely complete heart block No evidence for acute myocardial injury Suggest 2-D echo and Doppler study Continue Lasix Continue anticoagulation Address pleural effusion which is quite significant Past Medical History Past Medical History: Atrial Fibrillation, Coronary Artery Disease (CAD), Heart Failure, Hyperlipidemia, Hypertension, Respiratory Disorder, Thyroid Disorder, Vascular Disorder Additional Past Medical History / Comment(s): Severe JORDANA with an H of 128 seated with a BiPAP pressure of 17/13 cm of water uses 2 L of oxygen at night with bipap, obesity, coronary artery disease with previous coronary intervention and stenting, tonic atrial fibrillation,hypothyroidism, ascending thoracic aortic aneurysm-measuring 4.2 cm in size,steroids January 2022 History of Any Multi-Drug Resistant Organisms: None Reported Past Surgical History: Cholecystectomy, Heart Catheterization With Stent, Joint Replacement Additional Past Surgical History / Comment(s): UPPP for obstructive sleep apnea, abdominal aortic aneurysm repair, a stent within the aorta and stents also placed in the iliacs, cataracts, right carotid endarterectomy, c holecystectomy,sebastian knee replacements Past Anesthesia/Blood Transfusion Reactions: No Reported Reaction Date of Last Stent Placement:: 1995, [id number] Type of Cardiac Device: Permanent Pacemaker Device Placement Date:: JUL 2017 Past Psychological History: No Psychological Hx Reported Additional Psychological History / Comment(s): 2012 Smoking Status: Former smoker Past Alcohol Use History: None Reported Additional Past Alcohol Use History / Comment(s): quit smoking years ago Past Drug Use History: None Reported - Past Family History Mother Family Medical History: No Reported History Medications and Allergies Home Medications Medication Instructions Recorded Confirmed Type Levothyroxine Sodium [Synthroid] 50 mcg PO DAILY 08/30/14 07/03/23 History Potassium Chloride [Klor-Con 20] 20 meq PO HS 08/30/14 07/03/23 History Simvastatin [Zocor] 20 mg PO HS 08/30/14 07/03/23 History Isosorbide Mononitrate ER [Imdur] 60 mg PO DAILY 07/30/17 07/03/23 History Apixaban [Eliquis] 2.5 mg PO BID #60 tab 03/29/20 07/03/23 Rx Pantoprazole Sodium [Protonix] 40 mg PO DAILY #30 tablet. 03/29/20 07/03/23 Rx Glucosamine/Chondr Nguyen A Sod [Osteo 1 tab PO DAILY 10/11/20 07/03/23 History Bi-Flex Caplet] Loratadine [Claritin] 10 mg PO DAILY PRN 04/06/21 07/03/23 History Albuterol Nebulized [Ventolin 2.5 mg INHALATION RT-QID 12/31/21 07/03/23 History Nebulized] Furosemide [Lasix] 40 mg PO DAILY 07/03/23 07/03/23 History Ibuprofen [Motrin] 600 mg PO Q8HR PRN 07/03/23 07/03/23 History Magnesium Hydroxide [Milk of 2,400 mg PO DAILY PRN 07/03/23 07/03/23 History Magnesia] oxyCODONE HCL/ACETAMINOPHEN 1 tab PO BID PRN 07/03/23 07/03/23 History [Percocet 5-325 mg] Allergies Allergy/AdvReac Type Severity Reaction Status Date / Time cefazolin sodium [From Anc] Allergy Anaphylaxis Verified 07/03/23 16:56 hylan G-F 20 [From Synvis] Allergy Anaphylaxis Verified 07/03/23 16:56 Physical Exam Vitals: Vital Signs Temp Pulse Pulse Resp BP BP Pulse Ox 07/04/23 07:00 97.8 F 60 22 172/82 97 07/04/23 00:06 98.1 F 59 L 16 149/68 95 07/03/23 23:25 98.0 F 60 20 152/68 94 L 07/03/23 20:00 19 07/03/23 19:30 82 07/03/23 19:19 80 07/03/23 17:00 60 18 124/60 100 07/03/23 15:38 90 18 152/79 98 07/03/23 13:24 98.3 F 60 20 135/68 93 L Intake and Output 07/03/23 07/04/23 07/04/23 22:59 06:59 14:59 Other: Voiding Method Toilet # Voids 2 Weight 90.718 kg Results 07/03/23 14:17 07/03/23 14:17 Cardiac Enzymes 07/03/23 07/03/23 07/03/23 Range/Units 14:17 14:17 18:36 AST 24 (17-59) U/L Troponin I 0.021 0.028 (0.000-0.034) ng/mL 07/03/23 Range/Units 21:39 AST (17-59) U/L Troponin I 0.026 (0.000-0.034) ng/mL Coagulation 07/03/23 Range/Units 14:17 PT 11.7 (9.0-12.0) sec APTT 27.9 (22.0-30.0) sec CBC 07/03/23 Range/Units 14:17 WBC 5.8 (3.8-10.6) k/uL RBC 3.54 L (4.30-5.90) m/uL Hgb 9.2 L (13.0-17.5) gm/dL Hct 29.0 L (39.0-53.0) % Plt Count 158 (150-450) k/uL Comprehensive Metabolic Panel 07/03/23 Range/Units 14:17 Sodium 141 (137-145) mmol/L Potassium 4.6 (3.5-5.1) mmol/L Chloride 101 (98-107) mmol/L Carbon Dioxide 31 H (22-30) mmol/L BUN 29 H (9-20) mg/dL Creatinine 1.14 (0.66-1.25) mg/dL Glucose 97 (74-99) mg/dL Calcium 8.8 (8.4-10.2) mg/dL AST 24 (17-59) U/L ALT 13 (4-49) U/L Alkaline Phosphatase 110 (38-126) U/L Total Protein 7.2 (6.3-8.2) g/dL Albumin 3.7 (3.5-5.0) g/dL Current Medications Generic Name Dose Route Start Last Admin Trade Name Freq PRN Reason Stop Dose Admin Albuterol Sulfate 2.5 mg 07/03/23 20:00 07/03/23 19:18 Albuterol Nebulized 2.5 Mg/3 Ml INHALATION 2.5 mg RT-QID [facility] Administration Apixaban 2.5 mg 07/03/23 21:00 07/03/23 20:11 Apixaban 2.5 Mg Tablet PO 2.5 mg BID [facility] Administration Protocol Aspirin 325 mg 07/04/23 09:00 Aspirin 325 Mg Tab PO DAILY [facility] Atorvastatin Calcium 10 mg 07/03/23 21:00 07/03/23 20:13 Atorvastatin 10 Mg Tab PO 10 mg HS [facility] Administration Furosemide 40 mg 07/04/23 09:00 Furosemide 40 Mg Tab PO DAILY [facility] Isosorbide Mononitrate 60 mg 07/04/23 09:00 Isosorbide Mononitrate Er 60 Mg Tab.Er.24h PO DAILY [facility] Levothyroxine Sodium 50 mcg 07/04/23 06:30 Levothyroxine [address] [place] [address] [facility] Loratadine 10 mg 07/03/23 18:19 Loratadine 10 Mg Tab PO DAILY PRN Allergy Symptoms Magnesium Hydroxide 2,400 mg 07/03/23 18:19 Magnesium Hydroxide 2,400 Mg/30 Ml Cup PO DAILY PRN Constipation Nitroglycerin 0.4 mg 07/03/23 16:02 Nitroglycerin Sl Tabs 0.4 Mg Tab SUBLINGUAL Q5M PRN Chest Pain Nitroglycerin 1 inch 07/03/23 18:00 07/04/23 02:09 Nitroglycerin Oint 1 Inch/Gm Packet TOPICAL Not Given Q6HR [facility] Oxycodone/Acetaminophen 1 each 07/03/23 18:19 07/03/23 23:09 Oxycodone-Apap 5-325mg 1 Each Tab PO 1 each BID PRN Administration Pain Pantoprazole Sodium 40 mg 07/04/23 09:00 Pantoprazole 40 Mg Tablet PO DAILY [facility] Intake and Output 07/03/23 07/04/23 07/04/23 22:59 06:59 14:59 Other: Voiding Method Toilet # Voids 2 Weight 90.718 kg 07/03/23 14:17 07/03/23 14:17
[2023-07-04] MEDS: LEVOTHYROXINE 50 MCG TAB PO SCH (11:01)
[2023-07-04] MEDS: FUROSEMIDE 40 MG TAB PO SCH (11:01)
[2023-07-04] MEDS: APIXABAN 2.5 MG TABLET PO SCH ×2 (11:01→20:40)
[2023-07-04] MEDS: PANTOPRAZOLE 40 MG TABLET PO SCH (11:01)
[2023-07-04] MEDS: ASPIRIN 325 MG TAB PO SCH (11:01)
[2023-07-04] MEDS: ISOSORBIDE MONONITRATE ER 60 MG TAB.ER.24H PO SCH (11:01)
[2023-07-04 11:08] LABS: Basophils # (A) 0.01 X 10*3/uL (0.00-0.10); Basophils % (A) 0.2 %; Eosinophils # (A) 0 X 10*3/uL (0.04-0.35); Eosinophils % (A) 0 %; HCT 30.3 % (39.6-50.0); HGB 9.1 d/dL (13.0-17.0); Lymphocytes # (A) 0.35 X 10*3/uL (0.90-5.00); Lymphocytes % (A) 7.8 %; MCH 24.7 pg (27.0-32.0); MCV 82.3 FL (80.0-97.0); Mean Platelet Volume 11.1 FL (9.5-12.2); Monocytes # (A) 0.07 X 10*3/uL (0.20-1.00); Monocytes % (A) 1.6 %; NRBC Per 100 WBC 0 X 10*3/uL (0.00-0.01); Neutrophils # (A) 4.04 X 10*3/uL (1.80-7.70); Neutrophils % (A) 90.2 %; Platelet Count 141 X 10*3/uL (140-440); RBC 3.68 X 10*6/uL (4.40-5.60); RDW 17.9 % (11.5-14.5); WBC 4.48 X 10*3/uL (4.50-10.00)
[2023-07-04 11:13] LABS: BUN/Creat Ratio 22.15 Ratio (12.00-20.00); Blood Urea Nitrogen 28.8 mg/dL (9.0-27.0); Carbon Dioxide 28.6 mmol/L (21.6-31.8); Chloride 104 mmol/L (96-109); Chol/HDL Ratio 2.05 Ratio; Glucose 162 mg/dL (70-110); LDL Cholesterol,Calculated 38.1 mg/dL (0.0-131.0); Magnesium 2.4 mg/dL (1.5-2.4); Potassium 4.9 mmol/L (3.5-5.5); Sodium 144 mmol/L (135-145); VLDL Calculation 9.96 mg/dL (5.00-40.00)
--- NOTE | 2023-07-04 16:49 | P.PN ---
Subjective Progress Note Date: 07/04/23 Pt reports pain is better from headache perspective, no further visual disturbances. ESR is 22, CRP is < 0.5. Gen: in no apparent distress, resting comfortably in bed Eyes: PERRL, no scleral injection or icterus, area of scarring on the cornea of the left eye HENT: normocephalic, atraumatic, good hearing acuity, moist mucous membranes, tenderness to palpation of the left taoism, mandible Neck: no tracheal deviation, full range of motion Resp: good air exchange, breathing comfortably with no accessory muscle use, no tactile fremitus, diminished breath sounds on the left, crackles in the right base CVS: good distal perfusion x 4, bilateral pitting edema, regular rate and rhythm without murmurs GI: soft, NTTP, ND, no hepatosplenomegaly : no suprapubic tenderness, no CVAT, herring catheter not present MSK: no clubbing, no cyanosis, no noted contractures of extremities Skin: no noted rashes, petechiae; temperature of skin is appropriate Neuro: moving all extremities without signs of weakness, CN II-XII intact Psych: cooperative, euthymic mood, insight and judgment intact Hospital Course: 88 year old man with 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 In the emergency room, patient was afebrile, 135/68, heart rate 60, 93% on room air. CBC demonstrated anemia down to 9.2, down from 11.1. Basic metabolic panel shows CO2 of 31, BMI 29, creatinine of 1.14. Liver function tests are unremarkable. Troponins 0.0-1. Coags are unremarkable. Urinalysis shows trace protein. Covid was negative. Chest x-ray demonstrates vascular congestion, cardiomegaly, left-sided pleural effusion increased from prior. EKG demonstrated ventricular paced rhythm. Brain CT showed age-related atrophic and chronic small vessel ischemic change. Lumbar x-ray shows moderate to severe multilevel degenerative disc disease and facet arthropathy at the lumbar spine, grade 1 anterolisthesis of L4 to L5. Case was discussed with the emergency room provider and decision was made to admit the patient to observation for headache, episode of chest pain. Assessment: Headache Visual changes Chest pain, atypical Permanent atrial fibrillation, on Apixiban Chronic diastolic heart failure Hypertension Hyperlipidemia Hypothyroidism Plan: Ordered CT chest today regarding pleural effusion Stop steroids today - ESR/CRP not consistent with temporal arteritis Trend troponins, nitroglycerin when necessary, cardiology consult regarding intermittent chest pain Continue Imdur 60 mg daily Continue Lasix 40 mg by mouth daily Continue aspirin 81 mg daily, Apixiban 5 mg twice a day, statin Patient is full code Objective - Vital Signs Vital signs: Vital Signs Temp 97.8 F 07/04/23 07:00 Pulse 60 07/04/23 15:32 Resp 22 07/04/23 15:00 BP 172/82 07/04/23 07:00 Pulse Ox 97 07/04/23 07:00 FiO2 Intake & Output 07/03/23 07/04/23 07/04/23 18:59 06:59 18:59 Intake Total 242 Balance 242 Weight 90.718 kg 90.718 kg Intake: Oral 242 Other: Voiding Method Toilet Toilet # Voids 2 - Labs CBC & Chem 7: 07/04/23 05:49 07/04/23 05:49 Labs: Abnormal Lab Results - Last 24 Hours (Table) 07/03/23 07/04/23 07/04/23 Range/Units 14:17 05:49 05:49 WBC 4.48 L (4.50-10.00) X 10*3/uL RBC 3.68 L (4.40-5.60) X 10*6/uL Hgb 9.1 L (13.0-17.0) d/dL Hct 30.3 L (39.6-50.0) % MCH 24.7 L (27.0-32.0) pg MCHC 30.0 L (32.0-37.0) d/dL RDW 17.9 H (11.5-14.5) % Lymphocytes # 0.35 L (0.90-5.00) X 10*3/uL Monocytes # 0.07 L (0.20-1.00) X 10*3/uL Eosinophils # 0 L (0.04-0.35) X 10*3/uL ESR 22 H (0-15) mm/hr BUN 28.8 H (9.0-27.0) mg/dL Est GFR (CKD-EPI) 53 L (>=60) BUN/Creatinine Ratio 22.15 H (12.00-20.00) Ratio Glucose 162 H (70-110) mg/dL
--- NOTE | 2023-07-04 18:30 | CT ---
EXAMINATION TYPE: CT chest wo con CT DLP: 550.70 mGycm, Automated exposure control for dose reduction was used. DATE OF EXAM: 07/04/2023 5:27 PM COMPARISON: 09/19/2022. Chest radiograph 07/03/2023 CLINICAL INDICATION:Male, 88 years old with history of pleural effusion, TECHNIQUE: Multiple axial images were obtained through the chest. Sagittal and coronal reformats were created for review. Contrast used:(None if empty) Oral contrast used: (None if empty) FINDINGS: LUNGS/ PLEURA: Small left trace right pleural effusion with associated atelectasis. Intralobular sept al thickening. No pneumothorax. AIRWAY: Patent and unremarkable. HEART: The heart is enlarged for size with coronary artery cusp patient's. Cardiac conduction leads t erminating in right ventricle and right atrium. MEDIASTINUM: No gross evidence of adenopathy. VASCULATURE: No aortic aneurysm. Stent graft noted in the upper abdomen. MUSCULOSKELETAL: No acute osseous abnormalities, severe degeneration changes with complete loss of di sc space at T7-T8. Findings have progressed from priors in 2020. SOFT TISSUES/LYMPH NODES: Unremarkable. LOWER NECK: No significant findings. UPPER ABDOMEN: The gallbladder surgically absent. Nodular contour to liver. IMPRESSION: 1. Cardiomegaly with small left and trace right pleural effusions and pulmonary vascular congestion compatible with congestive heart failure. 2. Nodular contour to liver correlate for cirrhosis. 3. Severe degeneration changes at T7-T8 with loss of disc space and irregular morphology to vertebra l bodies.
[2023-07-04] MEDS: oxyCODONE-APAP 5-325MG 1 EACH TAB PO PRN (20:40)
[2023-07-04] MEDS: ATORVASTATIN 10 MG TAB PO SCH (20:40)
[2023-07-05] MEDS: NITROGLYCERIN OINT 1 INCH/GM PACKET TOPICAL SCH ×6 (01:18→21:17)
[2023-07-05] MEDS: LEVOTHYROXINE 50 MCG TAB PO SCH (06:13)
[2023-07-05] MEDS: FUROSEMIDE 40 MG TAB PO SCH (08:30)
[2023-07-05] MEDS: ISOSORBIDE MONONITRATE ER 60 MG TAB.ER.24H PO SCH (08:30)
[2023-07-05] MEDS: APIXABAN 2.5 MG TABLET PO SCH ×2 (08:30→21:16)
[2023-07-05] MEDS: ASPIRIN 325 MG TAB PO SCH (08:31)
[2023-07-05] MEDS: PANTOPRAZOLE 40 MG TABLET PO SCH (08:31)
[2023-07-05] MEDS: ALBUTEROL NEBULIZED 2.5 MG/3 ML INHALATION SCH ×4 (08:56→21:45)
--- NOTE | 2023-07-05 09:13 | P.CNNES ---
History of Present Illness Consult date: 07/04/23 Requesting physician: Keven Hampton Reason for Consult: Temporal arteritis History of Present Illness: Patient is a 88-year-old male came to the hospital yesterday at 12:58 PM for multiple complaints including low back pain, headache and transient chest pain. I also spoke to patient's daughter on the phone, and who also provided with a history as below. Patient says that he has been having low back pain for last 2 weeks. He points to the right side, that extends to the right buttock and back of the thigh to the right foot. He states his right foot stays cold and cramps. He does have a history of sciatica on the right side for the last few months. Patient rates his low back pain as 9/10. Patient also complaining of severe headache for last 3 days. It involves back of the head to the front. He rates it very severe, 8/10. He states that he feels that he is losing sight and becomes dark. Patient states that last Friday, 2 days ago, he had a chest pain. He has history of bilateral knee replacement before. He walks with a walker, as his knees are stiff and it cramps up. Vital signs on arrival blood pressure 135/68, pulse rate 60, temperature 98.3. Patient has been afebrile. Blood test shows normal WBC hemoglobin 9.2, platelets 158. PT/PTT normal, electrolytes are normal. BUN/creatinine 29, creatinine 1.14. Hepatic panel is normal, troponin is negative, UA negative, neuronal anesthesia negative. EKG shows sinus rhythm with first-degree AV block. Other EKG shows electronic ventricular pacemaker. CT head revealed age- related atrophic and chronic small vessel ischemic change without acute intracranial process seen at this time. I personally review CT head, agree with the findings. CT lumbar spine revealed no acute fracture or dislocation seen. Moderate to severe multilevel degenerative disc disease and facet arthropathy of the lumbar spine. Grade 1 anterolisthesis of L4 and L5. Chest x-ray reveals increasing opacity left lower lobe is P reflect a combination of fusion, atelectasis and/or infiltrate. There is evidence of pulmonary venous congestion and tiny right-sided effusion. Patient has history of hypertension, CHF and atrial fibrillation. Denies diabet es. Patient was a heavy smoker when young, quit in his 30s. Review of Systems Constitutional: Denies chills, Denies fever Eyes: left blurred vision (From corneal opacity), bilateral as per HPI (Patient feels he is losing sight due to headache.), denies diplopia Ears: bilateral: decreased hearing, deny: earache Ears, nose, mouth and throat: Reports headache, Denies vertigo Cardiovascular: Reports chest pain, Denies shortness of breath Respiratory: Denies cough Musculoskeletal: Reports low back pain, Denies neck pain Past Medical History Past Medical History: Atrial Fibrillation, Coronary Artery Disease (CAD), Heart Failure, Hyperlipidemia, Hypertension, Respiratory Disorder, Thyroid Disorder, Vascular Disorder Additional Past Medical History / Comment(s): Severe JORDANA with an H of 128 seated with a BiPAP pressure of 17/13 cm of water uses 2 L of oxygen at night with bipap, obesity, coronary artery disease with previous coronary intervention and stenting, tonic atrial fibrillation,hypothyroidism, ascending thoracic aortic aneurysm-measuring 4.2 cm in size,steroids January 2022 History of Any Multi-Drug Resistant Organisms: None Reported Past Surgical History: Cholecystectomy, Heart Catheterization With Stent, Joint Replacement Additional Past Surgical History / Comment(s): UPPP for obstructive sleep apnea, abdominal aortic aneurysm repair, a stent within the aorta and stents also placed in the iliacs, cataracts, right carotid endarterectomy, cho lecystectomy,sebastian knee replacements Past Anesthesia/Blood Transfusion Reactions: No Reported Reaction Date of Last Stent Placement:: 1995, [id number] Type of Cardiac Device: Permanent Pacemaker Device Placement Date:: JUL 2017 Past Psychological History: No Psychological Hx Reported Additional Psychological History / Comment(s): 2012 Smoking Status: Former smoker Past Alcohol Use History: None Reported Additional Past Alcohol Use History / Comment(s): quit smoking years ago Past Drug Use History: None Reported - Past Family History Mother Family Medical History: No Reported History Medications and Allergies Home Medications Medication Instructions Recorded Confirmed Type Levothyroxine Sodium [Synthroid] 50 mcg PO DAILY 08/30/14 07/03/23 History Potassium Chloride [Klor-Con 20] 20 meq PO HS 08/30/14 07/03/23 History Simvastatin [Zocor] 20 mg PO HS 08/30/14 07/03/23 History Isosorbide Mononitrate ER [Imdur] 60 mg PO DAILY 07/30/17 07/03/23 History Apixaban [Eliquis] 2.5 mg PO BID #60 tab 03/29/20 07/03/23 Rx Pantoprazole Sodium [Protonix] 40 mg PO DAILY #30 tablet. 03/29/20 07/03/23 Rx Glucosamine/Chondr Nguyen A Sod [Osteo 1 tab PO DAILY 10/11/20 07/03/23 History Bi-Flex Caplet] Loratadine [Claritin] 10 mg PO DAILY PRN 04/06/21 07/03/23 History Albuterol Nebulized [Ventolin 2.5 mg INHALATION RT-QID 12/31/21 07/03/23 History Nebulized] Furosemide [Lasix] 40 mg PO DAILY 07/03/23 07/03/23 History Ibuprofen [Motrin] 600 mg PO Q8HR PRN 07/03/23 07/03/23 History Magnesium Hydroxide [Milk of 2,400 mg PO DAILY PRN 07/03/23 07/03/23 History Magnesia] oxyCODONE HCL/ACETAMINOPHEN 1 tab PO BID PRN 07/03/23 07/03/23 History [Percocet 5-325 mg] Allergies Allergy/AdvReac Type Severity Reaction Status Date / Time cefazolin sodium [From Ancef] Allergy Anaphylaxis Verified 07/03/23 16:56 hylan G-F 20 [From SynMeddikc] Allergy Anaphylaxis Verified 07/03/23 16:56 Physical Examination - Vital Signs Vital Signs: Vital Signs Temp Pulse Pulse Resp BP BP Pulse Ox 07/04/23 07:00 97.8 F 60 22 172/82 97 07/04/23 00:06 98.1 F 59 L 16 149/68 95 07/03/23 23:25 98.0 F 60 20 152/68 94 L 07/03/23 20:00 19 07/03/23 19:30 82 07/03/23 19:19 80 07/03/23 17:00 60 18 124/60 100 07/03/23 15:38 90 18 152/79 98 07/03/23 13:24 98.3 F 60 20 135/68 93 L Intake and Output 07/03/23 07/04/23 07/04/23 22:59 06:59 14:59 Other: Voiding Method Toilet # Voids 2 Weight 90.718 kg Patient is an elderly male, in no acute distress. Patient was using nasal BiPAP. Patient is alert awake fairly well oriented. Speech and language functions are normal. Patient can name and repeat very well. No aphasia or dysarthria. Attention, concentration and fund of knowledge is adequate. On cranial nerve examination, patient has left corneal opacity. Patient states his left eye vision is 250, but the right eye is "good". The right pupil is round and reactive. visual hall are full on confrontation, with no neglect on double simultaneous stimulation. Extraocular muscles are intact with no nystagmus. Face is symmetric, tongue protrudes to the midline. Palatal elevation and sensation normal, hearing and shoulder shrug normal, facial sensation normal. On muscle strength testing, there is no pronator drift and the strength is normal in arms and legs distally and proximally, except shoulders which are weak about 3-4 bilaterally, left more than right from arthritis. The strength in lower extremities is normal bilaterally. Deep tendon reflexes are symmetric 1 all over and plantars downgoing. Sensory to touch is equal with no neglect on double simultaneous stimulation. Cerebellar function showed no ataxia for [id number] testing. No dysdiadochokinesia. No ataxia for zdmq-gs-pyaf testing on either side. Tone and bulk of muscles normal. Gait deferred.. On general examination, there is no carotid bruit or murmur, S1-S2 audible. Chest is clear on consultation. Abdomen is soft nontender. No organomegaly, bowel sounds present. Peripheral pulses are present. Mild edema. Results - Laboratory Findings CBC and BMP: 07/04/23 05:49 07/04/23 05:49 Abnormal Lab Findings: Abnormal Labs 07/03/23 07/03/23 07/03/23 14:17 14:17 14:17 RBC 3.54 L Hgb 9.2 L Hct 29.0 L RDW 17.3 H Lymphocytes # 0.7 L ESR 22 H Carbon Dioxide 31 H BUN 29 H Magnesium 2.4 H Urine Protein 07/03/23 14:19 RBC Hgb Hct RDW Lymphocytes # ESR Carbon Dioxide BUN Magnesium Urine Protein Trace H Assessment and Plan Assessment: * Cephalgia of 3 days' duration, unclear cause. Rule out temporal arteritis, however ESR and CRP are essentially normal. * Lumbar radiculopathy, rule out disc herniation * Atrial fibrillation, on anticoagulation * Coronary artery disease, CHF * Hypertension * Hyperlipidemia * Pacemaker Plan: * Patient cannot have MRI because of presence of pacemaker. * X-ray of the lumbar spine showed moderate to severe multilevel degenerative disc disease and facet arthropathy, with grade 1 anterolisthesis of L4 on L5. * We will check CT of the lumbar spine. Consider orthopedic spine consultation. * Patient currently on Percocet as needed for back pain. * Physical therapy. May need pain management consult. * Patient's headache is of unclear etiology. His ESR 22, CRP <0.5, both essentially normal. CT head showed no acute process. No paranasal sinus di sease. Blood pressure is well controlled. May need temporal artery biopsy. If the headache persists, we will empirically start high-dose steroids. Try Fioricet. * Check hemoglobin A1c. * Carotid Doppler revealed less than 50% stenosis of bilateral carotid bifurcations. Antegrade flow in both vertebral arteries. * Continue Eliquis 2.5 mg twice a day for atrial fibrillation. * Lipid panel with cholesterol 94, LDL 38, HDL 45 and triglycerides 49. Continue Lipitor 10 mg. * TSH normal. * Regarding transient chest pain, we will defer to IM. * Neurology will follow. Thank you for the consult.
[2023-07-05] MEDS ORDERED: BUTALB/APAP/CAFF 50-325-40MG TAB PO PRN (09:18)
--- NOTE | 2023-07-05 11:01 | P.PN ---
Subjective Progress Note Date: 07/05/23 Subjective: Patient is on his nasal CPAP machine. He denies having any chest pain chest pressure or new shortness of breath. On exam he does not have any lower extremity edema or any elevated jugular venous pressures. His computed tomography scan showed only small to trace bilateral pleural effusions. Blood pressure 150/70, heart rate 60 beats a minute, paced rhythm 100% Synopsis Patient presents to the hospital with chest discomfort and shortness of breath that lasted for about 2 hours He has a history of congestive heart failure According to her daughter the patient is experiencing headaches Visual changes worse on the left Home medications include simvastatin, levothyroxine, isosorbide, Lasix, ELIQUIS Twelve-lead EKG shows a paced rhythm with underlying atrial fibrillation Chest x-ray shows a large left-sided pleural effusion Hemoglobin 9.2 Normal troponins Impression Patient presenting with shortness of breath with a large left-sided pleural effusion Underlying atrial fibrillation, on ELIQUIS 2.5 mg twice daily for stroke prevention Permanent pacemaker, paced rhythm, likely complete heart block No evidence for acute myocardial injury Sugges Continue Lasix Imdur and Eliquis. These are his home medications I did not make any changes to them on this admission. I feel his chest pain was atypical and most likely related to his back pain. His shortness of breath has gotten significantly better since the time of admission. His chest CT showed only small pleural effusion which should be taking care of by his by mouth Lasix. We don't need IV IV Lasix at this time. I will review his echocardiogram today. If within reasonable limits and no significant valvular disease, he should be cleared to discharge. Objective - Vital Signs Vital signs: Vital Signs Temp 98.0 F 07/05/23 07:00 Pulse 60 07/05/23 09:19 Resp 16 07/05/23 08:30 BP 156/78 07/05/23 07:00 Pulse Ox 97 07/05/23 08:56 FiO2 21 07/05/23 08:56 Intake & Output 07/04/23 07/05/23 07/05/23 18:59 06:59 18:59 Intake Total 242 118 Balance 242 118 Intake: Oral 242 118 Other: Voiding Method Toilet Toilet Toilet # Voids 1 - Labs CBC & Chem 7: 07/04/23 05:49 08/25/23 05:49 Labs: Abnormal Lab Results - Last 24 Hours (Table) 07/04/23 07/04/23 Range/Units 05:49 05:49 WBC 4.48 L (4.50-10.00) X 10*3/uL RBC 3.68 L (4.40-5.60) X 10*6/uL Hgb 9.1 L (13.0-17.0) d/dL Hct 30.3 L (39.6-50.0) % MCH 24.7 L (27.0-32.0) pg MCHC 30.0 L (32.0-37.0) d/dL RDW 17.9 H (11.5-14.5) % Lymphocytes # 0.35 L (0.90-5.00) X 10*3/uL Monocytes # 0.07 L (0.20-1.00) X 10*3/uL Eosinophils # 0 L (0.04-0.35) X 10*3/uL BUN 28.8 H (9.0-27.0) mg/dL Est GFR (CKD-EPI) 53 L (>=60) BUN/Creatinine Ratio 22.15 H (12.00-20.00) Ratio Glucose 162 H (70-110) mg/dL
--- NOTE | 2023-07-05 12:54 | CA ---
Transthoracic Echo Report Name: Hong Villafana Age: 88 Gender: M : 1935 Exam Date: 07/04/2023 14:04 Exam Location: [facility] Ht (in): 67 Wt (lb): 200 Ordering Physician: Daron Buckley MD ([id number]) Attending/Referring Phys: Filler Wiper Micheline Glez RDCS Procedure CPT: Indications: sob Cardiac Hx: Technical Quality: Fair Contrast 1: Total Dose (mL): Contrast 2: Total Dose (mL): MEASUREMENTS (Male / Female) Normal Values 2D ECHO LV Diastolic Diameter PLAX 4.8 cm 4.2 - 5.9 / 3.9 - 5.3 cm LV Systolic Diameter PLAX 2.7 cm IVS Diastolic Thickness 1.9 cm 0.6 - 1.0 / 0.6 - 0.9 cm LVPW Diastolic Thickness 1.9 cm 0.6 - 1.0 / 0.6 - 0.9 cm LV Relative Wall Thickness 0.8 RV Internal Dim ED PLAX 4.4 cm LA Volume 145.5 cm??? 18 - 58 / 22 - 52 cm??? M-MODE Aortic Root Diameter MM 4.2 cm LA Systolic Diameter MM 4.3 cm LA Ao Ratio MM 1.0 AV Cusp Separation MM 2.4 cm DOPPLER AV Peak Velocity 171.1 cm/s AV Peak Gradient 11.7 mmHg AV Mean Velocity 121.7 cm/s AV Mean Gradient 6.5 mmHg AV Velocity Time Integral 37.5 cm LVOT Peak Velocity 86.3 cm/s LVOT Peak Gradient 3.0 mmHg LVOT Velocity Time Integral 21.4 cm MV Area PHT 3.8 cm??? Mitral E Point Velocity 146.6 cm/s Mitral A Point Velocity 0.9 cm/s Mitral E to A Ratio 170.9 MV Deceleration Time 199.1 ms MV E' Velocity 6.0 cm/s Mitral E to MV E' Ratio 24.5 TR Peak Velocity 369.4 cm/s TR Peak Gradient 54.6 mmHg Right Ventricular Systolic Press 56.9 mmHg FINDINGS Left Ventricle Left ventricular cavity size normal. Normal left ventricular systolic function Left ventricular ejection fraction is estimated at 55-60 %. Small apical cap hypokinesia Right Ventricle Moderate right ventricular dilatation. Moderate pulmonary hypertension. Right ventricular systolic pressure estimated at 55 mm hg. Right Atrium Moderate right atrial dilatation. Catheter/pacemaker wire in the right atrial cavity. Left Atrium Moderately increased left atrial area. Mitral Valve Structurally normal mitral valve. Mitral valve thickened. Mild mitral annular calcification. Moderate mitral regurgitation. Aortic Valve Diffuse thickening (sclerosis) of the aortic valve cusps without reduced excursion. Mild aortic stenosis. No aortic regurgitation. Trileaflet. Doppler is not sensitive as not aligned very well. Tricuspid Valve Structurally normal tricuspid valve. [id number] tricuspid regurgitation. Pulmonic Valve Mild pulmonic regurgitation. Pericardium No pericardial effusion. Aorta Normal size aortic root and proximal ascending aorta. CONCLUSIONS Normal LV size, Mild LVH, Estimated LVEF 55% Small apical hypokinesia, likely old Atleast Grade I Diastolic dysfunction Moderate RV dilatation. Moderate Pulmo HTN RVSP estimated at 55 mmHg Moderate biatrial dilatation Moderate MR Aortic sclerosis with mild stenosis Old echo from 10/01 was limited study. Overall similar Previewed by: Dr Garrison Simons (Electronically Signed) Final Date: 05 July 2023 12:53
--- NOTE | 2023-07-05 13:21 | CT ---
EXAMINATION TYPE: CT lumbar spine wo con CT DLP: 1502.6 mGycm, Automated exposure control for dose reduction was used. DATE OF EXAM: 07/05/2023 9:47 AM COMPARISON: 09/19/2022., 07/12/2014.. CLINICAL INDICATION:Male, 88 years old with history of Back pain, radiculopathy; PHH, pain TECHNIQUE: Multiple axial images were obtained from the midportion of T11 through the sacroiliac yoli nts. Soft tissue and bone windows in coronal and sagittal planes were obtained and reviewed. Contrast used: none. Oral contrast used: none. FINDINGS: Alignment: There are 5 lumbar type vertebral bodies with grade 1 anterolisthesis of L4 and L5. Bone: No evidence of fracture is identified. Multilevel degeneration changes are seen throughout the spine with space narrowing, facet arthropathy and Schmorl's nodes. Thickness phenomenon is also pres ent. Discs: T12-L1: No spinal canal or neural foraminal stenosis is identified. L1-L2: Facet joint arthropathy and disc bulging result with mild spinal canal stenosis and mild bilat eral neural foraminal stenosis. L2-L3: Facet joint arthropathy and disc bulging result with mild spinal canal stenosis and mild to mo derate mild bilateral neural foraminal stenosis. L3-L4: Facet joint arthropathy and disc bulging result with mild spinal canal stenosis and moderate t o severe bilateral neural foraminal stenosis. L4-L5: Grade 1 anterolisthesis with disc uncovering, Facet joint arthropathy also present resulting in moderate spinal canal stenosis and moderate to severe bilateral neural foraminal stenosis. L5-S1: Facet joint arthropathy and disc bulging result with mild spinal canal stenosis and mild to mo derate bilateral neural foraminal stenosis. Other: Aortic stent graft with stent graft involving the superior mesenteric artery and bilateral fareed al arteries are present. Excluded lumen of the distal infrarenal abdominal aorta measuring up to 4.8 cm. Biiliac stent graft is present. The gallbladder appears surgically absent. Trace bilateral pleura l effusions. IMPRESSION: 1. No evidence for spinal fracture. 2. Moderate to severe disc degeneration changes throughout the spine worse in the lumbar spine with m ultilevel neural foraminal stenosis as described above. Spinal canal stenosis worse at L4-L5 secondar y to grade 1 anterolisthesis with at least moderate spinal canal stenosis..
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
[2023-07-05] MEDS: predniSONE 20 MG TAB PO SCH (15:54)
[2023-07-05] MEDS: ATORVASTATIN 10 MG TAB PO SCH (21:16)
[2023-07-06] MEDS: LEVOTHYROXINE 50 MCG TAB PO SCH (05:54)
[2023-07-06 07:08] VITALS: BP 153/85; RESP 18; TEMP 98.2
[2023-07-06] MEDS: ALBUTEROL NEBULIZED 2.5 MG/3 ML INHALATION SCH ×2 (08:10→16:58)
[2023-07-06 08:15] VITALS: PULSE 66
[2023-07-06] MEDS: APIXABAN 2.5 MG TABLET PO SCH (08:36)
[2023-07-06] MEDS: ASPIRIN 325 MG TAB PO SCH (08:36)
[2023-07-06] MEDS: PANTOPRAZOLE 40 MG TABLET PO SCH (08:36)
[2023-07-06] MEDS: predniSONE 20 MG TAB PO SCH (08:36)
[2023-07-06] MEDS: FUROSEMIDE 40 MG TAB PO SCH (08:36)
[2023-07-06] MEDS: ISOSORBIDE MONONITRATE ER 60 MG TAB.ER.24H PO SCH (08:42)
[2023-07-06] MEDS: oxyCODONE-APAP 5-325MG 1 EACH TAB PO PRN (08:42)
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
[2023-07-06] MEDS ORDERED: ARTIFICIAL TEARS OINTMENT 3.5 GM TUBE BOTH EYES PRN (11:38)
--- NOTE | 2023-07-06 12:45 | P.PN ---
Subjective Progress Note Date: 07/05/23 Patient still complaining of headache 7-06/19, and low back pain about 8. The headache is new onset for last 3-4 weeks. Objective - Vital Signs Vital signs: Vital Signs Temp 98.0 F 07/05/23 07:00 Pulse 66 07/05/23 12:43 Resp 16 07/05/23 08:30 BP 156/78 07/05/23 07:00 Pulse Ox 97 07/05/23 08:56 FiO2 21 07/05/23 08:56 Intake & Output 07/04/23 07/05/23 07/05/23 18:59 06:59 18:59 Intake Total 242 118 Balance 242 118 Intake: Oral 242 118 Other: Voiding Method Toilet Toilet Toilet # Voids 1 - Exam Unchanged. - Labs CBC & Chem 7: 07/04/23 05:49 07/04/23 05:49 Assessment and Plan Assessment: * Cephalgia, new onset of 3-4 weeks duration, unclear cause. Rule out temporal arteritis, however ESR and CRP are essentially normal. * Lumbar radiculopathy, probably related to lumbar spinal stenosis * Atrial fibrillation, on anticoagulation * Coronary artery disease, CHF * Hypertension * Hyperlipidemia * Pacemaker Plan: * Patient cannot have MRI because of presence of pacemaker. * X-ray of the lumbar spine showed moderate to severe multilevel degenerative disc disease and facet arthropathy, with grade 1 anterolisthesis of L4 on L5. * CT of the lumbar spine revealed no evidence for spinal fracture. Moderate to severe disc degeneration changes throughout the spine worse in the lumbar spine with multilevel neural foraminal stenosis. Spinal canal stenosis worse at L4-L5 secondary to grade 1 anterolisthesis with at least moderate spinal canal stenosis. Orthopedic spine consultation was suggested, but patient does not want any surgery. Recommend pain management, perhaps pain consult. * Patient currently on Percocet as needed for back pain. * Physical therapy. Consider gabapentin. * Patient's headache is of unclear etiology. His ESR 22, CRP <0.5, both essentially normal. CT head showed no acute process. No paranasal sinus disease. Blood pressure is well controlled. May need temporal artery biopsy. If the headache persists, we will empirically start high-dose steroids. Discussed with Dr. Hampton, we will start prednisone 60 mg daily. Vascular surgery consultation for possible temporal artery biopsy. Try Fioricet. * Hemoglobin A1c pending. * Carotid Doppler revealed less than 50% stenosis of bilateral carotid bifurcations. Antegrade flow in both vertebral arteries. * Continue Eliquis 2.5 mg twice a day for atrial fibrillation. * Lipid panel with cholesterol 94, LDL 38, HDL 45 and triglycerides 49. Continue Lipitor 10 mg. * TSH normal. * Regarding transient chest pain, we will defer to IM. Addendum: Hemoglobin A1c 6.7, suggestive of mild diabetes. Recommend healthy lifestyles, dietary management. May need treatment as per IM. Recommend follow-up A1c.
[2023-07-06] MEDS: NITROGLYCERIN OINT 1 INCH/GM PACKET TOPICAL SCH (14:20)
--- NOTE | 2023-07-06 17:49 | P.DS ---
Providers Date of admission: 07/03/23 16:03 Expected date of discharge: 07/06/23 Attending physician: Keven Hampton MD Consults: 07/03/23 16:02 Consult Physician Urgent Consulting Provider: [facility] Consult Reason/Comments: Chest pain Do you want consulting provider notified?: Yes 07/03/23 16:48 Consult Physician Routine Consulting Provider: Marcie Owen Consult Reason/Comments: temporal arteritis Do you want consulting provider notified?: Yes 07/05/23 13:57 Consult Physician Routine Consulting Provider: Leanne Herring Consult Reason/Comments: New onset headache, r/o temporal arteritis, for temporal artery biopsy Do you want consulting provider notified?: Yes Primary care physician: [facility] Course: Assessment: Headache Visual changes Chest pain, atypical Permanent atrial fibrillation, on Apixiban Chronic diastolic heart failure Hypertension Hyperlipidemia Hypothyroidism Hospital Course: 88 year old man with 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 In the emergency room, patient was afebrile, 135/68, heart rate 60, 93% on room air. CBC demonstrated anemia down to 9.2, down from 11.1. Basic metabolic panel shows CO2 of 31, BMI 29, creatinine of 1.14. Liver function tests are unremarkable. Troponins 0.0-1. Coags are unremarkable. Urinalysis shows trace protein. Covid was negative. Chest x-ray demonstrates vascular congestion, cardiomegaly, left-sided pleural effusion increased from prior. EKG demonstrated ventricular paced rhythm. Brain CT showed age-related atrophic and chronic small vessel ischemic change. Lumbar x-ray shows moderate to severe multilevel degenerative disc disease and facet arthropathy at the lumbar spine, grade 1 anterolisthesis of L4 to L5. Case was discussed with the emergency room provider and decision was made to admit the patient to observation for headache, episode of chest pain. Pt was treated with a dose of 1000mg of IV solumedrol due to suspicion of temporal arteritis. His ESR returned 22 and CRP < 0.5, therefore severe temporal arteritis ruled out. Neurology evaluated patient and recommend dose of prednisone to tx headache that could still be mild temporal arteritis. Pts HAs improved with steroids, and he was given a total 7 day course on discharge. Pt also underwent CT scan to eval for pleural effusion, and this showed small left sided one. Cardiology cleared patient to return to PO lasix for volume management. He was discharged with instructions to f/u with PCP, cardiology. Pt should be considered for pain management referral for radicular pain down right leg and CT L spine showing retrolisthesis of L4-L5. I spent 40 minutes coordinating this discharge on 07/06 Gen: in no apparent distress, resting comfortably in bed Eyes: PERRL, no scleral injection or icterus, area of scarring on the cornea of the left eye HENT: normocephalic, atraumatic, good hearing acuity, moist mucous membranes, tenderness to palpation of the left anglican, mandible Neck: no tracheal deviation, full range of motion Resp: good air exchange, breathing comfortably with no accessory muscle use, no tactile fremitus, diminished breath sounds on the left, crackles in the right base CVS: good distal perfusion x 4, bilateral pitting edema, regular rate and rhythm without murmurs GI: soft, NTTP, ND, no hepatosplenomegaly : no suprapubic tenderness, no CVAT, herring catheter not present MSK: no clubbing, no cyanosis, no noted contractures of extremities Skin: no noted rashes, petechiae; temperature of skin is appropriate Neuro: moving all extremities without signs of weakness, CN II-XII intact Psych: cooperative, euthymic mood, insight and judgment intact Patient Condition at Discharge: Good Plan - Discharge Summary New Discharge Prescriptions: New predniSONE [Deltasone] 60 mg PO DAILY #21 tab Aspirin 81 mg PO DAILY #30 tab Continue Levothyroxine Sodium [Synthroid] 50 mcg PO DAILY Simvastatin [Zocor] 20 mg PO HS Potassium Chloride [Klor-Con 20] 20 meq PO HS Isosorbide Mononitrate ER [Imdur] 60 mg PO DAILY Pantoprazole Sodium [Protonix] 40 mg PO DAILY #30 tablet. Apixaban [Eliquis] 2.5 mg PO BID #60 tab Glucosamine/Chondr Nguyen A Sod [Osteo Bi-Flex Caplet] 1 tab PO DAILY Magnesium Hydroxide [Milk of Magnesia] 2,400 mg PO DAILY PRN PRN Reason: Constipation Loratadine [Claritin] 10 mg PO DAILY PRN PRN Reason: Allergy Symptoms Albuterol Nebulized [Ventolin Nebulized] 2.5 mg INHALATION RT-QID oxyCODONE HCL/ACETAMINOPHEN [Percocet 5-325 mg] 1 tab PO BID PRN PRN Reason: Pain Furosemide [Lasix] 40 mg PO DAILY Ibuprofen [Motrin] 600 mg PO Q8HR PRN PRN Reason: Pain Discharge Medication List Levothyroxine Sodium [Synthroid] 50 mcg PO DAILY 08/30/14 [History] Potassium Chloride [Klor-Con 20] 20 meq PO HS 08/30/14 [History] Simvastatin [Zocor] 20 mg PO HS 08/30/14 [History] Isosorbide Mononitrate ER [Imdur] 60 mg PO DAILY 07/30/17 [History] Apixaban [Eliquis] 2.5 mg PO BID #60 tab 03/29/20 [Rx] Pantoprazole Sodium [Protonix] 40 mg PO DAILY #30 tablet. 03/29/20 [Rx] Glucosamine/Chondr Nguyen A Sod [Osteo Bi-Flex Caplet] 1 tab PO DAILY 10/11/20 [History] Loratadine [Claritin] 10 mg PO DAILY PRN 04/06/21 [History] Albuterol Nebulized [Ventolin Nebulized] 2.5 mg INHALATION RT-QID 12/31/21 [History] Furosemide [Lasix] 40 mg PO DAILY 07/03/23 [History] Ibuprofen [Motrin] 600 mg PO Q8HR PRN 07/03/23 [History] Magnesium Hydroxide [Milk of Magnesia] 2,400 mg PO DAILY PRN 07/03/23 [History] oxyCODONE HCL/ACETAMINOPHEN [Percocet 5-325 mg] 1 tab PO BID PRN 07/03/23 [History] Aspirin 81 mg PO DAILY #30 tab 07/06/23 [Rx] predniSONE [Deltasone] 60 mg PO DAILY #21 tab 07/06/23 [Rx] Follow up Appointment(s)/Referral(s): Sunny Reina DO [STAFF PHYSICIAN] - 1 Week Gómez Norris DO [Primary Care Provider] - 1-2 days Patient Instructions/Handouts: Heart Failure (DC), Chest Pain (DC), Sciatica (DC) Discharge Disposition: HOME SELF-CARE
--- NOTE | 2023-07-08 15:16 | CDI ---
Documentation Clarification Form Date: 07/08/2023 02:56:25 PM From: Maureen Marie Phone: Admit Date: 07/05/2023 02:32:00 PM Patient Name: Hong Villafana Visit Number: [id number] Discharge Date: 07/06/2023 03:00:00 PM ATTENTION: The Clinical Documentation Specialists (CDI) and [facility] Coding Staff appreciate your assistance in clarifying documentation. Please respond to the clarification below the line at the bottom and electronically sign. The CDI & [facility] Coding staff will review the response and follow-up if needed. Please note: Queries are made part of the Legal Health Record. If you have any questions, please contact the author of this message via ITS. Dr. Keven Hampton Your patient has Hx Respiratory Disorder and is receiving the following: using nasalBiPAP per Dr. Remy Consult 07/04/23 and 2 L O2at night with BiPAPper H&P Note. Please clarify what condition/diagnosis is being treated. History/Risk Factors: 88yo M, Perm a Fib,CAD,CDHF,HLD, HTN, Respiratory Disorder,JORDANA, AVB, CAD Clinical Indicators: Severe JORDANA with an H of 128 seated with a BiPAPpressure of 17/13 cm of water uses2 L of O2at night Chest X-Ray: Scattered senescent parenchymal changes noted. Hyperinflation compatible with COPD. Treatment: using nasalBiPAP and 2 L of oxygenat night Albuterol Nebulized[Ventolin 2.5 mg INHALATION RT-QID home dose What diagnosis are you treating with BiPap and 2 L of oxygenat night? [ x ] COPD [ ] Chronic Respiratory Failure [ ] Hypoxic [ ] Hypercapnic [ ] No additional diagnosis [ ] Other, please specify [ ] Unable to determine (Template Last Reviewed: December 2020) MTDD
== END 2023-07-06 15:00 | disposition home or self-care (01) | DRG 103 ==
LOC: EC 12:58 → 6NMEDSUR 16:03 → OBSVTOIN 07-05 14:32 → UNDODISOB 07-06 15:00
PROVIDERS: ADMIT Internal Medicine; ATTEND Internal Medicine
DX: R51.9 Headache, unspecified (principal); I44.2 Atrioventricular block, complete; I48.21 Permanent atrial fibrillation; I50.32 Chronic diastolic (congestive) heart failure; I11.0 Hypertensive heart disease with heart failure; E78.5 Hyperlipidemia, unspecified; E03.9 Hypothyroidism, unspecified; G47.33 Obstructive sleep apnea (adult) (pediatric); D64.9 Anemia, unspecified; I25.10 Atherosclerotic heart disease of native coronary artery without angina pectoris; M51.16 Intervertebral disc disorders with radiculopathy, lumbar region; M48.061 Spinal stenosis, lumbar region without neurogenic claudication; M51.17 Intervertebral disc disorders with radiculopathy, lumbosacral region; M48.07 Spinal stenosis, lumbosacral region; H17.89 Other corneal scars and opacities; M19.011 Primary osteoarthritis, right shoulder; J44.9 Chronic obstructive pulmonary disease, unspecified; M43.16 Spondylolisthesis, lumbar region; M19.012 Primary osteoarthritis, left shoulder; Z20.822 Contact with and (suspected) exposure to COVID-19; Z96.653 Presence of artificial knee joint, bilateral; Z99.81 Dependence on supplemental oxygen; Z95.820 Peripheral vascular angioplasty status with implants and grafts; Z95.828 Presence of other vascular implants and grafts; Z95.5 Presence of coronary angioplasty implant and graft; Z86.79 Personal history of other diseases of the circulatory system; Z79.899 Other long term (current) drug therapy; Z95.0 Presence of cardiac pacemaker; Z87.891 Personal history of nicotine dependence; Z79.890 Hormone replacement therapy; Z79.01 Long term (current) use of anticoagulants; Z79.51 Long term (current) use of inhaled steroids; Z88.8 Allergy status to other drugs, medicaments and biological substances
CPT/HCPCS: 36415; 70450; 71046; 71250; 72100; 72131; 80048; 80053; 80061; 81003; 83036; 83605; 83735; 84443; 84484; 85025; 85610; 85652; 85730; 86140; 87635; 93005; 93306; 93880; 94640; 94660; 94760; 96361; 96374; 96375; 99285

== ENCOUNTER → 2023-11-20 | Outpatient (CLI) | payer MEDICARE ==
[2023-11-21 02:59] LABS: ALT 6 U/L (10-49); AST 17 U/L (14-35); Albumin 3.9 g/dL (3.8-4.9); Albumin/Globulin Ratio 1.11 Ratio (1.60-3.17); Alkaline Phosphatase 99 U/L (41-126); BUN/Creat Ratio 23.93 Ratio (12.00-20.00); Blood Urea Nitrogen 35.9 mg/dL (9.0-27.0); Calcium 9.5 mg/dL (8.7-10.3); Carbon Dioxide 31.2 mmol/L (21.6-31.8); Chloride 100 mmol/L (96-109); Globulin 3.5 g/dL (1.6-3.3); Glucose 88 mg/dL (70-110); LDL Cholesterol,Calculated 52.3 mg/dL (0.0-131.0); Potassium 5.2 mmol/L (3.5-5.5); Sodium 142 mmol/L (135-145); Total Bilirubin 0.4 mg/dL (0.3-1.2); Total Protein 7.4 g/dL (6.2-8.2); VLDL Calculation 18.46 mg/dL (5.00-40.00)
== END | disposition home or self-care (01) ==
LOC: LABWHC1 11:46
PROVIDERS: ATTEND Internal Medicine Interventional Cardiology
DX: E78.2 Mixed hyperlipidemia (principal)
CPT/HCPCS: 36415; 80053; 80061

== ENCOUNTER → 2023-12-18 | Outpatient (CLI) | payer MEDICARE ==
[2023-12-18 14:42] LABS: African American GFR (CKD) 53 (>60 ml/min/1.73 sqM); Blood Urea Nitrogen 37 mg/dL (9-20); Non-African American GFR(CKD) 46 (>60 ml/min/1.73 sqM)
--- NOTE | 2023-12-18 16:52 | CT ---
EXAMINATION TYPE: CT soft tissue neck w con CT DLP: 678 mGycm, Automated exposure control for dose reduction was used. DATE OF EXAM: 12/18/2023 3:59 PM COMPARISON: 07/30/2019. 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 Axial sections with coronal and sagittal reformats were obtained. Contrast used:80 mL of Isovue 300 with IV Contrast, (None if empty) Oral contrast used: (None if empty) FINDINGS: Brain: Visualized portions are grossly unremarkable. Bilateral aphakia. Atherosclerosis of the intrac ranial vasculature. Orbits: Unremarkable Sinuses: Grossly unremarkable. Spaces of the neck: Clear and symmetric. The salivary glands are symmetric. No evidence for inflammat ion. Musculoskeletal: No acute osseous pathology. Severe degeneration changes of the shoulders with end-st age osteoarthrosis of the right shoulder with full-thickness rotator cuff tear and atrophy changes of the rotator cuff muscles. Multilevel degeneration changes throughout the spine worse at C4-C7. Lymph nodes: Multiple nonenlarged lymph nodes are seen along both anterior chains of the neck. Vascular structures: Patent with atherosclerotic plaque of the internal carotid arteries at the bifur cation. There is at least 50% stenosis of the right carotid bifurcation. Atherosclerosis of the arter ial vasculature. Thoracic Inlet/airway: Airway is patent. Trace left pleural effusion. Right apical scarring. Cardiac conduction leads partially visualized. Soft tissues/Thyroid: Thyroid and remainder of the soft tissues are unremarkable. Other: none. IMPRESSION: 1. Symmetric appearing salivary glands without evidence for stone or acute inflammation.. No evidenc e for lymphadenopathy. 2. Atherosclerosis of the carotid bifurcations with at least 50% stenosis of the right carotid bifur cation.
[2023-12-19 10:30] LABS: ALT 9 U/L (4-49); AST 20 U/L (17-59); Albumin 3.6 g/dL (3.5-5.0); Alkaline Phosphatase 87 U/L (38-126); Calcium 8.7 mg/dL (8.4-10.2); Carbon Dioxide 31 mmol/L (22-30); Chloride 106 mmol/L (98-107); Glucose 112 mg/dL (74-99); Potassium 4.4 mmol/L (3.5-5.1); Sodium 142 mmol/L (137-145); Total Bilirubin 0.4 mg/dL (0.2-1.3)
[2023-12-19 10:39] LABS: NT-Pro-B-Type Natriuretic Pept 7170 pg/mL
[2023-12-19 17:22] LABS: Chol/HDL Ratio 2.16 Ratio; LDL Cholesterol,Calculated 42.5 mg/dL (0.0-131.0); VLDL Calculation 14.36 mg/dL (5.00-40.00)
== END | disposition home or self-care (01) ==
LOC: RADCTMAIN 13:52
PROVIDERS: ATTEND Otolaryngology
DX: K11.23 Chronic sialoadenitis (principal); I65.23 Occlusion and stenosis of bilateral carotid arteries
CPT/HCPCS: 82565; 84520; 70491; 36415; Q9967; 80061; 82040; 82247; 82310; 82374; 82435; 82947; 83880; 84075; 84132; 84155; 84295; 84450; 84460

== ENCOUNTER → 2024-03-22 | Outpatient (CLI) | payer MEDICARE ==
[2024-03-22 14:53] LABS: NT-Pro-B-Type Natriuretic Pept 3904 pg/mL (0-450)
[2024-03-22 14:56] LABS: BUN/Creat Ratio 28.43 Ratio (12.00-20.00); Blood Urea Nitrogen 39.8 mg/dL (9.0-27.0); Calcium 9.1 mg/dL (8.7-10.3); Carbon Dioxide 25.5 mmol/L (21.6-31.8); Chloride 106 mmol/L (96-109); Glucose 91 mg/dL (70-110); Potassium 4.1 mmol/L (3.5-5.5); Sodium 144 mmol/L (135-145)
== END | disposition home or self-care (01) ==
LOC: LABWHC1 09:17
PROVIDERS: ATTEND Internal Medicine Interventional Cardiology
DX: I50.22 Chronic systolic (congestive) heart failure (principal)
CPT/HCPCS: 36415; 80048; 83880